=== PATIENT | female | born 1950 | race Caucasian/White ===

== ENCOUNTER → 2016-11-05 | Outpatient (CLI) | payer MEDICARE ==
[2016-11-05 17:13] LABS: ALT 51 U/L (9-52); AST 41 U/L (14-36); Alkaline Phosphatase 86 U/L (38-126); Anion Gap 11 mmol/L; Blood Urea Nitrogen 11 mg/dL (7-17); Calcium 9.8 mg/dL (8.4-10.2); Carbon Dioxide 26 mmol/L (22-30); Chloride 104 mmol/L (98-107); Cholesterol 231 mg/dL (<200); Glucose 80 mg/dL (74-99); HDL Cholesterol 108 mg/dL (40-60); Non-African American GFR(MDRD) >60 (>60 ml/min/1.73 sqM); Potassium 4.7 mmol/L (3.5-5.1); Sodium 141 mmol/L (137-145); Total Bilirubin 0.4 mg/dL (0.2-1.3); Total Protein 7.7 g/dL (6.3-8.2); Triglycerides 207 mg/dL (<150)
== END | disposition home or self-care (01) ==
LOC: LABWHC1 16:27
PROVIDERS: ATTEND Internal Medicine Clinical Cardiac Electrophysiology
DX: E78.5 Hyperlipidemia, unspecified (principal)
CPT/HCPCS: 36415; 80053; 80061

== ENCOUNTER → 2020-08-25 | Outpatient (CLI) | payer MEDICARE ==
[2020-08-25 11:44] LABS: African American GFR (CKD) >90 (>60 ml/min/1.73 sqM); Blood Urea Nitrogen 7 mg/dL (7-17); Non-African American GFR(CKD) >90 (>60 ml/min/1.73 sqM)
--- NOTE | 2020-09-01 16:24 | CT ---
EXAMINATION TYPE: CT chest w con DATE OF EXAM: 08/25/2020 COMPARISON: CT from outside institution 08/16/2019 HISTORY: R 91.1, lung nodule CT DLP: 201.9 mGycm Automated exposure control for dose reduction was used. CONTRAST: CT scan of the chest is performed with IV Contrast, patient injected with 100 mL of Isovue 300. FINDINGS: LUNGS: The lungs are essentially stable, there is groundglass nodule in the left lower lobe measuring approximately 15 mm in greatest AP dimension as on prior exam. Scattered cystic lucencies are presen t within the lungs as on prior exam. Stable subpleural nodular density present posteriorly left lowe r lobe, axial image #30 likely a scar, apical scarring posteriorly on the right, axial image #11. The re is no pleural effusion or pneumothorax seen. The tracheobronchial tree is patent. There are areas of bronchial wall thickening. Some anterior scarring in the right upper lobe or possibly atelectatic change is an interval finding, axial image #36 MEDIASTINUM: There are no greater than 1 cm hilar or mediastinal lymph nodes. Findings similar to neal or. No pericardial effusion is seen. AORTA: No additional significant abnormality is seen. OTHER: There may be right subclavian vein stenosis, collateral vascular enhancement over the upper r ight chest is noted. Low dense liver is again seen consistent with hepatic steatosis, there is a smal l hiatal hernia. IMPRESSION: No suspicious nodule is evident. Additional nonspecific findings above.
== END | disposition home or self-care (01) ==
LOC: RADCTMAIN 11:00
PROVIDERS: ATTEND Internal Medicine Critical Care Medicine
DX: R91.1 Solitary pulmonary nodule (principal); K44.9 Diaphragmatic hernia without obstruction or gangrene; J98.09 Other diseases of bronchus, not elsewhere classified
CPT/HCPCS: 82565; 84520; 71260; 36415; Q9967

== ENCOUNTER 2020-11-11 18:29 | Emergency (ER) | payer MEDICARE ==
[2020-11-11 18:45] VITALS: RESP 18; TEMP 97.8
--- NOTE | 2020-11-11 19:36 | ED ---
General Adult HPI - General Chief complaint: Fall Stated complaint: Fall Time Seen by Provider: 11/11/20 19:10 Source: patient, EMS Mode of arrival: EMS Limitations: altered mental status - History of Present Illness Initial comments: 70-year-old female with a past medical history of hyperlipidemia resents to the emergency department for a chief complaint of possible syncopal episode. Patient is a poor historian and actually does not recall any events from today. Her boyfriend is in the room and states that he stays with her at nights and then leaves during the day to go to his own house. He states that he left her at about 10:30 AM. He had not heard from her and came back to the house to find her on the floor of the garage. States he had to wake her up. Patient does admit to drinking a pint of alcohol. Patient states this [place] She again does not recall any events of the episode except that she was wearing shoes at the time.patient reports she usually drinks about half a pint a day. Patient does admit to hyperlipidemia but does not take her medication simvastatin. She denies any blood thinners including aspirin. Patient also has a 50 year smoking history. She she does have a history of a pericardial effusion but otherwise does not know if she has any other cardiac history. Patient has no other complaints at this time including shortness of breath, chest pain, abdominal pain, nausea or vomiting, headache, or visual changes. - Related Data Allergies Allergy/AdvReac Type Severity Reaction Status Date / Time No Known Allergies Allergy Verified 11/11/20 20:31 Review of Systems ROS Statement: Those systems with pertinent positive or pertinent negative responses have been documented in the HPI. ROS Other: All systems not noted in ROS Statement are negative. Past Medical History Past Medical History: Hyperlipidemia History of Any Multi-Drug Resistant Organisms: None Reported Past Surgical History: No Surgical Hx Reported Past Psychological History: Anxiety, Depression Smoking Status: Current every day smoker Past Alcohol Use History: Abuse, Heavy Past Drug Use History: None Reported General Exam Limitations: altered mental status General appearance: alert, in no apparent distress Head exam: Present: atraumatic, normocephalic, normal inspection Eye exam: Present: PERRL, EOMI, other (Patient has right-sided periorbital ecchymosis. Globe appears normal.). Absent: scleral icterus, conjunctival injection ENT exam: Present: normal exam, mucous membranes moist Neck exam: Present: other (C-collar is in place). Absent: tenderness Respiratory exam: Present: normal lung sounds bilaterally. Absent: respiratory distress, wheezes Cardiovascular Exam: Present: regular rate, normal rhythm, normal heart sounds. Absent: systolic murmur, diastolic murmur, rubs, gallop, clicks GI/Abdominal exam: Present: soft, normal bowel sounds. Absent: distended, tenderness, guarding, rebound, rigid Neurological exam: Present: alert, oriented X3 Course Vital Signs 11/11/20 18:37 Temperature 97.8 F Pulse Rate 86 Respiratory 18 Rate Blood Pressure 119/77 O2 Sat by Pulse 94 L Oximetry - Reevaluation(s) Reevaluation #1: 11/11/20 20:49 I did not receive a call that patient had a brain bleed on CAT scan from radiology. I did review the report at about 8:40 PM however it was signed at 8:23. At that time [facility] was p[facility]. I did speak with [facility] at 8:50 PM but they were unable to touch base with the neurosurgeon and stated they would call back. 11/11/20 21:15 11/11/20 21:16 Reevaluation #2: 11/11/20 21:[address] Dobbins neurosurgery at [facility]. He does want a trauma admission. Therefore I have to talk to trauma as well. Transfer line could not get ahold of them, so again they will need to call me back. EKG Findings - EKG Comments: EKG Findings:: NSR , vent rate 86, MS int 130, QTc 454 Medical Decision Making - Medical Decision Making 70-year-old female presents to the emergency room for possible fall versus syncope. Patient does present in a c-collar. No focal neurologic deficits. CBC CMP unremarkable. However patient alcohol was found to be 275. CT cervical spine showed no fracture. CT brain showed mild cervical atrophy with a small area of subtle linear density at the right parietal convexity suggestive of mild petechial hemorrhage at the surface of the brain. CT face was also obtained. No fracture. There is lateral right-sided periorbital soft tissue swelling. Patient c-collar cannot be cleared given her alcohol level. Patient will require transfer to [facility] for neurosurgery consultation. - Lab Data Result diagrams: 11/11/20 20:08 11/11/20 20:08 Lab Results 11/11/20 11/11/20 11/11/20 Range/Units 20:08 20:08 20:08 WBC 4.8 (3.8-10.6) k/uL RBC 3.50 L (3.80-5.40) m/uL Hgb 12.5 (11.4-16.0) gm/dL Hct 36.4 (34.0-46.0) % MCV 104.1 H (80.0-100.0) fL MCH 35.6 H (25.0-35.0) pg MCHC 34.2 (31.0-37.0) g/dL RDW 13.6 (11.5-15.5) % Plt Count 147 L (150-450) k/uL MPV 8.6 Neutrophils % 56 % Lymphocytes % 25 % Monocytes % 7 % Eosinophils % 6 % Basophils % 1 % Neutrophils # 2.7 (1.3-7.7) k/uL Lymphocytes # 1.2 (1.0-4.8) k/uL Monocytes # 0.3 (0-1.0) k/uL Eosinophils # 0.3 (0-0.7) k/uL Basophils # 0.1 (0-0.2) k/uL Macrocytosis Slight PT 10.2 (9.0-12.0) sec INR 0.9 (<1.2) APTT 22.6 (22.0-30.0) sec Sodium 134 L (137-145) mmol/L Potassium 3.8 (3.5-5.1) mmol/L Chloride 93 L (98-107) mmol/L Carbon Dioxide 25 (22-30) mmol/L Anion Gap 16 mmol/L BUN 7 (7-17) mg/dL Creatinine 0.44 L (0.52-1.04) mg/dL Est GFR (CKD-EPI)AfAm >90 (>60 ml/min/1.73 sqM) Est GFR (CKD-EPI)NonAf >90 (>60 ml/min/1.73 sqM) Glucose 79 (74-99) mg/dL Calcium 8.9 (8.4-10.2) mg/dL Magnesium 1.6 (1.6-2.3) mg/dL Total Bilirubin 0.6 (0.2-1.3) mg/dL AST 468 H (14-36) U/L ALT 167 H (4-34) U/L Alkaline Phosphatase 125 (38-126) U/L Creatine Kinase 109 (30-135) U/L Troponin I (0.000-0.034) ng/mL Total Protein 6.7 (6.3-8.2) g/dL Albumin 4.3 (3.5-5.0) g/dL Serum Alcohol 275 H* mg/dL 11/11/20 Range/Units 20:08 WBC (3.8-10.6) k/uL RBC (3.80-5.40) m/uL Hgb (11.4-16.0) gm/dL Hct (34.0-46.0) % MCV (80.0-100.0) fL MCH (25.0-35.0) pg MCHC (31.0-37.0) g/dL RDW (11.5-15.5) % Plt Count (150-450) k/uL MPV Neutrophils % % Lymphocytes % % Monocytes % % Eosinophils % % Basophils % % Neutrophils # (1.3-7.7) k/uL Lymphocytes # (1.0-4.8) k/uL Monocytes # (0-1.0) k/uL Eosinophils # (0-0.7) k/uL Basophils # (0-0.2) k/uL Macrocytosis PT (9.0-12.0) sec INR (<1.2) APTT (22.0-30.0) sec Sodium (137-145) mmol/L Potassium (3.5-5.1) mmol/L Chloride (98-107) mmol/L Carbon Dioxide (22-30) mmol/L Anion Gap mmol/L BUN (7-17) mg/dL Creatinine (0.52-1.04) mg/dL Est GFR (CKD-EPI)AfAm (>60 ml/min/1.73 sqM) Est GFR (CKD-EPI)NonAf (>60 ml/min/1.73 sqM) Glucose (74-99) mg/dL Calcium (8.4-10.2) mg/dL Magnesium (1.6-2.3) mg/dL Total Bilirubin (0.2-1.3) mg/dL AST (14-36) U/L ALT (4-34) U/L Alkaline Phosphatase (38-126) U/L Creatine Kinase (30-135) U/L Troponin I <0.012 (0.000-0.034) ng/mL Total Protein (6.3-8.2) g/dL Albumin (3.5-5.0) g/dL Serum Alcohol mg/dL Disposition Clinical Impression: Closed petechial hemorrhage of brain, Alcohol intoxication, Fall Disposition: OTHER INSTITUTION NOT DEFINED Referrals: None,Stated [Primary Care Provider] - 1-2 days - Out of Hospital Transfer - Req. Specs Out of Hospital Transfer - Requested Specifics: Other [facility] ([facility])
[2020-11-11 20:17] LABS: Basophils # (A) 0.1 k/uL (0-0.2); Basophils % (A) 1 %; Eosinophils # (A) 0.3 k/uL (0-0.7); Eosinophils % (A) 6 %; HCT 36.4 % (34.0-46.0); HGB 12.5 gm/dL (11.4-16.0); Lymphocytes # (A) 1.2 k/uL (1.0-4.8); Lymphocytes % (A) 25 %; MCH 35.6 pg (25.0-35.0); MCHC 34.2 g/dL (31.0-37.0); MCV 104.1 fL (80.0-100.0); Macrocytosis Slight; Mean Platelet Volume 8.6; Monocytes # (A) 0.3 k/uL (0-1.0); Monocytes % (A) 7 %; Neutrophils # (A) 2.7 k/uL (1.3-7.7); Neutrophils % (A) 56 %; Platelet Count 147 k/uL (150-450); RDW 13.6 % (11.5-15.5); WBC 4.8 k/uL (3.8-10.6)
--- NOTE | 2020-11-11 20:17 | CT ---
EXAMINATION TYPE: CT facial bones wo con DATE OF EXAM: 11/11/2020 COMPARISON: None HISTORY: fall, confusion CT DLP: combined DLP 990.3 mGycm Automated exposure control for dose reduction was used. Images obtained from the bottom of the mandible to the top of the frontal sinuses with no contrast. The mandibular ring is intact. Temporomandibular joints are intact. Zygomatic arches appear normal. M axilla appears intact. Nasal bone appears intact. There is no evidence of orbital blowout fracture. T here is mucosal thickening in the maxillary sinuses. There is no evidence of orbital mass. There is n o retro-orbital mass. There is some soft tissue swelling lateral to the right orbit. There is mucosal thickening in the anterior ethmoid and frontal sinuses. IMPRESSION: No fracture. Lateral right side periorbital soft tissue swelling. Mild sinusitis.
[2020-11-11 20:28] LABS: ALT 167 U/L (4-34); AST 468 U/L (14-36); African American GFR (CKD) >90 (>60 ml/min/1.73 sqM); Albumin 4.3 g/dL (3.5-5.0); Alkaline Phosphatase 125 U/L (38-126); Anion Gap 16 mmol/L; Blood Urea Nitrogen 7 mg/dL (7-17); Calcium 8.9 mg/dL (8.4-10.2); Carbon Dioxide 25 mmol/L (22-30); Chloride 93 mmol/L (98-107); Creatine Kinase 109 U/L (30-135); Glucose 79 mg/dL (74-99); Magnesium 1.6 mg/dL (1.6-2.3); Non-African American GFR(CKD) >90 (>60 ml/min/1.73 sqM); Potassium 3.8 mmol/L (3.5-5.1); Sodium 134 mmol/L (137-145); Total Bilirubin 0.6 mg/dL (0.2-1.3); Total Protein 6.7 g/dL (6.3-8.2)
[2020-11-11 20:29] LABS: INR 0.9 (<1.2); Partial Thromboplastin Time 22.6 sec (22.0-30.0); Prothrombin Time 10.2 sec (9.0-12.0)
--- NOTE | 2020-11-11 20:30 | CT ---
EXAMINATION TYPE: CT brain cspine wo con DATE OF EXAM: 11/11/2020 COMPARISON: None HISTORY: fall, confusion CT DLP: combined DLP 990.3 mGycm Automated exposure control for dose reduction was used. There is mild cerebral atrophy. There is no mass effect nor midline shift. There is some minimal line ar density in the right parietal lobe convexity that could be some petechial hemorrhage. The calvariu m is intact. Skull base is intact. There is normal aeration of the mastoid sinuses. The cervical vertebra have normal alignment. There is degenerative disc space narrowing at C5-6 and C 6-7 with spurring of the endplates. There is multilevel cervical facet arthropathy. Prevertebral soft tissues are intact. IMPRESSION: Spondylotic changes in the lower cervical spine. No fracture. Mild cerebral atrophy. Small area of subtle linear density at the right parietal convexity suggestive of some mild petechial hemorrhage at the surface of the brain.
[2020-11-11] MEDS ORDERED: LORazepam 2 MG/ML INJ IV STA (20:47)
[2020-11-11] MEDS ORDERED: NICOTINE 21MG/24HR PATCH TRANSDERM STA (20:47)
--- NOTE | 2020-11-11 21:13 | XR ---
EXAMINATION TYPE: XR chest 2V DATE OF EXAM: 11/11/2020 COMPARISON: 09/03/2011 HISTORY: Syncope TECHNIQUE: FINDINGS: Heart is normal. Lungs are clear of infiltrate. There is no heart failure. There are no hil ar masses. Bony thorax is intact. There are chest leads. IMPRESSION: No active cardiopulmonary disease. Normal heart. No change.
--- NOTE | 2020-11-11 21:14 | XR ---
EXAMINATION TYPE: XR shoulder complete RT DATE OF EXAM: 11/11/2020 COMPARISON: NONE HISTORY: Fall. Syncope. TECHNIQUE: 3 views FINDINGS: I see no fracture nor dislocation. Joint spaces are normal. There are no pathologic calcifi cations. IMPRESSION: Negative right shoulder exam.
[2020-11-11 21:19] LABS: Appearance,Urine Clear (Clear); Bacteria,Urine Rare /hpf; Bilirubin,Urine Negative (Negative); Blood,Urine Trace (Negative); Color,Urine Yellow; Glucose,Urine (UA) Negative (Negative); Ketones,Urine Trace (Negative); Leukocyte Esterase,Urine Negative (Negative); Nitrite,Urine Negative (Negative); Protein,Urine Negative (Negative); RBC,Urine <1 /hpf (0-5); Specific Gravity,Urine 1.003 (1.001-1.035); Squamous Epithelial Cell,Urine 2 /hpf (0-4); Urobilinogen,Urine <2.0 mg/dL (<2.0); WBC,Urine 1 /hpf (0-5)
[2020-11-11 21:36] VITALS: BP 131/84; PULSE 94
[2020-11-11 22:38] LABS: Alcohol 275 mg/dL
== END 2020-11-11 21:45 | disposition other institution (70) ==
LOC: EC 18:29
DX: S06.2X9A Diffuse traumatic brain injury with loss of consciousness of unspecified duration, initial encounter (principal); F10.129 Alcohol abuse with intoxication, unspecified; E78.5 Hyperlipidemia, unspecified; F17.200 Nicotine dependence, unspecified, uncomplicated; Y90.8 Blood alcohol level of 240 mg/100 ml or more; W18.39XA Other fall on same level, initial encounter; Y92.59 Other trade areas as the place of occurrence of the external cause
CPT/HCPCS: 36415; 93005; 80053; 82550; 83735; 84484; 85025; 85610; 85730; 81001; 73030; 71046; 72125; 70486; 70450; 96374; 99285; G0480; S4990; J2060; 80320

== ENCOUNTER → 2021-03-11 | Outpatient (CLI) | payer MEDICARE ==
--- NOTE | 2021-03-11 11:31 | XR ---
EXAMINATION TYPE: XR chest w obliques DATE OF EXAM: 03/11/2021 COMPARISON: 11/11/2020 HISTORY: 70-year-old female R05 TECHNIQUE: 4 views FINDINGS: The heart is normal size. Mild peribronchial cuffing. Mild hyperinflation and mild interstitial promi nence. There is a possible right basilar pulmonary nodule seen on the AP and right oblique views. No consoli dation or pleural effusion. Moderate degenerative disc disease midthoracic spine. IMPRESSION: COPD with possible right basilar pulmonary nodule. A repeat CT chest can assess for any changes prabha red to the 08/25/2020 CT.
== END | disposition home or self-care (01) ==
LOC: RADXRMAIN 08:43
PROVIDERS: ATTEND Otolaryngology
DX: J44.9 Chronic obstructive pulmonary disease, unspecified (principal)
CPT/HCPCS: 71047

== ENCOUNTER → 2021-04-13 | Outpatient (CLI) | payer MEDICARE ==
[2021-04-13 13:37] LABS: African American GFR (CKD) >90 (>60 ml/min/1.73 sqM); Blood Urea Nitrogen 10 mg/dL (7-17); Non-African American GFR(CKD) >90 (>60 ml/min/1.73 sqM)
--- NOTE | 2021-04-13 15:17 | CT ---
EXAMINATION TYPE: CT chest wo/w con DATE OF EXAM: 04/13/2021 COMPARISON: 08/25/2020 HISTORY: 70 year old R91.1 follow up pulmonary nodule TECHNIQUE: Contiguous axial scanning of the chest before and after the administration of 100 mL of Is ovue 300. Coronal/sagittal reconstructions performed. CT DLP: 339.9mGycm. Automatic exposure control utilized for a dose reduction. FINDINGS: The heart is normal size without pericardial effusion. LAD and circumflex coronary calcifications are present. Aorta normal caliber with conventional arch vessel branching anatomy. Not enlarged lower right paratracheal lymph nodes measuring up to 6 mm. Stable 1.5 cm right hilar lym ph node. A 1.5 x 0.8 cm right bronchial lymph node, axial image 35 previously measured 2.0 x 1.7 cm. No enlarg ing adenopathy is seen. Mild emphysematous change. A 1.1 x 0.5 cm posterior right upper lobe pulmonary nodule is unchanged. 1.5 cm groundglass focus superior segment left lower lobe on axial image 23 is unchanged. No consolidation or pleural effusion. Small hernia. Circumferential wall thickening distal esophagus. Low attenuation of the hepatic parenc hyma suggesting fatty infiltration. 1.6 cm left upper pole renal cortical cyst. The anterior splenule . Some diverticular change along the left side of the colon. Bones: Mild/moderate degenerative disc disease mid thoracic spine and also L2-L3. No osseous destruct franky process. Additional cervical spondylosis noted. IMPRESSION: 1. COPD with mild emphysema. 2. Right bronchial soft tissue measuring 1.5 x 0.8 cm (versus 2.0 x 1.7 cm on 08/25/2020). Findings sug gest a reactive lymph node. 3. Stable 1.1 cm posterior right upper lobe pulmonary nodule and stable 1.5 cm groundglass focus supe rior segment left lower lobe. Recommend either twelve-month follow-up as a precautionary measure vers us continued annual low-dose lung cancer screening CT. 4. Small hiatal hernia. There is circumferential wall thickening of the distal esophagus that could r epresent esophagitis. Correlate with patient's symptoms as to the need for direct visualization. 5. Hepatic steatosis.
== END | disposition home or self-care (01) ==
LOC: RADCTMAIN 12:51
PROVIDERS: ATTEND Otolaryngology
DX: J43.9 Emphysema, unspecified (principal); R91.1 Solitary pulmonary nodule; K44.9 Diaphragmatic hernia without obstruction or gangrene; K76.0 Fatty (change of) liver, not elsewhere classified
CPT/HCPCS: 82565; 84520; 71270; 36415; Q9967

== ENCOUNTER → 2021-10-30 | Outpatient (CLI) | payer MEDICARE | END | disposition home or self-care (01) | LOC: LABWHC1 10:22 | PROVIDERS: ATTEND Internal Medicine Gastroenterology | DX: R13.10 Dysphagia, unspecified (principal) | CPT/HCPCS: 36415; 82105 ==

== ENCOUNTER 2021-11-02 08:21 | Emergency (ER) | payer MEDICARE ==
[2021-11-02 08:28] VITALS: RESP 18
[2021-11-02] MEDS ORDERED: SODIUM CHLORIDE 0.9% 1,000 ML IV ONE (08:49)
[2021-11-02 09:21] LABS: ALT 26 U/L (4-34); AST 34 U/L (14-36); African American GFR (CKD) >90 (>60 ml/min/1.73 sqM); Albumin 3.7 g/dL (3.5-5.0); Alcohol <10 mg/dL; Alkaline Phosphatase 67 U/L (38-126); Anion Gap 6 mmol/L; Blood Urea Nitrogen 7 mg/dL (7-17); Calcium 8.9 mg/dL (8.4-10.2); Carbon Dioxide 29 mmol/L (22-30); Chloride 96 mmol/L (98-107); Glucose 106 mg/dL (74-99); Non-African American GFR(CKD) >90 (>60 ml/min/1.73 sqM); Potassium 4.8 mmol/L (3.5-5.1); Sodium 131 mmol/L (137-145); Total Bilirubin 0.4 mg/dL (0.2-1.3); Total Protein 6.3 g/dL (6.3-8.2)
--- NOTE | 2021-11-02 09:23 | XR ---
EXAMINATION TYPE: XR chest 2V DATE OF EXAM: 11/02/2021 9:15 AM COMPARISON: CT chest 04/13/2021, chest radiograph 03/11/2021. TECHNIQUE: XR chest 2V . CLINICAL INDICATION:Female, 71 years old with history of Weakness; FINDINGS: Lungs/Pleura: There is no evidence of pleural effusion, focal consolidation, or pneumothorax. Hyperi nflation with flattening of the diaphragms. Pulmonary vascularity: Unremarkable. Heart/mediastinum: Cardiomediastinal silhouette is unremarkable. Musculoskeletal: No acute osseous pathology. IMPRESSION: No acute cardiopulmonary disease/process. COPD changes.
--- NOTE | 2021-11-02 09:45 | ED ---
Weakness HPI - General Chief complaint: Weakness Stated complaint: Tremors/not feeling well Time Seen by Provider: 11/02/21 08:32 Source: patient, RN notes reviewed Mode of arrival: ambulatory Limitations: no limitations - History of Present Illness Initial comments: This a 71-year-old female presents emergency Department chief complaint of denies is not feeling well. Patient states her last month or longer she's been losing weight states that she has not felt well. She does not that she is a former alcoholic did have recent relapse. Patient states that she is not currently drinking. Patient is scheduled for an EGD and has been told that she liver cirrhosis by her case supervisor. 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 Patient denies any melanotic stools. She does not that she's had watery diarrhea but has not had any recent antibiotics no dysuria no hematuria denies known fever, chills no chest pain. She has admit that she occasionally has some reflux, coughing episodes. She denies any chest pain no headache no dizziness no focal weakness. - Related Data Allergies Allergy/AdvReac Type Severity Reaction Status Date / Time No Known Allergies Allergy Verified 11/02/21 08:28 Review of Systems ROS Statement: Those systems with pertinent positive or pertinent negative responses have been documented in the HPI. ROS Other: All systems not noted in ROS Statement are negative. Past Medical History Past Medical History: GERD/Reflux, Hyperlipidemia History of Any Multi-Drug Resistant Organisms: None Reported Past Surgical History: No Surgical Hx Reported Past Psychological History: Anxiety, Depression Smoking Status: Current every day smoker Past Alcohol Use History: Abuse, Heavy Past Drug Use History: None Reported General Exam Limitations: no limitations General appearance: alert, in no apparent distress Head exam: Present: atraumatic, normocephalic, normal inspection Eye exam: Present: normal appearance, PERRL, EOMI. Absent: scleral icterus, conjunctival injection, periorbital swelling ENT exam: Present: normal exam, normal oropharynx, mucous membranes moist Neck exam: Present: normal inspection, full ROM. Absent: tenderness, meningismus, lymphadenopathy Respiratory exam: Present: normal lung sounds bilaterally. Absent: respiratory distress, wheezes, rales, rhonchi, stridor Cardiovascular Exam: Present: regular rate, normal rhythm, normal heart sounds. Absent: systolic murmur, diastolic murmur, rubs, gallop, clicks GI/Abdominal exam: Present: soft, normal bowel sounds. Absent: distended, tenderness, guarding, rebound, rigid Back exam: Absent: CVA tenderness (R), CVA tenderness (L) Neurological exam: Present: alert, oriented X3 Skin exam: Present: warm, dry, intact, normal color. 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 Patient is scheduled for follow-up with GI including EGD. Patient has weight loss most likely from chronic disease, liver cirrhosis, alcoholism. Patient did have [address] shows some fluid in the cul-de-sac may be related to occasional ascites and swelling patient has from her liver disease. Patient will be discharged that she has no specific findings vitals are stable. - Lab Data Result diagrams: 11/02/21 08:54 11/02/21 08:54 Lab Results 11/02/21 11/02/21 11/02/21 Range/Units 08:54 08:54 08:54 WBC 7.7 (3.8-10.6) k/uL RBC 3.78 L (3.80-5.40) m/uL Hgb 12.6 (11.4-16.0) gm/dL Hct 36.3 (34.0-46.0) % MCV 96.1 (80.0-100.0) fL MCH 33.3 (25.0-35.0) pg MCHC 34.7 (31.0-37.0) g/dL RDW 14.5 (11.5-15.5) % Plt Count 148 L (150-450) k/uL MPV 10.6 Neutrophils % 72 % Lymphocytes % 17 % Monocytes % 6 % Eosinophils % 2 % Basophils % 1 % Neutrophils # 5.5 (1.3-7.7) k/uL Lymphocytes # 1.3 (1.0-4.8) k/uL Monocytes # 0.5 (0-1.0) k/uL Eosinophils # 0.2 (0-0.7) k/uL Basophils # 0.1 (0-0.2) k/uL PT 10.0 (9.0-12.0) sec INR 0.9 (<1.2) APTT 21.4 L (22.0-30.0) sec Sodium (137-145) mmol/L Potassium (3.5-5.1) mmol/L Chloride (98-107) mmol/L Carbon Dioxide (22-30) mmol/L Anion Gap mmol/L BUN (7-17) mg/dL Creatinine (0.52-1.04) mg/dL Est GFR (CKD-EPI)AfAm (>60 ml/min/1.73 sqM) Est GFR (CKD-EPI)NonAf (>60 ml/min/1.73 sqM) Glucose (74-99) mg/dL Plasma Lactic Acid [place] (0.7-2.0) mmol/L Calcium (8.4-10.2) mg/dL Magnesium (1.6-2.3) mg/dL Total Bilirubin (0.2-1.3) mg/dL AST (14-36) U/L ALT (4-34) U/L Alkaline Phosphatase (38-126) U/L Troponin I (0.000-0.034) ng/mL Total Protein (6.3-8.2) g/dL Albumin (3.5-5.0) g/dL Urine Color Light Yellow Urine Appearance Clear (Clear) Urine pH 7.5 (5.0-8.0) Ur Specific [place] 1.009 (1.001-1.035) Urine Protein Negative (Negative) Urine Glucose (UA) Negative (Negative) Urine Ketones Negative (Negative) Urine Blood Negative (Negative) Urine Nitrite Negative (Negative) Urine Bilirubin Negative (Negative) Urine Urobilinogen <2.0 (<2.0) mg/dL Ur Leukocyte Esterase Negative (Negative) Serum Alcohol mg/dL 11/02/21 11/02/21 11/02/21 Range/Units 08:54 08:54 08:54 WBC (3.8-10.6) k/uL RBC (3.80-5.40) m/uL Hgb (11.4-16.0) gm/dL Hct (34.0-46.0) % MCV (80.0-100.0) fL MCH (25.0-35.0) pg MCHC (31.0-37.0) g/dL RDW (11.5-15.5) % Plt Count (150-450) k/uL MPV Neutrophils % % Lymphocytes % % Monocytes % % Eosinophils % % Basophils % % Neutrophils # (1.3-7.7) k/uL Lymphocytes # (1.0-4.8) k/uL Monocytes # (0-1.0) k/uL Eosinophils # (0-0.7) k/uL Basophils # (0-0.2) k/uL PT (9.0-12.0) sec INR (<1.2) APTT (22.0-30.0) sec Sodium 131 L (137-145) mmol/L Potassium 4.8 (3.5-5.1) mmol/L Chloride 96 L (98-107) mmol/L Carbon Dioxide 29 (22-30) mmol/L Anion Gap 6 mmol/L BUN 7 (7-17) mg/dL Creatinine 0.42 L (0.52-1.04) mg/dL Est GFR (CKD-EPI)AfAm >90 (>60 ml/min/1.73 sqM) Est GFR (CKD-EPI)NonAf >90 (>60 ml/min/1.73 sqM) Glucose 106 H (74-99) mg/dL Plasma Lactic Acid [place] 1.1 (0.7-2.0) mmol/L Calcium 8.9 (8.4-10.2) mg/dL Magnesium 2.0 (1.6-2.3) mg/dL Total Bilirubin 0.4 (0.2-1.3) mg/dL AST 34 (14-36) U/L ALT 26 (4-34) U/L Alkaline Phosphatase 67 (38-126) U/L Troponin I <0.012 (0.000-0.034) ng/mL Total Protein 6.3 (6.3-8.2) g/dL Albumin 3.7 (3.5-5.0) g/dL Urine Color Urine Appearance (Clear) Urine pH (5.0-8.0) Ur Specific [place] (1.001-1.035) Urine Protein (Negative) Urine Glucose (UA) (Negative) Urine Ketones (Negative) Urine Blood (Negative) Urine Nitrite (Negative) Urine Bilirubin (Negative) Urine Urobilinogen (<2.0) mg/dL Ur Leukocyte Esterase (Negative) Serum Alcohol <10 mg/dL Disposition Clinical Impression: Weight loss, Weakness, Liver cirrhosis Disposition: HOME SELF-CARE Condition: Stable Instructions (If sedation given, give patient instructions): Weakness (ED) Additional Instructions: Please follow up with her GI physician as directed.Please return to the Emergency Department if symptoms worsen or any other concerns. Is patient prescribed a controlled substance at d/c from ED?: No Referrals: Gail Davis MD [Primary Care Provider] - 1-2 days Time of Disposition: 11:05
[2021-11-02 09:59] LABS: INR 0.9 (<1.2)
[2021-11-02 10:00] LABS: Appearance,Urine Clear (Clear); Basophils # (A) 0.1 k/uL (0-0.2); Basophils % (A) 1 %; Bilirubin,Urine Negative (Negative); Blood,Urine Negative (Negative); Color,Urine Light Yellow; Eosinophils # (A) 0.2 k/uL (0-0.7); Eosinophils % (A) 2 %; Glucose,Urine (UA) Negative (Negative); HCT 36.3 % (34.0-46.0); HGB 12.6 gm/dL (11.4-16.0); Ketones,Urine Negative (Negative); Leukocyte Esterase,Urine Negative (Negative); Lymphocytes # (A) 1.3 k/uL (1.0-4.8); Lymphocytes % (A) 17 %; MCH 33.3 pg (25.0-35.0); MCHC 34.7 g/dL (31.0-37.0); MCV 96.1 fL (80.0-100.0); Mean Platelet Volume 10.6; Monocytes # (A) 0.5 k/uL (0-1.0); Monocytes % (A) 6 %; Neutrophils # (A) 5.5 k/uL (1.3-7.7); Neutrophils % (A) 72 %; Nitrite,Urine Negative (Negative); PH, Urine 7.5 (5.0-8.0); Platelet Count 148 k/uL (150-450); Protein,Urine Negative (Negative); RBC 3.78 m/uL (3.80-5.40); RDW 14.5 % (11.5-15.5); Specific Gravity,Urine 1.009 (1.001-1.035); Urobilinogen,Urine <2.0 mg/dL (<2.0); WBC 7.7 k/uL (3.8-10.6)
[2021-11-02 10:07] LABS: Partial Thromboplastin Time 21.4 sec (22.0-30.0)
--- NOTE | 2021-11-02 10:59 | CT ---
EXAMINATION TYPE: CT abdomen pelvis w con DATE OF EXAM: 11/02/2021 HISTORY: Pain, Weight loss CT DLP: 586.4mGycm Automated Exposure Control for Dose Reduction was Utilized. CONTRAST: CT scan of the abdomen and pelvis is performed without oral but with IV Contrast, patient injected wi th 100 ml mL of Isovue 300. COMPARISON: Prior CT August 19, 2010 FINDINGS: LUNG BASES: Mild bibasilar linear scarring and/or atelectasis redemonstrated. LIVER/GB: Subcentimeter hypodense lesion right hepatic lobe axial image 12 is too small to further ch aracterize. No abnormal biliary dilatation. PANCREAS: No significant abnormality is seen. SPLEEN: No significant abnormality is seen. ADRENALS: No significant abnormality is seen. KIDNEYS: Symmetric corticomedullary uptake and excretion without hydronephrosis seen bilaterally. A f ew small simple appearing thin-walled cysts are scattered throughout the left kidney. Right kidney gardiner s persistent anterior heterogeneous mass containing fat and soft tissue density consistent with angio myolipoma measuring 3.1 x 2.5 x 2.5 cm axial image 38 and coronal image 38. It is slightly increased in size from prior. Exophytic subcentimeter slightly hyperdense focus anterior lower pole right kidne y axial image 44 is too small to further characterize. BOWEL: Suboptimal evaluation of bowel without enteric contrast. No suspicious small or large bowel di latation is seen. Normal-appearing appendix from cecum right pelvis. UTERUS/ADNEXA: Retroverted uterus with posterior fundal calcifications or calcified fibroid. Small to moderate amount of free fluid in pelvic cul-de-sac noted. No adnexal masses. LYMPH NODES: No greater than 1cm abdominal or pelvic lymph nodes are appreciated. OSSEOUS STRUCTURES: Scoliotic curvature with moderate to severe disc space narrowing and spurring wit h endplate sclerosis level L2-L3 and right L5 or L5 levels. Spine is straightened with multilevel spo ndylolisthesis on sagittal images. OTHER: Mild calcified plaque of the aorta extends into branch vessels. IMPRESSION: No suspicious mass or adenopathy to account for patient's symptoms of pain and weight los s. Small to moderate amount of free fluid in pelvic cul-de-sac is abnormal finding in postmenopausal female, etiology uncertain. 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
[2021-11-02 11:31] VITALS: BP 137/73; PULSE 61; TEMP 98.5
== END 2021-11-02 11:31 | disposition home or self-care (01) ==
LOC: EC 08:21
DX: R53.1 Weakness (principal); K74.60 Unspecified cirrhosis of liver; E78.5 Hyperlipidemia, unspecified; Z79.83 Long term (current) use of bisphosphonates; F17.200 Nicotine dependence, unspecified, uncomplicated
CPT/HCPCS: 36415; 80053; 83605; 83735; 84484; 85025; 85610; 85730; 81003; 71046; 74177; 99285; 96360; 96361; G0480; Q9967; 80320

== ENCOUNTER → 2021-11-16 | Outpatient (CLI) | payer MEDICARE ==
--- NOTE | 2021-11-16 13:06 | US ---
EXAMINATION TYPE: US abdomen complete DATE OF EXAM: 11/16/2021 COMPARISON: NONE CLINICAL HISTORY: R13.10 DYSPHAGIA OR ODYNOPHAGIA. weight loss. bloating. constipation. abdominal vanessa n EXAM MEASUREMENTS: Liver Length: 14.4 cm Gallbladder Wall: 0.2 cm CBD: 0.5 cm Spleen: 10.5 cm Right Kidney: 11.1 x 4.1 x 4.5 cm Left Kidney: 10.8 x 5.1 x 5.0 cm Pancreas: Tail obscured by overlying bowel gas Liver: appears wnl Gallbladder: no evidence of stones Evidence for sonographic Montano's sign: no CBD: wnl Spleen: wnl Right Kidney: hyperechoic heterogenous solid area = 2.3 x 2.3cm. This appears to correspond to the f indings on the CT examination although appear more solid on the current exam. Consider MRI for additi onal characterization. Left Kidney: cystic area upper pole = 1.7 x 1.7cm appears to have a septation. Upper IVC: wnl Abd Aorta: wnl IMPRESSION: 1. Complex septated cyst superior pole left kidney. Follow-up is recommended. 2. Hyperechoic area within the inferior pole right kidney. This appears better visualized than CT exa mination. MRI could be performed for additional characterization.
== END | disposition home or self-care (01) ==
LOC: RADUSWWP 09:28
PROVIDERS: ATTEND Internal Medicine Gastroenterology
DX: N28.1 Cyst of kidney, acquired (principal); N28.89 Other specified disorders of kidney and ureter
CPT/HCPCS: 76700

== ENCOUNTER 2021-11-30 12:05 | Day surgery (SDC) | payer MEDICARE ==
[2021-11-26 12:52] VITALS: BMI 19.8
[~2021-11-30 12:05] MED LIST: SODIUM CHLORIDE 0.9% 1,000 ML IV SCH
[2021-11-30] MEDS ORDERED: SODIUM CHLORIDE 0.9% 500 ML 500 ML IV ONE (13:20)
[2021-11-30 13:48] VITALS: BP 108/69; PULSE 68; RESP 16; TEMP 97.7
--- NOTE | 2021-11-30 15:36 | P.EPPROC ---
- EP Procedure Note Electrophysiology Procedure Note: Tilt table test Indication Recurrent presyncope Twelve-lead EKG shows sinus rhythm normal VT narrow QRS normal ST segments Normal QT interval no delta waves no epsilon waves normal QT interval no ST segment abnormalities no J waves Tilt table test protocol Baseline blood pressure 103/59 mmHg, heart rate 70 beats a minute Patient was tilted upright at an angle of 70 per protocol There was no symptom change in her heart rate and blood pressure No symptoms noted The end of the procedure she was laid supine Impression Normal. EKG Normal heart rate and blood pressure response to upright tilting
== END 2021-11-30 14:44 | disposition home or self-care (01) ==
LOC: CATHEP 12:05
PROVIDERS: ATTEND Internal Medicine Clinical Cardiac Electrophysiology
DX: R55 Syncope and collapse (principal); I65.23 Occlusion and stenosis of bilateral carotid arteries; G90.1 Familial dysautonomia [Riley-Day]; I07.1 Rheumatic tricuspid insufficiency; F41.9 Anxiety disorder, unspecified; F17.210 Nicotine dependence, cigarettes, uncomplicated; Z79.899 Other long term (current) drug therapy; Z80.9 Family history of malignant neoplasm, unspecified
CPT/HCPCS: 87635; 93660

== ENCOUNTER 2023-03-17 13:23 | Inpatient (IN) | payer MEDICARE ==
[2023-03-17] MEDS ORDERED: LORazepam 2 MG/ML INJ IV STA (13:43)
--- NOTE | 2023-03-17 13:46 | ED ---
General Adult HPI - General Chief complaint: Weakness Stated complaint: weakness Time Seen by Provider: 03/17/23 13:28 Source: EMS Mode of arrival: EMS Limitations: physical limitation - History of Present Illness Initial comments: Dictation was produced using [employer] dictation software. please excuse any grammatical, word or spelling errors. Chief Complaint: 72-year-old female presents to the emergency department for altered mental status History of Present Illness: Patient is a 72-year-old female she has unknown comorbidities. EMS was called for altered mental status. Initial report was altered mental status with concern of CVA however EMS reports that they're familiar with patient says she is alcoholic and very tremulous and diaphoretic. She did have a positive breath alcohol test per EMS. The ROS documented in this emergency department record has been reviewed and confirmed by me. Those systems with pertinent positive or negative responses have been documented in the HPI. All other systems are other negative and/or noncontributory. - Related Data Home Medications Medication Instructions Recorded Confirmed Pravastatin Sodium [Pravachol] 20 mg PO DAILY 11/26/21 11/30/21 Docusate [Colace] 100 mg PO BID 03/17/23 03/17/23 Omeprazole [PriLOSEC] 20 mg PO AC-BID 03/17/23 03/17/23 polyethylene glycoL 3350 [Miralax] 17 gm PO DAILY PRN 03/17/23 03/17/23 Allergies Allergy/AdvReac Type Severity Reaction Status Date / Time No Known Allergies Allergy Verified 03/17/23 14:49 Review of Systems ROS Statement: Those systems with pertinent positive or pertinent negative responses have been documented in the HPI. ROS Other: All systems not noted in ROS Statement are negative. Past Medical History Past Medical History: GERD/Reflux, Hyperlipidemia History of Any Multi-Drug Resistant Organisms: None Reported Past Surgical History: No Surgical Hx Reported Past Psychological History: Anxiety, Depression Smoking Status: Current every day smoker Past Alcohol Use History: Abuse, Heavy General Exam - General Exam Comments Initial Comments: PHYSICAL EXAM: General Impression: Alert and oriented x2/4, tremulous, diaphoretic, confused HEENT: Normocephalic atraumatic, extra-ocular movements intact, pupils equal and reactive to light bilaterally, Membranes Cardiovascular: Heart regular rate and rhythm Chest: Able to complete full sentences, no retractions, no tachypnea Abdomen: abdomen soft, non-tender, non-distended, no organomegaly Musculoskeletal: Pulses present and equal in all extremities, no peripheral edema Motor: no focal deficits noted Neurological: CN II-XII grossly intact, no focal motor or sensory deficits noted Skin: Intact with no visualized rashes Psych: Normal affect and mood Limitations: physical limitation Course Vital Signs 03/17/23 03/17/23 03/17/23 13:32 13:56 14:48 Temperature 98.4 F Pulse Rate 102 H Respiratory 18 20 20 Rate Blood Pressure 160/93 O2 Sat by Pulse 95 Oximetry Medical Decision Making - Medical Decision Making Was pt. sent in by a medical professional or institution (, PA, CORE RESCUER, urgent care, hospital, or group home...) When possible be specific @ -No Did you speak to anyone other than the patient for history (EMS, parent, family, police, friend...)? What history was obtained from this source @ -EMS states the patient is a known alcoholic Did you review nursing and triage notes (agree or disagree)? Why? @ -I reviewed and agree with nursing and triage notes Were old charts reviewed (outside hosp., previous admission, EMS record, old EKG, old radiological studies, urgent care reports/EKG's, group home records)? Report findings @ -No old charts were reviewed Differential Diagnosis (chest pain, altered mental status, abdominal pain women, abdominal pain men, vaginal bleeding, musculoskeletal, weakness, fever, dysp alicja, syncope, headache, dizziness, GI bleed, back pain, seizure, CVA, palpatations, mental health)? @ -Differential Altered Mental Status: Hypoglycemia, DKA, hypercapnia, ETOH, overdose, CO poisoning, trauma, myxedema coma, HTN encephalopathy, infection, encephalitis, psychosis, intercranial hemorrhage, hepatic encephalopathy, meningitis, CVA, this is not meant to be an all-inclusive list EKG interpreted by me (3pts min.). @ -My EKG interpretation: Ventricular rate 94, sinus rhythm,. 140, QRS 70, QTC 49. No [place] prolongation, no QTC prolongation, no ST or T-wave changes noted. Overall, this EKG is unremarkable X-rays interpreted by me (1pt min.). @ -None done CT interpreted by me (1pt min.). @ -None done U/S interpreted by me (1pt. min.). @ -None done What testing was considered but not performed or refused? (CT, X-rays, U/S, labs)? Why? @ -None What meds were considered but not given or refused? Why? @ -None Did you discuss the management of the patient with other professionals (professionals i.e. , PA, CORE RESCUER, lab, RT, psych nurse, social work instructor, concrete mixing truck driver, teacher, senior grants officer, family independence case manager)? Give summary @ -Patient case discussed with hospitalist for admission Was smoking cessation discussed for >3mins.? @ -No Was critical care preformed (if so, how long)? @ -No Were there social determinants of health that impacted care today? How? (Homelessness, low income, unemployed, alcoholism, drug addiction, transportation, low edu. Level, literacy, decrease access to med. care, assisted, rehab)? @ -No Was there de-escalation of care discussed even if they declined (Discuss DNR or withdrawal of care, Hospice)? DNR status @ -No What co-morbidities impacted this encounter? (DM, HTN, Smoking, COPD, CAD, Cancer, CVA, ARF, Chemo, Hep., AIDS, mental health diagnosis, sleep apnea, morbid obesity)? @ -History of alcohol use Was patient admitted / discharged? Hospital course, mention meds given and route, prescriptions, significant lab abnormalities, going to OR and other pertinent info. @ -72 y Old female presents emergency Department with altered mental status. According to EMS patient is a known alcoholic. Vital signs upon arrival shows tachycardia 102, rest of vital signs within acceptable limits. Patient is ill- appearing with diaphoresis and tremors. She adamantly denies alcohol use however she has alcohol level 15. It is unclear when 1 patient's last alcohol intake is because she is showing signs of alcoholic encephalopathy. Metabolic panel shows likely acidosis of 3.8, glucose 155, elevated liver enzymes. Patient treated with Ativan. Symptoms are mildly improved. Nonetheless patient showing signs of severe alcohol withdrawal with presumed one to 2 days of last alcohol intake. Patient will be admitted for further care. Admitted to [facility]. Undiagnosed new problem with uncertain prognosis? @ -No Drug Therapy requiring intensive monitoring for toxicity (Heparin, Nitro, Insulin, Cardizem)? @ -No Were any procedures done? @ -No Diagnosis/symptom? Acute, or Chronic, or Acute on Chronic? Uncomplicated (without systemic symptoms) or Complicated (systemic symptoms)? @ -EtOH withdrawal Side effects of treatment? @ -No Exacerbation, Progression, or Severe Exacerbation? @ -No Poses a threat to life or bodily function? How? (Chest pain, USA, IA, pneumonia, PE, COPD, DKA, ARF, appy, cholecystitis, CVA, Diverticulitis, Homicidal, Suicidal, threat to staff... and all critical care pts) @ -yes - Lab Data Result diagrams: 03/17/23 14:00 03/17/23 14:00 Lab Results 03/17/23 03/17/23 03/17/23 Range/Units 14:00 14:00 14:00 WBC 3.7 L (3.8-10.6) k/uL RBC 3.99 (3.80-5.40) m/uL Hgb 11.3 L (11.4-16.0) gm/dL Hct 33.6 L (34.0-46.0) % MCV 84.2 (80.0-100.0) fL MCH 28.3 (25.0-35.0) pg MCHC 33.7 (31.0-37.0) g/dL RDW 17.4 H (11.5-15.5) % MPV 8.3 Anisocytosis Slight Sodium 138 (137-145) mmol/L Potassium 4.2 (3.5-5.1) mmol/L Chloride 99 (98-107) mmol/L Carbon Dioxide 20 L (22-30) mmol/L Anion Gap 19 mmol/L BUN 14 (7-17) mg/dL Creatinine 0.42 L (0.52-1.04) mg/dL Est GFR (CKD-EPI)AfAm >90 (>60 ml/min/1.73 sqM) Est GFR (CKD-EPI)NonAf >90 (>60 ml/min/1.73 sqM) Glucose 155 H (74-99) mg/dL Plasma Lactic Acid Lincoln 3.8 H* (0.7-2.0) mmol/L Calcium 9.4 (8.4-10.2) mg/dL Magnesium 1.0 L (1.6-2.3) mg/dL Total Bilirubin 0.9 (0.2-1.3) mg/dL AST 101 H (14-36) U/L ALT 35 H (4-34) U/L Alkaline Phosphatase 93 (38-126) U/L Ammonia <9 (<30) umol/L Troponin I (0.000-0.034) ng/mL Total Protein 8.4 H (6.3-8.2) g/dL Albumin 4.8 (3.5-5.0) g/dL Lipase 239 (23-300) U/L Serum Alcohol 15 mg/dL 03/17/23 Range/Units 14:00 WBC (3.8-10.6) k/uL RBC (3.80-5.40) m/uL Hgb (11.4-16.0) gm/dL Hct (34.0-46.0) % MCV (80.0-100.0) fL MCH (25.0-35.0) pg MCHC (31.0-37.0) g/dL RDW (11.5-15.5) % MPV Anisocytosis Sodium (137-145) mmol/L Potassium (3.5-5.1) mmol/L Chloride (98-107) mmol/L Carbon Dioxide (22-30) mmol/L Anion Gap mmol/L BUN (7-17) mg/dL Creatinine (0.52-1.04) mg/dL Est GFR (CKD-EPI)AfAm (>60 ml/min/1.73 sqM) Est GFR (CKD-EPI)NonAf (>60 ml/min/1.73 sqM) Glucose (74-99) mg/dL Plasma Lactic Acid Lincoln (0.7-2.0) mmol/L Calcium (8.4-10.2) mg/dL Magnesium (1.6-2.3) mg/dL Total Bilirubin (0.2-1.3) mg/dL AST (14-36) U/L ALT (4-34) U/L Alkaline Phosphatase (38-126) U/L Ammonia (<30) umol/L Troponin I <0.012 (0.000-0.034) ng/mL Total Protein (6.3-8.2) g/dL Albumin (3.5-5.0) g/dL Lipase (23-300) U/L Serum Alcohol mg/dL Disposition Clinical Impression: Alcohol withdrawal Disposition: ADMITTED IP TO THIS HOSP Condition: Serious Referrals: Gail Davis MD [REFERRING] - 1-2 days Decision Time: 14:52
[2023-03-17 14:09] LABS: Anisocytosis Slight; Basophils % (A) 1 %; Eosinophils % (A) 1 %; HCT 33.6 % (34.0-46.0); HGB 11.3 gm/dL (11.4-16.0); Lymphocytes # (A) 0.5 k/uL (1.0-4.8); Lymphocytes % (A) 14 %; MCH 28.3 pg (25.0-35.0); MCHC 33.7 g/dL (31.0-37.0); MCV 84.2 fL (80.0-100.0); Mean Platelet Volume 8.3; Monocytes # (A) 0.2 k/uL (0-1.0); Monocytes % (A) 6 %; Neutrophils # (A) 2.8 k/uL (1.3-7.7); Neutrophils % (A) 76 %; RBC 3.99 m/uL (3.80-5.40); RDW 17.4 % (11.5-15.5); WBC 3.7 k/uL (3.8-10.6)
[2023-03-17 14:17] LABS: ALT 35 U/L (4-34); AST 101 U/L (14-36); African American GFR (CKD) >90 (>60 ml/min/1.73 sqM); Albumin 4.8 g/dL (3.5-5.0); Alcohol 15 mg/dL; Alkaline Phosphatase 93 U/L (38-126); Anion Gap 19 mmol/L; Blood Urea Nitrogen 14 mg/dL (7-17); Calcium 9.4 mg/dL (8.4-10.2); Carbon Dioxide 20 mmol/L (22-30); Chloride 99 mmol/L (98-107); Glucose 155 mg/dL (74-99); Lipase 239 U/L (23-300); Non-African American GFR(CKD) >90 (>60 ml/min/1.73 sqM); Potassium 4.2 mmol/L (3.5-5.1); Sodium 138 mmol/L (137-145); Total Bilirubin 0.9 mg/dL (0.2-1.3); Total Protein 8.4 g/dL (6.3-8.2)
[2023-03-17 14:30] LABS: Lactic Acid, Venous 3.8 mmol/L (0.7-2.0)
[2023-03-17] MEDS ORDERED: THIAMINE 100 MG/ML 2 ML VIAL IM STA (14:36)
[2023-03-17] MEDS ORDERED: LORazepam 1 MG TAB PO PRN (14:36)
[2023-03-17] MEDS ORDERED: LORazepam 0.5 MG TAB PO PRN (14:36)
[2023-03-17] MEDS ORDERED: NALOXONE 0.4 MG/ML 1 ML VIAL IV PRN (14:43)
[2023-03-17 14:54] LABS: Platelet Count 87 k/uL (150-450); Polychromasia Present
[2023-03-17] MEDS: SODIUM CHLORIDE 0.9% 1,000 ML IV SCH ×2 (14:59→23:43)
--- NOTE | 2023-03-17 16:37 | P.HPIM ---
History of Present Illness H&P Date: 03/17/23 History of Presenting Illness: Patient is a very pleasant 72-year-old female with a reported past medical history of alcohol abuse, GERD, neuropathy with restless leg syndrome, tremors, and nicotine dependence. She presented to the emergency department via EMS secondary to reports of altered mental status. Per ED documentation patient was found to be altered however states that EMS reported that they are familiar with this patient and that she is an alcoholic. In the emergency department patient underwent evaluation. Vital signs upon arrival show blood pressure 160/93, heart rate 102, respiratory rate 18, temp 98.4F, and SpO2 of 95% on room air. EKG completed showing normal sinus rhythm at 94 bpm with no significant T-wave or ST abnormalities upon personal review and interpretation. Labs were completed and reviewed. CBC showing pancytopenia with WBC count of 3.7, hemoglobin 11.3, and platelet count of 87. BMP showing metabolic acidosis with chloride of 99, bicarb 20, anion gap elevated at 19 with blood glucose of 155. Lactic acid was elevated at 3.8. Magnesium was significantly low at 1.0. Liver profile showing AST 101 and ALT of 35 with alkaline phosphatase of 93. Ammonia levels were normal findings at less than 9. Lipase 239. Serum alcohol resulting at 15mg/dL. Influenza A, influenza B, RSV, and Covid PCR were negativ e. Patient was admitted under our services for acute metabolic encephalopathy with concerns of alcohol withdrawal. Upon evaluation at bedside. Patient currently alert to person, place, time, and situation. She reports history of GERD and does admit to alcohol abuse. Patient reports drinking approximately 1 pint every 2 days and reports last alcoholic drink being approximately 2 days ago. Patient denies previous hospitalizations for alcohol withdrawal, history of alcohol withdrawal seizures, and denies any other drug use. Patient states she remembers walking out her garage to smoke a cigarette in the next thing she remembers was awakening on the ground and was unable to get up independently. She reports she called out for help and her friend brought a wheelchair to help her get into the house and called EMS for evaluation because she did not remember what happened and was confused. Patient currently reports pain to the back of her neck along with abdominal pain and distention accompanied with mild nausea. Patient denies having any headache, lightheadedness, changes in vision or hearing, chest pain or palpitations, shortness of breath, cough or congestion, vomiting, hematem esis, noted changes in her urinary or bowel function, or experiencing any numbness/tingling/weakness in her extremities. Review of systems: Pertinent positives and negatives as discussed in HPI, a complete review of systems was performed and all other systems are negative. Physical exam: Vital signs reviewed and stable. General: Nontoxic, no distress and appears stated age. Derm: Skin warm and dry, normal coloration for ethnicity. Head: Atraumatic, normocephalic and symmetric. Eyes: EOMs intact, no lid lag, and anicteric sclera Mouth: no lip lesions, mucus membranes moist Cardiovascular: Tachycardic rate with regular rhythm with normal S1S2, systolic murmur, positive posterior tibial pulses bilaterally, and cap refill < 2 seconds. Lungs: Respirations even, regular, and unlabored on room air. Lungs diminished, no rhonchi, no rales, no wheezing, and no accessory muscle usage. Abdominal: Taut and distended, slight tenderness reported to epigastric region upon palpation. Ext: ROM intact. No gross muscle atrophy, no edema, no contractures Neuro: Speech clear, face symmetrical and CN II-XII grossly intact with no noted focal neuro deficits. GCS 15. Tremors noted. Psych: Alert and oriented to person, place, time, and situation. Appropriate and pleasant affect. Assessment and Plan of Care: Acute Metabolic encephalopathy, believed to be secondary to EtOH withdrawal Fall/syncopal episode with reports of cervical neck pain High anion gap metabolic acidosis, believed to be resulting from alcoholic ketoacidosis Long-standing history of daily Alcohol abuse Abdominal pain and distention, suspect underlying cirrhosis Pancytopenia, likely secondary to long standing alcohol abuse Transaminitis, likely secondary to long-standing alcohol abuse Severe hypomagnesemia Sinus tachycardia Hypertension -Order placed for monitoring of CIWA scores and patient to be medicated with Ativan 0.5 mg every 4 hours as needed for CIWA score of 4-5, Ativan 1 mg every 4 hours for CIWA score of 6-7, Ativan 2 mg every 3 hours CIWA score of 8-9, and Ativan 2 mg every 2 hours forr CIWA score of 10 or greater. -Continuous IV hydration with 0.9% normal saline at 100 mL per hour. -Thiamine 100 mg twice a day -Multivitamin daily -Folate 1 mg daily -Seizure, fall, aspiration, and elopement precautions in place. -Order placed for neuro checks every 4 hours -Order placed for CT head and cervical spine secondary to patient's reports of fall/syncopal episode and current reports of neck pain -Order placed for CT abdomen and pelvis secondary to patient's reports of abdominal pain, distention, and nausea -Urine drug screen -Continued close monitoring of electrolytes and replace as needed. -Telemetry monitoring. -Magnesium was 1.0. Patient received 2 g IVPB in the emergency department and an additional 2 g were ordered at this time. We will repeat labs tomorrow morning and monitor for resolution. -Order placed for 1 L bolus secondary to elevated lactic acid of 3.8, will monitor repeat lactate for resolution. The patient is admitted with an anticipated greater than 2 midnight stay for evaluation of acute metabolic encephalopathy, suspect resulting from alcohol withdrawal CODE STATUS: Full code DVT prophylaxis: Lovenox Anticipated discharge date: Clinical course to determine Anticipated discharge place: Clinical course to determine Patient was seen independently by Nurse Practitioner. This document was prepared using [employer] dictation software. Please allow for errors in personal care aide while rare they do occur. Cali Cummings NP rendered care for this patient independently, reviewed the findings and plan as documented in the note above. I did not physically speak with or examine the patient on this date. Past Medical History Past Medical History: GERD/Reflux, Hyperlipidemia History of Any Multi-Drug Resistant Organisms: None Reported Past Surgical History: No Surgical Hx Reported Past Psychological History: Anxiety, Depression Smoking Status: Current every day smoker Past Alcohol Use History: Abuse, Heavy Medications and Allergies Home Medications Medication Instructions Recorded Confirmed Type Pravastatin Sodium [Pravachol] 20 mg PO DAILY 11/26/21 03/17/23 History Docusate [Colace] 100 mg PO BID 03/17/23 03/17/23 History Omeprazole [PriLOSEC] 20 mg PO AC-BID 03/17/23 03/17/23 History polyethylene glycoL 3350 [Miralax] 17 gm PO DAILY PRN 03/17/23 03/17/23 History Allergies Allergy/AdvReac Type Severity Reaction Status Date / Time No Known Allergies Allergy Verified 03/17/23 14:49 Physical Exam Vitals: Vital Signs Temp Pulse Resp BP Pulse Ox 03/17/23 14:48 20 03/17/23 13:56 20 03/17/23 13:32 98.4 F 102 H 18 160/93 95 Intake and Output 03/17/23 03/17/23 03/17/23 06:59 14:59 22:59 Other: Weight 58.06 kg Results CBC & Chem 7: 03/18/23 07:14 03/18/23 07:14 Labs: Abnormal Lab Results - Last 24 Hours (Table) 03/17/23 03/17/23 03/17/23 Range/Units 14:00 14:00 14:00 WBC 3.7 L (3.8-10.6) k/uL Hgb 11.3 L (11.4-16.0) gm/dL Hct 33.6 L (34.0-46.0) % RDW 17.4 H (11.5-15.5) % Plt Count 87 L (150-450) k/uL Lymphocytes # 0.5 L (1.0-4.8) k/uL Carbon Dioxide 20 L (22-30) mmol/L Creatinine 0.42 L (0.52-1.04) mg/dL Glucose 155 H (74-99) mg/dL Plasma Lactic Acid Lincoln 3.8 H* (0.7-2.0) mmol/L Magnesium 1.0 L (1.6-2.3) mg/dL AST 101 H (14-36) U/L ALT 35 H (4-34) U/L Total Protein 8.4 H (6.3-8.2) g/dL
[2023-03-17] MEDS ORDERED: NICOTINE 21MG/24HR PATCH TRANSDERM STA (16:45)
[2023-03-17] MEDS ORDERED: SODIUM CHLORIDE 0.9% 1,000 ML IV ONE (16:48)
[2023-03-17] MEDS: MAGNESIUM SULFATE-D5W PMX 1 GM in DEXTROSE/WATER 1 100ML.BAG IVPB SCH ×4 (17:04→23:38)
[2023-03-17] MEDS ORDERED: polyethylene glycoL 3350 17 GM POWD.PACK PO PRN (17:29)
--- NOTE | 2023-03-17 18:11 | CT ---
EXAMINATION TYPE: CT brain wo con CT DLP: 1212.6 mGycm, Automated exposure control for dose reduction was used. DATE OF EXAM: 03/17/2023 4:56 PM COMPARISON: CT head 11/11/2020. CLINICAL INDICATION:Female, 72 years old with history of fall, confusion, neck pain, Head and neck pa in, confusion, fall. TECHNIQUE: Brain: Axial CT images of the brain were obtained with coronal and sagittal reformats created and rev iewed. Contrast used: None. Oral contrast used: None. FINDINGS: Brain: Extra-axial spaces: No abnormal extra-axial fluid collections. Ventricular system: Within normal limits Cerebral parenchyma: No acute intraparenchymal hemorrhage or mass effect. The maharaj-white matter int erface appears maintained. Mild/moderate generalized brain atrophy. Cerebellum: No acute abnormality. Mass effect: No evidence of midline shift. Intracranial vasculature: Atherosclerotic calcifications of the larger arteries near the skull base. Soft tissues: Normal. Calvarium/osseous structures: No evidence of calvarial fracture. Paranasal sinuses and mastoid air cells: Clear Visualized orbits: Orbital contents appear grossly intact. MRI is more sensitive for detecting acute processes such as infarct, and may be considered if clinica lly warranted. IMPRESSION: No acute intracranial CT abnormality. Mild to moderate generalized brain atrophy and chronic microvascular ischemic changes.
--- NOTE | 2023-03-17 18:24 | CT ---
EXAMINATION TYPE: CT cervical spine wo con CT DLP: 1212.6 mGycm, Automated exposure control for dose reduction was used. DATE OF EXAM: 03/17/2023 4:56 PM COMPARISON: None. CLINICAL INDICATION:Female, 72 years old with history of fall, confusion, neck pain; PHH, Head and ne ck pain, confusion, fall. TECHNIQUE: Axial CT images from the skull base to the inferior aspect of T2 we obtained without intra venous contrast. Coronal and sagittal reformatted images were also reviewed. Contrast used: mL of , (if blank None) Oral contrast used: (if blank None) FINDINGS: Fracture: No evidence of acute fracture. Osseous structures: Moderate multilevel degenerative disc disease changes with endplate spurring and disc osteophyte complexes as well as facet arthropathy. Vertebral alignment: No traumatic malalignment. There is straightening of the normal cervical lordosi s, mild anterolisthesis C4 on C5 and C7 on T1, likely degenerative. Spinal canal/Neural Foramina: In the limits of CT: There appears to be mild canal and foraminal steno ses C2-C3. Mild canal and right neural foraminal stenosis and moderate to severe left neural foramina l stenosis C3-C4. Mild canal and neural foraminal stenoses C4-C5. Moderate canal and bilateral neural foraminal stenoses C5-C6 and C6-C7. Mild to moderate canal and left neural foraminal stenosis C7-T1. Neck soft tissues: Visualized soft tissues show no acute abnormality. Mild calcification of the bilat eral cervical carotid arteries. Other: Images through the upper chest demonstrate no acute infiltrate or pneumothorax. There is an ov oid nodule in the posterior right upper lobe image 79 which measures 12 x 6 mm, does not appear signi ficantly changed versus available prior chest CT 08/25/2020 and given over 2 years stability is conside red benign. IMPRESSION: 1. No evidence of cervical spine fracture. 2. Moderate multilevel cervical spondylosis as above.
[2023-03-17 18:55] LABS: Appearance,Urine Clear (Clear); Bilirubin,Urine Negative (Negative); Blood,Urine Negative (Negative); Color,Urine Colorless; Glucose,Urine (UA) Negative (Negative); Ketones,Urine Trace (Negative); Leukocyte Esterase,Urine Negative (Negative); Nitrite,Urine Negative (Negative); PH, Urine 6.5 (5.0-8.0); Protein,Urine 1+ (Negative); RBC,Urine 1 /hpf (0-5); Specific Gravity,Urine 1.014 (1.001-1.035); Squamous Epithelial Cell,Urine 1 /hpf (0-4); Urobilinogen,Urine <2.0 mg/dL (<2.0); WBC,Urine 1 /hpf (0-5)
[2023-03-17 19:10] LABS: Amphetamine Screen,Urine Not Detected (NotDetected); Barbiturate Screen,Urine Not Detected (NotDetected); Benzodiazepines Screen,Urine Detected (NotDetected); Cocaine Screen,Urine Not Detected (NotDetected); Methadone Screen, Urine Not Detected (NotDetected); Opiate Screen,Urine Not Detected (NotDetected); Oxycodone Screen, Urine Not Detected (NotDetected); Phencyclidine Screen,Urine Not Detected (NotDetected); Tricyclic Antidepressant,Urine Not Detected (NotDetected); Urn Cannabinoid Scrn Not Detected (NotDetected)
[2023-03-17] MEDS: LORazepam 1 MG TAB PO PRN (20:40)
[2023-03-18] MEDS: LORazepam 1 MG TAB PO PRN ×4 (04:46→18:11)
[2023-03-18] MEDS: PANTOPRAZOLE 40 MG TABLET PO SCH (06:54)
--- NOTE | 2023-03-18 07:47 | CT ---
EXAMINATION TYPE: CT abdomen pelvis w con DATE OF EXAM: 03/17/2023 COMPARISON: 11/02/2021 HISTORY: abd pain and distention CT DLP: 676.3 mGycm CONTRAST: CT scan of the abdomen and pelvis is performed without Oral Contrast and with IV Contrast, patient in jected with 80 mL of Isovue 300. FINDINGS: LUNG BASES-: No visible nodule. No infiltrate. Sliding-type hiatal hernia. Linear right basilar atel ectasis or parenchymal scar. LIVER/GB: No calcified gallstones. Borderline gallbladder hydrops and 9.1 cm greatest dimension. He patomegaly with underlying hepatic steatosis noted. No space occupying hepatic lesion. Biliary tree i s of normal caliber. PANCREAS: No inflammation. No distinct mass. SPLEEN: No splenic enlargement. No lesion seen. ADRENALS: No nodule. No thickening. KIDNEYS/BLADDER: No hydronephrosis. No nephrolithiasis. Stable right renal angiomyolipoma. 1.7 cm s imple cyst upper pole left kidney. Distention of the urinary bladder noted. Urinary bladder wall is o f normal caliber. BOWEL: Normal appendix. Normal bowel caliber. No inflammation. Mild fluid distention of the small b owel could reflect underlying enteritis. GENITAL ORGANS: Calcified uterine leiomyoma noted. No evidence for adnexal mass. Atrophic change of the uterus. LYMPH NODES: No greater than 1cm abdominal or pelvic lymph nodes are appreciated. AORTA: No significant abnormality. OSSEOUS STRUCTURES: No significant abnormality is seen. OTHER: No significant additional abnormality is seen. IMPRESSION: 1. Correlate for nonspecific small bowel enteritis. 2. Stable right renal angiomyolipoma. 3. Hepatomegaly with underlying hepatic steatosis.
[2023-03-18 07:51] LABS: Magnesium 2.2 mg/dL (1.6-2.3)
[2023-03-18] MEDS: ENOXAPARIN 40 MG/0.4 ML SYRINGE SQ SCH (10:27)
[2023-03-18] MEDS: SODIUM CHLORIDE 0.9% 1,000 ML IV SCH ×2 (10:28→20:38)
[2023-03-18] MEDS: PRAVASTATIN SODIUM 20 MG TAB PO SCH (10:28)
[2023-03-18] MEDS: THIAMINE 100 MG TAB PO SCH (10:28)
[2023-03-18 10:35] LABS: ALT 34 U/L (4-34); AST 102 U/L (14-36); African American GFR (CKD) >90 (>60 ml/min/1.73 sqM); Albumin 4.3 g/dL (3.5-5.0); Alkaline Phosphatase 98 U/L (38-126); Anion Gap 11 mmol/L; Blood Urea Nitrogen 10 mg/dL (7-17); Calcium 8.8 mg/dL (8.4-10.2); Carbon Dioxide 25 mmol/L (22-30); Chloride 95 mmol/L (98-107); Glucose 106 mg/dL (74-99); Non-African American GFR(CKD) >90 (>60 ml/min/1.73 sqM); Potassium 3.8 mmol/L (3.5-5.1); Sodium 131 mmol/L (137-145); Total Bilirubin 1.4 mg/dL (0.2-1.3); Total Protein 7.8 g/dL (6.3-8.2)
[2023-03-18 11:38] LABS: Anisocytosis Slight; HCT 35.3 % (34.0-46.0); HGB 11.9 gm/dL (11.4-16.0); MCH 28.8 pg (25.0-35.0); MCHC 33.6 g/dL (31.0-37.0); MCV 85.7 fL (80.0-100.0); Mean Platelet Volume 9.9; RBC 4.13 m/uL (3.80-5.40); RDW 17.3 % (11.5-15.5); WBC 5.2 k/uL (3.8-10.6)
[2023-03-18 11:58] LABS: Platelet Count 81 k/uL (150-450)
--- NOTE | 2023-03-18 16:09 | P.PN ---
Subjective Progress Note Date: 03/18/23 Hospital Course: Patient is a very pleasant 72-year-old female with a reported past medical history of alcohol abuse, GERD, neuropathy with restless leg syndrome, tremors, and nicotine dependence. She presented to the emergency department via EMS secondary to reports of altered mental status. Per ED documentation patient was found to be altered however states that EMS reported that they are familiar with this patient and that she is an alcoholic. In the emergency department patient underwent evaluation. Vital signs upon arrival show blood pressure 160/93, heart rate 102, respiratory rate 18, temp 98.4F, and SpO2 of 95% on room air. EKG completed showing normal sinus rhythm at 94 bpm with no significant T-wave or ST abnormalities upon personal review and interpretation. Labs were completed and reviewed. CBC showing pancytopenia with WBC count of 3.7, hemoglobin 11.3, and platelet count of 87. BMP showing metabolic acidosis with chloride of 99, bicarb 20, anion gap elevated at 19 with blood glucose of 155. Lactic acid was elevated at 3.8. Magnesium was significantly low at 1.0. Liver profile showing AST 101 and ALT of 35 with alkaline phosphatase of 93. Ammonia levels were normal findings at less than 9. Lipase 239. Serum alcohol resulting at 15mg/dL. Influenza A, influenza B, RSV, and Covid PCR were negative. Patient was admitted under our services for acute metabolic encephalopathy with concerns of alcohol withdrawal. Upon initial evaluation at bedside. Patient currently alert to person, place, time, and situation. She reports history of GERD and does admit to alcohol abuse. Patient reports drinking approximately 1 pint every 2 days and reports last alcoholic drink being approximately 2 days ago. Patient denies previous hospitalizations for alcohol withdrawal, history of alcohol withdrawal seizures, and denies any other drug use. Patient states she remembers walking out to her garage to smoke a cigarette and the next thing she remembered was awakening on the ground and was unable to get up independently. She reports she called out for help and her friend brought a wheelchair to help her get into the house and called EMS for evaluation because she did not remember what happened and was confused. Patient currently reports pain to the back of her neck along with abdominal pain and distention accompanied with mild nausea. Patient denies having any headache, lightheadedness, changes in vision or hearing, chest pain or palpitations, shortness of breath, cough or congestion, vomiting, hematemesis, noted changes in her urinary or bowel function, or experiencing any numbness/tingling/weakness in her extremities. Physical exam: Vital signs reviewed and stable. General: Nontoxic, no distress and appears stated age. Derm: Skin warm and dry, normal coloration for ethnicity. Head: Atraumatic, normocephalic and symmetric. Eyes: EOMs intact, no lid lag, and anicteric sclera Mouth: no lip lesions, mucus membranes moist Cardiovascular: Tachycardic rate with regular rhythm with normal S1S2, systolic murmur, positive posterior tibial pulses bilaterally, and cap refill < 2 seconds. Lungs: Respirations even, regular, and unlabored on room air. Lungs diminished, no rhonchi, no rales, no wheezing, and no accessory muscle usage. Abdominal: Taut and distended, slight tenderness reported to epigastric region upon palpation. Ext: ROM intact. No gross muscle atrophy, no edema, no contractures Neuro: Speech clear, face symmetrical and CN II-XII grossly intact with no noted focal neuro deficits. GCS 15. Tremors noted. Psych: Alert and oriented to person, place, time, and situation. Appropriate and pleasant affect. Assessment and Plan of Care: Acute Metabolic encephalopathy, believed to be secondary to EtOH withdrawal vs withdrawal seizure Alcoholic gastritis secondary to excessive alcohol consumption Fall/syncopal episode with reports of cervical neck pain, CT negative for acute process Long-standing history of daily Alcohol abuse Abdominal pain and distention, suspect underlying cirrhosis Pancytopenia, likely secondary to long standing alcohol abuse Transaminitis, likely secondary to long-standing alcohol abuse Severe hypomagnesemia Sinus tachycardia Hypertension -Continue monitoring of CIWA scores and patient to be medicated with Ativan 0.5 mg every 4 hours as needed for CIWA score of 4-5, Ativan 1 mg every 4 hours for CIWA score of 6-7, Ativan 2 mg every 3 hours CIWA score of 8-9, and Ativan 2 mg every 2 hours forr CIWA score of 10 or greater. Patient has received 4 mg of Ativan over the past 24 hours. Current CIWA is 11. -Continuous IV hydration with 0.9% normal saline at 100 mL per hour. -Continue GI prophylaxis with Protonix 40 mg daily and Ativan on Carafate 4 times daily with meals and at bedtime. -Continue Thiamine 100 mg twice a day, Multivitamin daily, and Folate 1 mg daily -Maintain Seizure, fall, aspiration, and elopement precautions -Continue neuro checks every 4 hours -Consult placed to neurology for evaluation and likely EEG -CT head and cervical spine were negative for acute process. CT cervical spine did reveal moderate multilevel cervical spondylosis -CT abdomen and pelvis showing nonspecific small bowel enteritis with hepatomegaly and underlying hepatic steatosis, and stable right renal angiomyolipoma with simple cyst of left upper kidney -Continued Telemetry monitoring. -Magnesium was 1.0. Patient received 2 g IVPB in the emergency department and an additional 2 g were ordered at this time. We will repeat labs tomorrow morning and monitor for resolution. -Order placed for 1 L bolus secondary to elevated lactic acid of 3.8, will monitor repeat lactate for resolution. Alcoholic ketoacidosis with High anion gap metabolic acidosis. Resolved with IV fluid hydration. Hypomagnesemia, replaced and resolved. Magnesium initially 1.0 status post 4 g magnesium sulfate IVPB, repeat magnesium 2.2. Incidental finding on CT imaging Ovoid nodule in the posterior right upper lobe measuring 12 x 6 mm, per CT report it does not appear significantly changed when compared to previous CT completed 08/25/20 and given over 2 years stability is considered benign. Data and imaging reviewed: Vital signs reviewed. Blood pressure 150/95, heart rate 84, respiratory rate 18, temperature 97.9F, SpO2 of 94% on room air. Labs completed and reviewed. CBC showing thrombocytopenia with platelet count of 81. BMP revealing hyponatremia with sodium of 131, chloride 95, and glucose 106. Liver profile showing mildly elevated total bili of 1.4 and AST 102. TSH was high at 6.020 however free T4 normal findings at 1.0. -CT head and cervical spine were negative for acute process. CT cervical spine did reveal moderate multilevel cervical spondylosis -CT abdomen and pelvis showing nonspecific small bowel enteritis with hepatomegaly and underlying hepatic steatosis, and stable right renal angiomyolipoma with simple cyst of left upper kidney -Urine drug screen positive for benzodiazepines. CODE STATUS: Full code DVT prophylaxis: Lovenox Anticipated discharge date: Clinical course to determine Anticipated discharge place: Clinical course to determine Patient was seen independently by Nurse Practitioner. This document was prepared using [employer] dictation software. Please allow for errors in labeling strategist while rare they do occur. Cali Cummings NP rendered care for this patient independently, reviewed the findings and plan as documented in the note above. I did not physically speak with or examine the patient on this date. Objective - Vital Signs Vital signs: Vital Signs Temp 97.9 F 03/18/23 07:58 Pulse 84 03/18/23 07:58 Resp 18 03/18/23 07:58 BP 150/95 03/18/23 07:58 Pulse Ox 94 L 03/18/23 07:58 FiO2 Intake & Output 03/17/23 03/18/23 03/18/23 18:59 06:59 18:59 Output Total 1800 Balance -1800 Weight 58.06 kg 58.06 kg Output: Urine 1800 - Labs CBC & Chem 7: 03/18/23 07:14 03/18/23 07:14 Labs: Abnormal Lab Results - Last 24 Hours (Table) 03/17/23 03/17/23 03/17/23 Range/Units 14:00 14:00 14:00 WBC 3.7 L (3.8-10.6) k/uL Hgb 11.3 L (11.4-16.0) gm/dL Hct 33.6 L (34.0-46.0) % RDW 17.4 H (11.5-15.5) % Plt Count 87 L (150-450) k/uL Lymphocytes # 0.5 L (1.0-4.8) k/uL Carbon Dioxide 20 L (22-30) mmol/L Creatinine 0.42 L (0.52-1.04) mg/dL Glucose 155 H (74-99) mg/dL Plasma Lactic Acid Lincoln 3.8 H* (0.7-2.0) mmol/L Magnesium 1.0 L (1.6-2.3) mg/dL AST 101 H (14-36) U/L ALT 35 H (4-34) U/L Total Protein 8.4 H (6.3-8.2) g/dL Urine Protein (Negative) Urine Ketones (Negative) U Benzodiazepines Scrn (NotDetected) 03/17/23 03/17/23 Range/Units 18:36 18:39 WBC (3.8-10.6) k/uL Hgb (11.4-16.0) gm/dL Hct (34.0-46.0) % RDW (11.5-15.5) % Plt Count (150-450) k/uL Lymphocytes # (1.0-4.8) k/uL Carbon Dioxide (22-30) mmol/L Creatinine (0.52-1.04) mg/dL Glucose (74-99) mg/dL Plasma Lactic Acid Lincoln (0.7-2.0) mmol/L Magnesium (1.6-2.3) mg/dL AST (14-36) U/L ALT (4-34) U/L Total Protein (6.3-8.2) g/dL Urine Protein 1+ H (Negative) Urine Ketones Trace H (Negative) U Benzodiazepines Scrn Detected H (NotDetected)
[2023-03-18] MEDS ORDERED: MAG HYDROX/AL HYDROX/SIMETH 30 ML, HYOSCYAMINE ELIXIR 10 ML, LIDOCAINE VISCOUS 10 ML PO ONE ×3 (16:30)
--- NOTE | 2023-03-18 16:33 | P.CNNES ---
History of Present Illness Consult date: 03/18/23 Requesting physician: Cali Cummings Reason for Consult: fall/syncope,possibly ETOH withdrawal seizure however no hx of withdrawal History of Present Illness: Patient is a 72-year-old right-handed female came to the hospital by ambulance yesterday at 1:23 PM for weakness, tremors. Patient has history of alcoholism. Patient states that she went to the garage search marketing specialist to light a cigarette. While she was there, her legs became weak, her body started shaking. She sat down, and called 911. Patient says that she gets these episodes in which her body gets weak, cannot stand up and she starts shaking. The last time it happened was in December 2022. She denies any seizures. No previous history of seizures. She believes that her just legs gave out and she fall. She could be walking through the kitchen and legs give out and she collapsed. She admits to having peripheral neuropathy in the feet. Also has some Raynauds. As a result of fall, her back is very sore. She can't walk for days. As per EMS flow sheet, when they went to patient's residence for possible stroke, however when they arrived, patient was sitting in a chair, alert and oriented 4, diaphoretic with arm tremor. Chief complaint of weakness and tremors. Patient mentioned that this started this morning and has gotten much worse. Patient negative on the stroke scale. Patient had a strong smell of alcohol on her breath. EMS team knows this patient to be alcoholic. EKG shows sinus rhythm. Vital signs at the team was blood pressure 159/96, pulse rate 98, respiration 18, saturation 95% and blood glucose 186. Blood test shows WBC 3.7 hemoglobin 11.3, platelets are 87. MCV 84.2. Basic metabolic panel is normal, lactate was 3.8. AST 101, ALT 35. Ammonia is normal less than 9, thyroid functions are normal, troponin negative, UA negative, urine drug screen positive for benzodiazepine and blood alcohol level is 15. In fluenza screen, RSV and coronavirus PCR negative. Patient has history of admission for alcohol intoxication on 11/11/2020 with blood at level of 275. EKG is normal sinus rhythm. CT head showed no acute intracranial process. [id number] generalized brain atrophy and chronic microvascular ischemic changes. I personally reviewed CT head, agree with the findings. Patient initially was not disclosing about her alcohol habits, saying "I don't drink that much". She said that she has not drank alcohol for a long time. But then it appears because she did not want her boyfriend to know about her alcohol habits as he is already in alcohol anonymous. Patient states that she has bouts of drinking off and on. She would drink about a half a fifth of vodka with water a day. She drinks about 3 times a week although she sometimes try to control it. Patient has these years of sobriety, which could be for years at a time. Then she starts drinking again. She may drink heavily for few weeks to months. Patient states that her mom in August 2022 and since then she has been drinking as mentioned above. Patient states that she does not drive. Patient states that she has history of Rivera's esophagus. No history of seizures. Only her body shakes. Review of Systems Constitutional: Denies chills, Denies fever Eyes: denies blurred vision, denies diplopia, denies pain Ears: deny: decreased hearing, ear discharge Ears, nose, mouth and throat: Reports nasal congestion, Denies headache, Denies sore throat Cardiovascular: Reports shortness of breath, Denies chest pain Respiratory: Reports cough, Reports excessive sputum Gastrointestinal: Reports abdominal pain, Reports bloating, Reports constipation, Reports excessive gas, Denies diarrhea, Denies nausea, Denies vomiting Genitourinary: Reports urgency, Reports urinary frequency, Denies urge incontinence Musculoskeletal: Reports low back pain, Reports neck pain, Denies myalgias Integumentary: Reports brittle nails, Denies pruritus, Denies rash, Denies wounds Neurological: Reports as per HPI Psychiatric: Reports anxiety, Reports depression Endocrine: Denies fatigue, Denies weight change Hematologic/Lymphatic: Denies easy bleeding, Denies easy bruising Past Medical History Past Medical History: GERD/Reflux, Hyperlipidemia Additional Past Medical History / Comment(s): Barretts Esophagus History of Any Multi-Drug Resistant Organisms: None Reported Past Surgical History: No Surgical Hx Reported Past Anesthesia/Blood Transfusion Reactions: No Reported Reaction Past Psychological History: Anxiety, Depression Smoking Status: Current every day smoker Past Alcohol Use History: Abuse, Heavy Past Drug Use History: None Reported Medications and Allergies Home Medications Medication Instructions Recorded Confirmed Type Pravastatin Sodium [Pravachol] 20 mg PO DAILY 11/26/21 03/17/23 History Docusate [Colace] 100 mg PO BID 03/17/23 03/17/23 History Omeprazole [PriLOSEC] 20 mg PO AC-BID 03/17/23 03/17/23 History polyethylene glycoL 3350 [Miralax] 17 gm PO DAILY PRN 03/17/23 03/17/23 History Allergies Allergy/AdvReac Type Severity Reaction Status Date / Time No Known Allergies Allergy Verified 03/17/23 14:49 Physical Examination - Vital Signs Vital Signs: Vital Signs Temp Pulse Pulse Resp BP BP Pulse Ox 03/18/23 10:41 84 18 138/78 96 03/18/23 07:58 97.9 F 84 18 150/95 94 L 03/18/23 04:00 74 18 150/95 94 L 03/18/23 02:00 86 18 03/18/23 00:00 86 18 150/65 99 03/17/23 20:00 81 20 158/90 96 03/17/23 18:50 92 L 03/17/23 18:40 158/86 93 L 03/17/23 18:30 93 L 03/17/23 18:20 94 L 03/17/23 18:10 147/90 92 L 03/17/23 18:00 92 L 03/17/23 17:50 91 L 03/17/23 17:40 155/75 98 03/17/23 17:10 154/92 03/17/23 16:40 163/85 03/17/23 16:10 160/87 03/17/23 15:40 148/94 03/17/23 15:10 142/92 03/17/23 15:00 165/90 03/17/23 14:48 20 03/17/23 14:40 165/90 03/17/23 14:10 157/106 03/17/23 13:56 20 03/17/23 13:40 160/93 95 03/17/23 13:34 94 L 03/17/23 13:32 98.4 F 102 H 18 160/93 95 Intake and Output 03/17/23 03/18/23 03/18/23 22:59 06:59 14:59 Output Total 1800 Balance -1800 Output: Urine 1800 Other: Weight 58.06 kg Patient is an elderly female, in no acute distress. Patient is very tremulous, shaky, almost looks like alcohol withdrawal. Patient is hallucinating, seeing people, said "are you sitting in the back?", Trying to look behind her back as if somebody is there. Per nurse report, patient was hallucinating earlier as well, seeing a man in the fire extinguisher. Patient is alert awake oriented to time place and person. She knows it is February and the year is and that she is in [facility] in [facility]. She states that she does not follow politics, but knows the current president is an old dre, who stutters. When I give her choices, she said it was Hair. Speech and language functions are normal. Patient can name and repeat very well. No aphasia or dysarthria. Attention, concentration and fund of knowledge is adequate. Detailed cognitive testing deferred. On cranial nerve examination, pupils are equal, round and reacting to light, visual morales are full on confrontation, with no neglect on double simultaneous stimulation. Extraocular muscles are intact with no nystagmus. Face is symmetric, tongue protrudes to the midline. Palatal elevation and sensation normal, hearing and shoulder shrug normal, facial sensation normal. On muscle strength testing, there is no pronator drift and the strength is normal in arms and legs distally and proximally, except hip flexion, which is 4+5-bilaterally. Deep tendon reflexes are symmetric 1+ to 2 in the upper limbs the biceps and brachioradialis and 1+ to 2 at the knees, and absent ankles and plantars are flat bilaterally. Sensory to touch is equal with no neglect on double simultaneous stimulation. Cerebellar function showed no ataxia for [id number] testing, although patient is very shaky on both sides. No dysdiadochokinesia. No ataxia for uknz-[id number] testing on either side but patient has shakes on both sides. Patient has some mild to moderate coarse postural tremors also. Tone and bulk of muscles normal. Patient has slight hammertoes on the right. Gait deferred.. On general examination, there is no carotid bruit or murmur, S1-S2 audible. Chest is clear on consultation. Abdomen is soft nontender. No organomegaly, bowel sounds present. Peripheral pulses are present. No peripheral edema. Results - Laboratory Findings CBC and BMP: 03/19/23 05:36 03/19/23 05:36 Abnormal Lab Findings: Abnormal Labs 03/17/23 03/17/23 03/17/23 14:00 14:00 14:00 WBC 3.7 L Hgb 11.3 L Hct 33.6 L RDW 17.4 H Plt Count 87 L Lymphocytes # 0.5 L Sodium Chloride Carbon Dioxide 20 L Creatinine 0.42 L Glucose 155 H Plasma Lactic Acid Lincoln 3.8 H* Magnesium 1.0 L Total Bilirubin AST 101 H ALT 35 H Total Protein 8.4 H TSH Urine Protein Urine Ketones U Benzodiazepines Scrn 03/17/23 03/17/23 03/18/23 18:36 18:39 07:14 WBC Hgb Hct RDW Plt Count Lymphocytes # Sodium 131 L Chloride 95 L Carbon Dioxide Creatinine 0.41 L Glucose 106 H Plasma Lactic Acid Lincoln Magnesium Total Bilirubin 1.4 H AST 102 H ALT Total Protein TSH 6.020 H Urine Protein 1+ H Urine Ketones Trace H U Benzodiazepines Scrn Detected H Assessment and Plan Assessment: * Alcohol withdrawal, with hallucinations, probable mild DTs. * Chronic intermittent alcoholism, has been drinking regularly since August 2022. * Peripheral neuropathy, likely due to alcoholism, rule out nutritional deficiency * Anxiety, depression * Tobacco use Plan: * Watch for delirium tremens. * [facility] protocol * Check B12, folate, MMA, B6. * Thiamine, folate, multivitamins * TSH 6.020, free T4 1.00. Internal medicine to address abnormal thyroid functions. * Patient denies any seizures, and never had any history of seizures. Her tremors are likely from alcohol withdrawal. * Consider EMG and nerve conductions of bilateral lower limbs as outpatient to e valuate for the type and severity of peripheral neuropathy. * Patient recommended to abstain from alcohol, as it can be toxic to the nerves. * Recommend using walker to prevent falls. * May consider orthopedic consult for back pain. * Neurology will follow clinically. Thank you for the consult.
[2023-03-18] MEDS ORDERED: LORazepam 2 MG/ML INJ IV STA ×2 (18:21→22:48)
[2023-03-18] MEDS: SUCRALFATE 1 GM TAB PO SCH ×3 (18:51→20:39)
[2023-03-18] MEDS: LORazepam 2 MG/ML INJ IV PRN ×4 (20:38→23:43)
[2023-03-19] MEDS: LORazepam 2 MG/ML INJ IV PRN ×5 (02:20→10:21)
--- NOTE | 2023-03-19 04:22 | P.PN ---
Progress Note - Text Progress Note Date: 03/19/23 Case discussed with mobility engineer on-call regarding the patient's persistently elevated CIWA despite aggressive management. Patient accepted to MICU. Will transfer and initiate Precedex infusion with Ativan IVP per CIWA.
[2023-03-19 05:22] LABS: Glucose,Whole Blood 69 mg/dL (70-110)
[2023-03-19] MEDS ORDERED: DEXTROSE 50% SYRINGE 50 ML IVP ONE (05:22)
[2023-03-19 05:50] LABS: Glucose,Whole Blood 203 mg/dL (70-110)
[2023-03-19 06:16] LABS: Anisocytosis Slight; HCT 32.6 % (34.0-46.0); HGB 10.5 gm/dL (11.4-16.0); Hypochromasia Slight; MCH 28.1 pg (25.0-35.0); MCHC 32.2 g/dL (31.0-37.0); MCV 87.2 fL (80.0-100.0); Mean Platelet Volume 10.7; RBC 3.74 m/uL (3.80-5.40); RDW 16.6 % (11.5-15.5); WBC 4.2 k/uL (3.8-10.6)
[2023-03-19 06:17] LABS: Platelet Count 71 k/uL (150-450)
[2023-03-19] MEDS: SODIUM CHLORIDE 0.9% 1,000 ML IV SCH ×2 (06:25→14:53)
[2023-03-19 06:32] LABS: ALT 31 U/L (4-34); AST 113 U/L (14-36); African American GFR (CKD) >90 (>60 ml/min/1.73 sqM); Albumin 3.8 g/dL (3.5-5.0); Alkaline Phosphatase 76 U/L (38-126); Anion Gap 16 mmol/L; Blood Urea Nitrogen 9 mg/dL (7-17); Calcium 8.5 mg/dL (8.4-10.2); Carbon Dioxide 18 mmol/L (22-30); Chloride 100 mmol/L (98-107); Glucose 210 mg/dL (74-99); Magnesium 1.6 mg/dL (1.6-2.3); Non-African American GFR(CKD) >90 (>60 ml/min/1.73 sqM); Potassium 3.4 mmol/L (3.5-5.1); Sodium 134 mmol/L (137-145); Total Bilirubin 1.1 mg/dL (0.2-1.3); Total Protein 6.8 g/dL (6.3-8.2)
[2023-03-19] MEDS: POTASSIUM CHLORIDE 10 MEQ in WATER FOR INJECTION 1 100ML.BAG IVPB SCH ×6 (06:58→17:02)
[2023-03-19] MEDS: PANTOPRAZOLE 40 MG TABLET PO SCH (07:01)
[2023-03-19] MEDS: SUCRALFATE 1 GM TAB PO SCH ×3 (07:01→17:04)
[2023-03-19] MEDS ORDERED: Magnesium Replacement Protocol 1 EACH MISC MISCELLANE PRN (07:50)
[2023-03-19] MEDS ORDERED: Potassium Replacement Protocol 1 EACH MISC MISCELLANE PRN (07:50)
[2023-03-19] MEDS: THIAMINE 100 MG TAB PO SCH (08:24)
[2023-03-19] MEDS: MAGNESIUM SULFATE-D5W PMX 1 GM in DEXTROSE/WATER 1 100ML.BAG IVPB SCH ×2 (08:47→09:54)
[2023-03-19] MEDS: ENOXAPARIN 40 MG/0.4 ML SYRINGE SQ SCH (09:27)
[2023-03-19] MEDS: PRAVASTATIN SODIUM 20 MG TAB PO SCH (09:30)
[2023-03-19] MEDS: NICOTINE 21MG/24HR PATCH TRANSDERM SCH (09:30)
--- NOTE | 2023-03-19 09:44 | XR ---
EXAMINATION TYPE: XR chest 1V portable DATE OF EXAM: 03/19/2023 HISTORY: Shortness of breath. COMPARISON: 11/02/2021 TECHNIQUE: Single view of the chest is submitted. FINDINGS: Demonstrated are scattered senescent parenchymal change. There is no evidence for focal infiltrate. The heart is stable. Hilar and mediastinal structures are within normal limits. Degenerative changes are seen of the dorsal spine. IMPRESSION: 1. Chronic changes without evidence for acute pulmonary disease.
[2023-03-19] MEDS: DEXMEDETOMIDINE/0.9% NACL(PMX) 400 MCG in EMPTY BAG 1 BAG IV SCH (10:28)
--- NOTE | 2023-03-19 12:42 | P.CNPUL ---
History of Present Illness Consult date: 03/19/23 Requesting physician: Carmen Castelan Reason for consult: other (Alcohol withdrawal, ICU management) Chief complaint: Altered mental status History of present illness: This is a 72-year-old female with known history of multiple medical problems including alcohol abuse, GERD, neuropathy and restless leg syndrome, nicotine dependence, patient was brought into the ER on 03/17 with altered status, patient was quite tremulous and diaphoretic. Drug screen on admission was positive for benzodiazepine and for alcohol. Patient tells me today that her last drink was 2 days ago. She was initially admitted to the regular medical floor, however I was notified by the admitting physician that the patient is difficult to handle with Ativan/CIWA protocol, and recommended transferring the patient to the ICU mostly for potentially using Precedex. Patient has been in the ICU since last night, and she did not require Precedex, and withdrawal is being handled mostly with Ativan and she is not requiring significant amount of Ativan so far. Patient is intermittently confused, but she is not in any form of respiratory distress. WBC count is 4.2 hemoglobin 10.5 basic metabolic profile is normal renal profile is normal, chest x-ray is relatively normal, CT brain showed no evidence of acute intracranial abnormality. CT cervical spine showed no evidence of spine fracture , however she had moderate multilevel cervical spondylosis. CT of abdomen and pelvis showed hepatomegaly with underlying hepatic steatosis and stable right renal angiomyolipoma. Review of Systems Patient is not a great historian, seems to be a bit confused, but during my evaluation she had no specific complaints whatsoever. Past Medical History Past Medical History: GERD/Reflux, Hyperlipidemia Additional Past Medical History / Comment(s): Barretts Esophagus History of Any Multi-Drug Resistant Organisms: None Reported Past Surgical History: No Surgical Hx Reported Past Anesthesia/Blood Transfusion Reactions: No Reported Reaction Past Psychological History: Anxiety, Depression Smoking Status: Current every day smoker Past Alcohol Use History: Abuse, Heavy Past Drug Use History: None Reported Medications and Allergies Home Medications Medication Instructions Recorded Confirmed Type Pravastatin Sodium [Pravachol] 20 mg PO DAILY 11/26/21 03/17/23 History Docusate [Colace] 100 mg PO BID 03/17/23 03/17/23 History Omeprazole [PriLOSEC] 20 mg PO AC-BID 03/17/23 03/17/23 History polyethylene glycoL 3350 [Miralax] 17 gm PO DAILY PRN 03/17/23 03/17/23 History Allergies Allergy/AdvReac Type Severity Reaction Status Date / Time No Known Allergies Allergy Verified 03/17/23 14:49 Physical Exam Vitals: Vital Signs Temp Pulse Pulse Resp BP BP Pulse Ox 03/19/23 12:00 97.8 F 76 16 134/91 93 L 03/19/23 11:00 90 9 L 154/105 92 L 03/19/23 10:00 98 25 H 142/94 94 L 03/19/23 09:00 102 H 11 L 136/97 92 L 03/19/23 08:00 96.8 F L 96 12 136/96 98 03/19/23 07:00 85 15 146/94 92 L 03/19/23 06:00 85 17 143/93 92 L 03/19/23 05:21 80 L 03/19/23 04:00 98.1 F 92 18 154/82 96 03/19/23 02:00 88 18 03/19/23 00:00 98.3 F 88 18 151/83 97 03/18/23 20:00 98.9 F 114 H 20 149/88 96 03/18/23 18:07 100.8 F H 135 H 26 H 187/131 99 03/18/23 16:15 98 18 145/110 96 03/18/23 13:04 78 18 152/92 98 Intake and Output 03/18/23 03/19/23 03/19/23 22:59 06:59 14:59 Intake Total 100 1455.322 Output Total 300 450 Balance -200 1005.322 Intake: IV 500 Sodium Chloride 0.9% 1, 500 000 ml @ 100 mls/hr IV . Q10H [facility] Rx#:[id number] Intake, IV Titration 100 705.322 Amount Dexmedetomidine/0.9% NaCl 5.322 (Pmx) 400 mcg In Empty Bag 1 bag @ 0.2 MCG/KG/HR 2.903 mls/hr IV .Q24H [facility] Rx#:[id number] Magnesium Sulfate-D5w Pmx 300 1 gm In Dextrose/Water 1 100ml.bag @ 100 mls/hr IVPB Q1H [facility] Rx#: [id number] Potassium Chloride 10 meq 300 In Water For Injection 1 100ml.bag @ 100 mls/hr IVPB Q1HR [facility] Rx#: [id number] Sodium Chloride 0.9% 1, 100 100 000 ml @ 100 mls/hr IV . Q10H [facility] Rx#:[id number] Oral 250 Output: Urine 300 450 Other: Voiding Method External Catheter External Catheter External Catheter # Voids 2 0 0 Physical Exam: Revealed 72-year-old female in no distress slightly anxious, agitated easily, and a tremulous. Head: Atraumatic normocephalic. HEENT:[Neck is supple.] [No neck masses.] [No thyromegaly.] [No JVD.] Chest: [Clear throughout, no crackles, no rhonchi, no wheezes.] Cardiac Exam: [Normal S1 and S2, no S3 gallop, no murmur.] Abdomen: [Soft, nontender, no megaly, no rebound, no guarding, normal bowel sounds.] Extremities: [No clubbing, no edema, no cyanosis.] Good distal pulses bilaterally Neurological Exam: Patient is awake, follows simple instructions but a bit confused. She knew that she was in the hospital, and she knew the year. But did not know the month. Skin: No rashes. Psychiatric: Anxious mood, flat affect, confused mental status. Results - Laboratory Findings CBC and BMP: 03/19/23 05:36 03/19/23 05:36 Abnormal lab findings: Abnormal Labs 03/17/23 03/17/23 03/17/23 14:00 14:00 14:00 WBC 3.7 L RBC Hgb 11.3 L Hct 33.6 L RDW 17.4 H Plt Count 87 L Lymphocytes # 0.5 L Sodium Potassium Chloride Carbon Dioxide 20 L Creatinine 0.42 L Glucose 155 H POC Glucose (mg/dL) Plasma Lactic Acid [place] 3.8 H* Magnesium 1.0 L Total Bilirubin AST 101 H ALT 35 H Total Protein 8.4 H TSH Urine Protein Urine Ketones U Benzodiazepines Scrn 03/17/23 03/17/23 03/18/23 18:36 18:39 07:14 WBC RBC Hgb Hct RDW 17.3 H Plt Count 81 L Lymphocytes # Sodium Potassium Chloride Carbon Dioxide Creatinine Glucose POC Glucose (mg/dL) Plasma Lactic Acid [place] Magnesium Total Bilirubin AST ALT Total Protein TSH Urine Protein 1+ H Urine Ketones Trace H U Benzodiazepines Scrn Detected H 03/18/23 03/19/23 03/19/23 07:14 05:20 05:36 WBC RBC Hgb Hct RDW Plt Count Lymphocytes # Sodium 131 L 134 L Potassium 3.4 L Chloride 95 L Carbon Dioxide 18 L Creatinine 0.41 L 0.38 L Glucose 106 H 210 H POC Glucose (mg/dL) 69 L Plasma Lactic Acid [place] Magnesium Total Bilirubin 1.4 H AST 102 H 113 H ALT Total Protein TSH 6.020 H Urine Protein Urine Ketones U Benzodiazepines Scrn 03/19/23 03/19/23 05:36 05:49 WBC RBC 3.74 L Hgb 10.5 L Hct 32.6 L RDW 16.6 H Plt Count 71 L Lymphocytes # Sodium Potassium Chloride Carbon Dioxide Creatinine Glucose POC Glucose (mg/dL) 203 H Plasma Lactic Acid [place] Magnesium Total Bilirubin AST ALT Total Protein TSH Urine Protein Urine Ketones U Benzodiazepines Scrn - Diagnostic Findings Chest x-ray: image reviewed (Chest x-ray is basically unremarkable, looking at her previous CT of the chest, patient had a previous lung nodule being monitored by Dr. Esparza on outpatient [place] last CT of the chest was in June of 2022) Assessment and Plan Assessment: Impression: Acute alcohol withdrawal Acute metabolic encephalopathy secondary to alcohol withdrawal Acute anion gap metabolic acidosis most likely related to her alcohol k etoacidosis Hypomagnesemia Pancytopenia secondary to her long-standing history of alcoholism Benign essential hypertension History of solitary lung nodule Recommendation: Continue to monitor the patient in the ICU Continue CIWA protocol, apparently the patient continued to have relatively high score in spite of multiple doses of Ativan given prior to transfer the patient to the ICU hence most likely will require Precedex if she continues to get extremely agitated. Continue multivitamins Continue thiamine Seizure precautions CT of the brain, CT of cervical spine, chest x-ray were all reviewed Close monitoring of her labs and electrolytes GI and DVT prophylaxis We will continue to follow Time with Patient: Greater than 30
--- NOTE | 2023-03-19 13:12 | P.PN ---
Subjective Progress Note Date: 03/19/23 Hospital Course: Patient is a very pleasant 72-year-old female with a reported past medical history of alcohol abuse, GERD, neuropathy with restless leg syndrome, tremors, and nicotine dependence. She presented to the emergency department via EMS secondary to reports of altered mental status. Per ED documentation patient was found to be altered however states that EMS reported that they are familiar with this patient and that she is an alcoholic. Vital signs upon arrival show blood pressure 160/93, heart rate 102, respiratory rate 18, temp 98.4F, and SpO2 of 95% on room air. EKG completed showing normal sinus rhythm at 94 bpm with no significant T-wave or ST abnormalities. CBC showing pancytopenia with WBC count of 3.7, hemoglobin 11.3, and platelet count of 87. BMP showing metabolic acidosis with chloride of 99, bicarb 20, anion gap elevated at 19 with blood glucose of 155. Lactic acid was elevated at 3.8. Magnesium was significantly low at 1.0. Liver profile showing AST 101 and ALT of 35 with alkaline phosphatase of 93. Ammonia levels were normal findings at less than 9. Lipase 239. Serum alcohol resulting at 15mg/dL. Influenza A, influenza B, RSV, and Covid PCR were negative. CT head and cervical spine were negative for acute process. CT cervical spine did reveal moderate multilevel cervical spondylosis. CT abdomen and pelvis showing nonspecific small bowel enteritis with hepatomegaly and underlying hepatic steatosis, and stable right renal ang iomyolipoma with simple cyst of left upper kidney. Patient was admitted under our services for acute metabolic encephalopathy with concerns of alcohol withdrawal. Patient reports drinking approximately 1 pint every 2 days and reports last alcoholic drink being approximately 2 days ago. Overnight on 03/19/23 patient continued to require more IV Ativan, which transferred to medical ICU for close monitoring. Subjective: Seen and examined at bedside. Currently denies any chest pain, shortness of breath, abdominal pain, nausea, vomiting, urinary or bowel complaints. Patient claims that she wants to go home today. Pertinent positives and negatives as discussed above, a complete review of systems was performed and all other systems are negative. Vitals Signs Reviewed. General: nontoxic, no distress, appears at stated age Derm: warm, dry Head: atraumatic, normocephalic, symmetric Eyes: EOMI, no lid lag, anicteric sclera Mouth: no lip lesion, mucus membranes moist Cardiovascular: S1S2 reg, no murmur Lungs: CTA bilateral, no rhonchi, no rales , no accessory muscle use Abdominal: soft, nontender to palpation, no guarding, no appreciable organomegaly Ext: no gross muscle atrophy, no edema, no contractures Neuro: CN II-XI grossly intact, no focal neuro deficits, extension, Psych: Alert, oriented 1, appropriate affect Data Reviewed Today: Pertinent Labs: Hemoglobin 10.5, platelets 71, potassium 3.4, creatinine 0.38, AST 113, ALT 31, B12 598, folic acid 14 Imaging: Chest x-ray and apparently interpreted from this morning, shows no acute process Assessment and Plan: Acute Metabolic encephalopathy Severe alcohol withdrawals Alcohol dependence Alcoholic gastritis Hypertension, related to alcohol withdrawal -On Precedex drip at 0.6 mcg per kilogram per hour -As needed IV Ativan per CIWA score -Oral thiamine 100 mg daily -ICU note reviewed, continue current therapy -Oral Protonix 40 mg daily, Carafate 1 g 3 times a day -Continue normal saline at 100 mL an hour -Seizure precautions Transaminitis, improving Thrombocytopenia Mild normocytic anemia -In the setting of long-standing alcohol use -CT abdomen and pelvis to show hepatomegaly with underlying hepatic steatosis -Repeat CBC tomorrow, no active bleeding Hypomagnesemia Hypokalemia -2 g IV magnesium sulfate given today, 40 mEq IV potassium given today -Repeat BMP and magnesium level tomorrow Alcoholic ketoacidosis with High anion gap metabolic acidosis, resolved Incidental finding on CT imaging, Ovoid nodule in the posterior right upper lobe measuring 12 x 6 mm, per CT report it does not appear significantly changed when compared to previous CT completed 08/25/20 and given over 2 years stability is considered benign. DVT ppx: Lovenox Code status: Full code Anticipated discharge place: Pending clinical course Anticipated discharge time: Pending clinical course Objective - Vital Signs Vital signs: Vital Signs Temp 97.8 F 03/19/23 12:00 Pulse 76 03/19/23 12:00 Resp 16 03/19/23 12:00 BP 134/91 03/19/23 12:00 Pulse Ox 93 L 03/19/23 12:00 FiO2 Intake & Output 03/18/23 03/19/23 03/19/23 18:59 06:59 18:59 Intake Total 100 1455.322 Output Total 300 450 Balance -200 1005.322 Intake: IV 500 Sodium Chloride 0.9% 1, 500 000 ml @ 100 mls/hr IV . Q10H [facility] Rx#:[id number] Intake, IV Titration 100 705.322 Amount Dexmedetomidine/0.9% NaCl 5.322 (Pmx) 400 mcg In Empty Bag 1 bag @ 0.2 MCG/KG/HR 2.903 mls/hr IV .Q24H [facility] Rx#:[id number] Magnesium Sulfate-D5w Pmx 300 1 gm In Dextrose/Water 1 100ml.bag @ 100 mls/hr IVPB Q1H [facility] Rx#: [id number] Potassium Chloride 10 meq 300 In Water For Injection 1 100ml.bag @ 100 mls/hr IVPB Q1HR [facility] Rx#: [id number] Sodium Chloride 0.9% 1, 100 100 000 ml @ 100 mls/hr IV . Q10H [facility] Rx#:[id number] Oral 250 Output: Urine 300 450 Other: Voiding Method External Catheter External Catheter # Voids 0 0 - Labs CBC & Chem 7: 03/19/23 05:36 03/19/23 05:36 Labs: Abnormal Lab Results - Last 24 Hours (Table) 03/19/23 03/19/23 03/19/23 Range/Units 05:20 05:36 05:36 RBC 3.74 L (3.80-5.40) m/uL Hgb 10.5 L (11.4-16.0) gm/dL Hct 32.6 L (34.0-46.0) % RDW 16.6 H (11.5-15.5) % Plt Count 71 L (150-450) k/uL Sodium 134 L (137-145) mmol/L Potassium 3.4 L (3.5-5.1) mmol/L Carbon Dioxide 18 L (22-30) mmol/L Creatinine 0.38 L (0.52-1.04) mg/dL Glucose 210 H (74-99) mg/dL POC Glucose (mg/dL) 69 L (70-110) mg/dL AST 113 H (14-36) U/L 03/19/23 Range/Units 05:49 RBC (3.80-5.40) m/uL Hgb (11.4-16.0) gm/dL Hct (34.0-46.0) % RDW (11.5-15.5) % Plt Count (150-450) k/uL Sodium (137-145) mmol/L Potassium (3.5-5.1) mmol/L Carbon Dioxide (22-30) mmol/L Creatinine (0.52-1.04) mg/dL Glucose (74-99) mg/dL POC Glucose (mg/dL) 203 H (70-110) mg/dL AST (14-36) U/L
[2023-03-20] MEDS: SODIUM CHLORIDE 0.9% 1,000 ML IV SCH ×2 (00:06→09:00)
[2023-03-20] MEDS: DEXMEDETOMIDINE/0.9% NACL(PMX) 400 MCG in EMPTY BAG 1 BAG IV SCH (00:06)
[2023-03-20 06:22] LABS: Anisocytosis Slight; HCT 34.1 % (34.0-46.0); HGB 10.8 gm/dL (11.4-16.0); Hypochromasia Slight; MCHC 31.8 g/dL (31.0-37.0); MCV 87.8 fL (80.0-100.0); RBC 3.88 m/uL (3.80-5.40); RDW 16.7 % (11.5-15.5)
[2023-03-20 06:31] LABS: ALT 39 U/L (4-34); AST 125 U/L (14-36); African American GFR (CKD) >90 (>60 ml/min/1.73 sqM); Albumin 3.4 g/dL (3.5-5.0); Alkaline Phosphatase 74 U/L (38-126); Anion Gap 11 mmol/L; Blood Urea Nitrogen 8 mg/dL (7-17); Calcium 8.5 mg/dL (8.4-10.2); Carbon Dioxide 18 mmol/L (22-30); Chloride 104 mmol/L (98-107); Glucose 91 mg/dL (74-99); Magnesium 1.6 mg/dL (1.6-2.3); Non-African American GFR(CKD) >90 (>60 ml/min/1.73 sqM); Potassium 3.8 mmol/L (3.5-5.1); Sodium 133 mmol/L (137-145); Total Bilirubin 0.7 mg/dL (0.2-1.3); Total Protein 6.3 g/dL (6.3-8.2)
[2023-03-20] MEDS: SUCRALFATE 1 GM TAB PO SCH ×3 (06:44→16:36)
[2023-03-20] MEDS: PANTOPRAZOLE 40 MG TABLET PO SCH (06:44)
[2023-03-20] MEDS: LORazepam 2 MG/ML INJ IV PRN ×2 (06:50→13:10)
[2023-03-20] MEDS ORDERED: POTASSIUM BICARBONATE/CIT AC 20 MEQ TABLET.EFF NG-TUBE SCH (07:00)
[2023-03-20 07:01] LABS: Platelet Count 93 k/uL (150-450)
--- NOTE | 2023-03-20 07:10 | XR ---
EXAM: XR Chest, 1 View CLINICAL HISTORY: ITS.REASON XR Reason: COPD TECHNIQUE: Frontal view of the chest. COMPARISON: 03/19/23 FINDINGS: Lungs: Scattered senescent parenchymal changes redemonstrated. No consolidation. Pleural space: Unremarkable. No pneumothorax. Heart: Unremarkable. No cardiomegaly. Mediastinum: Normal mediastinal contour. Bones/joints: Stable IMPRESSION: Stable exam as compared to 03/19/23
[2023-03-20] MEDS: PRAVASTATIN SODIUM 20 MG TAB PO SCH (08:42)
[2023-03-20] MEDS: NICOTINE 21MG/24HR PATCH TRANSDERM SCH (08:42)
[2023-03-20] MEDS: ENOXAPARIN 40 MG/0.4 ML SYRINGE SQ SCH (08:42)
[2023-03-20] MEDS: THIAMINE 100 MG TAB PO SCH (08:42)
[2023-03-20 08:47] LABS: Basophils # (M) 0.04 k/uL (0-0.2); Eosinophils # (M) 0.24 k/uL (0-0.7); Lymphocytes # (M) 0.88 k/uL (1.0-4.8); Monocytes # (M) 0.36 k/uL (0-1.0); Neutrophils # (M) 2.48 k/uL (1.3-7.7); Neutrophils % (M) 62 %; Nucleated Red Blood Cells 0 /100 WBC (0-0); Total Cells Counted 100
--- NOTE | 2023-03-20 10:59 | P.PN ---
Subjective Progress Note Date: 03/20/23 Hospital Course: Patient is a very pleasant 72-year-old female with a reported past medical his tory of alcohol abuse, GERD, neuropathy with restless leg syndrome, tremors, and nicotine dependence. She presented to the emergency department via EMS secondary to reports of altered mental status. Per ED documentation patient was found to be altered however states that EMS reported that they are familiar with this patient and that she is an alcoholic. Vital signs upon arrival show blood pressure 160/93, heart rate 102, respiratory rate 18, temp 98.4F, and SpO2 of 95% on room air. EKG completed showing normal sinus rhythm at 94 bpm with no significant T-wave or ST abnormalities. CBC showing pancytopenia with WBC count of 3.7, hemoglobin 11.3, and platelet count of 87. BMP showing metabolic acidosis with chloride of 99, bicarb 20, anion gap elevated at 19 with blood glucose of 155. Lactic acid was elevated at 3.8. Magnesium was significantly low at 1.0. Liver profile showing AST 101 and ALT of 35 with alkaline phosphatase of 93. Ammonia levels were normal findings at less than 9. Lipase 239. Serum alcohol resulting at 15mg/dL. Influenza A, influenza B, RSV, and Covid PCR were negative. CT head and cervical spine were negative for acute process. CT cervical spine did reveal moderate multilevel cervical spondylosis. CT abdomen and pelvis showing nonspecific small bowel enteritis with hepatomegaly and underlying hepatic steatosis, and stable right renal angiomyolipoma with simple cyst of left upper kidney. Patient was admitted under our services for acute metabolic encephalopathy with concerns of alcohol withdrawal. Patient reports drinking approximately 1 pint every 2 days and reports last alcoholic drink being approximately 2 days ago. Overnight on 03/19/23 patient continued to require more IV Ativan, was transferred to medical ICU for close monitoring. She was briefly on Precedex drip, now doing better. Subjective: Seen and examined at bedside. Overnight no acute events. Off of Precedex. Still requiring IV Ativan. Pertinent positives and negatives as discussed above, a complete review of systems was performed and all other systems are negative. Vitals Signs Reviewed. General: nontoxic, no distress, appears at stated age Derm: warm, dry Head: atraumatic, normocephalic, symmetric Eyes: EOMI, no lid lag, anicteric sclera Mouth: no lip lesion, mucus membranes moist Cardiovascular: S1S2 reg, no murmur Lungs: CTA bilateral, no rhonchi, no rales , no accessory muscle use Abdominal: soft, nontender to palpation, no guarding, no appreciable organomegaly Ext: no gross muscle atrophy, no edema, no contractures Neuro: CN II-XI grossly intact, no focal neuro deficits, extension, Psych: Alert, oriented 2, appropriate affect Data Reviewed Today: Pertinent Labs: Hemoglobin 10.8, platelet 93, sodium 133, potassium 2.8, bicarb 18, creatinine 0.33, magnesium 1.6 Imaging: Chest x-ray and apparently interpreted from this morning, shows no acute process, similar to yesterday Assessment and Plan: Acute Metabolic encephalopathy, improving Severe alcohol withdrawals Alcohol dependence Alcoholic gastritis Hypertension, related to alcohol withdrawal -Off Precedex -As needed IV Ativan per CIWA score, monitor for respiratory depression -Oral thiamine 100 mg daily -ICU following, likely patient out of the ICU. -Oral Protonix 40 mg daily, Carafate 1 g 3 times a day -Continue normal saline at 100 mL an hour, discontinue once oral intake improves -Seizure precautions Transaminitis, stable Thrombocytopenia, improving Mild normocytic anemia, improving -In the setting of long-standing alcohol use -CT abdomen and pelvis to show hepatomegaly with underlying hepatic steatosis -Repeat CBC tomorrow, no active bleeding Hypomagnesemia, resolved Hypokalemia - 20 mEq of oral potassium given -Repeat BMP and magnesium level tomorrow Non-anion gap metabolic acidosis -Likely in the setting of normal saline -Repeat BMP tomorrow -Discontinue fluids when oral intake improves Incidental finding on CT imaging, Ovoid nodule in the posterior right upper lobe measuring 12 x 6 mm, per CT report it does not appear significantly changed when compared to previous CT completed 08/25/20 and given over 2 years stability is considered benign. DVT ppx: Lovenox Code status: Full code Anticipated discharge place: Pending clinical course Anticipated discharge time: Pending clinical course Objective - Vital Signs Vital signs: Vital Signs Temp 96.9 F L 03/20/23 08:00 Pulse 82 03/20/23 10:00 Resp 12 03/20/23 10:00 BP 131/82 03/20/23 10:00 Pulse Ox 98 03/20/23 10:00 FiO2 Intake & Output 03/19/23 03/20/23 03/20/23 18:59 06:59 18:59 Intake Total 2304.722 1221.898 650 Output Total 650 900 550 Balance 1654.722 321.898 100 Weight 63 kg Intake: IV 1100 1200 400 Sodium Chloride 0.9% 1, 1100 1200 400 000 ml @ 100 mls/hr IV . Q10H [facility] Rx#:[id number] Intake, IV Titration 954.722 21.898 Amount Dexmedetomidine/0.9% NaCl 54.722 21.898 (Pmx) 400 mcg In Empty Bag 1 bag @ 0.2 MCG/KG/HR 2.903 mls/hr IV .Q24H [facility] Rx#:[id number] Magnesium Sulfate-D5w Pmx 300 1 gm In Dextrose/Water 1 100ml.bag @ 100 mls/hr IVPB Q1H [facility] Rx#: [id number] Potassium Chloride 10 meq 200 In Water For Injection 1 100ml.bag @ 100 mls/hr IVPB Q1H [facility] Rx#: [id number] Potassium Chloride 10 meq 300 In Water For Injection 1 100ml.bag @ 100 mls/hr IVPB Q1HR [facility] Rx#: [id number] Sodium Chloride 0.9% 1, 100 000 ml @ 100 mls/hr IV . Q10H [facility] Rx#:[id number] Oral 250 250 Output: Urine 650 900 550 Other: Voiding Method External Catheter External Catheter External Catheter # Voids 1 - Labs CBC & Chem 7: 03/20/23 05:46 03/20/23 05:46 Labs: Abnormal Lab Results - Last 24 Hours (Table) 03/20/23 03/20/23 Range/Units 05:46 05:46 Hgb 10.8 L (11.4-16.0) gm/dL RDW 16.7 H (11.5-15.5) % Plt Count 93 L (150-450) k/uL Lymphocytes # (Manual) 0.88 L (1.0-4.8) k/uL Sodium 133 L (137-145) mmol/L Carbon Dioxide 18 L (22-30) mmol/L Creatinine 0.33 L (0.52-1.04) mg/dL AST 125 H (14-36) U/L ALT 39 H (4-34) U/L Albumin 3.4 L (3.5-5.0) g/dL Microbiology - Last 24 Hours (Table) 03/18/23 07:14 Blood Culture - Preliminary Blood
--- NOTE | 2023-03-20 13:33 | P.PN ---
Subjective Progress Note Date: 03/20/23 Principal diagnosis: Acute alcohol withdrawal This is a 72-year-old female with known history of multiple medical problems including alcohol abuse, GERD, neuropathy and restless leg syndrome, nicotine dependence, patient was brought into the ER on 03/17 with altered status, pat ient was quite tremulous and diaphoretic. Drug screen on admission was positive for benzodiazepine and for alcohol. Patient tells me today that her last drink was 2 days ago. She was initially admitted to the regular medical floor, however I was notified by the admitting physician that the patient is difficult to handle with Ativan/CIWA protocol, and recommended transferring the patient to the ICU mostly for potentially using Precedex. Patient has been in the ICU since last night, and she did not require Precedex, and withdrawal is being handled mostly with Ativan and she is not requiring significant amount of Ativan so far. Patient is intermittently confused, but she is not in any form of respiratory distress. WBC count is 4.2 hemoglobin 10.5 basic metabolic profile is normal renal profile is normal, chest x-ray is relatively normal, CT brain showed no evidence of acute intracranial abnormality. CT cervical spine showed no evidence of spine fracture , however she had moderate multilevel cervical spondylosis. CT of abdomen and pelvis showed hepatomegaly with underlying hepatic steatosis and stable right renal angiomyolipoma. Today on 02/2602 3, patient is doing well, she went off Precedex last night around 2 AM, patient is not in distress, does not show any significant signs of withdrawal at this point, Ativan seems to be controlling his symptoms. Hence I will transfer the patient out of the ICU to a regular medical floor today. WBC count is 4 hemoglobin 10.8 basic metabolic profile is normal and renal profile is normal. Chest x-ray this morning is basically normal. Mentation has significantly improved over the last 24 hours. And again I believe the patient should be transferred to a regular medical floor, and will follow as needed. Objective - Vital Signs Vital signs: Vital Signs Temp 96.9 F L 03/20/23 08:00 Pulse 82 03/20/23 10:00 Resp 12 03/20/23 10:00 BP 131/82 03/20/23 10:00 Pulse Ox 98 03/20/23 10:00 FiO2 Intake & Output 03/19/23 03/20/23 03/20/23 18:59 06:59 18:59 Intake Total 2304.722 1221.898 650 Output Total 650 900 550 Balance 1654.722 321.898 100 Weight 63 kg Intake: IV 1100 1200 400 Sodium Chloride 0.9% 1, 1100 1200 400 000 ml @ 100 mls/hr IV . Q10H [facility] Rx#:[id number] Intake, IV Titration 954.722 21.898 Amount Dexmedetomidine/0.9% NaCl 54.722 21.898 (Pmx) 400 mcg In Empty Bag 1 bag @ 0.2 MCG/KG/HR 2.903 mls/hr IV .Q24H [facility] Rx#:[id number] Magnesium Sulfate-D5w Pmx 300 1 gm In Dextrose/Water 1 100ml.bag @ 100 mls/hr IVPB Q1H [facility] Rx#: [id number] Potassium Chloride 10 meq 200 In Water For Injection 1 100ml.bag @ 100 mls/hr IVPB Q1H [facility] Rx#: [id number] Potassium Chloride 10 meq 300 In Water For Injection 1 100ml.bag @ 100 mls/hr IVPB Q1HR [facility] Rx#: [id number] Sodium Chloride 0.9% 1, 100 000 ml @ 100 mls/hr IV . Q10H [facility] Rx#:[id number] Oral 250 250 Output: Urine 650 900 550 Other: Voiding Method External Catheter External Catheter External Catheter # Voids 1 - Exam Physical Exam: Revealed 72-year-old female in no distress, on room air Head: Atraumatic, normocephalic. HEENT:[Neck is supple.] [No neck masses.] [No thyromegaly.] [No JVD.] Chest: [Clear throughout, no crackles, no rhonchi, no wheezes.] Cardiac Exam: [Normal S1 and S2, no S3 gallop, no murmur.] Abdomen: [Soft, nontender, no megaly, no rebound, no guarding, normal bowel sounds.] Extremities: [No clubbing, no edema, no cyanosis.] Neurological Exam: [No focal neurologic deficit.] Alert and oriented 3 Psychiatric: Normal mood affect and normal mental status examination Skin: No rashes - Labs CBC & Chem 7: 03/20/23 05:46 03/20/23 05:46 Labs: Abnormal Lab Results - Last 24 Hours (Table) 03/20/23 03/20/23 Range/Units 05:46 05:46 Hgb 10.8 L (11.4-16.0) gm/dL RDW 16.7 H (11.5-15.5) % Plt Count 93 L (150-450) k/uL Lymphocytes # (Manual) 0.88 L (1.0-4.8) k/uL Sodium 133 L (137-145) mmol/L Carbon Dioxide 18 L (22-30) mmol/L Creatinine 0.33 L (0.52-1.04) mg/dL AST 125 H (14-36) U/L ALT 39 H (4-34) U/L Albumin 3.4 L (3.5-5.0) g/dL Microbiology - Last 24 Hours (Table) 03/18/23 07:14 Blood Culture - Preliminary Blood Assessment and Plan Assessment: Impression: Acute alcohol withdrawal, patient is now off Precedex and mostly on Ativan as needed Acute metabolic encephalopathy secondary to alcohol withdrawal, significantly improved in the last 24 hours. Acute anion gap metabolic acidosis most likely related to her alcohol ketoacidosis improving. Hypomagnesemia Pancytopenia secondary to her long-standing history of alcoholism Benign essential hypertension History of solitary lung nodule Recommendation: Transfer patient to medical surgical floor Continue CIWA protocol, Continue multivitamins Continue thiamine Seizure precautions GI and DVT prophylaxis Will follow as needed Time with Patient: Less than 30
[2023-03-21 04:11] LABS: Anisocytosis Slight; Basophils % (A) 0 %; Eosinophils # (A) 0.2 k/uL (0-0.7); Eosinophils % (A) 4 %; HCT 34.2 % (34.0-46.0); Lymphocytes # (A) 1.2 k/uL (1.0-4.8); Lymphocytes % (A) 27 %; MCH 27.8 pg (25.0-35.0); MCHC 32.2 g/dL (31.0-37.0); MCV 86.4 fL (80.0-100.0); Mean Platelet Volume 8.9; Monocytes # (A) 0.7 k/uL (0-1.0); Monocytes % (A) 15 %; Neutrophils # (A) 2.3 k/uL (1.3-7.7); Neutrophils % (A) 50 %; Platelet Count 114 k/uL (150-450); RBC 3.96 m/uL (3.80-5.40); RDW 16.9 % (11.5-15.5); WBC 4.6 k/uL (3.8-10.6)
[2023-03-21 04:25] LABS: ALT 29 U/L (4-34); AST 58 U/L (14-36); African American GFR (CKD) >90 (>60 ml/min/1.73 sqM); Albumin 3.1 g/dL (3.5-5.0); Alkaline Phosphatase 87 U/L (38-126); Anion Gap 7 mmol/L; Blood Urea Nitrogen 9 mg/dL (7-17); Calcium 8.8 mg/dL (8.4-10.2); Carbon Dioxide 23 mmol/L (22-30); Chloride 104 mmol/L (98-107); Glucose 117 mg/dL (74-99); Magnesium 1.5 mg/dL (1.6-2.3); Non-African American GFR(CKD) >90 (>60 ml/min/1.73 sqM); Sodium 134 mmol/L (137-145); Total Bilirubin 0.5 mg/dL (0.2-1.3); Total Protein 6.1 g/dL (6.3-8.2)
[2023-03-21] MEDS: MAGNESIUM SULFATE-D5W PMX 1 GM in DEXTROSE/WATER 1 100ML.BAG IVPB SCH ×2 (05:08→06:32)
[2023-03-21] MEDS: SUCRALFATE 1 GM TAB PO SCH ×3 (06:32→17:36)
[2023-03-21] MEDS: PANTOPRAZOLE 40 MG TABLET PO SCH (06:32)
[2023-03-21] MEDS: SODIUM CHLORIDE 0.9% 1,000 ML IV SCH ×2 (07:19)
[2023-03-21] MEDS ORDERED: MAGNESIUM SULFATE-D5W PMX 1 GM in DEXTROSE/WATER 1 100ML.BAG IVPB SCH (08:00)
[2023-03-21] MEDS: ENOXAPARIN 40 MG/0.4 ML SYRINGE SQ SCH (09:20)
[2023-03-21] MEDS: NICOTINE 21MG/24HR PATCH TRANSDERM SCH (09:20)
[2023-03-21] MEDS: THIAMINE 100 MG TAB PO SCH (09:20)
[2023-03-21] MEDS: PRAVASTATIN SODIUM 20 MG TAB PO SCH (09:20)
[2023-03-21] MEDS: LORazepam 2 MG/ML INJ IV PRN ×2 (09:36→20:40)
--- NOTE | 2023-03-21 11:49 | P.PN ---
Subjective Progress Note Date: 03/19/23 Patient was seen for follow-up. Patient has developed full delirium tremens. Patient is currently on Precedex 0.4 mcg/kg per hour. Patient is asleep at this time. Objective - Vital Signs Vital signs: Vital Signs Temp 96.2 F L 03/19/23 16:00 Pulse 61 03/19/23 16:00 Resp 15 03/19/23 16:00 BP 100/61 03/19/23 16:00 Pulse Ox 96 03/19/23 16:00 FiO2 Intake & Output 03/18/23 03/19/23 03/19/23 18:59 06:59 18:59 Intake Total 100 1984.304 Output Total 300 650 Balance -200 1334.304 Intake: IV 900 Sodium Chloride 0.9% 1, 900 000 ml @ 100 mls/hr IV . Q10H [facility] Rx#:[id number] Intake, IV Titration 100 834.304 Amount Dexmedetomidine/0.9% NaCl 34.304 (Pmx) 400 mcg In Empty Bag 1 bag @ 0.2 MCG/KG/HR 2.903 mls/hr IV .Q24H [facility] Rx#:[id number] Magnesium Sulfate-D5w Pmx 300 1 gm In Dextrose/Water 1 100ml.bag @ 100 mls/hr IVPB Q1H [facility] Rx#: [id number] Potassium Chloride 10 meq 100 In Water For Injection 1 100ml.bag @ 100 mls/hr IVPB Q1H [facility] Rx#: [id number] Potassium Chloride 10 meq 300 In Water For Injection 1 100ml.bag @ 100 mls/hr IVPB Q1HR [facility] Rx#: [id number] Sodium Chloride 0.9% 1, 100 100 000 ml @ 100 mls/hr IV . Q10H [facility] Rx#:[id number] Oral 250 Output: Urine 300 650 Other: Voiding Method External Catheter External Catheter # Voids 0 1 - Exam Patient is asleep. She gets very shaky otherwise. Detail examination deferred. - Labs CBC & Chem 7: 03/21/23 03:00 03/21/23 03:00 Labs: Abnormal Lab Results - Last 24 Hours (Table) 03/19/23 03/19/23 03/19/23 Range/Units 05:20 05:36 05:36 RBC 3.74 L (3.80-5.40) m/uL Hgb 10.5 L (11.4-16.0) gm/dL Hct 32.6 L (34.0-46.0) % RDW 16.6 H (11.5-15.5) % Plt Count 71 L (150-450) k/uL Sodium 134 L (137-145) mmol/L Potassium 3.4 L (3.5-5.1) mmol/L Carbon Dioxide 18 L (22-30) mmol/L Creatinine 0.38 L (0.52-1.04) mg/dL Glucose 210 H (74-99) mg/dL POC Glucose (mg/dL) 69 L (70-110) mg/dL AST 113 H (14-36) U/L 03/19/23 Range/Units 05:49 RBC (3.80-5.40) m/uL Hgb (11.4-16.0) gm/dL Hct (34.0-46.0) % RDW (11.5-15.5) % Plt Count (150-450) k/uL Sodium (137-145) mmol/L Potassium (3.5-5.1) mmol/L Carbon Dioxide (22-30) mmol/L Creatinine (0.52-1.04) mg/dL Glucose (74-99) mg/dL POC Glucose (mg/dL) 203 H (70-110) mg/dL AST (14-36) U/L Microbiology - Last 24 Hours (Table) 03/18/23 07:14 Blood Culture - Preliminary Blood Assessment and Plan Assessment: * Alcohol withdrawal, with hallucinations, probable mild DTs. * Chronic intermittent alcoholism, has been drinking regularly since August 2022. * Peripheral neuropathy, likely due to alcoholism, rule out nutritional deficiency * Anxiety, depression * Tobacco use Plan: * [facility] protocol * B12 598, folate 14.60, MMA, B6. * Thiamine, folate, multivitamins * TSH 6.020, free T4 1.00. Internal medicine to address abnormal thyroid functions. * Patient denies any seizures, and never had any history of seizures. Her tremors are likely from alcohol withdrawal. * Consider EMG and nerve conductions of bilateral lower limbs as outpatient to evaluate for the type and severity of peripheral neuropathy. * Patient recommended to abstain from alcohol, as it can be toxic to the nerves. * Recommend using walker to prevent falls. * May consider orthopedic consult for back pain.
--- NOTE | 2023-03-21 11:52 | P.PN ---
Subjective Progress Note Date: 03/20/23 Patient was seen for follow-up. Patient is much more alert and awake. Patient is having her dinner. Offers no new complaints. Objective - Vital Signs Vital signs: Vital Signs Temp 98.3 F 03/20/23 14:00 Pulse 101 H 03/20/23 14:00 Resp 20 03/20/23 14:00 BP 133/84 03/20/23 14:00 Pulse Ox 96 03/20/23 14:00 FiO2 Intake & Output 03/19/23 03/20/23 03/20/23 18:59 06:59 18:59 Intake Total 2304.722 1221.898 650 Output Total 650 900 550 Balance 1654.722 321.898 100 Weight 63 kg Intake: IV 1100 1200 400 Sodium Chloride 0.9% 1, 1100 1200 400 000 ml @ 100 mls/hr IV . Q10H [facility] Rx#:[id number] Intake, IV Titration 954.722 21.898 Amount Dexmedetomidine/0.9% NaCl 54.722 21.898 (Pmx) 400 mcg In Empty Bag 1 bag @ 0.2 MCG/KG/HR 2.903 mls/hr IV .Q24H [facility] Rx#:[id number] Magnesium Sulfate-D5w Pmx 300 1 gm In Dextrose/Water 1 100ml.bag @ 100 mls/hr IVPB Q1H [facility] Rx#: [id number] Potassium Chloride 10 meq 200 In Water For Injection 1 100ml.bag @ 100 mls/hr IVPB Q1H [facility] Rx#: [id number] Potassium Chloride 10 meq 300 In Water For Injection 1 100ml.bag @ 100 mls/hr IVPB Q1HR [facility] Rx#: [id number] Sodium Chloride 0.9% 1, 100 000 ml @ 100 mls/hr IV . Q10H [facility] Rx#:[id number] Oral 250 250 Output: Urine 650 900 550 Other: Voiding Method External Catheter External Catheter External Catheter # Voids 1 - Exam Patient is alert and awake, in no distress. Speech and language functions are normal. She still has mild to moderate tremors of outstretched hands. - Labs CBC & Chem 7: 03/21/23 03:00 03/21/23 03:00 Labs: Abnormal Lab Results - Last 24 Hours (Table) 03/20/23 03/20/23 Range/Units 05:46 05:46 Hgb 10.8 L (11.4-16.0) gm/dL RDW 16.7 H (11.5-15.5) % Plt Count 93 L (150-450) k/uL Lymphocytes # (Manual) 0.88 L (1.0-4.8) k/uL Sodium 133 L (137-145) mmol/L Carbon Dioxide 18 L (22-30) mmol/L Creatinine 0.33 L (0.52-1.04) mg/dL AST 125 H (14-36) U/L ALT 39 H (4-34) U/L Albumin 3.4 L (3.5-5.0) g/dL Microbiology - Last 24 Hours (Table) 03/18/23 07:14 Blood Culture - Preliminary Blood Assessment and Plan Assessment: * Alcohol withdrawal, with hallucinations, probable mild DTs. * Chronic intermittent alcoholism, has been drinking regularly since August 2022. * Peripheral neuropathy, likely due to alcoholism, rule out nutritional deficiency * Anxiety, depression * Tobacco use Plan: * [facility] protocol * B12 598, folate 14.60, await MMA, B6. * Thiamine, folate, multivitamins * TSH 6.020, free T4 1.00. Internal medicine to address abnormal thyroid functions. * Patient denies any seizures, and never had any history of seizures. Her tremors are likely from alcohol withdrawal. * Consider EMG and nerve conductions of bilateral lower limbs as outpatient to e valuate for the type and severity of peripheral neuropathy. * Patient recommended to abstain from alcohol, as it can be toxic to the nerves. * Recommend using walker to prevent falls. * May consider orthopedic consult for back pain.
--- NOTE | 2023-03-21 12:48 | P.PN ---
Subjective Progress Note Date: 03/21/23 Hospital Course: Patient is a very pleasant 72-year-old female with a reported past medical history of alcohol abuse, GERD, neuropathy with restless leg syndrome, tremors, and nicotine dependence. She presented to the emergency department via EMS secondary to reports of altered mental status. Per ED documentation patient was found to be altered however states that EMS reported that they are familiar with this patient and that she is an alcoholic. Vital signs upon arrival show blood pressure 160/93, heart rate 102, respiratory rate 18, temp 98.4F, and SpO2 of 95% on room air. EKG completed showing normal sinus rhythm at 94 bpm with no significant T-wave or ST abnormalities. CBC showing pancytopenia with WBC count of 3.7, hemoglobin 11.3, and platelet count of 87. BMP showing metabolic acidosis with chloride of 99, bicarb 20, anion gap elevated at 19 with blood glucose of 155. Lactic acid was elevated at 3.8. Magnesium was significantly low at 1.0. Liver profile showing AST 101 and ALT of 35 with alkaline phosphatase of 93. Ammonia levels were normal findings at less than 9. Lipase 239. Serum alcohol resulting at 15mg/dL. Influenza A, influenza B, RSV, and Covid PCR were negative. CT head and cervical spine were negative for acute process. CT cervical spine did reveal moderate multilevel cervical spondylosis. CT abdomen and pelvis showing nonspecific small bowel enteritis with hepatomegaly and underlying hepatic steatosis, and stable right renal ang iomyolipoma with simple cyst of left upper kidney. Patient was admitted under our services for acute metabolic encephalopathy with concerns of alcohol withdrawal. Patient reports drinking approximately 1 pint every 2 days and reports last alcoholic drink being approximately 2 days ago. Overnight on 03/19/23 patient continued to require more IV Ativan, was transferred to medical ICU for close monitoring. She was briefly on Precedex drip, now doing better. Not requiring any more IV Ativan. Subjective: Seen and examined at bedside. Overnight no acute events. Pertinent positives and negatives as discussed above, a complete review of systems was performed and all other systems are negative. Vitals Signs Reviewed. General: nontoxic, no distress, appears at stated age Derm: warm, dry Head: atraumatic, normocephalic, symmetric Eyes: EOMI, no lid lag, anicteric sclera Mouth: no lip lesion, mucus membranes moist Cardiovascular: S1S2 reg, no murmur Lungs: CTA bilateral, no rhonchi, no rales , no accessory muscle use Abdominal: soft, nontender to palpation, no guarding, no appreciable organomegaly Ext: no gross muscle atrophy, no edema, no contractures Neuro: CN II-XI grossly intact, no focal neuro deficits, extension, Psych: Alert, oriented 3, appropriate affect Data Reviewed Today: Pertinent Labs: Hemoglobin 11, platelet 114, sodium 134, creatinine 0.39, magnesium 1.5 Imaging: No new imaging Assessment and Plan: Patient remains in medical ICU Acute Metabolic encephalopathy, resolved Severe alcohol withdrawals, resolved Alcohol dependence Alcoholic gastritis Hypertension, likely related to alcohol withdrawal peripheral neuropathy, likely alcohol related -As needed IV Ativan per CIWA score, monitor for respiratory depression -Oral thiamine 100 mg daily -ICU following, patient to be transferred out of the ICU -Oral Protonix 40 mg daily, Carafate 1 g 3 times a day -Seizure precautions -Neurology also following, and B6 levels pending, MMA pending Transaminitis, improving Thrombocytopenia, improving Mild normocytic anemia, improving -In the setting of long-standing alcohol use -CT abdomen and pelvis to show hepatomegaly with underlying hepatic steatosis Hypomagnesemia Hypokalemia, resolved -2 g IV magnesium sulfate given today -Repeat BMP and magnesium level tomorrow Non-anion gap metabolic acidosis, resolved Incidental finding on CT imaging, Ovoid nodule in the posterior right upper lobe measuring 12 x 6 mm, per CT report it does not appear significantly changed when compared to previous CT completed 08/25/20 and given over 2 years stability is considered benign. DVT ppx: Lovenox Code status: Full code Anticipated discharge place: Pending clinical course Anticipated discharge time: Pending clinical course Objective - Vital Signs Vital signs: Vital Signs Temp 97.8 F 03/21/23 08:00 Pulse 88 03/21/23 08:00 Resp 18 03/21/23 08:00 BP 135/81 03/21/23 08:00 Pulse Ox 97 03/21/23 08:00 FiO2 Intake & Output 03/20/23 03/21/23 03/21/23 18:59 06:59 18:59 Intake Total 2050 1700 240 Output Total 800 1000 450 Balance 1250 700 -210 Intake: IV 1200 1200 Sodium Chloride 0.9% 1, 1200 1200 000 ml @ 100 mls/hr IV . Q10H [facility] Rx#:[id number] Oral 850 500 240 Output: Urine 800 1000 450 Other: Voiding Method External Catheter External Catheter External Catheter # Voids 10 - Labs CBC & Chem 7: 03/21/23 03:00 03/21/23 03:00 Labs: Abnormal Lab Results - Last 24 Hours (Table) 03/21/23 03/21/23 Range/Units 03:00 03:00 Hgb 11.0 L (11.4-16.0) gm/dL RDW 16.9 H (11.5-15.5) % Plt Count 114 L (150-450) k/uL Sodium 134 L (137-145) mmol/L Creatinine 0.39 L (0.52-1.04) mg/dL Glucose 117 H (74-99) mg/dL Magnesium 1.5 L (1.6-2.3) mg/dL AST 58 H (14-36) U/L Total Protein 6.1 L (6.3-8.2) g/dL Albumin 3.1 L (3.5-5.0) g/dL Microbiology - Last 24 Hours (Table) 03/18/23 07:14 Blood Culture - Preliminary Blood
--- NOTE | 2023-03-21 14:25 | P.PN ---
Subjective Progress Note Date: 03/21/23 Patient was seen for follow-up. Patient is much more alert and awake. Patient is sitting comfortably in the recliner. Patient says she was able to walk a little with the therapist. She has neuropathy in the feet from toes up to ankles bilaterally. Patient denies any back pain at this time. Objective - Vital Signs Vital signs: Vital Signs Temp 98.2 F 03/21/23 14:00 Pulse 89 03/21/23 14:00 Resp 18 03/21/23 14:00 BP 137/90 03/21/23 14:00 Pulse Ox 94 L 03/21/23 14:00 FiO2 Intake & Output 03/20/23 03/21/23 03/21/23 18:59 06:59 18:59 Intake Total 2050 1700 240 Output Total 800 1000 450 Balance 1250 700 -210 Intake: IV 1200 1200 Sodium Chloride 0.9% 1, 1200 1200 000 ml @ 100 mls/hr IV . Q10H [facility] Rx#:[id number] Oral 850 500 240 Output: Urine 800 1000 450 Other: Voiding Method External Catheter External Catheter External Catheter # Voids 10 - Exam Patient is alert and awake, in no distress. Patient states it is February and the year is 1922 and that she is in [facility]. Speech and language functions are normal. She still has mild to moderate tremors of outstretched hands. Muscle strength is normal in the arms and legs distally and proximally. Detailed testing of the lower limbs was normal. No ataxia or tremors. - Labs CBC & Chem 7: 03/22/23 03:14 03/22/23 03:14 Labs: Abnormal Lab Results - Last 24 Hours (Table) 03/21/23 03/21/23 Range/Units 03:00 03:00 Hgb 11.0 L (11.4-16.0) gm/dL RDW 16.9 H (11.5-15.5) % Plt Count 114 L (150-450) k/uL Sodium 134 L (137-145) mmol/L Creatinine 0.39 L (0.52-1.04) mg/dL Glucose 117 H (74-99) mg/dL Magnesium 1.5 L (1.6-2.3) mg/dL AST 58 H (14-36) U/L Total Protein 6.1 L (6.3-8.2) g/dL Albumin 3.1 L (3.5-5.0) g/dL Microbiology - Last 24 Hours (Table) 03/18/23 07:14 Blood Culture - Preliminary Blood Assessment and Plan Assessment: * Alcohol withdrawal, with hallucinations, probable mild DTs. * Chronic intermittent alcoholism, has been drinking regularly since August 2022. * Peripheral neuropathy, likely due to alcoholism, rule out nutritional deficiency * Anxiety, depression * Tobacco use Plan: * Patient is doing much better, she is out of alcohol withdrawal. * [facility] protocol * B12 598, folate 14.60, await MMA, B6. * Thiamine, folate, multivitamins * TSH 6.020, free T4 1.00. Internal medicine to address abnormal thyroid functions. * Patient denies any seizures, and never had any history of seizures. Her tremors are likely from alcohol withdrawal. * Consider EMG and nerve conductions of bilateral lower limbs as outpatient to evaluate for the type and severity of peripheral neuropathy. * Patient recommended to abstain from alcohol, as it can be toxic to the nerves. * Neurologically clear, if cleared by PT and OT. Addendum 03/28/2023: Methylmalonic acid < 0.10 Vitamin B6 3 (5-50) Called patient's home, inform the results of low B6, to start taking vitamin B6 25 mg tablets, 2 tablets daily. She does have neuropathy. Recommended to follow up with neurologist outpatient.
[2023-03-22 02:27] VITALS: TEMP 97.9
[2023-03-22 04:48] LABS: Anisocytosis Slight; HCT 32.6 % (34.0-46.0); HGB 10.5 gm/dL (11.4-16.0); Hypochromasia Slight; MCH 28.3 pg (25.0-35.0); MCHC 32.2 g/dL (31.0-37.0); MCV 87.9 fL (80.0-100.0); Mean Platelet Volume 9.9; Platelet Count 138 k/uL (150-450); RBC 3.71 m/uL (3.80-5.40); RDW 17.1 % (11.5-15.5); WBC 5.1 k/uL (3.8-10.6)
[2023-03-22 04:50] LABS: ALT 25 U/L (4-34); AST 41 U/L (14-36); African American GFR (CKD) >90 (>60 ml/min/1.73 sqM); Albumin 3.4 g/dL (3.5-5.0); Alkaline Phosphatase 79 U/L (38-126); Anion Gap 8 mmol/L; Blood Urea Nitrogen 10 mg/dL (7-17); Calcium 9.2 mg/dL (8.4-10.2); Carbon Dioxide 25 mmol/L (22-30); Chloride 102 mmol/L (98-107); Glucose 103 mg/dL (74-99); Magnesium 1.6 mg/dL (1.6-2.3); Non-African American GFR(CKD) >90 (>60 ml/min/1.73 sqM); Potassium 4.2 mmol/L (3.5-5.1); Sodium 135 mmol/L (137-145); Total Bilirubin 0.5 mg/dL (0.2-1.3); Total Protein 6.4 g/dL (6.3-8.2)
[2023-03-22 05:41] LABS: Lymphocytes # (M) 2.19 k/uL (1.0-4.8); Monocytes # (M) 0.61 k/uL (0-1.0); Neutrophils # (M) 2.09 k/uL (1.3-7.7); Neutrophils % (M) 41 %; Nucleated Red Blood Cells 0 /100 WBC (0-0); RBC Morphology Normal; Total Cells Counted 100
[2023-03-22 05:45] LABS: Poikilocytosis (M) Present
[2023-03-22 08:00] VITALS: BP 138/81; PULSE 64; RESP 16
[2023-03-22] MEDS: NICOTINE 21MG/24HR PATCH TRANSDERM SCH (08:03)
[2023-03-22] MEDS: ENOXAPARIN 40 MG/0.4 ML SYRINGE SQ SCH (08:03)
[2023-03-22] MEDS: PRAVASTATIN SODIUM 20 MG TAB PO SCH (08:04)
[2023-03-22] MEDS: THIAMINE 100 MG TAB PO SCH (08:04)
[2023-03-22] MEDS: PANTOPRAZOLE 40 MG TABLET PO SCH (08:04)
[2023-03-22] MEDS: SUCRALFATE 1 GM TAB PO SCH ×2 (08:04→11:40)
[2023-03-22] MEDS ORDERED: ALPRAZolam 1 MG TAB PO STA (11:15)
--- NOTE | 2023-03-22 12:14 | P.DS ---
Providers Date of admission: 03/17/23 14:43 Expected date of discharge: 03/22/23 Attending physician: Carmen Castelan DO Consults: 03/18/23 09:02 Consult Physician Routine Consulting Provider: Fidelina Paz Consult Reason/Comments: fall/syncope,possibly ETOH withdrawal seizure however no hx of withdrawal Do you want consulting provider notified?: Yes 03/19/23 09:09 Consult Physician Stat Consulting Provider: Zully Graves Consult Reason/Comments: respiratory depression Do you want consulting provider notified?: Already Contacted Primary care physician: Stated None Hospital Course: Discharge Diagnosis: Acute Metabolic encephalopathy, resolved Severe alcohol withdrawals, resolved Alcohol dependence Alcoholic gastritis Hypertension, likely related to alcohol withdrawal peripheral neuropathy, likely alcohol related Transaminitis Thrombocytopenia Hypomagnesemia Hypokalemia Non-anion gap metabolic acidosis Hospital Course: Patient is a very pleasant 72-year-old female with a reported past medical history of alcohol abuse, GERD, neuropathy with restless leg syndrome, tremors, and nicotine dependence. She presented to the emergency department via EMS secondary to reports of altered mental status. Per ED documentation patient was found to be altered however states that EMS reported that they are familiar with this patient and that she is an alcoholic. Vital signs upon arrival show blood pressure 160/93, heart rate 102, respiratory rate 18, temp 98.4F, and SpO2 of 95% on room air. EKG completed showing normal sinus rhythm at 94 bpm with no significant T-wave or ST abnormalities. CBC showing pancytopenia with WBC count of 3.7, hemoglobin 11.3, and platelet count of 87. BMP showing metabolic a cidosis with chloride of 99, bicarb 20, anion gap elevated at 19 with blood glucose of 155. Lactic acid was elevated at 3.8. Magnesium was significantly low at 1.0. Liver profile showing AST 101 and ALT of 35 with alkaline phosphatase of 93. Ammonia levels were normal findings at less than 9. Lipase 239. Serum alcohol resulting at 15mg/dL. Influenza A, influenza B, RSV, and Covid PCR were negative. CT head and cervical spine were negative for acute process. CT cervical spine did reveal moderate multilevel cervical spondylosis. CT abdomen and pelvis showing nonspecific small bowel enteritis with hepatomegaly and underlying hepatic steatosis, and stable right renal angiomyolipoma with simple cyst of left upper kidney. Patient was admitted under our services for acute metabolic encephalopathy with concerns of alcohol withdrawal. Patient reports drinking approximately 1 pint every 2 days and reports last alcoholic drink being approximately 2 days ago. Overnight on 03/19/23 patient continued to require more IV Ativan, was transferred to medical ICU for close monitoring. She was briefly on Precedex drip, now doing better. Not requiring any more IV Ativan. Patient being discharged home with resources. Patient seen and examined at bedside. Vital signs reviewed and stable. General: nontoxic, no distress, appears at stated age Derm: warm, dry Head: atraumatic, normocephalic, symmetric Eyes: EOMI, no lid lag, anicteric sclera Mouth: no lip lesion, mucus membranes moist Cardiovascular: S1S2 reg, no murmur Lungs: CTA bilateral, no rhonchi, no rales , no accessory muscle use Abdominal: soft, nontender to palpation, no guarding, no appreciable organomegaly Ext: no gross muscle atrophy, no edema, no contractures Neuro: CN II-XI grossly intact, no focal neuro deficits Psych: Alert, oriented, appropriate affect A total of 33 minutes of time were spent preparing this complex discharge summary. Patient was discharged on 03/22/23 11:58. Patient Condition at Discharge: Stable Plan - Discharge Summary Discharge Rx Participant: No New Discharge Prescriptions: New Sucralfate [Carafate] 1 gm PO AC-TID #60 tab Thiamine [Vitamin B-1] 100 mg PO DAILY #60 tab Continue Docusate [Colace] 100 mg PO BID Pravastatin Sodium [Pravachol] 20 mg PO DAILY Omeprazole [PriLOSEC] 20 mg PO AC-BID polyethylene glycoL 3350 [Miralax] 17 gm PO DAILY PRN PRN Reason: Constipation Discharge Medication List Pravastatin Sodium [Pravachol] 20 mg PO DAILY 11/26/21 [History] Docusate [Colace] 100 mg PO BID 03/17/23 [History] Omeprazole [PriLOSEC] 20 mg PO AC-BID 03/17/23 [History] polyethylene glycoL 3350 [Miralax] 17 gm PO DAILY PRN 03/17/23 [History] Sucralfate [Carafate] 1 gm PO AC-TID #60 tab 03/22/23 [Rx] Thiamine [Vitamin B-1] 100 mg PO DAILY #60 tab 11/28/23 [Rx] Follow up Appointment(s)/Referral(s): Gail Davis MD [REFERRING] - 1-2 days Patient Instructions/Handouts: Gastritis (DC), Abuse of Alcohol (DC), Alcohol Withdrawal (DC) Activity/Diet/Wound Care/Special Instructions: Please see your PCP. Discharge/Stand Alone Forms: AA Meetings [facility], Community Resources, Outpatient Counseling, In Substance Abuse Facilities
== END 2023-03-22 14:13 | disposition home health service (06) | DRG 896 ==
LOC: EC 13:23 → SUPCPDRO 13:23 → 3SCARD 14:43 → 2SICU 03-19 05:16 → 5NMEDONC 03-22 03:55
PROVIDERS: ADMIT Internal Medicine; ATTEND Internal Medicine
PROC: HZ2ZZZZ Detoxification Services for Substance Abuse Treatment (ICD-10-PCS; principal; 2023-03-17)
DX: F10.231 Alcohol dependence with withdrawal delirium (principal); G93.41 Metabolic encephalopathy; E87.20 Acidosis, unspecified; D61.818 Other pancytopenia; R53.1 Weakness; F10.239 Alcohol dependence with withdrawal, unspecified; K29.20 Alcoholic gastritis without bleeding; K76.0 Fatty (change of) liver, not elsewhere classified; I10 Essential (primary) hypertension; F32.A Depression, unspecified; G25.81 Restless legs syndrome; G31.9 Degenerative disease of nervous system, unspecified; E83.42 Hypomagnesemia; D17.71 Benign lipomatous neoplasm of kidney; E78.5 Hyperlipidemia, unspecified; M47.892 Other spondylosis, cervical region; N28.1 Cyst of kidney, acquired; D69.6 Thrombocytopenia, unspecified; R74.01 Elevation of levels of liver transaminase levels; E63.9 Nutritional deficiency, unspecified; R00.0 Tachycardia, unspecified; E87.6 Hypokalemia; F17.210 Nicotine dependence, cigarettes, uncomplicated; F41.9 Anxiety disorder, unspecified; G62.9 Polyneuropathy, unspecified; I73.00 Raynaud's syndrome without gangrene; K22.70 Barrett's esophagus without dysplasia; K52.9 Noninfective gastroenteritis and colitis, unspecified; Y90.0 Blood alcohol level of less than 20 mg/100 ml; K76.82 Hepatic encephalopathy; Z79.899 Other long term (current) drug therapy; Z20.822 Contact with and (suspected) exposure to COVID-19
CPT/HCPCS: 36415; 70450; 71045; 72125; 74177; 80053; 80306; 80320; 81001; 82140; 82607; 82746; 83605; 83690; 83735; 83880; 83921; 84132; 84207; 84439; 84443; 84484; 85025; 85027; 87040; 87636; 93005; 96361; 96365; 96366; 96372; 96375; 96376; 99285

== ENCOUNTER 2023-04-16 18:48 | Inpatient (IN) | payer MEDICARE ==
[2023-04-16] MEDS ORDERED: SODIUM CHLORIDE 0.9% 1,000 ML IV STA (19:23)
[2023-04-16 19:58] LABS: Anisocytosis Slight; Basophils % (A) 1 %; Eosinophils # (A) 0.1 k/uL (0-0.7); Eosinophils % (A) 1 %; HCT 34.3 % (34.0-46.0); HGB 11.3 gm/dL (11.4-16.0); Lymphocytes # (A) 1.2 k/uL (1.0-4.8); Lymphocytes % (A) 30 %; MCH 28.1 pg (25.0-35.0); MCV 85.3 fL (80.0-100.0); Mean Platelet Volume 11.8; Monocytes # (A) 0.2 k/uL (0-1.0); Monocytes % (A) 4 %; Neutrophils # (A) 2.4 k/uL (1.3-7.7); Neutrophils % (A) 61 %; RBC 4.02 m/uL (3.80-5.40); RDW 17.7 % (11.5-15.5); WBC 3.9 k/uL (3.8-10.6)
[2023-04-16 20:07] LABS: ALT 55 U/L (4-34); AST 138 U/L (14-36); African American GFR (CKD) >90 (>60 ml/min/1.73 sqM); Alkaline Phosphatase 95 U/L (38-126); Anion Gap 27 mmol/L; Blood Urea Nitrogen 16 mg/dL (7-17); Calcium 9.2 mg/dL (8.4-10.2); Carbon Dioxide 17 mmol/L (22-30); Chloride 97 mmol/L (98-107); Creatine Kinase 315 U/L (30-135); Glucose 81 mg/dL (74-99); Magnesium 1.4 mg/dL (1.6-2.3); Non-African American GFR(CKD) >90 (>60 ml/min/1.73 sqM); Potassium 4.7 mmol/L (3.5-5.1); Sodium 141 mmol/L (137-145); Total Bilirubin 0.6 mg/dL (0.2-1.3); Total Protein 8.3 g/dL (6.3-8.2)
[2023-04-16 20:17] LABS: Alcohol 349 mg/dL
--- NOTE | 2023-04-16 20:33 | CT ---
EXAMINATION TYPE: CT brain cspine wo con DATE OF EXAM: 04/16/2023 COMPARISON: Cervical spine 03/17/2023 HISTORY: 72-year-old female with pain after fall CT DLP: 1312.5 mGycm Automated exposure control for dose reduction was used. Technique: Examination of the head was done in axial plane without intravenous contrast. Coronal and sagittal reconstructions performed. CT of the cervical spine was obtained in axial plane without intravenous injection of contrast mater ial. Coronal and sagittal reformatted images were obtained from the axial views for evaluation of f ractures, spinal alignment and canal. FINDINGS: Head: There is no evidence of acute intracranial hemorrhage, acute ischemic changes, mass, mass-effect, or extra-axial fluid collection. There is no effacement of cerebral sulci or basal subarachnoid cister ns. There is no hydrocephalus. There is no midline shift. Mtz-white matter distinction is preserv ed. Trace mucosal thickening anterior ethmoid air cells. Slight rightward nasal septal deviation. Mastoid air cells are well pneumatized. Orbits and globes are intact. Cervical spine: A 1 cm subpleural nodule posterior right upper lobe remains unchanged back to 04/13/2021 compatible w ith a benign etiology. No craniocervical junction abnormality, predental space widening, or prevertebral soft tissue swellin g. Degenerative change of the C1 dens articulation. Moderate to advanced disc/endplate degenerative change mid to lower cervical spine and multilevel adv anced hypertrophic facet and uncovertebral joint arthropathy is present. Nearly grade 2 anterolisthesis C4-C5 is unchanged. Trace grade 1 retrolisthesis C5-C6 and C6/C7. Grad e 1 anterolisthesis C7-T1. All of these are unchanged. Disc osteophyte complex may contribute to a moderate focal spinal canal stenosis and C5-C6 and mild a t C6-C7. No acute fracture seen of the cervical spine. Variable moderate neural foraminal stenosis throughout. Severe on the left at C5-C6. Sagittal and coronal reformatted images confirm above findings. COMBINED IMPRESSION: 1. No acute intracranial abnormality seen. 2. No acute fracture of the cervical spine. 3. Moderate to advanced multilevel spondylotic change redemonstrated cervical spine with nearly grade 2 anterolisthesis C4-C5 and grade 1 spondylolisthesis C5-C6, C6/C7, and C7-T1. Similar severe left n euroforaminal stenosis C5-C6 and moderate focal spinal canal stenosis C5-C6.
[2023-04-16] MEDS ORDERED: NALOXONE 0.4 MG/ML 1 ML VIAL IV PRN (21:25)
--- NOTE | 2023-04-16 21:25 | ED ---
Alcohol HPI - General Chief Complaint: Alcohol Stated Complaint: weakness Time Seen by Provider: 04/16/23 19:10 Source: patient, EMS Mode of arrival: EMS Limitations: altered mental status - History of Present Illness Initial Comments: 72-year-old female with past history of alcohol abuse who presents to the emergency department after she sustained a fall. She was found in her garage by a neighbor. She states she went out there to smoke, sustained a mechanical fall and couldn't get back up. She was there for approximately 2 hours before neighbor found her. She does think she may have hit her head. Denies losing consciousness. Denies any chest pain, back pain, neck pain or shortness of breath. No pain in her extremities. She was able to get up and a plate with the assistance of EMS. She does not take any blood thinners. No other allev iating, precipitating modifying factors - Related Data Home Medications Medication Instructions Recorded Confirmed Pravastatin Sodium [Pravachol] 20 mg PO DAILY 11/26/21 04/16/23 Docusate [Colace] 100 mg PO BID 03/17/23 04/16/23 Omeprazole [PriLOSEC] 20 mg PO AC-BID 03/17/23 04/16/23 polyethylene glycoL 3350 [Miralax] 17 gm PO DAILY PRN 03/17/23 04/16/23 Previous Rx's Medication Instructions Recorded Sucralfate [Carafate] 1 gm PO AC-TID #60 tab 03/22/23 Thiamine [Vitamin B-1] 100 mg PO DAILY #60 tab 03/22/23 Allergies Allergy/AdvReac Type Severity Reaction Status Date / Time No Known Allergies Allergy Verified 03/17/23 14:49 Review of Systems ROS Statement: Those systems with pertinent positive or pertinent negative responses have been documented in the HPI. ROS Other: All systems not noted in ROS Statement are negative. Past Medical History Past Medical History: GERD/Reflux, Hyperlipidemia Additional Past Medical History / Comment(s): Barretts Esophagus History of Any Multi-Drug Resistant Organisms: None Reported Past Surgical History: No Surgical Hx Reported Past Anesthesia/Blood Transfusion Reactions: No Reported Reaction Past Psychological History: Anxiety, Depression Smoking Status: Current every day smoker Past Alcohol Use History: Abuse, Daily, Heavy Past Drug Use History: None Reported General Exam Limitations: altered mental status General appearance: alert, in no apparent distress, appears intoxicated Head exam: Present: atraumatic, normocephalic, normal inspection Eye exam: Present: normal appearance, PERRL, EOMI. Absent: scleral icterus, conjunctival injection, periorbital swelling ENT exam: Present: normal exam, mucous membranes moist Neck exam: Present: normal inspection. Absent: tenderness, meningismus, lymphadenopathy Respiratory exam: Present: normal lung sounds bilaterally. Absent: respiratory distress, wheezes, rales, rhonchi, stridor Cardiovascular Exam: Present: regular rate, normal rhythm, normal heart sounds. Absent: systolic murmur, diastolic murmur, rubs, gallop, clicks GI/Abdominal exam: Present: soft, normal bowel sounds. Absent: distended, tenderness, guarding, rebound, rigid Extremities exam: Present: normal inspection, full ROM, normal capillary refill. Absent: tenderness, pedal edema, joint swelling, calf tenderness Back exam: Present: normal inspection Neurological exam: Present: alert, oriented X3, CN II-XII intact Psychiatric exam: Present: normal affect, normal mood Skin exam: Present: warm, dry, intact, normal color. Absent: rash Course Vital Signs 04/16/23 19:05 Temperature 98.5 F Pulse Rate 74 Respiratory 18 Rate Blood Pressure 112/80 O2 Sat by Pulse 93 L Oximetry Medical Decision Making - Medical Decision Making Was pt. sent in by a medical professional or institution ([facility], [employer]LECT[employer]UMENT TRADES WORKER, urgent care, hospital, or intermediate...) When possible be specific @ -No Did you speak to anyone other than the patient for history (EMS, parent, family, police, friend...)? What history was obtained from this source @ -EMS Did you review nursing and triage notes (agree or disagree)? Why? @ -I reviewed and agree with nursing and triage notes Were old charts reviewed (outside hosp., previous admission, EMS record, old EKG, old radiological studies, urgent care reports/EKG's, intermediate records)? Report findings @ -No old charts were reviewed Differential Diagnosis (chest pain, altered mental status, abdominal pain women, abdominal pain men, vaginal bleeding, weakness, fever, dyspnea, syncope, headache, dizziness, GI bleed, back pain, seizure, CVA, palpatations, mental health, musculoskeletal)? @ -Differential: Hypoglycemia, DKA, hypercapnia, ETOH, overdose, CO poisoning, trauma, myxedema coma, HTN encephalopathy, infection, encephalitis, psychosis, intercranial hemorrhage, hepatic encephalopathy, meningitis, CVA, this is not meant to be an all-inclusive list EKG interpreted by me (3pts min.). @ -Not done X-rays interpreted by me (1pt min.). @ -yes and demonstrates no acute process CT interpreted by me (1pt min.). @ -Yes and demonstrates no acute intracranial injury U/S interpreted by me (1pt. min.). @ -None done What testing was considered but not performed or refused? (CT, X-rays, U/S, labs)? Why? @ -None What meds were considered but not given or refused? Why? @ -None Did you discuss the management of the patient with other professionals (professionals i.e. , PA, ELECTRONIC INSTRUMENT TRADES WORKER, lab, RT, psych nurse, social service assistant, shipping and receiving, teacher, safety instruction police officer, case advocate)? Give summary @ -Spoke with Dr. atkinson who will admit patient Was smoking cessation discussed for >3mins.? @ -No Was critical care preformed (if so, how long)? @ -No Were there social determinants of health that impacted care today? How? (Homelessness, low income, unemployed, alcoholism, drug addiction, transportation, low edu. Level, literacy, decrease access to med. care, fpc, rehab)? @ -No Was there de-escalation of care discussed even if they declined (Discuss DNR or withdrawal of care, Hospice)? DNR status @ -No What co-morbidities impacted this encounter? (DM, HTN, Smoking, COPD, CAD, Cancer, CVA, ARF, Chemo, Hep., AIDS, mental health diagnosis, sleep apnea, morbid obesity)? @ -Alcohol abuse Was patient admitted / discharged? Hospital course, mention meds given and route, prescriptions, significant lab abnormalities, going to OR and other pertinent info. @ -admitted Upon arrival patient was placed into room 8. Thorough history and physical exam was performed. IV is established. Laboratory studies are conducted. Patient went for CT of her head, cervical spine as well as a chest and pelvic x-ray. Patient significantly intoxicated. Imaging negative. Boyfriend at bedside feels uncomfortable taking the patient home. Patient will be admitted for sobriety. Spoke with Dr. atkinson for admission Undiagnosed new problem with uncertain prognosis? @ -No Drug Therapy requiring intensive monitoring for toxicity (Heparin, Nitro, Insulin, Cardizem)? @ -No Were any procedures done? @ -No Diagnosis/symptom? @ -Acute fall, acute alcohol intoxication Acute, or Chronic, or Acute on Chronic? @ -Acute Uncomplicated (without systemic symptoms) or Complicated (systemic symptoms)? @ -Complicated Side effects of treatment? @ -No Exacerbation, Progression, or Severe Exacerbation? @ -No Poses a threat to life or bodily function? How? (Chest pain, USA, OR, pneumonia, PE, COPD, DKA, ARF, appy, cholecystitis, CVA, Diverticulitis, Homicidal, Suicidal, threat to staff... and all critical care pts) @ -No - Lab Data Result diagrams: 04/16/23 19:23 04/16/23 19:23 Lab Results 04/16/23 04/16/23 Range/Units 19:23 19:23 WBC 3.9 (3.8-10.6) k/uL RBC 4.02 (3.80-5.40) m/uL Hgb 11.3 L (11.4-16.0) gm/dL Hct 34.3 (34.0-46.0) % MCV 85.3 (80.0-100.0) fL MCH 28.1 (25.0-35.0) pg MCHC 33.0 (31.0-37.0) g/dL RDW 17.7 H (11.5-15.5) % MPV 11.8 Anisocytosis Slight Sodium 141 (137-145) mmol/L Potassium 4.7 (3.5-5.1) mmol/L Chloride 97 L (98-107) mmol/L Carbon Dioxide 17 L (22-30) mmol/L Anion Gap 27 mmol/L BUN 16 (7-17) mg/dL Creatinine 0.43 L (0.52-1.04) mg/dL Est GFR (CKD-EPI)AfAm >90 (>60 ml/min/1.73 sqM) Est GFR (CKD-EPI)NonAf >90 (>60 ml/min/1.73 sqM) Glucose 81 (74-99) mg/dL Calcium 9.2 (8.4-10.2) mg/dL Magnesium 1.4 L (1.6-2.3) mg/dL Total Bilirubin 0.6 (0.2-1.3) mg/dL AST 138 H (14-36) U/L ALT 55 H (4-34) U/L Alkaline Phosphatase 95 (38-126) U/L Creatine Kinase 315 H (30-135) U/L Total Protein 8.3 H (6.3-8.2) g/dL Albumin 5.0 (3.5-5.0) g/dL Serum Alcohol 349 H* mg/dL Disposition Clinical Impression: Alcoholic intoxication, Fall Disposition: ADMITTED IP TO [facility] Condition: Stable Is patient prescribed a controlled substance at d/c from ED?: No Time of Disposition: 21:25 Decision to Admit Reason: Admit from EC Decision Date: 04/16/23 Decision Time: 21:25
[2023-04-16] MEDS ORDERED: THIAMINE 100 MG/ML 2 ML VIAL IM STA (21:26)
[2023-04-16] MEDS ORDERED: LORazepam 1 MG TAB PO PRN ×2 (21:26)
--- NOTE | 2023-04-16 21:42 | XR ---
EXAMINATION TYPE: XR chest 2V DATE OF EXAM: 04/16/2023 COMPARISON: 03/20/2023 HISTORY: 72-year-old female with cough and pain TECHNIQUE: AP and lateral views FINDINGS: Mild interstitial prominence. Hyperinflation. Heart upper limits of normal in size. No consolidation or pleural effusion. IMPRESSION: COPD. No acute process seen.
[2023-04-16] MEDS: MAGNESIUM SULFATE-D5W PMX 1 GM in DEXTROSE/WATER 1 100ML.BAG IVPB SCH ×2 (21:43→23:12)
--- NOTE | 2023-04-16 21:44 | XR ---
EXAMINATION TYPE: XR pelvis AP view DATE OF EXAM: 04/16/2023 Comparison: None Clinical History: 72-year-old female with pain after fall Findings: Osteopenia limiting the examination. The left femoral neck is suboptimally assessed given external ro tation of the hip. Moderate degenerative change right hip. No displaced fracture is seen. Sacrum limi kenya due to overlying bowel content. Impression: 1. Osteopenia limiting the exam. The left femoral neck in particular is markedly suboptimal due to ex ternal rotation of the hip. No obvious displaced fracture. MRI if nonweightbearing or suspicion for o ccult osseous injury. 2. Moderate right hip OA.
[2023-04-16] MEDS: SODIUM CHLORIDE 0.9% 1,000 ML IV SCH (21:49)
[2023-04-16 22:40] LABS: Platelet Count 54 k/uL (150-450)
[2023-04-17] MEDS: LORazepam 1 MG TAB PO PRN (00:11)
[2023-04-17] MEDS ORDERED: guaiFENesin 600 MG TABLET.ER PO PRN (03:19)
[2023-04-17] MEDS ORDERED: IPRATROPIUM-ALBUTEROL 3 ML NEB INHALATION PRN (03:39)
--- NOTE | 2023-04-17 04:29 | P.HPIM ---
History of Present Illness H&P Date: 04/16/23 Chief Complaint: ETOH intoxication 72 year old female with alcohol dependance and abuse. she was found by her neighbour after she fell in her garage, she was there for a smoke and admits had too much of alcohol , when she tripped walking backward on a ladder, and could not get up on her own, she admits to hitting her head, but denies any LOC , she is not on blood thinners. EMS was notified and helped her get up and was brought in for evaluation , denies any headache, or focal neuro deficits, denies any chest pain , SOB, fever, chills, nausea , vomiting, GI bleeding or abd pain. she does reports congestion and increase phlegm production, she is trying to cut back on smoking, denies using any COPD treatments or home oxygen patient was intoxicated in the ED and was admitted for further monitoring patient reported depressed mood, denies suicidal or homicidal ideation. admits to smoking and heavy drinking review of systems Pertinent positives as noted in HPI. All other systems were reviewed and are negative on exam Constitutional: No acute distress, conversant, pleasant Eyes: Anicteric sclerae, moist conjunctiva, Pupils equal round reactive to light ENMT: NC/AT Oropharynx clear, no erythema, or exudates Neck: Supple, no masses, or JVD No carotid bruits No thyromegaly Lungs: Clear to auscultation Clear to percussion Normal respiratory effort, no accessory muscle use Cardiovascular: Heart regular in rate and rhythm, No murmurs, gallops, or rubs No peripheral edema Abdominal: Soft Nontender, no guarding, rebound or rigidity Abdomen moving with respiration Normoactive bowel sounds No hepatomegaly, No splenomegaly No palpable mass No abdominal wall hernia noted Extremities: No digital cyanosis No clubbing Pedal pulses intact and symmetrical Radial pulses intact and symmetrical No calf tenderness Psychiatric: Alert and oriented to person, place and time Appropriate affect fair judgement Neuro Muscles Strength 5/5 in all 4 extremities Sensation to light touch grossly present throughout Cranial nerves II-XII grossly intact Lymphatics: no palpable cervical or supraclavicular lymph nodes Past Medical History Past Medical History: GERD/Reflux, Hyperlipidemia Additional Past Medical History / Comment(s): Barretts Esophagus History of Any Multi-Drug Resistant Organisms: None Reported Past Surgical History: No Surgical Hx Reported Past Anesthesia/Blood Transfusion Reactions: No Reported Reaction Past Psychological History: Anxiety, Depression Smoking Status: Current every day smoker Past Alcohol Use History: Abuse, Daily, Heavy Past Drug Use History: None Reported Medications and Allergies Home Medications Medication Instructions Recorded Confirmed Type Pravastatin Sodium [Pravachol] 20 mg PO DAILY 11/26/21 04/16/23 History Docusate [Colace] 100 mg PO BID 03/17/23 04/16/23 History Omeprazole [PriLOSEC] 20 mg PO AC-BID 03/17/23 04/16/23 History polyethylene glycoL 3350 [Miralax] 17 gm PO DAILY PRN 03/17/23 04/16/23 History Sucralfate [Carafate] 1 gm PO AC-TID #60 tab 03/22/23 04/16/23 Rx Thiamine [Vitamin B-1] 100 mg PO DAILY #60 tab 03/22/23 04/16/23 Rx Allergies Allergy/AdvReac Type Severity Reaction Status Date / Time No Known Allergies Allergy Verified 03/17/23 14:49 Physical Exam Vitals: Vital Signs Temp Pulse Pulse Resp BP BP Pulse Ox 04/16/23 22:54 98.2 F 72 16 146/73 94 L 04/16/23 19:05 98.5 F 74 18 112/80 93 L Intake and Output 04/16/23 04/16/23 04/17/23 14:59 22:59 06:59 Other: Weight 54.431 kg 54.431 kg Results CBC & Chem 7: 04/16/23 19:23 04/16/23 19:23 Labs: Abnormal Lab Results - Last 24 Hours (Table) 04/16/23 04/16/23 Range/Units 19:23 19:23 Hgb 11.3 L (11.4-16.0) gm/dL RDW 17.7 H (11.5-15.5) % Plt Count 54 L D (150-450) k/uL Chloride 97 L (98-107) mmol/L Carbon Dioxide 17 L (22-30) mmol/L Creatinine 0.43 L (0.52-1.04) mg/dL Magnesium 1.4 L (1.6-2.3) mg/dL AST 138 H (14-36) U/L ALT 55 H (4-34) U/L Creatine Kinase 315 H (30-135) U/L Total Protein 8.3 H (6.3-8.2) g/dL Serum Alcohol 349 H* mg/dL Thrombosis Risk Factor Assmnt - Choose All That Apply Any of the Below Risk Factors Present?: No Other Risk Factors: Yes Each Risk Factor Represents 2 Points: Age 61-74 years Other congenital or acquired thrombophilia - If yes, enter type in comment: No Thrombosis Risk Factor Assessment Total Risk Factor Score: 2 Thrombosis Risk Factor Assessment Level: Low Risk Assessment and Plan Assessment: 72 year old female with alcohol dependance and abuse , coming in after falling in her garage and hit her head, denies LOC. I discussed the case with ED doc and I accepted the admission for alcohol intoxication with anticipated length f stay < 2 midnights alcohol abuse , dependance monitor for alcohol withdrawal benzo per CIWA thiamin daily fall precautions PT evaluation CT head and neck , no acute pathology , chronic multilevel spondylotic changes cervical spine counseled to quit drinking, she would not like to utilize rehab, but would think about it ETOH level 349 hypomagnesemia replace IV follow up Mg transaminitis most likely 2/2 etoh abuse AST 138 ALT 55 COPD compensated duonebs PRN PRN mucinex 600 mg bid blood work showed WBC 3.9 Hgn 11.3 unremarkable GI PPX protonix 40 mg po daily DVT PPX heparin sc tid full code
[2023-04-17 04:57] LABS: African American GFR (CKD) >90 (>60 ml/min/1.73 sqM); Anion Gap 22 mmol/L; Blood Urea Nitrogen 12 mg/dL (7-17); Calcium 8.4 mg/dL (8.4-10.2); Carbon Dioxide 18 mmol/L (22-30); Chloride 99 mmol/L (98-107); Glucose 70 mg/dL (74-99); Non-African American GFR(CKD) >90 (>60 ml/min/1.73 sqM); Potassium 5.1 mmol/L (3.5-5.1); Sodium 139 mmol/L (137-145)
[2023-04-17 05:10] LABS: Anisocytosis Slight; Basophils % (A) 1 %; Eosinophils # (A) 0.1 k/uL (0-0.7); Eosinophils % (A) 2 %; HCT 28.8 % (34.0-46.0); Lymphocytes # (A) 1.6 k/uL (1.0-4.8); Lymphocytes % (A) 26 %; MCH 28.5 pg (25.0-35.0); MCV 86.1 fL (80.0-100.0); Monocytes # (A) 0.3 k/uL (0-1.0); Monocytes % (A) 5 %; Neutrophils # (A) 3.9 k/uL (1.3-7.7); Neutrophils % (A) 63 %; RBC 3.34 m/uL (3.80-5.40); RDW 17.6 % (11.5-15.5); WBC 6.1 k/uL (3.8-10.6)
[2023-04-17 05:20] LABS: HGB 9.5 gm/dL (11.4-16.0); Platelet Count 61 k/uL (150-450)
[2023-04-17 05:47] LABS: Magnesium 1.8 mg/dL (1.6-2.3)
[2023-04-17] MEDS: SODIUM CHLORIDE 0.9% 1,000 ML IV SCH ×3 (06:36→23:22)
[2023-04-17] MEDS ORDERED: PANTOPRAZOLE 40 MG TABLET PO SCH (07:30)
[2023-04-17] MEDS: HEPARIN SODIUM,PORCINE 5,000 UNIT/ML 1 ML VIAL SQ SCH ×3 (08:52→23:22)
[2023-04-17] MEDS ORDERED: THIAMINE 100 MG TAB PO SCH (09:00)
[2023-04-17] MEDS ORDERED: chlordiazePOXIDE 25 MG CAP PO STA (09:26)
[2023-04-17] MEDS ORDERED: methylPREDNISolone SOD SUCCI 125 MG/2 ML VIAL IV STA (09:38)
[2023-04-17] MEDS: PANTOPRAZOLE 40 MG/10 ML VIAL IVP SCH (09:47)
[2023-04-17] MEDS ORDERED: ACETAMINOPHEN TAB 325 MG TAB PO PRN (10:49)
[2023-04-17] MEDS ORDERED: MELATONIN 5 MG TABLET PO PRN (10:50)
[2023-04-17] MEDS ORDERED: HYDROcodone/APAP 5-325MG 1 EACH TAB PO PRN (10:50)
[2023-04-17] MEDS ORDERED: ONDANSETRON 4 MG/2 ML VIAL IVP PRN (10:50)
[2023-04-17] MEDS ORDERED: bisacodyL 5 MG TABLET.DR PO PRN (10:50)
[2023-04-17 11:16] LABS: Anisocytosis Slight; HCT 28.9 % (34.0-46.0); HGB 9.2 gm/dL (11.4-16.0); Hypochromasia Slight; MCH 28.1 pg (25.0-35.0); MCHC 31.9 g/dL (31.0-37.0); MCV 87.8 fL (80.0-100.0); Mean Platelet Volume 9.8; RDW 17.4 % (11.5-15.5); WBC 6.7 k/uL (3.8-10.6)
[2023-04-17 11:18] LABS: Platelet Count 70 k/uL (150-450)
--- NOTE | 2023-04-17 11:18 | P.PN ---
Subjective Progress Note Date: 04/17/23 Patient is a 72-year-old female with known severe alcoholism with most recent hospital stay 03/17 through 03/22/23 for alcohol withdrawal, GERD, dyslipidemia, and Rivera's esophagus who presented to the ER after a fall at home with inability to stand. In the ER her blood alcohol level was 349, magnesium 1.4, carbon dioxide 17, hemoglobin 11.3, and platelets of 54. He underwent a chest x-ray which showed no acute process, she underwent pelvic x-ray which was limited in evaluation due to osteopenia. She underwent a CT head and cervical spine which showed significant cervical disc disease with neural foraminal narrowing which is unchanged. Arranges are made for admission secondary to her intoxication. By the morning of 04/17 her CIWA score was up to 15 and the patient was changed from observation to inpatient status. She was started on Librium. Patient seen and examined at bedside. She complains of low back pain that is worse when lifting her left leg. She complains of nausea with vomiting this morning, she is feeling tremulous and has having increasing anxiety. She reports that she has been drinking a pint a day at home. Vital signs reviewed General: nontoxic, no distress, appears at stated age Cardiovascular: S1S2 reg, no murmur, positive posterior tibial pulse bilateral, Lungs: CTA bilateral, no rhonchi, no rales , no accessory muscle use Abdominal: soft, nontender to palpation, no guarding, no appreciable organomegaly Ext: no gross muscle atrophy, no edema b/l lower extremities, no contractures Neuro: CN II-XI grossly intact, no focal neuro deficits, intention tremor bilaterally Psych: Alert, oriented, appears anxious Assessment/Plan: Acute alcohol intoxication in a known alcoholic Alcohol withdrawal, history of severe alcohol withdrawal requiring ICU stay February 2023 Mechanical fall from standing Low back pain -Continue using Ativan 0.5-2 mg oral as indicated by CIWA score -Add Librium 25 mg by mouth 3 times daily, first dose now -Check CT lumbar spine doing -with patient's left leg shortening weakness and back pain give Solu-Medrol 60 mg IV push [address] results Rivera's esophagus -With active nausea and vomiting will start Protonix 40 mg IV push daily first dose now HLD - pravachol 20 mg daily Thrombocytopenia Anemia Imaging: None new Data Review: Labs reviewed from this morning including CBC and basic profile which are remarkable for hemoglobin 9.5, platelets 61, carbon dioxide 18, and glucose of 70. DVT prophylaxis: Heparin Anticipated discharge date: pending clinical course Anticipated discharge place: pending clinical course This dictation was prepared using [employer] voice recognition software. Though every attempt is made to correct errors during dictation some may still exist. Objective - Vital Signs Vital signs: Vital Signs Temp 98.3 F 04/17/23 07:00 Pulse 81 04/17/23 07:00 Resp 13 04/17/23 07:00 BP 127/51 04/17/23 07:00 Pulse Ox 95 04/17/23 07:00 FiO2 Intake & Output 04/16/23 04/17/23 04/17/23 18:59 06:59 18:59 Weight 54.431 kg Other: Voiding Method External Catheter # Voids 2 - Labs CBC & Chem 7: 04/17/23 04:22 04/17/23 04:22 Labs: Abnormal Lab Results - Last 24 Hours (Table) 04/16/23 04/16/23 04/17/23 Range/Units 19:23 19:23 04:22 RBC 3.34 L (3.80-5.40) m/uL Hgb 11.3 L 9.5 L D (11.4-16.0) gm/dL Hct 28.8 L (34.0-46.0) % RDW 17.7 H 17.6 H (11.5-15.5) % Plt Count 54 L D 61 L (150-450) k/uL Chloride 97 L (98-107) mmol/L Carbon Dioxide 17 L (22-30) mmol/L Creatinine 0.43 L (0.52-1.04) mg/dL Glucose (74-99) mg/dL Magnesium 1.4 L (1.6-2.3) mg/dL AST 138 H (14-36) U/L ALT 55 H (4-34) U/L Creatine Kinase 315 H (30-135) U/L Total Protein 8.3 H (6.3-8.2) g/dL Serum Alcohol 349 H* mg/dL 04/17/23 Range/Units 04:22 RBC (3.80-5.40) m/uL Hgb (11.4-16.0) gm/dL Hct (34.0-46.0) % RDW (11.5-15.5) % Plt Count (150-450) k/uL Chloride (98-107) mmol/L Carbon Dioxide 18 L (22-30) mmol/L Creatinine 0.51 L (0.52-1.04) mg/dL Glucose 70 L (74-99) mg/dL Magnesium (1.6-2.3) mg/dL AST (14-36) U/L ALT (4-34) U/L Creatine Kinase (30-135) U/L Total Protein (6.3-8.2) g/dL Serum Alcohol mg/dL
[2023-04-17 11:39] LABS: Total Bilirubin 1.3 mg/dL (0.2-1.3)
--- NOTE | 2023-04-17 12:22 | CT ---
EXAMINATION TYPE: CT lumbar spine wo con CT DLP: 532.80 mGycm, Automated exposure control for dose reduction was used. DATE OF EXAM: 04/17/2023 11:27 AM COMPARISON: 11/02/2021.. CLINICAL INDICATION:Female, 72 years old with history of pain, fall; PHH, Pain, Fall TECHNIQUE: Multiple axial images were obtained from the midportion of T11 through the sacroiliac madhavi nts. Soft tissue and bone windows in coronal and sagittal planes were obtained and reviewed. Contrast used: none. Oral contrast used: none. FINDINGS: Multilevel degeneration changes throughout the spine scoliosis apex right L2-L3. There is no evidence of fracture. There are severe facet joint arthropathy throughout the spine with varying degrees of n eural foraminal stenosis. Findings worse at L4-L5 on the right with at least severe and moderate to s evere at L5-S1 bilaterally. Scattered disc bulging and osteophytes with at least [id number]-ib-[id number] spi nal canal stenosis. There is diffuse low-attenuation to the liver parenchyma. IMPRESSION: 1. No evidence for spinal fracture. 2. Scoliosis changes with moderate to severe stool disc degeneration. No foraminal stenosis worse at L4-L5 on the right and bilateral L5-S1.
[2023-04-17] MEDS: SUCRALFATE 1 GM TAB PO SCH ×2 (12:37→17:23)
[2023-04-17] MEDS: PRAVASTATIN SODIUM 20 MG TAB PO SCH (12:37)
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
[2023-04-17] MEDS: chlordiazePOXIDE 25 MG CAP PO SCH ×2 (15:52→20:49)
[2023-04-17] MEDS: GABAPENTIN 100 MG CAP PO SCH ×2 (17:23→20:49)
[2023-04-17] MEDS ORDERED: MIRTAZAPINE 15 MG TAB PO ONE (21:00)
[2023-04-18] MEDS: SODIUM CHLORIDE 0.9% 1,000 ML IV SCH ×3 (06:16→21:36)
[2023-04-18] MEDS: SUCRALFATE 1 GM TAB PO SCH ×3 (06:16→17:24)
[2023-04-18] MEDS: GABAPENTIN 100 MG CAP PO SCH ×4 (08:53→20:11)
[2023-04-18] MEDS: PRAVASTATIN SODIUM 20 MG TAB PO SCH (08:53)
[2023-04-18] MEDS: PANTOPRAZOLE 40 MG/10 ML VIAL IVP SCH (08:53)
[2023-04-18] MEDS: HEPARIN SODIUM,PORCINE 5,000 UNIT/ML 1 ML VIAL SQ SCH ×2 (08:53→16:53)
[2023-04-18] MEDS: THIAMINE 100 MG TAB PO SCH (08:54)
[2023-04-18 09:11] LABS: ALT 34 U/L (8-44); AST 60 U/L (13-35); Albumin 3.8 g/dL (3.8-4.9); Albumin/Globulin Ratio 1.65 Ratio (1.60-3.17); Alkaline Phosphatase 67 U/L (41-126); Blood Urea Nitrogen 8.1 mg/dL (9.0-27.0); Calcium 8.2 mg/dL (8.7-10.3); Carbon Dioxide 23.7 mmol/L (21.6-31.8); Chloride 103 mmol/L (96-109); Globulin 2.3 g/dL (1.6-3.3); Glucose 141 mg/dL (70-110); Potassium 4.1 mmol/L (3.5-5.5); Sodium 137 mmol/L (135-145); Total Bilirubin 0.8 mg/dL (0.3-1.2); Total Protein 6.1 g/dL (6.2-8.2)
[2023-04-18] MEDS: chlordiazePOXIDE 25 MG CAP PO SCH ×3 (09:32→20:12)
[2023-04-18 10:55] LABS: HCT 24.5 % (37.2-46.3); HGB 7.6 g/dL (12.0-15.0); Immature Platelet Fraction 8.9 % (1.1-6.1); MCH 26.6 pg (27.0-32.0); MCV 85.7 FL (80.0-97.0); Mean Platelet Volume 11.1 FL (9.5-12.2); NRBC Per 100 WBC 0 X 10*3/uL (0.00-0.01); Platelet Count 55 X 10*3/uL (140-440); RBC 2.86 X 10*6/uL (4.10-5.20); RDW 18.3 % (11.5-14.5); WBC 5.15 X 10*3/uL (4.50-10.00)
--- NOTE | 2023-04-18 12:32 | P.PN ---
Subjective Progress Note Date: 04/18/23 Patient is a 72-year-old female with known severe alcoholism with most recent hospital stay 03/17 through 03/22/23 for alcohol withdrawal, GERD, dyslipidemia, and Rivera's esophagus who presented to the ER after a fall at home with inability to stand. In the ER her blood alcohol level was 349, magnesium 1.4, carbon dioxide 17, hemoglobin 11.3, and platelets of 54. He underwent a chest x-ray which showed no acute process, she underwent pelvic x-ray which was limited in evaluation due to osteopenia. She underwent a CT head and cervical spine which showed significant cervical disc disease with neural foraminal narrowing which is unchanged. Arranges are made for admission secondary to her intoxication. By the morning of 04/17 her CIWA score was up to 15 and the patient was changed from observation to inpatient status. She was started on Librium. 04/18 Patient seen and examined at bedside. She complains of continued lower back pain and weakness. Most recent CIWA 3. CBC Hg 7.6 Plt 55. BMP BUN 8.1, Cr 0.5, glu 141, Ca 8.2, AST 60. Lumbar spine CT shows scoliosis, foraminal stenosis L4L5 L5S1. Vital signs reviewed General: no distress, appears at stated age Derm: warm, dry Eyes: EOMI, no lid lag, anicteric sclera ENT: Nose and ears atraumatic Cardiovascular: Normal S1 S2. Good distal perfusion in all 4 extremities Lungs: CTA BL, Breathing comfortably, no accessory muscle use Ext: no gross muscle atrophy, no contractures Neuro: no focal neuro deficits Psych: Alert, oriented, appropriate affect Based on my assessment of this patient, this patient meets a moderate complexity level of care. Patient has an acute complaint of EtOH withdrawal which poses a threat to life or bodily function. Anemia with Thrombocytopenia: Hg downtrending. No signs of active bleeding. Transfuse if Hg < 7. Repeat CBC at 6PM. Acute alcohol intoxication in a known alcoholic: CIWA protocol with Ativan PRN. Librium 25 mg PO TID. Telemetry monitoring. Alcohol withdrawal, history of severe alcohol withdrawal requiring ICU stay February 2023 Mechanical fall from standing Low back pain: CT L spine as above. PT and OT consulted. Rivera's esophagus HLDA CODE STATUS: FULL CODE DVT Prophylaxis: Heparin SQ GI Prophylaxis: Protonix IV Designated medical POA if patient is not able to make medical decisions for themselves: I have reviewed the following c consultant notes: I have reviewed the results of the following tests: CBC, BMP, L spine CT I have ordered the following tests: CBC, BMP. I have discussed the care of this patient with the following independent historian: I have independently interpreted the following test below: I have discussed the management of this patient with the following physician: Objective - Vital Signs Vital signs: Vital Signs Temp 97.6 F 04/18/23 06:45 Pulse 83 04/18/23 06:45 Resp 16 04/18/23 06:45 BP 122/73 04/18/23 06:45 Pulse Ox 97 04/18/23 06:45 FiO2 Intake & Output 04/17/23 04/18/23 04/18/23 18:59 06:59 18:59 Intake Total 118 Output Total 400 1700 Balance -400 -1700 118 Intake: Oral 118 Output: Urine 400 1700 Other: Voiding Method External Catheter # Voids 1 - Labs CBC & Chem 7: 04/18/23 05:40 04/18/23 05:40 Labs: Abnormal Lab Results - Last 24 Hours (Table) 04/18/23 04/18/23 Range/Units 05:40 05:40 RBC 2.86 L (4.10-5.20) X 10*6/uL Hgb 7.6 L (12.0-15.0) g/dL Hct 24.5 L (37.2-46.3) % MCH 26.6 L (27.0-32.0) pg MCHC 31.0 L (32.0-37.0) g/dL RDW 18.3 H (11.5-14.5) % Plt Count 55 L (140-440) X 10*3/uL Immature Plt Fraction 8.9 H (1.1-6.1) % BUN 8.1 L (9.0-27.0) mg/dL Creatinine 0.5 L (0.6-1.5) mg/dL Glucose 141 H (70-110) mg/dL Calcium 8.2 L (8.7-10.3) mg/dL AST 60 H (13-35) U/L Total Protein 6.1 L (6.2-8.2) g/dL
[2023-04-18] MEDS: LORazepam 1 MG TAB PO PRN (17:25)
--- NOTE | 2023-04-18 19:50 | CT ---
EXAMINATION TYPE: CT pelvis wo con DATE OF EXAM: 04/18/2023 COMPARISON: 03/17/2023 HISTORY: 72-year-old female RT side hip pain. Trauma, Frequent falls. TECHNIQUE: Contiguous axial scanning of the pelvis without IV contrast. Coronal and sagittal reconstr uctions performed. CT DLP: 384.6 mGycm Automated exposure control for dose reduction was used. FINDINGS: Redemonstrated 1.8 cm mixed density lesion anterior cortex right kidney. Given stability back to 08/19, and AML suggested. Mild generalized anasarca changes. Prominent distention of the urinary bladder. Fibroid uterus. Ovari es are visualized. Generalized colonic diverticulosis. Presacral edema noted. There is focal rounded density measuring 6 cm posterolateral right gluteus maximum musculature. Fracisco tional soft tissue edema and bruising along the lateral aspect of the right hip and thigh. Moderate degenerative change right hip and mild of the left hip. No acute fracture is identified. Advanced underlying change within the visualized lower lumbar spine with degenerative grade 1 retroli sthesis L4-L5. There is a mild right-sided joint effusion noted. IMPRESSION: 1. FOCAL 6 CM ROUNDED DENSITY WITHIN THE POSTEROLATERAL RIGHT GLUTEUS GEOVANNY MUSCULATURE. FINDINGS S USPECTED TO REPRESENT INTRAMUSCULAR HEMATOMA. OVERLYING SUBCUTANEOUS BRUISING. RECOMMEND CLINICAL FOL LOW-UP AND CONSIDERATION TO ULTRASOUND FOLLOW-UP TO ENSURE GRADUAL INVOLUTION. 2. MODERATE RIGHT HIP AND MILD LEFT HIP OA. NO DISPLACED FRACTURE SEEN. 3. CORRELATE FOR THIRD SPACING GIVEN GENERALIZED ANASARCA AND PRESACRAL EDEMA. 4. PROMINENT DISTENTION OF THE URINARY BLADDER. CORRELATE TO EXCLUDE URINARY RETENTION.
[2023-04-18 19:56] LABS: Anisocytosis Slight; HCT 26.6 % (34.0-46.0); HGB 8.6 gm/dL (11.4-16.0); Hypochromasia Slight; MCH 27.9 pg (25.0-35.0); MCHC 32.1 g/dL (31.0-37.0); MCV 86.9 fL (80.0-100.0); Mean Platelet Volume 11.8; Platelet Count 49 k/uL (150-450); RBC 3.06 m/uL (3.80-5.40); RDW 17.6 % (11.5-15.5)
[2023-04-18] MEDS: MIRTAZAPINE 15 MG TAB PO SCH (21:08)
[2023-04-18] MEDS: LORazepam 0.5 MG TAB PO PRN (21:09)
[2023-04-19] MEDS: SODIUM CHLORIDE 0.9% 1,000 ML IV SCH (04:22)
[2023-04-19] MEDS: LORazepam 0.5 MG TAB PO PRN ×2 (05:27→13:04)
[2023-04-19] MEDS: SUCRALFATE 1 GM TAB PO SCH ×3 (05:27→17:17)
[2023-04-19 06:38] LABS: Anisocytosis Slight; HCT 26.8 % (34.0-46.0); HGB 8.3 gm/dL (11.4-16.0); Hypochromasia Marked; MCH 28.8 pg (25.0-35.0); MCHC 30.8 g/dL (31.0-37.0); Mean Platelet Volume 10.5; RBC 2.87 m/uL (3.80-5.40); RDW 17.3 % (11.5-15.5); WBC 3.5 k/uL (3.8-10.6)
[2023-04-19 06:45] LABS: MCV 93.5 fL (80.0-100.0); Platelet Count 58 k/uL (150-450)
[2023-04-19] MEDS: THIAMINE 100 MG TAB PO SCH (08:43)
[2023-04-19] MEDS: PRAVASTATIN SODIUM 20 MG TAB PO SCH (08:43)
[2023-04-19] MEDS: PANTOPRAZOLE 40 MG/10 ML VIAL IVP SCH (08:43)
[2023-04-19] MEDS: GABAPENTIN 100 MG CAP PO SCH ×4 (08:51→20:58)
[2023-04-19] MEDS: chlordiazePOXIDE 25 MG CAP PO SCH ×3 (08:51→20:58)
--- NOTE | 2023-04-19 13:34 | P.PN ---
Subjective Progress Note Date: 04/19/23 Patient is a 72-year-old female with known severe alcoholism with most recent hospital stay 03/17 through 03/22/23 for alcohol withdrawal, GERD, dyslipidemia, and Rivera's esophagus who presented to the ER after a fall at home with inability to stand. In the ER her blood alcohol level was 349, magnesium 1.4, carbon dioxide 17, hemoglobin 11.3, and platelets of 54. He underwent a chest x-ray which showed no acute process, she underwent pelvic x-ray which was limited in evaluation due to osteopenia. She underwent a CT head and cervical spine which showed significant cervical disc disease with neural foraminal narrowing which is unchanged. Arranges are made for admission secondary to her intoxication. By the morning of 04/17 her CIWA score was up to 15 and the patient was changed from observation to inpatient status. She was started on Librium. 04/18 Patient seen and examined at bedside. She complains of continued lower back pain and weakness. Most recent CIWA 3. CBC Hg 7.6 Plt 55. BMP BUN 8.1, Cr 0.5, glu 141, Ca 8.2, AST 60. Lumbar spine CT shows scoliosis, foraminal stenosis L4L5 L5S1. 04/19 Patient was seen and examined. Large bruise noted on the right hip last night by nursing. Due to her downtrending Hg, concerns for bleeding, CT pelvis ordered which showed 6 cm hematoma within the right gluteus princess. PT evaluated the patient, plans for SNF on discharge. CBC WBC 3.5 Hg 8.3 Hct 26.8 Plt 58. Vital signs reviewed General: no distress, appears at stated age Derm: warm, dry Eyes: EOMI, no lid lag, anicteric sclera ENT: Nose and ears atraumatic Cardiovascular: Normal S1 S2. Good distal perfusion in all 4 extremities Lungs: CTA BL, Breathing comfortably, no accessory muscle use Ext: no gross muscle atrophy, no contractures Neuro: no focal neuro deficits Psych: Alert, oriented, appropriate affect Based on my assessment of this patient, this patient meets a moderate complexity level of care. Patient has an acute complaint of EtOH withdrawal which poses a threat to life or bodily function. Acute blood loss anemia: Right gluteal hematoma. DC Heparin SQ. Monitor Hg. Transfuse if Hg < 7. Thrombocytopenia: Likely due to chronic EtOH abuse. Monitor. Acute alcohol intoxication in a known alcoholic: CIWA protocol with Ativan PRN. Librium 25 mg PO TID. Telemetry monitoring. Alcohol withdrawal, history of severe alcohol withdrawal requiring ICU stay February 2023 Mechanical fall from standing Low back pain: CT L spine as above. PT and OT consulted. Rivera's esophagus HLDA CODE STATUS: FULL CODE DVT Prophylaxis: SCDs GI Prophylaxis: Protonix IV Designated medical POA if patient is not able to make medical decisions for themselves: I have reviewed the following health analytics consultant notes: I have reviewed the results of the following tests: CBC, Pelvic CT I have ordered the following tests: CBC I have discussed the care of this patient with the following independent historian: I have independently interpreted the following test below: I have discussed the management of this patient with the following physician: Objective - Vital Signs Vital signs: Vital Signs Temp 97.9 F 04/19/23 07:00 Pulse 87 04/19/23 08:00 Resp 18 04/19/23 08:00 BP 122/77 04/19/23 07:00 Pulse Ox 96 04/19/23 07:00 FiO2 Intake & Output 04/18/23 04/19/23 04/19/23 18:59 06:59 18:59 Intake Total 958 Output Total 1100 2825 Balance -142 -2825 Intake: Oral 958 Output: Urine 1100 2825 Other: Voiding Method External Catheter External Catheter - Labs CBC & Chem 7: 04/19/23 05:48 04/18/23 05:40 Labs: Abnormal Lab Results - Last 24 Hours (Table) 04/18/23 04/19/23 Range/Units 18:28 05:48 WBC 3.5 L (3.8-10.6) k/uL RBC 3.06 L 2.87 L (3.80-5.40) m/uL Hgb 8.6 L 8.3 L (11.4-16.0) gm/dL Hct 26.6 L 26.8 L (34.0-46.0) % MCHC 30.8 L (31.0-37.0) g/dL RDW 17.6 H 17.3 H (11.5-15.5) % Plt Count 49 L 58 L (150-450) k/uL
[2023-04-19] MEDS: MIRTAZAPINE 15 MG TAB PO SCH (20:58)
[2023-04-20] MEDS: SUCRALFATE 1 GM TAB PO SCH ×2 (06:06→12:42)
[2023-04-20 07:23] LABS: Anisocytosis Slight; HCT 25.2 % (34.0-46.0); HGB 8.2 gm/dL (11.4-16.0); Hypochromasia Slight; MCH 28.7 pg (25.0-35.0); MCHC 32.5 g/dL (31.0-37.0); RBC 2.86 m/uL (3.80-5.40); RDW 18.1 % (11.5-15.5); WBC 4.3 k/uL (3.8-10.6)
[2023-04-20 07:24] LABS: African American GFR (CKD) >90 (>60 ml/min/1.73 sqM); Anion Gap 6 mmol/L; Blood Urea Nitrogen 8 mg/dL (7-17); Calcium 8.5 mg/dL (8.4-10.2); Carbon Dioxide 26 mmol/L (22-30); Chloride 106 mmol/L (98-107); Glucose 124 mg/dL (74-99); Non-African American GFR(CKD) >90 (>60 ml/min/1.73 sqM); Potassium 3.3 mmol/L (3.5-5.1); Sodium 138 mmol/L (137-145)
[2023-04-20 07:26] LABS: MCV 88.2 fL (80.0-100.0); Platelet Count 80 k/uL (150-450)
[2023-04-20] MEDS ORDERED: POTASSIUM CHLORIDE ER 20 MEQ TAB.ER PO STA (08:06)
[2023-04-20 08:50] VITALS: BP 121/81; PULSE 92; RESP 14; TEMP 97.6
--- NOTE | 2023-04-20 09:25 | P.DS ---
Providers Date of admission: 04/17/23 11:57 Expected date of discharge: 04/20/23 Attending physician: Rome Velazquez MD Consults: 04/17/23 03:19 Consult Physician Routine Consulting Provider: Javon Munroe Consult Reason/Comments: depression Do you want consulting provider notified?: Yes, Notify in am Primary care physician: Gail Davis MD Hospital Course: Patient is a 72-year-old female with known severe alcoholism with most recent hospital stay 03/17 through 03/22/23 for alcohol withdrawal, GERD, dyslipidemia, and Rivera's esophagus who presented to the ER after a fall at home with inability to stand. In the ER her blood alcohol level was 349, magnesium 1.4, carbon dioxide 17, hemoglobin 11.3, and platelets of 54. He underwent a chest x-ray which showed no acute process, she underwent pelvic x-ray which was limited in evaluation due to osteopenia. She underwent a CT head and cervical spine which showed significant cervical disc disease with neural foraminal narrowing which is unchanged. Arranges are made for admission secondary to her intoxication. By the morning of 04/17 her CIWA score was up to 15 and the patient was changed from observation to inpatient status. She was started on Librium. 04/18 Patient seen and examined at bedside. She complains of continued lower back pain and weakness. Most recent CIWA 3. CBC Hg 7.6 Plt 55. BMP BUN 8.1, Cr 0.5, glu 141, Ca 8.2, AST 60. Lumbar spine CT shows scoliosis, foraminal stenosis L4L5 L5S1. 04/19 Patient was seen and examined. Large bruise noted on the right hip last night by nursing. Due to her downtrending Hg, concerns for bleeding, CT pelvis ordered which showed 6 cm hematoma within the right gluteus princess. PT evaluated the patient, plans for SNF on discharge. CBC WBC 3.5 Hg 8.3 Hct 26.8 Plt 58. 04/20 Patient was seen and examined. Plans for discharge to SNF today. CBC Hg 8.2 Hct 25.2 Plt 80. BMP K 3.3, Cr 0.48, glu 124. She should repeat a CBC within 3 days of discharge to monitor her hemoglobin. Advised cessation of EtOH. Outpatient Orthopedic evaluation for CT L spine findings. Pertinent studies as above. Vital signs reviewed General: no distress, appears at stated age Derm: warm, dry Eyes: EOMI, no lid lag, anicteric sclera ENT: Nose and ears atraumatic Cardiovascular: Normal S1 S2. Good distal perfusion in all 4 extremities Lungs: CTA BL, Breathing comfortably, no accessory muscle use Ext: no gross muscle atrophy, no contractures Neuro: no focal neuro deficits Psych: Alert, oriented, appropriate affect Discharge Diagnosis: Acute blood loss anemia: Right gluteal hematoma. DC Heparin SQ. Monitor Hg. Transfuse if Hg < 7. Thrombocytopenia: Likely due to chronic EtOH abuse. Monitor. Acute alcohol intoxication in a known alcoholic: CIWA protocol with Ativan PRN. Librium 25 mg PO TID. Telemetry monitoring. Alcohol withdrawal, history of severe alcohol withdrawal requiring ICU stay February 2023 Mechanical fall from standing Low back pain: CT L spine as above. PT and OT consulted. Rivera's esophagus HLDA This complex discharge took 35 minutes to complete. Patient Condition at Discharge: Stable Plan - Discharge Summary Discharge Rx Participant: No New Discharge Prescriptions: No Action Docusate [Colace] 100 mg PO BID Sucralfate [Carafate] 1 gm PO AC-TID #60 tab Pravastatin Sodium [Pravachol] 20 mg PO DAILY Omeprazole [PriLOSEC] 20 mg PO AC-BID polyethylene glycoL 3350 [Miralax] 17 gm PO DAILY PRN PRN Reason: Constipation Thiamine [Vitamin B-1] 100 mg PO DAILY #60 tab Discharge Medication List Pravastatin Sodium [Pravachol] 20 mg PO DAILY 11/26/21 [History] Docusate [Colace] 100 mg PO BID 03/17/23 [History] Omeprazole [PriLOSEC] 20 mg PO AC-BID 03/17/23 [History] polyethylene glycoL 3350 [Miralax] 17 gm PO DAILY PRN 03/17/23 [History] Sucralfate [Carafate] 1 gm PO AC-TID #60 tab 03/22/23 [Rx] Thiamine [Vitamin B-1] 100 mg PO DAILY #60 tab 03/22/23 [Rx] Follow up Appointment(s)/Referral(s): Gail Davis MD [Primary Care Provider] - 1-2 days
[2023-04-20] MEDS: chlordiazePOXIDE 25 MG CAP PO SCH (09:28)
[2023-04-20] MEDS: PRAVASTATIN SODIUM 20 MG TAB PO SCH (09:28)
[2023-04-20] MEDS: PANTOPRAZOLE 40 MG/10 ML VIAL IVP SCH (09:29)
[2023-04-20] MEDS: THIAMINE 100 MG TAB PO SCH (09:29)
[2023-04-20] MEDS: GABAPENTIN 100 MG CAP PO SCH ×2 (09:29→12:42)
== END 2023-04-20 13:53 | DRG 605 ==
LOC: SUPCPDRO 18:48 → EC 18:48 → 6NMEDSUR 21:26 → OBSVTOIN 04-17 11:57
PROVIDERS: ADMIT Internal Medicine; ATTEND Internal Medicine
DX: S30.0XXA Contusion of lower back and pelvis, initial encounter (principal); D62 Acute posthemorrhagic anemia; F10.239 Alcohol dependence with withdrawal, unspecified; W01.0XXA Fall on same level from slipping, tripping and stumbling without subsequent striking against object, initial encounter; D69.59 Other secondary thrombocytopenia; M85.80 Other specified disorders of bone density and structure, unspecified site; M50.30 Other cervical disc degeneration, unspecified cervical region; F32.A Depression, unspecified; M54.50 Low back pain, unspecified; G62.9 Polyneuropathy, unspecified; K22.70 Barrett's esophagus without dysplasia; M41.9 Scoliosis, unspecified; M48.061 Spinal stenosis, lumbar region without neurogenic claudication; K21.9 Gastro-esophageal reflux disease without esophagitis; Y92.015 Private garage of single-family (private) house as the place of occurrence of the external cause; M21.70 Unequal limb length (acquired), unspecified site; E78.5 Hyperlipidemia, unspecified; M21.379 Foot drop, unspecified foot; J44.9 Chronic obstructive pulmonary disease, unspecified; E83.42 Hypomagnesemia; F10.229 Alcohol dependence with intoxication, unspecified; Y90.8 Blood alcohol level of 240 mg/100 ml or more; F17.210 Nicotine dependence, cigarettes, uncomplicated; F41.9 Anxiety disorder, unspecified; R74.01 Elevation of levels of liver transaminase levels; Z28.311 Partially vaccinated for COVID-19; Z28.21 Immunization not carried out because of patient refusal; Z81.1 Family history of alcohol abuse and dependence; Z81.8 Family history of other mental and behavioral disorders; Z79.899 Other long term (current) drug therapy
CPT/HCPCS: 36415; 70450; 71046; 72125; 72131; 72170; 72192; 80048; 80053; 80320; 82247; 82550; 83735; 84450; 84460; 85025; 85027; 96361; 96365; 96372; 99285

== ENCOUNTER → 2023-05-13 | Outpatient (CLI) | payer MEDICARE ==
--- NOTE | 2023-05-13 16:22 | MR ---
EXAMINATION TYPE: MR lumbar spine wo con DATE OF EXAM: 05/13/2023 COMPARISON: CT 04/17/2023 HISTORY: 72-year-old female M54.50 Lower back pain, RLE radiculopathy, difficulty walking. TECHNIQUE: Multiplanar, multisequence images of the lumbar spine were acquired without IV contrast. FINDINGS: Degenerated S-shaped scoliotic curvature of the lumbar spine. There is moderate to advanced degenerative disc disease especially mid to lower lumbar spine with adv anced hypertrophic facet arthropathy. Additional levels of ligamentum flavum thickening. This results in mild narrowing of the spinal canal at multiple levels. No high-grade canal compromise is seen. Conus medullaris is at L2-L3, lower limits of normal. Degenerative grade 1 retrolisthesis L4-L5. Remaining alignment is maintained. Vertebral body heights are preserved. Heterogeneous marrow signal without any suspicious bone marrow placement. There is some edematous Modic type I endplate change towards the right at L4-L5. On the left, changes result in moderate neural foraminal stenosis at L2-L3 and L3-L4. Mild that L4-L5 and L5-S1. On the right, changes result in severe neuroforaminal stenosis at L5-S1. Lesser degree of severe neur oforaminal stenosis at L4-L5. There is a 2.0 cm mass along the anterior aspect of the right kidney. Given the internal fat density, and AML is favored. IMPRESSION: 1. Degenerated S-shaped scoliosis of the lumbar spine. Degenerative grade 1 retrolisthesis L4-L5. No vertebral compression collapse. 2. The conus medullaris is at the lower limits of normal at L2-L3, likely due to the spinal curvature . 3. Multilevel mild spinal canal stenoses. No high-grade canal compromise. 4. Variable neuroforaminal stenoses as outlined above. Severe on the right at L5-S1. Lesser degree of severe neuroforaminal stenosis on the right at L4-L5. 5. 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
== END | disposition home or self-care (01) ==
LOC: RADMRIMAIN 13:06
PROVIDERS: ATTEND Orthopaedic Surgery
DX: M43.16 Spondylolisthesis, lumbar region (principal); M48.061 Spinal stenosis, lumbar region without neurogenic claudication; M99.73 Connective tissue and disc stenosis of intervertebral foramina of lumbar region; M41.86 Other forms of scoliosis, lumbar region
CPT/HCPCS: 72148

== ENCOUNTER 2023-05-21 18:53 | Emergency (ER) | payer MEDICARE ==
--- NOTE | 2023-05-21 19:04 | ED ---
General Adult HPI - General Chief complaint: Alcohol Stated complaint: Etoh Time Seen by Provider: 05/21/23 18:56 Source: patient, EMS Mode of arrival: EMS Limitations: no limitations - History of Present Illness Initial comments: Patient presents to the ED by ambulance for evaluation. Patient states that she has had about a point of vodka to drink today. Patient states that she feels generally weak, and she states that she has been unable to take care of herself at home. Patient states that she has a boyfriend who checks in on her every now and then, but she is otherwise alone at home. Patient denies any recent fall, trauma or injury. Patient denies illicit drug use or medication abuse/overdose. Patient denies fever or chills, headache, focal neuro deficit, chest pain or pressure, dyspnea, palpitations, dizziness, abdominal pain, nausea/ vomiting/diarrhea, bloody or melanotic stool, dysuria or urinary symptoms, or any other symptoms or complaints. - Related Data Home Medications Medication Instructions Recorded Confirmed Pravastatin Sodium [Pravachol] 20 mg PO DAILY 11/26/21 04/16/23 Docusate [Colace] 100 mg PO BID 03/17/23 04/16/23 Omeprazole [PriLOSEC] 20 mg PO AC-BID 03/17/23 04/16/23 polyethylene glycoL 3350 [Miralax] 17 gm PO DAILY PRN 03/17/23 04/16/23 Previous Rx's Medication Instructions Recorded Sucralfate [Carafate] 1 gm PO AC-TID #60 tab 03/22/23 Thiamine [Vitamin B-1] 100 mg PO DAILY #60 tab 03/22/23 Gabapentin [Neurontin] 100 mg PO QID #12 cap 04/20/23 HYDROcodone/APAP 5-325MG [[place] 1 each PO Q6HR PRN #12 tab 04/20/23 5-325] Mirtazapine [Remeron] 30 mg PO HS #0 tab 04/20/23 Allergies Allergy/AdvReac Type Severity Reaction Status Date / Time No Known Allergies Allergy Verified 03/17/23 14:49 Review of Systems ROS Statement: Those systems with pertinent positive or pertinent negative responses have been documented in the HPI. ROS Other: All systems not noted in ROS Statement are negative. Past Medical History Past Medical History: GERD/Reflux, Hyperlipidemia Additional Past Medical History / Comment(s): Barretts Esophagus History of Any Multi-Drug Resistant Organisms: None Reported Past Surgical History: No Surgical Hx Reported Past Anesthesia/Blood Transfusion Reactions: No Reported Reaction Past Psychological History: Anxiety, Depression Smoking Status: Current every day smoker Past Alcohol Use History: Abuse, Daily, Heavy Past Drug Use History: None Reported General Exam Limitations: no limitations General appearance: alert, appears intoxicated, other (patient smells of alcohol) Head exam: Present: atraumatic, normocephalic Eye exam: Present: PERRL, EOMI ENT exam: Present: mucous membranes moist Neck exam: Present: other (trachea is in midline). Absent: tenderness Respiratory exam: Present: normal lung sounds bilaterally. Absent: respiratory distress, wheezes, rales, rhonchi, stridor Cardiovascular Exam: Present: regular rate, normal rhythm, normal heart sounds, other (normal radial pulses bilaterally) GI/Abdominal exam: Present: soft. Absent: distended, tenderness, guarding Extremities exam: Absent: tenderness, pedal edema, calf tenderness Back exam: Absent: tenderness Neurological exam: Present: alert, oriented X3. Absent: motor sensory deficit Skin exam: Present: warm, dry, intact, normal color Course Vital Signs 05/21/23 18:54 Temperature 98.5 F Pulse Rate 84 Respiratory 18 Rate Blood Pressure 113/80 O2 Sat by Pulse 96 Oximetry - Reevaluation(s) Reevaluation #1: 05/21/23 21:20 Patient's boyfriend is now at bedside with the patient. Patient remains alert and answering questions appropriately. Patient and boyfriend are aware the patient's test results. Patient and boyfriend both feel comfortable with the patient being discharged home at this time. Boyfriend agrees to stay with the patient tonight. Patient was advised to avoid drinking any more alcohol tonight. Patient and boyfriend were counseled about alcohol intoxication/abuse, and they were clearly explained return and follow-up instructions. Strict return instructions were provided. Patient was instructed to, and agrees to, follow-up closely with her primary care provider, stating that she has appointment to see her PCP next week. EKG Findings - EKG Comments: EKG Findings:: ED physician interpretation (interpreted by me): Normal sinus rhythm, no ectopy, ventricular rate of 75 bpm, normal VT and QRS intervals, normal QT interval, normal axis, no ST or T wave abnormality Medical Decision Making - Medical Decision Making Was pt. sent in by a medical professional or institution ([facility], [employer], urgent care, hospital, or correction...) When possible be specific @ -No Did you speak to anyone other than the patient for history (EMS, parent, family, police, friend...)? What history was obtained from this source @ -No Did you review nursing and triage notes (agree or disagree)? Why? @ -I reviewed and agree with nursing and triage notes Were old charts reviewed (outside hosp., previous admission, EMS record, old EKG, old radiological studies, urgent care reports/EKG's, correction records)? Report findings @ -No old charts were reviewed Differential Diagnosis (chest pain, altered mental status, abdominal pain women, abdominal pain men, vaginal bleeding, weakness, fever, dyspnea, syncope, headache, dizziness, GI bleed, back pain, seizure, CVA, palpatations, mental health, musculoskeletal)? @ -Differential Weakness: Hypoglycemia, electrolyte abnormality, hyperglycemia, hyponatremia, ETOH, adverse medicine reaction, liver disease, renal disease, dehydration, this is not meant to be an all-inclusive list. EKG interpreted by me (3pts min.). @ -As above X-rays interpreted by me (1pt min.). @ -None done CT interpreted by me (1pt min.). @ -None done U/S interpreted by me (1pt. min.). @ -None done What testing was considered but not performed or refused? (CT, X-rays, U/S, labs)? Why? @ -None What meds were considered but not given or refused? Why? @ -None Did you discuss the management of the patient with other professionals (professionals i.e. [facility], [employer] POLICE [employer]GEANT, lab, RT, psych nurse, social worker health services, dinkey engine operator, teacher, event security officer, casework manager)? Give summary @ -No Was smoking cessation discussed for >3mins.? @ -No Was critical care preformed (if so, how long)? @ -No Were there social determinants of health that impacted care today? How? (Homelessness, low income, unemployed, alcoholism, drug addiction, transportation, low edu. Level, literacy, decrease access to med. care, retirement, rehab)? @ -No Was there de-escalation of care discussed even if they declined (Discuss DNR or withdrawal of care, Hospice)? DNR status @ -No What co-morbidities impacted this encounter? (DM, HTN, Smoking, COPD, CAD, Cancer, CVA, ARF, Chemo, Hep., AIDS, mental health diagnosis, sleep apnea, morbid obesity)? @ -None Was patient admitted / discharged? Hospital course, mention meds given and route, prescriptions, significant lab abnormalities, going to OR and other pertinent info. @ -Patient presented to the ED by ambulance intoxicated. Patient's alcohol level is 293, but the rest of her labs are fairly unremarkable, as is her EKG. Patient has been alert and answering questions appropriately while in the ED. Patient and boyfriend both feel comfortable with the patient being discharged home at this time. Boyfriend states that he will stay with the patient tonight. Strict return and follow-up instructions were provided. Undiagnosed new problem with uncertain prognosis? @ -No Drug Therapy requiring intensive monitoring for toxicity (Heparin, Nitro, I nsulin, Cardizem)? @ -No Were any procedures done? @ -No Diagnosis/symptom? @ -Alcohol intoxication Acute, or Chronic, or Acute on Chronic? @ -Acute] Uncomplicated (without systemic symptoms) or Complicated (systemic symptoms)? @ -Default Side effects of treatment? @ -No Exacerbation, Progression, or Severe Exacerbation? @ -No Poses a threat to life or bodily function? How? (Chest pain, [place], NH, pneumonia, PE, COPD, DKA, ARF, appy, cholecystitis, CVA, Diverticulitis, Homicidal, Suicidal, threat to staff... and all critical care pts) @ -No - Lab Data Result diagrams: 05/21/23 19:13 05/21/23 19:13 Lab Results 05/21/23 05/21/23 05/21/23 Range/Units 19:13 19:13 19:13 WBC 4.9 (3.8-10.6) k/uL RBC 5.03 (3.80-5.40) m/uL Hgb 14.1 D (11.4-16.0) gm/dL Hct 42.0 (34.0-46.0) % MCV 83.5 (80.0-100.0) fL MCH 27.9 (25.0-35.0) pg MCHC 33.4 (31.0-37.0) g/dL RDW 17.7 H (11.5-15.5) % Plt Count 182 D (150-450) k/uL MPV 6.7 Neutrophils % 41 % Lymphocytes % 47 % Monocytes % 5 % Eosinophils % 4 % Basophils % 1 % Neutrophils # 2.0 (1.3-7.7) k/uL Lymphocytes # 2.3 (1.0-4.8) k/uL Monocytes # 0.2 (0-1.0) k/uL Eosinophils # 0.2 (0-0.7) k/uL Basophils # 0.0 (0-0.2) k/uL Anisocytosis Slight PT 9.8 L (10.0-12.5) sec INR 0.9 (<1.2) APTT 23.9 (22.0-30.0) sec Sodium 136 L (137-145) mmol/L Potassium 4.5 (3.5-5.1) mmol/L Chloride 97 L (98-107) mmol/L Carbon Dioxide 24 (22-30) mmol/L Anion Gap 15 mmol/L BUN 19 H (7-17) mg/dL Creatinine 0.55 (0.52-1.04) mg/dL Est GFR (CKD-EPI)AfAm >90 (>60 ml/min/1.73 sqM) Est GFR (CKD-EPI)NonAf >90 (>60 ml/min/1.73 sqM) Glucose 101 H (74-99) mg/dL Calcium 9.4 (8.4-10.2) mg/dL Magnesium 1.4 L (1.6-2.3) mg/dL Total Bilirubin 0.4 (0.2-1.3) mg/dL AST 45 H (14-36) U/L ALT 26 (4-34) U/L Alkaline Phosphatase 83 (38-126) U/L Total Protein 8.2 (6.3-8.2) g/dL Albumin 4.7 (3.5-5.0) g/dL Lipase 284 (23-300) U/L Serum Alcohol 293 H* mg/dL Disposition Clinical Impression: Alcoholic intoxication Disposition: HOME SELF-CARE Condition: Stable Instructions (If sedation given, give patient instructions): Alcohol Intoxication (ED) Additional Instructions: Return to the ER immediately should you develop any significant pain, a fever, persistent vomiting, shortness of breath, feeling dizzy or faint, or new or worsening symptoms. Follow-up closely with your primary care provider. Is patient prescribed a controlled substance at d/c from ED?: No Referrals: Gail Davis MD [Primary Care Provider] - 1-2 days Time of Disposition: 21:22
[2023-05-21 19:07] VITALS: RESP 18
[2023-05-21] MEDS ORDERED: SODIUM CHLORIDE 0.9% 1,000 ML IV STA (19:07)
[2023-05-21 19:23] LABS: Anisocytosis Slight; Basophils % (A) 1 %; Eosinophils # (A) 0.2 k/uL (0-0.7); Eosinophils % (A) 4 %; Lymphocytes # (A) 2.3 k/uL (1.0-4.8); Lymphocytes % (A) 47 %; MCH 27.9 pg (25.0-35.0); MCHC 33.4 g/dL (31.0-37.0); MCV 83.5 fL (80.0-100.0); Mean Platelet Volume 6.7; Monocytes # (A) 0.2 k/uL (0-1.0); Monocytes % (A) 5 %; Neutrophils % (A) 41 %; RBC 5.03 m/uL (3.80-5.40); RDW 17.7 % (11.5-15.5); WBC 4.9 k/uL (3.8-10.6)
[2023-05-21 19:35] LABS: ALT 26 U/L (4-34); AST 45 U/L (14-36); African American GFR (CKD) >90 (>60 ml/min/1.73 sqM); Albumin 4.7 g/dL (3.5-5.0); Alkaline Phosphatase 83 U/L (38-126); Anion Gap 15 mmol/L; Blood Urea Nitrogen 19 mg/dL (7-17); Calcium 9.4 mg/dL (8.4-10.2); Carbon Dioxide 24 mmol/L (22-30); Chloride 97 mmol/L (98-107); Glucose 101 mg/dL (74-99); Lipase 284 U/L (23-300); Magnesium 1.4 mg/dL (1.6-2.3); Non-African American GFR(CKD) >90 (>60 ml/min/1.73 sqM); Potassium 4.5 mmol/L (3.5-5.1); Sodium 136 mmol/L (137-145); Total Bilirubin 0.4 mg/dL (0.2-1.3); Total Protein 8.2 g/dL (6.3-8.2)
[2023-05-21 19:39] LABS: HGB 14.1 gm/dL (11.4-16.0); Platelet Count 182 k/uL (150-450)
[2023-05-21 19:42] LABS: INR 0.9 (<1.2); Partial Thromboplastin Time 23.9 sec (22.0-30.0); Prothrombin Time 9.8 sec (10.0-12.5)
[2023-05-21 19:43] LABS: Alcohol 293 mg/dL
[2023-05-21 21:57] VITALS: BP 109/67; PULSE 81; TEMP 98.4
== END 2023-05-21 21:45 | disposition home or self-care (01) ==
LOC: EC 18:53
DX: F10.129 Alcohol abuse with intoxication, unspecified (principal); K21.9 Gastro-esophageal reflux disease without esophagitis; F17.200 Nicotine dependence, unspecified, uncomplicated; E78.5 Hyperlipidemia, unspecified; Z86.59 Personal history of other mental and behavioral disorders; Y90.8 Blood alcohol level of 240 mg/100 ml or more; Z79.899 Other long term (current) drug therapy
CPT/HCPCS: 36415; 93005; 80053; 83690; 83735; 85025; 85610; 85730; 99284; 96360; 96361; G0480; 80320

== ENCOUNTER 2023-06-02 16:38 | Inpatient (IN) | payer MEDICARE ==
--- NOTE | 2023-06-02 17:33 | ED ---
Nausea/Vomiting/Diarrhea HPI - General Chief complaint: Nausea/Vomiting/Diarrhea Stated complaint: ETOH, Nausea, Vomitting Time Seen by Provider: 06/02/23 16:54 Source: patient, RN notes reviewed, old records reviewed Mode of arrival: EMS Limitations: no limitations - History of Present Illness Initial comments: This is a 73-year-old female to the ER today. The patient is a for evaluation regards to altered mental status, persistent nausea vomiting since last night patient still has active nausea vomiting here in the ER. Weakness with nausea no vomiting. No trouble history no sick contacts. Patient does admit to severe history of alcoholism. Patient states she believes she may be going through alcohol withdrawal, significant altered and difficult to answer questions, somnolent but arousable MD complaint: nausea, vomiting, diarrhea, abdominal pain -: days(s) Description of Vomiting: watery Description of Diarrhea: water Associated Abdominal Pain: Yes Location: diffuse Radiation: none Severity: moderate Severity scale (1-10): 4 Quality: aching Consistency: intermittent Improves with: none Worsens with: none Context: alcohol abuse Associated Symptoms: nausea/vomiting, weakness - Related Data Previous Rx's Medication Instructions Recorded Folic Acid 1 mg PO DAILY tab 06/07/23 Multivitamins, Thera [Multivitamin 1 each PO DAILY tab 06/07/23 (formulary)] Pantoprazole [Protonix] 40 mg PO AC-BID #60 tab 06/07/23 Sucralfate [Carafate] 1 gm PO AC-TID 90 Days #90 tab 06/07/23 Thiamine [Vitamin B-1] 100 mg PO DAILY tab 06/07/23 Allergies Allergy/AdvReac Type Severity Reaction Status Date / Time No Known Allergies Allergy Verified 06/13/23 12:52 Review of Systems ROS Statement: Those systems with pertinent positive or pertinent negative responses have been documented in the HPI. ROS Other: All systems not noted in ROS Statement are negative. Past Medical History Past Medical History: GERD/Reflux, Hyperlipidemia, Hypertension Additional Past Medical History / Comment(s): Barretts Esophagus History of Any Multi-Drug Resistant Organisms: None Reported Past Surgical History: No Surgical Hx Reported Past Anesthesia/Blood Transfusion Reactions: No Reported Reaction Past Psychological History: Anxiety, Depression Smoking Status: Current every day smoker Past Alcohol Use History: Abuse, Daily, Heavy Past Drug Use History: None Reported General Exam Limitations: no limitations General appearance: alert, in no apparent distress, anxious Head exam: Present: atraumatic, normocephalic, normal inspection Eye exam: Present: normal appearance, PERRL, EOMI. Absent: scleral icterus, conjunctival injection, periorbital swelling ENT exam: Present: normal exam, mucous membranes moist Neck exam: Present: normal inspection. Absent: tenderness, meningismus, lymphadenopathy Respiratory exam: Present: normal lung sounds bilaterally. Absent: respiratory distress, wheezes, rales, rhonchi, stridor Cardiovascular Exam: Present: normal rhythm, tachycardia, normal heart sounds. Absent: systolic murmur, diastolic murmur, rubs, gallop, clicks GI/Abdominal exam: Present: soft, normal bowel sounds. Absent: distended, tenderness, guarding, rebound, rigid Extremities exam: Present: normal inspection, full ROM, normal capillary refill. Absent: tenderness, pedal edema, joint swelling, calf tenderness Back exam: Present: normal inspection Neurological exam: Present: alert, oriented X3, CN II-XII intact Psychiatric exam: Present: normal affect, normal mood Skin exam: Present: warm, dry, intact, normal color. Absent: rash Course Vital Signs 06/02/23 06/02/23 06/02/23 16:46 18:08 20:00 Temperature 98.5 F Pulse Rate 117 H 114 H 118 H Pulse Rate [ Pulse Oximetery ] Respiratory 20 20 18 Rate Blood Pressure 152/73 142/74 138/81 Blood Pressure [Left Arm] O2 Sat by Pulse 96 96 95 Oximetry 06/02/23 06/02/23 06/03/23 21:00 23:00 01:00 Temperature Pulse Rate 120 H 93 116 H Pulse Rate [ Pulse Oximetery ] Respiratory 22 17 20 Rate Blood Pressure 144/74 114/79 133/71 Blood Pressure [Left Arm] O2 Sat by Pulse 94 L 96 95 Oximetry 06/03/23 01:33 Temperature 98.2 F Pulse Rate Pulse Rate [ 120 H Pulse Oximetery ] Respiratory 18 Rate Blood Pressure Blood Pressure 117/69 [Left Arm] O2 Sat by Pulse 90 L Oximetry - Reevaluation(s) Reevaluation #1: 06/02/23 19:54 Medical records reviewed Reevaluation #2: 06/02/23 19:54 Patient symptoms improved Reevaluation #3: 06/02/23 19:54 Patient informed of results and questions answered Reevaluation #4: 06/02/23 19:54 Was pt. sent in by a medical professional or institution ([facility], SENIOR SQL DAT[employer]ASE DEVELOPER, urgent care, hospital, or penitentiary...) When possible be specific @ -no Did you speak to anyone other than the patient for history (EMS, parent, family, police, friend...)? What history was obtained from this source @ -no Did you review nursing and triage notes (agree or disagree)? Why? @ -agree Are old charts reviewed (outside hosp., previous admission, EMS record, old EKG, old radiological studies, urgent care reports/EKG's, penitentiary records)? Report findings @ -yes Differential Diagnosis (chest pain, altered mental status, abdominal pain women, abdominal pain men, vaginal bleeding, weakness, fever, dyspnea, syncope, headache, dizziness, GI bleed, back pain, seizure, CVA, palpatations, mental health, musculoskeletal)? @ -prior EKG interpreted by me (3pts min.). @ -yes X-rays interpreted by me (1pt min.). @ -no CT interpreted by me (1pt min.). @ -no U/S interpreted by me (1pt. min.). @ -no What testing was considered but not performed or refused? (CT, X-rays, U/S, labs)? Why? @ -none What meds were considered but not given or refused? Why? @ -none Did you discuss the management of the patient with other professionals (professionals i.e. [facility], SENIOR SQL DATABASE DEVELOPER, lab, RT, psych nurse, clinical social worker, furnace combustion tester, teacher, parking officer, family service caseworker)? Give summary @ -no Was smoking cessation discussed for >3mins.? @ -no Was critical care preformed (if so, how long)? @ -no Were there social determinants of health that impacted care today? How? (Homelessness, low income, unemployed, alcoholism, drug addiction, transportation, low edu. Level, literacy, decrease access to med. care, care home, rehab)? @ -none Was there de-escalation of care discussed even if they declined (Discuss DNR or withdrawal of care, Hospice)? DNR status @ -no What co-morbidities impacted this encounter? (DM, HTN, Smoking, COPD, CAD, Cancer, CVA, ARF, Chemo, Hep., AIDS, mental health diagnosis, sleep apnea, morbid obesity)? @ -none Was patient admitted / discharged? Hospital course, mention meds given and route, prescriptions, significant lab abnormalities, going to OR and other pertinent info. @ - 73 female with nausea vomiting diarrhea severe alcohol intoxication here in the emergency department the patient does complain that she is going through alcohol withdrawal. Patient is tachycardic, will admit for resuscitation and monitoring Admitted Undiagnosed new problem with uncertain prognosis? @ -no Drug Therapy requiring intensive monitoring for toxicity (Heparin, Nitro, Insulin, Cardizem)? @ -no Were any procedures done? @ -no Diagnosis/symptom? @ -Severe withdrawal Acute, or Chronic, or Acute on Chronic? @ -Acute Uncomplicated (without systemic symptoms) or Complicated (systemic symptoms)? @ -Complicated Side effects of treatment? @ -no Exacerbation, Progression, or Severe Exacerbation? @ -exacerbation Poses a threat to life or bodily function? How? (Chest pain, USA, MD, pneumonia, PE, COPD, DKA, ARF, appy, cholecystitis, CVA, Diverticulitis, Homicidal, Suicidal, threat to staff... and all critical care pts) @ -yes significant symptoms of withdrawal Reevaluation #5: 06/02/23 19:54 Differential Altered Mental Status: Hypoglycemia, DKA, hypercapnia, ETOH, overdose, CO poisoning, trauma, myxedema coma, HTN encephalopathy, infection, encephalitis, psychosis, intercranial hemorrhage, hepatic encephalopathy, meningitis, CVA, this is not meant to be an all-inclusive list - Consultations Consultation #1: Spoke with sound who agrees to admit this patient Medical Decision Making - Medical Decision Making 73 female with nausea vomiting diarrhea severe alcohol intoxication here in the emergency department the patient does complain that she is going through alcohol withdrawal. Patient is tachycardic, will admit for resuscitation and monitoring - Lab Data Result diagrams: 06/07/23 05:22 06/06/23 05:27 Lab Results 06/02/23 06/02/23 06/02/23 Range/Units 17:25 17:25 17:25 WBC 9.1 (3.8-10.6) k/uL RBC 3.69 L (3.80-5.40) m/uL Hgb 10.5 L D (11.4-16.0) gm/dL Hct 33.0 L (34.0-46.0) % MCV 89.4 D (80.0-100.0) fL MCH 28.4 (25.0-35.0) pg MCHC 31.8 (31.0-37.0) g/dL RDW 18.6 H (11.5-15.5) % Plt Count 203 (150-450) k/uL Estimated Plt Count (Adequate) MPV 7.8 Immature Gran % (Auto) % Absolute Nucleated RBC % Neutrophils % 85 % Lymphocytes % 8 % Monocytes % 6 % Eosinophils % 0 % Basophils % 0 % Immature Gran # (0.00-0.04) X 10*3/uL Neutrophils # 7.8 H (1.3-7.7) k/uL Lymphocytes # 0.7 L (1.0-4.8) k/uL Monocytes # 0.5 (0-1.0) k/uL Eosinophils # 0.0 (0-0.7) k/uL Basophils # 0.0 (0-0.2) k/uL NRBC/100 WBC Diff (0.00-0.01) X 10*3/uL Manual Slide Review Hypochromasia Slight Hypochromasia (manual) Anisocytosis Slight PT 10.0 (10.0-12.5) sec INR 0.9 (<1.2) APTT 22.2 (22.0-30.0) sec Sodium 137 (137-145) mmol/L Potassium 4.5 (3.5-5.1) mmol/L Chloride 97 L (98-107) mmol/L Carbon Dioxide 12 L (22-30) mmol/L Anion Gap 28 mmol/L BUN 31 H (7-17) mg/dL Creatinine 0.71 (0.52-1.04) mg/dL Est GFR (CKD-EPI) (>=60) Est GFR (CKD-EPI)AfAm >90 (>60 ml/min/1.73 sqM) Est GFR (CKD-EPI)NonAf 86 (>60 ml/min/1.73 sqM) BUN/Creatinine Ratio (12.00-20.00) Ratio Glucose 157 H (74-99) mg/dL Lactic Ac Sepsis Rflx Plasma Lactic Acid Lincoln (0.7-2.0) mmol/L Calcium 8.4 (8.4-10.2) mg/dL Phosphorus 2.7 (2.5-4.5) mg/dL Magnesium 1.7 (1.6-2.3) mg/dL Total Bilirubin 0.6 (0.2-1.3) mg/dL AST 43 H (14-36) U/L ALT 20 (4-34) U/L Alkaline Phosphatase 83 (38-126) U/L Ammonia (<30) umol/L Troponin I (0.000-0.034) ng/mL Total Protein 7.9 (6.3-8.2) g/dL Albumin 4.9 (3.5-5.0) g/dL Serum Alcohol 246 H* mg/dL 06/02/23 06/02/23 06/02/23 Range/Units 17:25 17:25 18:30 WBC (3.8-10.6) k/uL RBC (3.80-5.40) m/uL Hgb (11.4-16.0) gm/dL Hct (34.0-46.0) % MCV (80.0-100.0) fL MCH (25.0-35.0) pg MCHC (31.0-37.0) g/dL RDW (11.5-15.5) % Plt Count (150-450) k/uL Estimated Plt Count (Adequate) MPV Immature Gran % (Auto) % Absolute Nucleated RBC % Neutrophils % % Lymphocytes % % Monocytes % % Eosinophils % % Basophils % % Immature Gran # (0.00-0.04) X 10*3/uL Neutrophils # (1.3-7.7) k/uL Lymphocytes # (1.0-4.8) k/uL Monocytes # (0-1.0) k/uL Eosinophils # (0-0.7) k/uL Basophils # (0-0.2) k/uL NRBC/100 WBC Diff (0.00-0.01) X 10*3/uL Manual Slide Review Hypochromasia Hypochromasia (manual) Anisocytosis PT (10.0-12.5) sec INR (<1.2) APTT (22.0-30.0) sec Sodium (137-145) mmol/L Potassium (3.5-5.1) mmol/L Chloride (98-107) mmol/L Carbon Dioxide (22-30) mmol/L Anion Gap mmol/L BUN (7-17) mg/dL Creatinine (0.52-1.04) mg/dL Est GFR (CKD-EPI) (>=60) Est GFR (CKD-EPI)AfAm (>60 ml/min/1.73 sqM) Est GFR (CKD-EPI)NonAf (>60 ml/min/1.73 sqM) BUN/Creatinine Ratio (12.00-20.00) Ratio Glucose (74-99) mg/dL Lactic Ac Sepsis Rflx Y Plasma Lactic Acid Lincoln 2.4 H* (0.7-2.0) mmol/L Calcium (8.4-10.2) mg/dL Phosphorus (2.5-4.5) mg/dL Magnesium (1.6-2.3) mg/dL Total Bilirubin (0.2-1.3) mg/dL AST (14-36) U/L ALT (4-34) U/L Alkaline Phosphatase (38-126) U/L Ammonia 13 (<30) umol/L Troponin I <0.012 (0.000-0.034) ng/mL Total Protein (6.3-8.2) g/dL Albumin (3.5-5.0) g/dL Serum Alcohol mg/dL 06/02/23 06/02/23 06/02/23 Range/Units 20:46 21:24 23:33 WBC (3.8-10.6) k/uL RBC (3.80-5.40) m/uL Hgb (11.4-16.0) gm/dL Hct (34.0-46.0) % MCV (80.0-100.0) fL MCH (25.0-35.0) pg MCHC (31.0-37.0) g/dL RDW (11.5-15.5) % Plt Count (150-450) k/uL Estimated Plt Count (Adequate) MPV Immature Gran % (Auto) % Absolute Nucleated RBC % Neutrophils % % Lymphocytes % % Monocytes % % Eosinophils % % Basophils % % Immature Gran # (0.00-0.04) X 10*3/uL Neutrophils # (1.3-7.7) k/uL Lymphocytes # (1.0-4.8) k/uL Monocytes # (0-1.0) k/uL Eosinophils # (0-0.7) k/uL Basophils # (0-0.2) k/uL NRBC/100 WBC Diff (0.00-0.01) X 10*3/uL Manual Slide Review Hypochromasia Hypochromasia (manual) Anisocytosis PT (10.0-12.5) sec INR (<1.2) APTT (22.0-30.0) sec Sodium (137-145) mmol/L Potassium (3.5-5.1) mmol/L Chloride (98-107) mmol/L Carbon Dioxide (22-30) mmol/L Anion Gap mmol/L BUN (7-17) mg/dL Creatinine (0.52-1.04) mg/dL Est GFR (CKD-EPI) (>=60) Est GFR (CKD-EPI)AfAm (>60 ml/min/1.73 sqM) Est GFR (CKD-EPI)NonAf (>60 ml/min/1.73 sqM) BUN/Creatinine Ratio (12.00-20.00) Ratio Glucose (74-99) mg/dL Lactic Ac Sepsis Rflx Y Plasma Lactic Acid Lincoln 2.4 H* 1.7 (0.7-2.0) mmol/L Calcium (8.4-10.2) mg/dL Phosphorus (2.5-4.5) mg/dL Magnesium (1.6-2.3) mg/dL Total Bilirubin (0.2-1.3) mg/dL AST (14-36) U/L ALT (4-34) U/L Alkaline Phosphatase (38-126) U/L Ammonia (<30) umol/L Troponin I (0.000-0.034) ng/mL Total Protein (6.3-8.2) g/dL Albumin (3.5-5.0) g/dL Serum Alcohol mg/dL 06/03/23 06/03/23 Range/Units 06:28 06:28 WBC 9.97 (3.8-10.6) k/uL RBC 2.54 L (3.80-5.40) m/uL Hgb 7.1 L (11.4-16.0) gm/dL Hct 22.7 L (34.0-46.0) % MCV 89.4 (80.0-100.0) fL MCH 28.0 (25.0-35.0) pg MCHC 31.3 L (31.0-37.0) g/dL RDW 19.0 H (11.5-15.5) % Plt Count 130 L (150-450) k/uL Estimated Plt Count Decreased (Adequate) MPV 10.2 Immature Gran % (Auto) 0.40 % Absolute Nucleated RBC 0 % Neutrophils % 70.9 % Lymphocytes % 5.8 % Monocytes % 22.8 % Eosinophils % 0 % Basophils % 0.1 % Immature Gran # 0.04 (0.00-0.04) X 10*3/uL Neutrophils # 7.07 (1.3-7.7) k/uL Lymphocytes # 0.58 L (1.0-4.8) k/uL Monocytes # 2.27 H (0-1.0) k/uL Eosinophils # 0 L (0-0.7) k/uL Basophils # 0.01 (0-0.2) k/uL NRBC/100 WBC Diff 0 (0.00-0.01) X 10*3/uL Manual Slide Review Morph Only Hypochromasia Hypochromasia (manual) 2+ A Anisocytosis PT (10.0-12.5) sec INR (<1.2) APTT (22.0-30.0) sec Sodium 135 (137-145) mmol/L Potassium 4.8 (3.5-5.1) mmol/L Chloride 100 (98-107) mmol/L Carbon Dioxide 21.5 L (22-30) mmol/L Anion Gap 13.50 H mmol/L BUN 51.6 H (7-17) mg/dL Creatinine 0.8 (0.52-1.04) mg/dL Est GFR (CKD-EPI) 79 (>=60) Est GFR (CKD-EPI)AfAm (>60 ml/min/1.73 sqM) Est GFR (CKD-EPI)NonAf (>60 ml/min/1.73 sqM) BUN/Creatinine Ratio 64.50 H (12.00-20.00) Ratio Glucose 255 H (74-99) mg/dL Lactic Ac Sepsis Rflx Plasma Lactic Acid Lincoln (0.7-2.0) mmol/L Calcium 8.0 L (8.4-10.2) mg/dL Phosphorus (2.5-4.5) mg/dL Magnesium (1.6-2.3) mg/dL Total Bilirubin (0.2-1.3) mg/dL AST (14-36) U/L ALT (4-34) U/L Alkaline Phosphatase (38-126) U/L Ammonia (<30) umol/L Troponin I (0.000-0.034) ng/mL Total Protein (6.3-8.2) g/dL Albumin (3.5-5.0) g/dL Serum Alcohol mg/dL - EKG Data -: EKG Interpreted by Me (EKG is sinus 114 [place] 143 QRS 97 QTc 396) Disposition Clinical Impression: Alcohol withdrawal, Alcoholic intoxication, Dehydration, Gastroenteritis, Nausea & vomiting, Tachycardia Disposition: ADMITTED IP TO THIS HOSP Condition: Fair Is patient prescribed a controlled substance at d/c from ED?: No Time of Disposition: 17:40
[2023-06-02] MEDS ORDERED: LORazepam 2 MG/ML INJ IV PRN (17:45)
[2023-06-02] MEDS ORDERED: NALOXONE 0.4 MG/ML 1 ML VIAL IV PRN (17:45)
[2023-06-02 17:52] LABS: Anisocytosis Slight; Basophils % (A) 0 %; Eosinophils % (A) 0 %; Hypochromasia Slight; Lymphocytes # (A) 0.7 k/uL (1.0-4.8); Lymphocytes % (A) 8 %; MCH 28.4 pg (25.0-35.0); MCHC 31.8 g/dL (31.0-37.0); Mean Platelet Volume 7.8; Monocytes # (A) 0.5 k/uL (0-1.0); Monocytes % (A) 6 %; Neutrophils # (A) 7.8 k/uL (1.3-7.7); Neutrophils % (A) 85 %; Platelet Count 203 k/uL (150-450); RBC 3.69 m/uL (3.80-5.40); RDW 18.6 % (11.5-15.5); WBC 9.1 k/uL (3.8-10.6)
[2023-06-02 17:57] LABS: INR 0.9 (<1.2); Partial Thromboplastin Time 22.2 sec (22.0-30.0)
[2023-06-02 17:58] LABS: ALT 20 U/L (4-34); AST 43 U/L (14-36); African American GFR (CKD) >90 (>60 ml/min/1.73 sqM); Albumin 4.9 g/dL (3.5-5.0); Alkaline Phosphatase 83 U/L (38-126); Anion Gap 28 mmol/L; Blood Urea Nitrogen 31 mg/dL (7-17); Calcium 8.4 mg/dL (8.4-10.2); Carbon Dioxide 12 mmol/L (22-30); Chloride 97 mmol/L (98-107); Glucose 157 mg/dL (74-99); Magnesium 1.7 mg/dL (1.6-2.3); Non-African American GFR(CKD) 86 (>60 ml/min/1.73 sqM); Phosphorus 2.7 mg/dL (2.5-4.5); Potassium 4.5 mmol/L (3.5-5.1); Sodium 137 mmol/L (137-145); Total Bilirubin 0.6 mg/dL (0.2-1.3); Total Protein 7.9 g/dL (6.3-8.2)
[2023-06-02] MEDS: DEXTROSE 5%-0.45% NACL 1,000 ML IV SCH (18:03)
[2023-06-02] MEDS: SODIUM CHLORIDE 0.9% 1,000 ML IV STA (18:04)
[2023-06-02] MEDS: ONDANSETRON 4 MG/2 ML VIAL IVP STA (18:06)
[2023-06-02] MEDS: LORazepam 2 MG/ML INJ IV STA (18:06)
[2023-06-02 18:25] LABS: HGB 10.5 gm/dL (11.4-16.0); MCV 89.4 fL (80.0-100.0)
[2023-06-02 18:30] LABS: Alcohol 246 mg/dL; Lactic Acid, Venous 2.4 mmol/L (0.7-2.0)
[2023-06-03] MEDS: LORazepam 2 MG/ML INJ IV PRN (01:13)
[2023-06-03] MEDS: PANTOPRAZOLE 40 MG/10 ML VIAL IVP ONE (03:21)
[2023-06-03] MEDS: SODIUM CHLORIDE 0.9% 1,000 ML IV SCH (03:22)
--- NOTE | 2023-06-03 03:22 | P.HPIM ---
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 She r eports associated episodes of coffee-ground vomiting denies any melena or yuniel bleeding. Denies any chest pain or trouble breathing denies any fevers or chills denies any upper respiratory infection symptoms She is very concerned regarding her Rivera's esophagus and worsening burning sensation she does admit to heavy alcohol consumption last drink was yesterday since last night she has been having severe pain for which she came in for evaluation today Patient does admit to heavy alcohol consumption her alcohol level in the ED was 246 She denies any history of bowel perforation denies any history of cancer. She denies any falling dizziness lightheadedness. She denies being on any blood thinners denies taking any NSAIDs Patient denies tobacco smoking or illicit drugs she does admit to heavy alcohol consumption Today she was feeling increasingly weak in her legs she uses a walker to ambulate otherwise denies any falls or head injury review of systems Pertinent positives as noted in HPI. All other systems were reviewed and are negative on exam Constitutional: No acute distress, Eyes: Anicteric sclerae, moist conjunctiva, Pupils equal round reactive to light ENMT: NC/AT Oropharynx clear, no erythema, or exudates Neck: Supple, no masses, or JVD No carotid bruits No thyromegaly Lungs: Clear to auscultation Clear to percussion Normal respiratory effort, no accessory muscle use Cardiovascular: Heart regular in rate and rhythm, No murmurs, gallops, or rubs No peripheral edema Abdominal: Soft Slight discomfort to deep palpation of the epigastric region, no guarding, rebound or rigidity Abdomen moving with respiration Normoactive bowel sounds No hepatomegaly, No splenomegaly No palpable mass No abdominal wall hernia noted Extremities: No digital cyanosis No clubbing Pedal pulses intact and symmetrical Radial pulses intact and symmetrical No calf tenderness Psychiatric: Alert and oriented to person, place and time Neuro Muscles Strength 3/5 bilateral lower extremities 4 out of 5 bilateral upper extremities Sensation to light touch grossly present throughout Cranial nerves II-XII grossly intact Past Medical History Past Medical History: GERD/Reflux, Hyperlipidemia, Hypertension Additional Past Medical History / Comment(s): Barretts Esophagus History of Any Multi-Drug Resistant Organisms: None Reported Past Surgical History: No Surgical Hx Reported Past Anesthesia/Blood Transfusion Reactions: No Reported Reaction Past Psychological History: Anxiety, Depression Smoking Status: Current every day smoker Past Alcohol Use History: Abuse, Daily, Heavy Past Drug Use History: None Reported Medications and Allergies Home Medications Medication Instructions Recorded Confirmed Type Sucralfate [Carafate] 1 gm PO AC-TID PRN 06/02/23 06/02/23 History Allergies Allergy/AdvReac Type Severity Reaction Status Date / Time No Known Allergies Allergy Verified 06/02/23 19:28 Physical Exam Vitals: Vital Signs Temp Pulse Resp BP Pulse Ox 06/02/23 18:08 114 H 20 142/74 96 06/02/23 16:46 98.5 F 117 H 20 152/73 96 Intake and Output 06/02/23 06/02/23 06/02/23 06:59 14:59 22:59 Other: Weight 61.235 kg Results CBC & Chem 7: 06/02/23 17:25 06/02/23 17:25 Labs: Abnormal Lab Results - Last 24 Hours (Table) 06/02/23 06/02/23 06/02/23 Range/Units 17:25 17:25 17:25 RBC 3.69 L (3.80-5.40) m/uL Hgb 10.5 L D (11.4-16.0) gm/dL Hct 33.0 L (34.0-46.0) % RDW 18.6 H (11.5-15.5) % Neutrophils # 7.8 H (1.3-7.7) k/uL Lymphocytes # 0.7 L (1.0-4.8) k/uL Chloride 97 L (98-107) mmol/L Carbon Dioxide 12 L (22-30) mmol/L BUN 31 H (7-17) mg/dL Glucose 157 H (74-99) mg/dL Plasma Lactic Acid Lincoln 2.4 H* (0.7-2.0) mmol/L AST 43 H (14-36) U/L Serum Alcohol 246 H* mg/dL Assessment and Plan Assessment: 73-year-old female with alcohol dependence and history of Rivera's esophagitis coming in for worsening epigastric abdominal pain and burning sensation she admits to heavy alcohol consumption last drink was last night pain has been pe rsistent since last night associated with episodes of coffee-ground vomiting I discussed case with ED doctor accepted the admission for alcohol intoxication pending withdrawal with possible gastritis rule out GI bleed with anticipated length of stay more than 2 midnights Severe alcohol intoxication due to alcohol dependence Monitor for alcohol withdrawal syndrome Benzos per CIWA Thiamine p.o. daily Status post 1 L normal saline continue with normal saline 100 cc/h Lactic acidosis 2.4, resolved Acute gastritis Rivera's esophagitis Rule out GI bleeding Monitor hemoglobin chronic anemia hemoglobin 10.5 around baseline Loaded with Protonix IV push 80 mg continue with Protonix p.o. 40 mg twice daily Monitor hemoglobin level Renal functions showing elevated urea with BUN 31 Creatinine 0.71 unremarkable sodium 137 potassium 4.5 unremarkable General surgery consult Blood work showed hemoglobin 10.5 White count 9.1 Liver enzymes unremarkable slightly elevated AST 43 Full code DVT prophylaxis mechanical secondary to possible GI bleeding
[2023-06-03] MEDS: MULTIVITAMINS, THERA 1 EACH TAB PO SCH (09:02)
[2023-06-03] MEDS: THIAMINE 100 MG TAB PO SCH (09:02)
[2023-06-03] MEDS: FOLIC ACID 1 MG TAB PO SCH (09:03)
[2023-06-03] MEDS: PANTOPRAZOLE 40 MG TABLET PO SCH (09:03)
[2023-06-03 11:03] LABS: HCT 22.7 % (37.2-46.3); HGB 7.1 g/dL (12.0-15.0); MCHC 31.3 g/dL (32.0-37.0); MCV 89.4 FL (80.0-97.0); Mean Platelet Volume 10.2 FL (9.5-12.2); NRBC Per 100 WBC 0 X 10*3/uL (0.00-0.01); Platelet Count 130 X 10*3/uL (140-440); RBC 2.54 X 10*6/uL (4.10-5.20); WBC 9.97 X 10*3/uL (4.50-10.00)
[2023-06-03 11:41] LABS: Blood Urea Nitrogen 51.6 mg/dL (9.0-27.0); Carbon Dioxide 21.5 mmol/L (21.6-31.8); Chloride 100 mmol/L (96-109); Glucose 255 mg/dL (70-110); Potassium 4.8 mmol/L (3.5-5.5); Sodium 135 mmol/L (135-145)
[2023-06-03 11:42] LABS: Basophils # (A) 0.01 X 10*3/uL (0.00-0.10); Basophils % (A) 0.1 %; Eosinophils # (A) 0 X 10*3/uL (0.04-0.35); Eosinophils % (A) 0 %; Hypochromasia (M) 2+; Lymphocytes # (A) 0.58 X 10*3/uL (0.90-5.00); Lymphocytes % (A) 5.8 %; Monocytes # (A) 2.27 X 10*3/uL (0.20-1.00); Monocytes % (A) 22.8 %; Neutrophils # (A) 7.07 X 10*3/uL (1.80-7.70); Neutrophils % (A) 70.9 %
--- NOTE | 2023-06-03 14:30 | P.PN ---
Subjective Progress Note Date: 06/03/23 Hospital Course: 73-year-old female with history of Rivera's esophagus, alcohol dependence presenting with epigastric pain, alcohol intoxication,. Patient has been tachycardic, blood pressure within normal limits. On initial presentation, hemoglobin 10.5, platelet 203, bicarb 12, creatinine 0.71, lactate 2.4, troponin negative, serum alcohol 246. EKG shows sinus tachycardia. Patient started on IV fluids. Also on IV Protonix. General surgery consulted. Subjective: Patient seen and examined at bedside. No acute events overnight. Pertinent positives and negatives as discussed above, a complete review of systems was performed and all other systems are negative. Vitals Signs Reviewed. General: Nontoxic, no distress, appears at stated age Derm: Warm, dry Head: Atraumatic, normocephalic, symmetric Eyes: EOMI, no lid lag, anicteric sclera Mouth: No lip lesion, mucus membranes moist Cardiovascular: S1S2 reg, no murmur Lungs: CTA bilateral, no rhonchi, no rales, no accessory muscle use Abdominal: Soft, tender to palpation in epigastric region, no guarding, no appreciable organomegaly Ext: No gross muscle atrophy, no edema, no contractures, 4/5 strength in bilateral lower extremities Neuro: CN II-XI grossly intact, no focal neuro deficits, extension tremor Psych: Alert, oriented, appropriate affect Data Reviewed Today: Pertinent Labs: Hemoglobin 7.1, platelet 130, bicarb 21.5, creatinine 0.8, lactate 1.7 Imaging: No new imaging Assessment and Plan: Active: Acute alcohol intoxication Alcohol dependence Impending alcohol withdrawal Metabolic acidosis -IV Ativan as needed per CIWA score -Thiamine 100 mg daily, folic acid 1 mg daily -Acidosis improved with IV fluids Acute gastritis History of Rivera's esophagus Possible acute upper GI bleed Chronic normocytic anemia Mild thrombocytopenia -General surgery consulted -IV pantoprazole 40 twice daily -Follow CBC Resolved: Lactic acidosis DVT ppx: SCDs Code status: Full code Anticipated discharge place: Pending clinical course Anticipated discharge time: Pending clinical course Objective - Vital Signs Vital signs: Vital Signs Temp 98.9 F 06/03/23 07:11 Pulse 118 H 06/03/23 09:14 Resp 18 06/03/23 07:11 BP 110/67 06/03/23 07:11 Pulse Ox 97 06/03/23 09:20 FiO2 Intake & Output 06/02/23 06/03/23 06/03/23 18:59 06:59 18:59 Weight 61.235 kg 61.235 kg Other: Voiding Method Bedside Commode # Voids 1 1 # Bowel Movements 1 - Labs CBC & Chem 7: 06/03/23 06:28 06/03/23 06:28 Labs: Abnormal Lab Results - Last 24 Hours (Table) 06/02/23 06/02/23 06/02/23 Range/Units 17:25 17:25 17:25 RBC 3.69 L (3.80-5.40) m/uL Hgb 10.5 L D (11.4-16.0) gm/dL Hct 33.0 L (34.0-46.0) % MCHC (32.0-37.0) g/dL RDW 18.6 H (11.5-15.5) % Plt Count (140-440) X 10*3/uL Neutrophils # 7.8 H (1.3-7.7) k/uL Lymphocytes # 0.7 L (1.0-4.8) k/uL Monocytes # (0.20-1.00) X 10*3/uL Eosinophils # (0.04-0.35) X 10*3/uL Hypochromasia (manual) Chloride 97 L (98-107) mmol/L Carbon Dioxide 12 L (22-30) mmol/L Anion Gap (4.00-12.00) mmol/L BUN 31 H (7-17) mg/dL BUN/Creatinine Ratio (12.00-20.00) Ratio Glucose 157 H (74-99) mg/dL Plasma Lactic Acid Lincoln 2.4 H* (0.7-2.0) mmol/L Calcium (8.7-10.3) mg/dL AST 43 H (14-36) U/L Serum Alcohol 246 H* mg/dL 06/02/23 06/03/23 06/03/23 Range/Units 20:46 06:28 06:28 RBC 2.54 L (3.80-5.40) m/uL Hgb 7.1 L (11.4-16.0) gm/dL Hct 22.7 L (34.0-46.0) % MCHC 31.3 L (32.0-37.0) g/dL RDW 19.0 H (11.5-15.5) % Plt Count 130 L (140-440) X 10*3/uL Neutrophils # (1.3-7.7) k/uL Lymphocytes # 0.58 L (1.0-4.8) k/uL Monocytes # 2.27 H (0.20-1.00) X 10*3/uL Eosinophils # 0 L (0.04-0.35) X 10*3/uL Hypochromasia (manual) 2+ A Chloride (98-107) mmol/L Carbon Dioxide 21.5 L (22-30) mmol/L Anion Gap 13.50 H (4.00-12.00) mmol/L BUN 51.6 H (7-17) mg/dL BUN/Creatinine Ratio 64.50 H (12.00-20.00) Ratio Glucose 255 H (74-99) mg/dL Plasma Lactic Acid Lincoln 2.4 H* (0.7-2.0) mmol/L Calcium 8.0 L (8.7-10.3) mg/dL AST (14-36) U/L Serum Alcohol mg/dL
--- NOTE | 2023-06-03 15:38 | P.GSCN ---
History of Present Illness Consult date: 06/03/23 History of present illness: CHIEF COMPLAINT: Vomiting HISTORY OF PRESENT ILLNESS: This is a 73-year-old female who presented to hospital with nausea and vomiting. Patient does have a history of heavy daily alcohol use. Per patient she had 15 episodes of vomiting coffee-ground emesis. These episodes were not witnessed. She has had no vomiting today. She does report epigastric abdominal pain and a history of Rivera's esophagus. Last EGD was 2 years ago. Patient denies any blood in her stools or black stools. Hemoglobin did drop from 10.5-7.1. Alcohol level on admission was elevated. Patient admitted with alcohol intoxication. She has been mildly tachycardic. Patient does report a decreased appetite. PAST MEDICAL HISTORY: Rivera's, GERD, hyperlipidemia, hypertension, COPD PAST SURGICAL HISTORY: See below MEDICATIONS: See below ALLERGIES: See below SOCIAL HISTORY: Alcohol use possibly 2 pints daily. Nicotine dependence REVIEW OF SYSTEMS: CONSTITUTIONAL: Denies fever or chills. HEENT: Denies blurred vision, vision changes, or eye pain. Denies hemoptysis CARDIOVASCULAR: Denies chest pain or pressure. RESPIRATORY: No shortness of breath. GASTROINTESTINAL: See HPI for pertinent findings HEMATOLOGIC: Denies bleeding disorders. GENITOURINARY: Denies any blood in urine or increased urinary frequency. SKIN: Denies pruitis. Denies rash. PHYSICAL EXAM: VITAL SIGNS: Reviewed GENERAL: Well-developed in no acute distress. HEENT: No sclera icterus. Extraocular movements grossly intact. Moist buccal mucosa. Head is atraumatic, normocephalic. No nasal drainage. ABDOMEN: Soft. Mildly distended. Epigastric tenderness. NEUROLOGIC: Alert and oriented. Cranial nerves II through XII grossly intact. LABORATORY DATA: WBC 9.97 hemoglobin 10.5 down to 7.1 platelets 130 Sodium 135 potassium is 4.8 creatinine 0.8 Lactic acid 2.4 down to 1.7 Magnesium 1.7 total bili 0.6 AST 43 ALT 20 ammonia 13 Alcohol level 246 IMAGING: ASSESSMENT: 1. Acute GI bleed with coffee-ground emesis 2. Acute blood loss anemia 3. History of heavy daily alcohol use 4. History of Rivera's esophagus PLAN: -Discussed case with Dr. Guzman. Dr. Guzman recommends that patient is transferred to tertiary care center where GI services are available. GI service is currently not available at this institution. -Downgrade diet to full liquids -Continue IV Protonix twice daily -Continue IV fluids -Continue to monitor for any signs or symptoms of bleeding -Continue to monitor hemoglobin Physician Truck Hop note has been reviewed by physician. Signing provider agrees with the documented findings, assessment, and plan of care. Past Medical History Past Medical History: GERD/Reflux, Hyperlipidemia, Hypertension Additional Past Medical History / Comment(s): Barretts Esophagus History of Any Multi-Drug Resistant Organisms: None Reported Past Surgical History: No Surgical Hx Reported Past Anesthesia/Blood Transfusion Reactions: No Reported Reaction Past Psychological History: Anxiety, Depression Smoking Status: Current every day smoker Past Alcohol Use History: Abuse, Daily, Heavy Past Drug Use History: None Reported Medications and Allergies Home Medications Medication Instructions Recorded Confirmed Type Sucralfate [Carafate] 1 gm PO AC-TID PRN 06/02/23 06/02/23 History Allergies Allergy/AdvReac Type Severity Reaction Status Date / Time No Known Allergies Allergy Verified 06/02/23 19:28 Surgical - Exam Vital Signs Temp Pulse Resp BP Pulse Ox 98.5 F 117 H 20 152/73 96 06/02/23 16:46 06/02/23 16:46 06/02/23 16:46 06/02/23 16:46 06/02/23 16:46 Results - Labs 06/03/23 06:28 06/03/23 06:28 Abnormal Lab Results - Last 24 Hours (Table) 06/02/23 06/02/23 06/02/23 Range/Units 17:25 17:25 17:25 RBC 3.69 L (3.80-5.40) m/uL Hgb 10.5 L D (11.4-16.0) gm/dL Hct 33.0 L (34.0-46.0) % MCHC (32.0-37.0) g/dL RDW 18.6 H (11.5-15.5) % Plt Count (140-440) X 10*3/uL Neutrophils # 7.8 H (1.3-7.7) k/uL Lymphocytes # 0.7 L (1.0-4.8) k/uL Monocytes # (0.20-1.00) X 10*3/uL Eosinophils # (0.04-0.35) X 10*3/uL Hypochromasia (manual) Chloride 97 L (98-107) mmol/L Carbon Dioxide 12 L (22-30) mmol/L Anion Gap (4.00-12.00) mmol/L BUN 31 H (7-17) mg/dL BUN/Creatinine Ratio (12.00-20.00) Ratio Glucose 157 H (74-99) mg/dL Plasma Lactic Acid Lincoln 2.4 H* (0.7-2.0) mmol/L Calcium (8.7-10.3) mg/dL AST 43 H (14-36) U/L Serum Alcohol 246 H* mg/dL 06/02/23 06/03/23 06/03/23 Range/Units 20:46 06:28 06:28 RBC 2.54 L (3.80-5.40) m/uL Hgb 7.1 L (11.4-16.0) gm/dL Hct 22.7 L (34.0-46.0) % MCHC 31.3 L (32.0-37.0) g/dL RDW 19.0 H (11.5-15.5) % Plt Count 130 L (140-440) X 10*3/uL Neutrophils # (1.3-7.7) k/uL Lymphocytes # 0.58 L (1.0-4.8) k/uL Monocytes # 2.27 H (0.20-1.00) X 10*3/uL Eosinophils # 0 L (0.04-0.35) X 10*3/uL Hypochromasia (manual) 2+ A Chloride (98-107) mmol/L Carbon Dioxide 21.5 L (22-30) mmol/L Anion Gap 13.50 H (4.00-12.00) mmol/L BUN 51.6 H (7-17) mg/dL BUN/Creatinine Ratio 64.50 H (12.00-20.00) Ratio Glucose 255 H (74-99) mg/dL Plasma Lactic Acid Lincoln 2.4 H* (0.7-2.0) mmol/L Calcium 8.0 L (8.7-10.3) mg/dL AST (14-36) U/L Serum Alcohol mg/dL Diabetes panel 06/02/23 06/03/23 Range/Units 17:25 06:28 Sodium 137 135 (137-145) mmol/L Potassium 4.5 4.8 (3.5-5.1) mmol/L Chloride 97 L 100 (98-107) mmol/L Carbon Dioxide 12 L 21.5 L (22-30) mmol/L BUN 31 H 51.6 H (7-17) mg/dL Creatinine 0.71 0.8 (0.52-1.04) mg/dL Glucose 157 H 255 H (74-99) mg/dL Calcium 8.4 8.0 L (8.4-10.2) mg/dL AST 43 H (14-36) U/L ALT 20 (4-34) U/L Alkaline Phosphatase 83 (38-126) U/L Total Protein 7.9 (6.3-8.2) g/dL Albumin 4.9 (3.5-5.0) g/dL Calcium panel 06/02/23 06/03/23 Range/Units 17:25 06:28 Calcium 8.4 8.0 L (8.4-10.2) mg/dL Phosphorus 2.7 (2.5-4.5) mg/dL Albumin 4.9 (3.5-5.0) g/dL Pituitary panel 06/02/23 06/03/23 Range/Units 17:25 06:28 Sodium 137 135 (137-145) mmol/L Potassium 4.5 4.8 (3.5-5.1) mmol/L Chloride 97 L 100 (98-107) mmol/L Carbon Dioxide 12 L 21.5 L (22-30) mmol/L BUN 31 H 51.6 H (7-17) mg/dL Creatinine 0.71 0.8 (0.52-1.04) mg/dL Glucose 157 H 255 H (74-99) mg/dL Calcium 8.4 8.0 L (8.4-10.2) mg/dL Adrenal panel 06/02/23 06/03/23 Range/Units 17:25 06:28 Sodium 137 135 (137-145) mmol/L Potassium 4.5 4.8 (3.5-5.1) mmol/L Chloride 97 L 100 (98-107) mmol/L Carbon Dioxide 12 L 21.5 L (22-30) mmol/L BUN 31 H 51.6 H (7-17) mg/dL Creatinine 0.71 0.8 (0.52-1.04) mg/dL Glucose 157 H 255 H (74-99) mg/dL Calcium 8.4 8.0 L (8.4-10.2) mg/dL Total Bilirubin 0.6 (0.2-1.3) mg/dL AST 43 H (14-36) U/L ALT 20 (4-34) U/L Alkaline Phosphatase 83 (38-126) U/L Total Protein 7.9 (6.3-8.2) g/dL Albumin 4.9 (3.5-5.0) g/dL
[2023-06-03] MEDS: PANTOPRAZOLE 40 MG/10 ML VIAL IVP SCH (20:42)
[2023-06-04 07:32] LABS: Glucose,Whole Blood 145 mg/dL (70-110)
[2023-06-04] MEDS: LORazepam 2 MG/ML INJ IV PRN (07:43)
[2023-06-04 08:59] LABS: Anisocytosis Slight; HCT 20.3 % (34.0-46.0); Hypochromasia Slight; MCHC 31.8 g/dL (31.0-37.0); MCV 91.2 fL (80.0-100.0); Mean Platelet Volume 10.1; Platelet Count 114 k/uL (150-450); RBC 2.23 m/uL (3.80-5.40); RDW 18.5 % (11.5-15.5)
[2023-06-04] MEDS: SODIUM CHLORIDE 0.9% 1,000 ML IV ONE (08:59)
[2023-06-04 09:09] LABS: HGB 6.5 gm/dL (11.4-16.0)
[2023-06-04 09:13] LABS: ALT 15 U/L (4-34); AST 29 U/L (14-36); African American GFR (CKD) >90 (>60 ml/min/1.73 sqM); Albumin 2.9 g/dL (3.5-5.0); Albumin/Globulin Ratio 1.2; Alkaline Phosphatase 56 U/L (38-126); Anion Gap 3 mmol/L; Blood Urea Nitrogen 21 mg/dL (7-17); Calcium 8.1 mg/dL (8.4-10.2); Carbon Dioxide 26 mmol/L (22-30); Chloride 107 mmol/L (98-107); Globulin 2.4 g/dL; Glucose 220 mg/dL (74-99); Non-African American GFR(CKD) 90 (>60 ml/min/1.73 sqM); Potassium 3.5 mmol/L (3.5-5.1); Sodium 136 mmol/L (137-145); Total Bilirubin 0.4 mg/dL (0.2-1.3); Total Protein 5.3 g/dL (6.3-8.2)
[2023-06-04] MEDS: guaiFENesin 600 MG TABLET.ER PO SCH (10:27)
[2023-06-04] MEDS: ONDANSETRON 4 MG/2 ML VIAL IVP PRN (11:22)
--- NOTE | 2023-06-04 17:10 | P.PN ---
Subjective Progress Note Date: 06/04/23 (delayed charting seen at 0915) Patient is a 73-year-old female with alcoholic dependency, Rivera's esophagus, GERD, hypertension, and dyslipidemia who presented to the emergency department with complaints of nausea, vomiting, and abdominal pain. In the ER her laboratory analysis was remarkable for hemoglobin of 10.5, carbon dioxide 12 with an anion gap of 28, and lactic acid of 2.4. Her serum alcohol is elevated at 246. She was admitted for alcohol intoxication with abdominal pain and baca spicion of gastritis. She was started on IV Protonix and CIWA protocol. The morning after admission her hemoglobin decreased to 7.1 and her platelets decreased to 130. General surgery was consulted. They recommended transfer to tertiary care facility where GI would be available, as no GI is available here and they were worried about possible esophageal varices. Patient has been accepted to [facility] and is currently awaiting a bed. Patient seen and examined at bedside. She is complaining of increased sputum production and fullness in her chest. She denies any lightheadedness, dizzines s, chest pain, or shortness of breath. Vital signs reviewed General: Nontoxic, no distress, appears at stated age Cardiovascular: S1S2 reg, no murmur Lungs: CTA bilateral, no rhonchi, no rales, no accessory muscle use Abdominal: Soft, tender to palpation epigastric, no guarding Ext: No gross muscle atrophy, no edema b/l lower extremities, no contractures Neuro: CN II-XI grossly intact, no focal neuro deficits Psych: Alert, oriented, appropriate affect Assessment/Plan: Acute alcohol intoxication in an active alcoholic with impending withdrawal Probable upper GI bleed with concern for varices, history of Rivera's esophagus Symptomatic acute blood loss anemia, thrombocytopenia -1 unit packed red blood cells, recheck CBC at 1600 -Continue with Protonix next 40 mg IV twice daily, normal saline at 100 cc/h -CIWA: Ativan dosing based on CIWA score, folic acid 1 mg daily, thiamine 100 mg twice daily -Patient had episode of hypotension this morning and was given 1 L normal saline bolus with appropriate response Hypertension Dyslipidemia -Patient is not chronically on medications for this. Blood pressure was low today and received 1L bolus with BP back to 105. Metabolic acidosis, resolved Lactic acidosis, resolved Imaging: None new Data Review: Labs reviewed from today include CBC and CMP which are remarkable for hemoglobin 6.5, platelets 114 DVT prophylaxis: SCDs Anticipated discharge date/place: Transfer to [facility] when bed available This dictation was prepared using [employer] voice recognition software. Though every attempt is made to correct errors during dictation some may still exist. Objective - Vital Signs Vital signs: Vital Signs Temp 99.4 F 06/04/23 15:24 Pulse 99 06/04/23 15:24 Resp 18 06/04/23 15:24 BP 109/69 06/04/23 15:24 Pulse Ox 99 06/04/23 15:24 FiO2 Intake & Output 06/03/23 06/04/23 06/04/23 18:59 06:59 18:59 Intake Total 1279 Balance 1279 Intake: Intake, IV Titration 1000 Amount Sodium Chloride 0.9% 1, 1000 000 ml @ 999 mls/hr IV . Q1H1M ONE Rx#:[id number] Blood Product 279 Rc Pheresis 2 As3 Unit 279 [id number] Other: Voiding Method Bedside Commode # Voids 1 - Labs CBC & Chem 7: 06/04/23 08:47 06/04/23 08:47 Labs: Abnormal Lab Results - Last 24 Hours (Table) 06/04/23 06/04/23 06/04/23 Range/Units 07:31 08:47 08:47 RBC 2.23 L (3.80-5.40) m/uL Hgb 6.5 L* D (11.4-16.0) gm/dL Hct 20.3 L (34.0-46.0) % RDW 18.5 H (11.5-15.5) % Plt Count 114 L (150-450) k/uL Sodium 136 L (137-145) mmol/L BUN 21 H (7-17) mg/dL Glucose 220 H (74-99) mg/dL POC Glucose (mg/dL) 145 H (70-110) mg/dL Calcium 8.1 L (8.4-10.2) mg/dL Total Protein 5.3 L (6.3-8.2) g/dL Albumin 2.9 L (3.5-5.0) g/dL Crossmatch 06/04/23 Range/Units 10:58 RBC (3.80-5.40) m/uL Hgb (11.4-16.0) gm/dL Hct (34.0-46.0) % RDW (11.5-15.5) % Plt Count (150-450) k/uL Sodium (137-145) mmol/L BUN (7-17) mg/dL Glucose (74-99) mg/dL POC Glucose (mg/dL) (70-110) mg/dL Calcium (8.4-10.2) mg/dL Total Protein (6.3-8.2) g/dL Albumin (3.5-5.0) g/dL Crossmatch See Detail
[2023-06-04 18:38] LABS: Anisocytosis Slight; Basophils % (A) 0 %; Eosinophils % (A) 0 %; HCT 20.5 % (34.0-46.0); Hypochromasia Slight; Lymphocytes % (A) 29 %; MCH 29.2 pg (25.0-35.0); MCV 91.3 fL (80.0-100.0); Mean Platelet Volume 8.6; Monocytes # (A) 0.6 k/uL (0-1.0); Monocytes % (A) 8 %; Neutrophils # (A) 4.2 k/uL (1.3-7.7); Neutrophils % (A) 60 %; Platelet Count 100 k/uL (150-450); RBC 2.25 m/uL (3.80-5.40); WBC 6.9 k/uL (3.8-10.6)
[2023-06-04 18:48] LABS: HGB 6.6 gm/dL (11.4-16.0)
[2023-06-05 06:38] LABS: Anisocytosis Slight; HCT 27.9 % (34.0-46.0); MCH 29.6 pg (25.0-35.0); MCHC 33.5 g/dL (31.0-37.0); MCV 88.3 fL (80.0-100.0); Mean Platelet Volume 8.3; Platelet Count 102 k/uL (150-450); Poikilocytosis Slight; RBC 3.16 m/uL (3.80-5.40); RDW 17.4 % (11.5-15.5); WBC 5.9 k/uL (3.8-10.6)
[2023-06-05] MEDS: FUROSEMIDE 10 MG/ML 4 ML VIAL IV PRN (06:40)
[2023-06-05 06:44] LABS: HGB 9.4 gm/dL (11.4-16.0)
[2023-06-05 06:52] LABS: ALT 17 U/L (4-34); AST 51 U/L (14-36); African American GFR (CKD) >90 (>60 ml/min/1.73 sqM); Albumin 2.8 g/dL (3.5-5.0); Albumin/Globulin Ratio 1.1; Alkaline Phosphatase 60 U/L (38-126); Anion Gap 3 mmol/L; Blood Urea Nitrogen 9 mg/dL (7-17); Carbon Dioxide 28 mmol/L (22-30); Chloride 107 mmol/L (98-107); Globulin 2.5 g/dL; Glucose 118 mg/dL (74-99); Non-African American GFR(CKD) >90 (>60 ml/min/1.73 sqM); Potassium 3.4 mmol/L (3.5-5.1); Sodium 138 mmol/L (137-145); Total Bilirubin 0.9 mg/dL (0.2-1.3); Total Protein 5.3 g/dL (6.3-8.2)
--- NOTE | 2023-06-05 11:36 | P.PN ---
Subjective Progress Note Date: 06/05/23 Patient florecita stable. Hemoglobin is in the 9 range. On exam vital signs appear stable. Abdomen soft. History of upper GI bleed. Patient will need GI intervention for possible esophageal varices. Patient apparently has been transferred to tertiary care center. Objective - Vital Signs Vital signs: Vital Signs Temp 98.3 F 06/05/23 07:45 Pulse 82 06/05/23 07:45 Resp 17 06/05/23 07:45 BP 112/63 06/05/23 07:45 Pulse Ox 100 06/05/23 07:45 FiO2 Intake & Output 06/04/23 06/05/23 06/05/23 18:59 06:59 18:59 Intake Total 1279 590 Balance 1279 590 Intake: Intake, IV Titration 1000 Amount Sodium Chloride 0.9% 1, 1000 000 ml @ 999 mls/hr IV . Q1H1M ONE Rx#:[id number] Blood Product 279 590 Rc As-1 Unit 310 [id number] Rc Pheresis 2 As3 Unit 279 [id number] Rc Pheresis 2 As3 Unit 280 [id number] Other: # Voids 2 4 # Bowel Movements 0 - Labs CBC & Chem 7: 06/05/23 05:58 06/05/23 05:58 Labs: Abnormal Lab Results - Last 24 Hours (Table) 06/04/23 06/04/23 06/05/23 Range/Units 10:58 18:10 05:58 RBC 2.25 L 3.16 L (3.80-5.40) m/uL Hgb 6.6 L* 9.4 L D (11.4-16.0) gm/dL Hct 20.5 L 27.9 L (34.0-46.0) % RDW 18.0 H 17.4 H (11.5-15.5) % Plt Count 100 L 102 L (150-450) k/uL Potassium (3.5-5.1) mmol/L Creatinine (0.52-1.04) mg/dL Glucose (74-99) mg/dL Calcium (8.4-10.2) mg/dL AST (14-36) U/L Total Protein (6.3-8.2) g/dL Albumin (3.5-5.0) g/dL Crossmatch See Detail 06/05/23 Range/Units 05:58 RBC (3.80-5.40) m/uL Hgb (11.4-16.0) gm/dL Hct (34.0-46.0) % RDW (11.5-15.5) % Plt Count (150-450) k/uL Potassium 3.4 L (3.5-5.1) mmol/L Creatinine 0.46 L (0.52-1.04) mg/dL Glucose 118 H (74-99) mg/dL Calcium 8.0 L (8.4-10.2) mg/dL AST 51 H (14-36) U/L Total Protein 5.3 L (6.3-8.2) g/dL Albumin 2.8 L (3.5-5.0) g/dL Crossmatch
[2023-06-05] MEDS: POTASSIUM CHLORIDE ER 20 MEQ TAB.ER PO STA (12:21)
[2023-06-05] MEDS: LORazepam 0.5 MG TAB PO STA (12:22)
--- NOTE | 2023-06-05 14:54 | P.PN ---
Subjective Progress Note Date: 06/05/23 (delayed charting seen at 1030) Patient is a 73-year-old female with alcoholic dependency, Rivera's esophagus, GERD, hypertension, and dyslipidemia who presented to the emergency department with complaints of nausea, vomiting, and abdominal pain. In the ER her laboratory analysis was remarkable for hemoglobin of 10.5, carbon dioxide 12 with an anion gap of 28, and lactic acid of 2.4. Her serum alcohol is elevated at 246. She was admitted for alcohol intoxication with abdominal pain and baca spicion of gastritis. She was started on IV Protonix and CIWA protocol. The morning after admission her hemoglobin decreased to 7.1 and her platelets decreased to 130. General surgery was consulted. They recommended transfer to tertiary care facility where GI would be available, as no GI is available here and they were worried about possible esophageal varices. Patient has been accepted to [facility] and is currently awaiting a bed. On 06/04 she was noted to have worsening anemia. She received 1 unit of packed red blood cells with only a point for increase in hemoglobin. She received an additional 2 units of packed red blood cells and her hemoglobin increased to 9. Patient seen and examined at bedside. She denies any abdominal discomfort today. She states the feeling in the back of her throat and esophagus is somewhat better. She now complains of pain higher up. She denies any lightheaded or dizziness. She does not want to be transferred to a different facility. Vital signs reviewed General: Nontoxic, no distress, appears at stated age Cardiovascular: S1S2 reg, no murmur Lungs: CTA bilateral, no rhonchi, no rales, no accessory muscle use Abdominal: Soft, tender to palpation epigastric, no guarding Ext: No gross muscle atrophy, no edema b/l lower extremities, no contractures Neuro: CN II-XI grossly intact, no focal neuro deficits Psych: Alert, oriented, appropriate affect Assessment/Plan: Acute alcohol intoxication in an active alcoholic with impending withdrawal Probable upper GI bleed with concern for varices, history of Rivera's esophagus Symptomatic acute blood loss anemia, thrombocytopenia -Status post 3 units of packed red blood cells. Hemoglobin stable -Continue with Protonix 40 mg IV twice daily, normal saline at 100 cc/h -CIWA: Ativan dosing based on CIWA score, folic acid 1 mg daily, thiamine 100 mg twice daily -N.p.o. after midnight -Consult GI tomorrow if available in house. Continue to await bed at [facility] if becomes available. -Case discussed with Dr. Guzman. He feels patient would be best served with a pediatric nephrologist who could provide intervention if needed for esophageal varices with scope. Hypertension Dyslipidemia -Patient is not chronically on medications for this. Blood pressure was low 2/10 and received 1L bolus with appropratie BP response . Metabolic acidosis, resolved Lactic acidosis, resolved Imaging: None new Data Review: Labs reviewed from today include CBC and CMP which are remarkable for hemoglobin 9.4, hematocrit 27.9, platelets 102, potassium 3.4. DVT prophylaxis: SCDs Anticipated discharge date/place: Transfer to [facility] when bed available This dictation was prepared using [employer] voice recognition software. Though every attempt is made to correct errors during dictation some may still exist. Objective - Vital Signs Vital signs: Vital Signs Temp 97.5 F L 06/05/23 12:38 Pulse 89 06/05/23 12:38 Resp 18 06/05/23 12:38 BP 120/71 06/05/23 12:38 Pulse Ox 100 06/05/23 12:38 FiO2 Intake & Output 06/04/23 06/05/23 06/05/23 18:59 06:59 18:59 Intake Total 1279 590 Balance 1279 590 Intake: Intake, IV Titration 1000 Amount Sodium Chloride 0.9% 1, 1000 000 ml @ 999 mls/hr IV . Q1H1M ONE Rx#:[id number] Blood Product 279 590 Rc As-1 Unit 310 [id number] Rc Pheresis 2 As3 Unit 279 [id number] Rc Pheresis 2 As3 Unit 280 [id number] Other: # Voids 2 4 # Bowel Movements 0 - Labs CBC & Chem 7: 06/05/23 05:58 06/05/23 05:58 Labs: Abnormal Lab Results - Last 24 Hours (Table) 06/04/23 06/04/23 06/05/23 Range/Units 10:58 18:10 05:58 RBC 2.25 L 3.16 L (3.80-5.40) m/uL Hgb 6.6 L* 9.4 L D (11.4-16.0) gm/dL Hct 20.5 L 27.9 L (34.0-46.0) % RDW 18.0 H 17.4 H (11.5-15.5) % Plt Count 100 L 102 L (150-450) k/uL Potassium (3.5-5.1) mmol/L Creatinine (0.52-1.04) mg/dL Glucose (74-99) mg/dL Calcium (8.4-10.2) mg/dL AST (14-36) U/L Total Protein (6.3-8.2) g/dL Albumin (3.5-5.0) g/dL Crossmatch See Detail 06/05/23 Range/Units 05:58 RBC (3.80-5.40) m/uL Hgb (11.4-16.0) gm/dL Hct (34.0-46.0) % RDW (11.5-15.5) % Plt Count (150-450) k/uL Potassium 3.4 L (3.5-5.1) mmol/L Creatinine 0.46 L (0.52-1.04) mg/dL Glucose 118 H (74-99) mg/dL Calcium 8.0 L (8.4-10.2) mg/dL AST 51 H (14-36) U/L Total Protein 5.3 L (6.3-8.2) g/dL Albumin 2.8 L (3.5-5.0) g/dL Crossmatch
[2023-06-06 06:11] LABS: Anisocytosis Slight; HCT 29.7 % (34.0-46.0); HGB 9.9 gm/dL (11.4-16.0); MCH 29.5 pg (25.0-35.0); MCHC 33.2 g/dL (31.0-37.0); MCV 88.9 fL (80.0-100.0); Mean Platelet Volume 8.1; Platelet Count 142 k/uL (150-450); Poikilocytosis Slight; RBC 3.35 m/uL (3.80-5.40); RDW 17.4 % (11.5-15.5); WBC 5.8 k/uL (3.8-10.6)
[2023-06-06 06:48] LABS: ALT 34 U/L (4-34); AST 87 U/L (14-36); African American GFR (CKD) >90 (>60 ml/min/1.73 sqM); Albumin 2.7 g/dL (3.5-5.0); Albumin/Globulin Ratio 1.1; Alkaline Phosphatase 60 U/L (38-126); Anion Gap 1 mmol/L; Blood Urea Nitrogen 5 mg/dL (7-17); Calcium 7.7 mg/dL (8.4-10.2); Carbon Dioxide 29 mmol/L (22-30); Chloride 105 mmol/L (98-107); Globulin 2.5 g/dL; Glucose 108 mg/dL (74-99); Non-African American GFR(CKD) >90 (>60 ml/min/1.73 sqM); Potassium 3.4 mmol/L (3.5-5.1); Sodium 135 mmol/L (137-145); Total Bilirubin 0.5 mg/dL (0.2-1.3); Total Protein 5.2 g/dL (6.3-8.2)
[2023-06-06] MEDS: LORazepam 0.5 MG TAB PO PRN (13:14)
--- NOTE | 2023-06-06 13:53 | P.PN ---
Subjective Progress Note Date: 06/06/23 CHIEF COMPLAINT: GI bleed HISTORY OF PRESENT ILLNESS: Patient currently denies abdominal pain. She has h ad no further nausea or vomiting. No further coffee-ground emesis. Hemoglobin stable at 9.9. Patient did require a total of 3 units of blood during this admission. PHYSICAL EXAM: VITAL SIGNS: Reviewed. GENERAL: Well-developed in no acute distress. ABDOMEN: Soft. Nondistended. Nontender. NEUROLOGIC: Alert and oriented. Cranial nerves II through XII grossly intact. ASSESSMENT: 1. Acute upper GI bleed. Concern for possible esophageal varices 2. Acute blood loss anemia 3. History of Rivera's esophagus 4. History of daily alcohol use PLAN: -Patient is still awaiting a bed at [facility] -Patient was able to be seen by GI service and planning for EGD tomorrow -Continue to monitor hemoglobin -Continue PPI Physician Training Development Manager note has been reviewed by physician. Signing provider agrees with the documented findings, assessment, and plan of care. Objective - Vital Signs Vital signs: Vital Signs Temp 98.8 F 06/06/23 07:29 Pulse 66 06/06/23 07:29 Resp 16 06/06/23 11:04 BP 120/72 06/06/23 07:29 Pulse Ox 95 06/06/23 08:54 FiO2 Intake & Output 06/05/23 06/06/23 06/06/23 18:59 06:59 18:59 Intake Total 300 Balance 300 Intake: Oral 300 Other: Voiding Method Bedside Commode # Voids 6 4 - Labs CBC & Chem 7: 06/06/23 05:27 06/06/23 05:27 Labs: Abnormal Lab Results - Last 24 Hours (Table) 06/06/23 06/06/23 Range/Units 05:27 05:27 RBC 3.35 L (3.80-5.40) m/uL Hgb 9.9 L (11.4-16.0) gm/dL Hct 29.7 L (34.0-46.0) % RDW 17.4 H (11.5-15.5) % Plt Count 142 L (150-450) k/uL Sodium 135 L (137-145) mmol/L Potassium 3.4 L (3.5-5.1) mmol/L BUN 5 L (7-17) mg/dL Creatinine 0.38 L (0.52-1.04) mg/dL Glucose 108 H (74-99) mg/dL Calcium 7.7 L (8.4-10.2) mg/dL AST 87 H (14-36) U/L Total Protein 5.2 L (6.3-8.2) g/dL Albumin 2.7 L (3.5-5.0) g/dL
--- NOTE | 2023-06-06 15:27 | P.CONS ---
History of Present Illness - Reason for Consult Consult date: 06/06/23 GI bleed Requesting physician: Carmen Castelan - Chief Complaint Altered mental status changes, coffee-ground emesis - History of Present Illness This is a pleasant 73-year-old female who came in with complaints of weakness, nausea and vomiting. She has a past medical history including alcohol abuse for greater than 20 years. She reports drinking half a pint to a pint a day. She states she had some nausea and vomiting and coffee-ground emesis prior to coming into the hospital. No further coffee-ground emesis once she was admitted. She was admitted with a hemoglobin of 10.5 with a drop to 6.5 during this admission. She is s/p 3 units of blood. She denies any previous history of GI bleed however states she did have EGD at [facility] 1 to 2 years ago and was diagnosed with Rivera's esophagus and ulcer. Denies any history of known esophageal varices. She currently denies any abdominal pain, nausea or vomiting. She is tolerating her diet. Hemoglobin now stable at 9.9. General surgery was consulted for GI bleed however deferred endoscopic evaluation and recommended transfer to tertiary center due to possible esophageal varices due to patient's underlying history of alcohol disease and likely underlying liver disease. Gastroenterology consulted for GI bleed. Today's labs WBC 5.8 hemoglobin 9.9 hematocrit 29 platelet count 142,000 sodium 135 potassium 3.4 BUN 5 creatinine 0.38 glucose 108 total bilirubin 0.5 AST 87 ALT 34 alkaline phosphatase 60 Review of Systems REVIEW OF SYSTEMS: CARDIOPULMONARY: No chest pain or shortness of breath. Gastrointestinal: Epigastric fullness. Nausea vomiting with coffee-ground emesis 4 days ago. No further nausea or vomiting. No rectal bleeding, or melena. GENITOURINARY: No dysuria or hematuria. MUSCULOSKELETAL: Reports normal range of motion. SKIN: No rashes. No jaundice. ENDOCRINE: No chills, fevers. No excessive weight gain or loss. No polydipsia or polyuria. PSYCHIATRIC: Unremarkable. NEUROLOGY: No change in mental status. Denies dizziness, headache. ENT: Vision unremarkable. CONSTITUTIONAL: No recent weight loss. No fever, chills, night sweats. Past Medical History Past Medical History: GERD/Reflux, Hyperlipidemia, Hypertension Additional Past Medical History / Comment(s): Barretts Esophagus History of Any Multi-Drug Resistant Organisms: None Reported Past Surgical History: No Surgical Hx Reported Past Anesthesia/Blood Transfusion Reactions: No Reported Reaction Past Psychological History: Anxiety, Depression Smoking Status: Current every day smoker Past Alcohol Use History: Abuse, Daily, Heavy Past Drug Use History: None Reported Medications and Allergies Home Medications Medication Instructions Recorded Confirmed Type Sucralfate [Carafate] 1 gm PO AC-TID PRN 06/02/23 06/02/23 History Allergies Allergy/AdvReac Type Severity Reaction Status Date / Time No Known Allergies Allergy Verified 06/02/23 19:28 Physical Exam Vitals: Vital Signs Temp Pulse Resp BP Pulse Ox 06/06/23 08:23 98 06/06/23 01:25 98.6 F 80 18 115/72 98 06/05/23 19:45 98.3 F 90 18 108/65 98 06/05/23 15:42 97 06/05/23 12:38 97.5 F L 89 18 120/71 100 Intake and Output 06/05/23 06/06/23 06/06/23 22:59 06:59 14:59 Other: # Voids 6 4 General appearance: The patient is alert, oriented, appears in no acute distress. HET: Head is normocephalic and atraumatic. Conjunctiva pink. Sclera anicteric. Neck: Supple without lymphadenopathy. Trachea midline. Heart: Regular. Lungs: Equal expansion, normal respiratory effort. Abdomen: Soft, nontender, nondistended with bowel sounds. No guarding or rigid ity. Skin: No rashes. No jaundice. Extremities: Normal skin color and turgor. No pedal edema. Neurological: No focal deficits. Alert and oriented x3. Results CBC & Chem 7: 06/06/23 05:27 06/06/23 05:27 Labs: Abnormal Lab Results - Last 24 Hours (Table) 06/06/23 06/06/23 Range/Units 05:27 05:27 RBC 3.35 L (3.80-5.40) m/uL Hgb 9.9 L (11.4-16.0) gm/dL Hct 29.7 L (34.0-46.0) % RDW 17.4 H (11.5-15.5) % Plt Count 142 L (150-450) k/uL Sodium 135 L (137-145) mmol/L Potassium 3.4 L (3.5-5.1) mmol/L BUN 5 L (7-17) mg/dL Creatinine 0.38 L (0.52-1.04) mg/dL Glucose 108 H (74-99) mg/dL Calcium 7.7 L (8.4-10.2) mg/dL AST 87 H (14-36) U/L Total Protein 5.2 L (6.3-8.2) g/dL Albumin 2.7 L (3.5-5.0) g/dL Assessment and Plan (1) Coffee ground emesis Narrative/Plan: 73-year-old female presented to the emergency department altered mental status changes, weakness with nausea and vomiting and reported coffee-ground emesis. Patient states she has a history of Rivera's esophagus and small ulcer diagnosed 1 to 2 years ago when she underwent an EGD at [facility]. She has a long history of over 20 years of alcohol dependence and still drinks a half a pint to a pint daily. She came in alcohol intoxication, withdrawal and subsequently had a drop in her hemoglobin to 6.9 requiring 3 units of blood. Also noted at the time of admission she did have an elevated BUN which of course can be seen with upper GI bleed. General surgery was consulted and monitoring patient however they deferred endoscopic evaluation due to possibility of esophageal varices with no GI present in the hospital and recommended transfer to a tertiary center. Possible etiologies for upper GI bleed to include gastritis, esophagitis, AVM, esophageal varices, or other possible etiologies. Will plan for upper endoscopy tomorrow. Current Visit: Yes Status: Acute Code(s): K92.0 - HEMATEMESIS SNOMED Code(s): 44597667 (2) Alcohol withdrawal Current Visit: Yes Status: Acute Code(s): F10.939 - ALCOHOL USE, UNSPECIFIED WITH WITHDRAWAL, UNSPECIFIED SNOMED Code(s): 732887023 (3) Alcoholic intoxication Current Visit: Yes Status: Acute Code(s): F10.929 - ALCOHOL USE, UNSPECIFIED WITH INTOXICATION, UNSPECIFIED SNOMED Code(s): 50458328 (4) Nausea & vomiting Current Visit: Yes Status: Acute Code(s): R11.2 - NAUSEA WITH VOMITING, UNSPECIFIED SNOMED Code(s): 34279467 Plan: 1. Continue symptomatic and supportive care 2. Continue Protonix 40 mg twice daily 3. Avoid NSAIDs 4. Daily CBC, transfuse for hemoglobin less than 7 5. Recommend alcohol abstinence 6. Will plan for EGD tomorrow morning. Further recommendations to follow. Thank you for this consultation, we will continue to follow. Dr. Humera Gutiérrez I agree with the dictator's note, documented as a scribe by Dyan Mckinney.
--- NOTE | 2023-06-06 17:02 | P.PN ---
Subjective Progress Note Date: 06/06/23 (delayed charting seen at 1045) Patient is a 73-year-old female with alcoholic dependency, Rivera's esophagus, GERD, hypertension, and dyslipidemia who presented to the emergency department with complaints of nausea, vomiting, and abdominal pain. In the ER her laboratory analysis was remarkable for hemoglobin of 10.5, carbon dioxide 12 with an anion gap of 28, and lactic acid of 2.4. Her serum alcohol is elevated at 246. She was admitted for alcohol intoxication with abdominal pain and baca spicion of gastritis. She was started on IV Protonix and CIWA protocol. The morning after admission her hemoglobin decreased to 7.1 and her platelets decreased to 130. General surgery was consulted. They recommended transfer to tertiary care facility where GI would be available, as no GI is available here and they were worried about possible esophageal varices. Patient has been accepted to [facility] and is currently awaiting a bed. On 06/04 she was noted to have worsening anemia. She received 1 unit of packed red blood cells with only a point for increase in hemoglobin. She received an additional 2 units of packed red blood cells and her hemoglobin increased to 9. Patient seen and examined at bedside. She is frustrated she is not having her scope today. She denies any more esophageal fullness or pain. No diarrhea. Vital signs reviewed General: Nontoxic, no distress, appears at stated age Cardiovascular: S1S2 reg, no murmur Lungs: CTA bilateral, no rhonchi, no rales, no accessory muscle use Abdominal: Soft, tender to palpation epigastric, no guarding Ext: No gross muscle atrophy, no edema b/l lower extremities, no contractures Neuro: CN II-XI grossly intact, no focal neuro deficits Psych: Alert, oriented, appropriate affect Assessment/Plan: Acute alcohol intoxication in an active alcoholic with impending withdrawal Probable upper GI bleed with concern for varices, history of Rivera's esophagus Symptomatic acute blood loss anemia, thrombocytopenia -Status post 3 units of packed red blood cells. Hemoglobin stable -Continue with Protonix 40 mg IV twice daily, normal saline at 100 cc/h -Ativan dosing based on CIWA score, folic acid 1 mg daily, thiamine 100 mg twice daily -N.p.o. after midnight - cancel transfer to [facility] as GI now available here -Case discussed with GI plan is for EGD in AM. Patient is aware that likely will discharge home tomorrow if no overt signs of bleeding. -Surgery note reviewed: No further recommendations. Hypertension Dyslipidemia -Patient is not chronically on medications for this. Blood pressure was low 2/10 and received 1L bolus with appropriate BP response . Metabolic acidosis, resolved Lactic acidosis, resolved Imaging: None new Data Review: Labs reviewed from today include CBC and basic metabolic profile which are remarkable for hemoglobin 9.9, platelets 142 DVT prophylaxis: SCDs Anticipated discharge date/place: home in AM This dictation was prepared using [employer] voice recognition software. Though every attempt is made to correct errors during dictation some may still exist. Objective - Vital Signs Vital signs: Vital Signs Temp 90.0 F L 06/06/23 13:07 Pulse 86 06/06/23 13:07 Resp 19 06/06/23 13:07 BP 127/79 06/06/23 13:07 Pulse Ox 98 06/06/23 13:07 FiO2 Intake & Output 06/05/23 06/06/23 06/06/23 18:59 06:59 18:59 Intake Total 500 Balance 500 Intake: Oral 500 Other: Voiding Method Bedside Commode # Voids 6 4 2 - Labs CBC & Chem 7: 06/06/23 05:27 06/06/23 05:27 Labs: Abnormal Lab Results - Last 24 Hours (Table) 06/06/23 06/06/23 Range/Units 05:27 05:27 RBC 3.35 L (3.80-5.40) m/uL Hgb 9.9 L (11.4-16.0) gm/dL Hct 29.7 L (34.0-46.0) % RDW 17.4 H (11.5-15.5) % Plt Count 142 L (150-450) k/uL Sodium 135 L (137-145) mmol/L Potassium 3.4 L (3.5-5.1) mmol/L BUN 5 L (7-17) mg/dL Creatinine 0.38 L (0.52-1.04) mg/dL Glucose 108 H (74-99) mg/dL Calcium 7.7 L (8.4-10.2) mg/dL AST 87 H (14-36) U/L Total Protein 5.2 L (6.3-8.2) g/dL Albumin 2.7 L (3.5-5.0) g/dL
[2023-06-06] MEDS: POTASSIUM CHLORIDE ER 20 MEQ TAB.ER PO STA (17:44)
[2023-06-07 06:23] LABS: Anisocytosis Slight; HCT 30.6 % (34.0-46.0); HGB 10.4 gm/dL (11.4-16.0); MCH 30.1 pg (25.0-35.0); MCHC 33.9 g/dL (31.0-37.0); Mean Platelet Volume 8.4; Platelet Count 174 k/uL (150-450); RBC 3.44 m/uL (3.80-5.40); WBC 5.7 k/uL (3.8-10.6)
[2023-06-07] MEDS ORDERED: LIDOCAINE 1% INJ 10MG/ML (20 ML MDV) ONE (06:54)
[2023-06-07] MEDS ORDERED: PROPOFOL 10 MG/ML 20 ML VIAL IV ONE (06:54)
[2023-06-07] MEDS: IV FLUID CONTINUATION 1,000 ML IV ONE (06:56)
--- NOTE | 2023-06-07 07:14 | P.PCN ---
Date of Procedure: 06/07/23 Procedure(s) Performed: BRIEF HISTORY: Patient is a 73-year-old, pleasant, white female admitted hospital with multiple episodes of coffee-ground emesis. She has long-standing history of GERD. PROCEDURE PERFORMED: Esophagogastroduodenoscopy with biopsy. PREOPERATIVE DIAGNOSIS: Coffee-ground emesis. IV sedation per anesthesia. PROCEDURE: After informed consent was obtained, the patient was brought into the endoscopy unit. IV sedation was administered by Anesthesia under continuous monitoring. Initially the Olympus GIF-140 video endoscope was inserted into the mouth. Esophagus intubated without any difficulty. It was gradually advanced into the stomach and duodenum and carefully examined. The bulb and the second part of the duodenum appeared normal. The scope at this time was withdrawn to the stomach, adequately insufflated with air, and upon careful examination, mucosa of the antrum, body, cardia and the fundus appeared normal. The scope was then withdrawn into the esophagus. Small hiatal hernia noted. The GE junction was located at 39 cm from the incisors. There was long segment of Rivera's esophagus and from 35-39 cm from the incisors and a 3 ulcerations in the segment of Rivera's esophagus measuring between 1-1.5 cm in size all of which were biopsied. Proximal to the segment of Rivera's esophagus there were erosions and ulcerations consistent with LA grade B reflux esophagitis. The rest of the esophagus appeared normal. There were no erosions or ulcerations seen and the patient tolerated the procedure well. IMPRESSION: 1. Long segment Rivera's esophagus and from 35-39 cm from the incisors status post multiple biopsies. 2. Multiple ulcerations in the segment of Rivera's esophagus with no active bleeding 3. Erosions or ulcerations proximal to the esophagus consistent with LA grade a reflux esophagitis 4. Small hiatal hernia. RECOMMENDATIONS: The findings of this examination were discussed with the patient as well as a family. She was advised to follow with the biopsy results. Continue with Protonix 40 mg twice daily and follow antireflux measures. Follow up in office in 3-4 weeks..
[2023-06-07 08:17] VITALS: BP 123/80; PULSE 78; RESP 17; TEMP 97.9
[2023-06-07] MEDS: CALCIUM CARBONATE 500 MG CHEWABLE PO PRN (09:32)
[2023-06-07] MEDS: PANTOPRAZOLE 40 MG/10 ML VIAL IVP SCH (09:32)
--- NOTE | 2023-06-07 12:57 | P.PN ---
Subjective Progress Note Date: 06/07/23 CHIEF COMPLAINT: GI bleed HISTORY OF PRESENT ILLNESS: Patient currently denies abdominal pain. She has h ad no further nausea or vomiting. No further coffee-ground emesis. Hemoglobin is up from 9.9-10.4. He is status post EGD with GI service with results showing long segment of Rivera's esophagus. Multiple ulcerations in the segment of Rivera's esophagitis with no active bleeding. Erosions or ulcerations in the esophagus. Small hiatal hernia. PHYSICAL EXAM: VITAL SIGNS: Reviewed. GENERAL: Well-developed in no acute distress. ABDOMEN: Soft. Nondistended. Nontender. NEUROLOGIC: Alert and oriented. Cranial nerves II through XII grossly intact. ASSESSMENT: 1. Acute upper GI bleed 2. Acute blood loss anemia 3. History of Rivera's esophagus 4. History of daily alcohol use PLAN: -Patient can be discharged from surgical standpoint -Continue PPI -Continue to follow-up with GI service Physician Defence Intelligence Analyst note has been reviewed by physician. Signing provider agrees with the documented findings, assessment, and plan of care. Objective - Vital Signs Vital signs: Vital Signs Temp 97.9 F 06/07/23 07:29 Pulse 78 06/07/23 07:29 Resp 17 06/07/23 07:29 BP 123/80 06/07/23 07:29 Pulse Ox 95 06/07/23 09:17 FiO2 Intake & Output 06/06/23 06/07/23 06/07/23 18:59 06:59 18:59 Intake Total 500 100 Balance 500 100 Intake: IV 100 Oral 500 Other: Voiding Method Bedside Commode Bedside Commode Toilet # Voids 2 2 - Labs CBC & Chem 7: 06/07/23 05:22 06/06/23 05:27 Labs: Abnormal Lab Results - Last 24 Hours (Table) 06/07/23 Range/Units 05:22 RBC 3.44 L (3.80-5.40) m/uL Hgb 10.4 L (11.4-16.0) gm/dL Hct 30.6 L (34.0-46.0) % RDW 18.0 H (11.5-15.5) %
--- NOTE | 2023-06-07 16:27 | P.DS ---
Providers Date of admission: 06/03/23 12:04 Expected date of discharge: 06/07/23 Attending physician: Qian Hickman MD Consults: 06/03/23 14:58 Consult Physician Routine Consulting Provider: Forrest Guzman Consult Reason/Comments: possible GI bleed , coffee ground vomitin claim Do you want consulting provider notified?: Yes 06/05/23 10:30 Consult Physician Routine Consulting Provider: Annabel Gutiérrez Consult Reason/Comments: GI bleed Do you want consulting provider notified?: Yes, Notify in am Primary care physician: Gail Davis MD Hospital Course: Discharge Diagnosis: Upper GI bleed related to Rivera's esophagus with ulcerations and esophagitis Acute alcohol intoxication in an active alcoholic with impending withdrawal Symptomatic acute blood loss anemia, thrombocytopenia Hypertension Dyslipidemia Metabolic acidosis, resolved Lactic acidosis, resolved Hospital Course: Patient is a 73-year-old female with alcoholic dependency, Rivera's esophagus, GERD, hypertension, and dyslipidemia who presented to the emergency department with complaints of nausea, vomiting, and abdominal pain. In the ER her laboratory analysis was remarkable for hemoglobin of 10.5, carbon dioxide 12 with an anion gap of 28, and lactic acid of 2.4. Her serum alcohol is elevated at 246. She was admitted for alcohol intoxication with abdominal pain and suspicion of gastritis. She was started on IV Protonix and CIWA protocol. The morning after admission her hemoglobin decreased to 7.1 and her platelets decreased to 130. General surgery was consulted. They recommended transfer to tertiary care facility where GI would be available. However before [facility] had a bed GI became available at our facility. On 06/04 she was noted to have worsening anemia. She received 1 unit of packed red blood cells with only a point for increase in hemoglobin. She received an additional 2 units of packed red blood cells and her hemoglobin increased to 9. Her hemoglobin remained stable. She underwent EGD on 06/07/2023 which demonstrated Rivera's esophagus with multiple ulcerations and erosions consistent with grade a reflux esophagitis and a small hiatal hernia. Recommendations from GI were Protonix and Carafate with follow- up in office in 3 to 4 weeks. She was tolerating a diet and was determined stable for discharge home. Follow-up: Protonix 40 mg twice daily, Carafate 4 times daily, follow-up with Dr. Gutiérrez in 4 to 6 weeks for biopsy results. Follow-up with Dr. Davis to determine appropriate medications for long-term use. Patient seen and examined at bedside. She continues to have some belching today. Denies any nausea or vomiting. We again discussed that she will need to follow-up with her primary care physician for refills of her chronic medications as she has recently started and stopped multiple medications throughout her healthcare journey. I spent time reinforcing the importance of a good relationship with a primary care provider. Vital signs reviewed and stable. General: Nontoxic, no distress, appears at stated age Cardiovascular: S1S2 reg, no murmur, positive posterior tibial pulse bilateral, Lungs: CTA bilateral, no rhonchi, no rales, no accessory muscle use Abdominal: Soft, nontender to palpation, no guarding, no appreciable organomegaly Ext: No gross muscle atrophy, no edema b/l lower extremities, no contractures Neuro: CN II-XI grossly intact, no focal neuro deficits Psych: Alert, oriented, appropriate affect A total of 45 minutes of time were spent preparing this complex discharge s [place]. Patient was discharged on 06/07/2023. This dictation was prepared using [employer] voice recognition software. Though every attempt is made to correct errors during dictation some may still exist. Patient Condition at Discharge: Fair Plan - Discharge Summary Discharge Rx Participant: Yes New Discharge Prescriptions: New Pantoprazole [Protonix] 40 mg PO AC-BID #60 tab Folic Acid 1 mg PO DAILY tab Multivitamins, Thera [Multivitamin (formulary)] 1 each PO DAILY tab Thiamine [Vitamin B-1] 100 mg PO DAILY tab Continue Sucralfate [Carafate] 1 gm PO AC-TID 90 Days #90 tab Discharge Medication List Folic Acid 1 mg PO DAILY tab 06/07/23 [Rx] Multivitamins, Thera [Multivitamin (formulary)] 1 each PO DAILY tab 06/07/23 [Rx] Pantoprazole [Protonix] 40 mg PO AC-BID #60 tab 06/07/23 [Rx] Sucralfate [Carafate] 1 gm PO AC-TID 90 Days #90 tab 06/07/23 [Rx] Thiamine [Vitamin B-1] 100 mg PO DAILY tab 06/07/23 [Rx] Follow up Appointment(s)/Referral(s): Gail Davis MD [Primary Care Provider] - 1-2 days Nursing,[facility] [NON-STAFF] - As Needed Annabel Gutiérrez MD [STAFF PHYSICIAN] - 2 Weeks Patient Instructions/Handouts: GERD (Gastroesophageal Reflux Disease) (DC) Activity/Diet/Wound Care/Special Instructions: Activity: As tolerated Diet: Low acid Special Instructions: Abstain from alcohol Follow with Dr. Davis to get established with a permanent medication regiment, starting and stopping multiple medications in rapid cessation can cause you to feel poorly. Discharge/Stand Alone Forms: AA Meetings [place], Outpatient Counseling, In Substance Abuse Facilities Discharge Disposition: HOME WITH HOME HEALTH SERVICES
[2023-06-07] MEDS ORDERED: PANTOPRAZOLE 40 MG TABLET PO SCH (17:30)
== END 2023-06-07 11:47 | disposition home health service (06) | DRG 381 ==
LOC: EC 16:38 → 4SSUR 17:47 → OBSVTOIN 06-03 12:04
PROVIDERS: ADMIT Internal Medicine; ATTEND Internal Medicine
PROC: 30233N1 Transfusion of Nonautologous Red Blood Cells into Peripheral Vein, Percutaneous Approach (ICD-10-PCS; 2023-06-04)
PROC: 0DB58ZX Excision of Esophagus, Via Natural or Artificial Opening Endoscopic, Diagnostic (ICD-10-PCS; principal; 2023-06-07 07:00)
DX: K22.11 Ulcer of esophagus with bleeding (principal); D62 Acute posthemorrhagic anemia; E87.20 Acidosis, unspecified; F10.229 Alcohol dependence with intoxication, unspecified; K21.01 Gastro-esophageal reflux disease with esophagitis, with bleeding; K29.01 Acute gastritis with bleeding; Y90.8 Blood alcohol level of 240 mg/100 ml or more; I95.9 Hypotension, unspecified; E86.0 Dehydration; K44.9 Diaphragmatic hernia without obstruction or gangrene; D69.6 Thrombocytopenia, unspecified; E78.5 Hyperlipidemia, unspecified; F17.200 Nicotine dependence, unspecified, uncomplicated; F32.A Depression, unspecified; F41.9 Anxiety disorder, unspecified; I10 Essential (primary) hypertension; J44.9 Chronic obstructive pulmonary disease, unspecified
CPT/HCPCS: 36415; 43239; 80048; 80053; 80320; 82140; 83605; 83735; 84100; 84484; 85025; 85027; 85610; 85730; 86850; 86900; 86901; 86920; 88305; 93005; 94760; 96361; 96374; 96375; 96376; 99285

== ENCOUNTER 2023-06-13 12:43 | Emergency (ER) | payer MEDICARE ==
--- NOTE | 2023-06-13 13:01 | ED ---
General Adult HPI - General Stated complaint: Fall Time Seen by Provider: 06/13/23 12:43 Source: patient, RN notes reviewed, old records reviewed - History of Present Illness Initial comments: This is a 73-year-old female who presents to the emergency department after having been found down. Patient is an alcoholic. Patient states she drank about a pint today. Patient states she did fall and hit her head she thinks she was only down for an hour but because of her intoxication she is not a reliable historian. Patient denies any headache patient denies neck pain patient has numbness weakness. Patient has any chest pain or back pain. Patient has any extremity pain. Patient denies any recent fever chills or cough or patient has any vomiting or diarrhea. Patient states she does have a history of gastric reflux. - Related Data Previous Rx's Medication Instructions Recorded Folic Acid 1 mg PO DAILY tab 06/07/23 Multivitamins, Thera [Multivitamin 1 each PO DAILY tab 06/07/23 (formulary)] Pantoprazole [Protonix] 40 mg PO AC-BID #60 tab 06/07/23 Sucralfate [Carafate] 1 gm PO AC-TID 90 Days #90 tab 06/07/23 Thiamine [Vitamin B-1] 100 mg PO DAILY tab 06/07/23 Allergies Allergy/AdvReac Type Severity Reaction Status Date / Time No Known Allergies Allergy Verified 06/13/23 12:52 Review of Systems ROS Statement: Those systems with pertinent positive or pertinent negative responses have been documented in the HPI. ROS Other: All systems not noted in ROS Statement are negative. Past Medical History Past Medical History: GERD/Reflux, Hyperlipidemia, Hypertension Additional Past Medical History / Comment(s): Barretts Esophagus History of Any Multi-Drug Resistant Organisms: None Reported Past Surgical History: No Surgical Hx Reported Past Anesthesia/Blood Transfusion Reactions: No Reported Reaction Past Psychological History: Anxiety, Depression Smoking Status: Current every day smoker Past Alcohol Use History: Abuse, Daily, Heavy Past Drug Use History: None Reported General Exam - General Exam Comments Initial Comments: GENERAL: Patient is well-developed and well-nourished. Patient is nontoxic and well- hydrated and is in mild distress. ENT: Neck is soft and supple. No significant lymphadenopathy is noted. Oropharynx is clear. Moist mucous membranes. Neck has full range of motion without eliciting any pain. EYES: The sclera were anicteric and conjunctiva were pink and moist. Extraocular movements were intact and pupils were equal round and reactive to light. Eyelids were unremarkable. PULMONARY: Unlabored respirations. Good breath sounds bilaterally. No audible rales rhonchi or wheezing was noted. CARDIOVASCULAR: There is a regular rate and rhythm without any murmurs gallops or rubs. ABDOMEN: Soft and nontender with normal bowel sounds. SKIN: Slight abrasion over the lateral left eyebrow NEUROLOGIC: Patient is alert and oriented x3. Cranial nerves II through XII are grossly intact. Motor and sensory are also intact. Normal speech, volume and content. Symmetrical smile. MUSCULOSKELETAL: Normal extremities with adequate strength and full range of motion. No lower extremity swelling or edema. No calf tenderness. LYMPHATICS: No significant lymphadenopathy is noted PSYCHIATRIC: Normal psychiatric evaluation. Course Vital Signs 06/13/23 06/13/23 12:45 13:38 Temperature 98.2 F Pulse Rate 67 58 L Respiratory 18 18 Rate Blood Pressure 119/64 111/57 O2 Sat by Pulse 98 95 Oximetry Medical Decision Making - Medical Decision Making EKG is interpreted by myself. EKG shows a sinus bradycardia 57 bpm NC was 142 QRS is 81 QT interval is 432 QTc is 427. Patient's EKG shows no ST segment elevation or depression Was pt. sent in by a medical professional or institution ([facility], [facility], urgent care, hospital, or care home...) When possible be specific @ -No Did you speak to anyone other than the patient for history (EMS, parent, family, police, friend...)? What history was obtained from this source @ -No Did you review nursing and triage notes (agree or disagree)? Why? @ -I reviewed and agree with nursing and triage notes Were old charts reviewed (outside hosp., previous admission, EMS record, old EKG, old radiological studies, urgent care reports/EKG's, care home records)? Report findings @ -I reviewed prior charts and prior lab work Differential Diagnosis (chest pain, altered mental status, abdominal pain women, abdominal pain men, vaginal bleeding, weakness, fever, dyspnea, syncope, headache, dizziness, GI bleed, back pain, seizure, CVA, palpatations, mental health, musculoskeletal)? @ -Differential Musculoskeletal Muscular strain, contusion, ligament sprain, fracture, arthritis, septic arthritis, bursitis, cellulitis, muscle spasm, nerve compression, DVT, arterial occlusion, herpes zoster, electrolyte abnormality, tumor.... This is not meant to be in all inclusive list EKG interpreted by me (3pts min.). @ -As above X-rays interpreted by me (1pt min.). @ -Chest x-ray shows no acute abnormality CT interpreted by me (1pt min.). @ -CT of the brain and C-spine showed no acute abnormality U/S interpreted by me (1pt. min.). @ -None done What testing was considered but not performed or refused? (CT, X-rays, U/S, labs)? Why? @ -None What meds were considered but not given or refused? Why? @ -None Did you discuss the management of the patient with other professionals (professionals i.e. , PA, [employer], lab, RT, psych nurse, social media marketer, seismograph observer, teacher, dental officer, immigration case worker)? Give summary @ -No Was smoking cessation discussed for >3mins.? @ -No Was critical care preformed (if so, how long)? @ -No Were there social determinants of health that impacted care today? How? (Homelessness, low income, unemployed, alcoholism, drug addiction, transportation, low edu. Level, literacy, decrease access to med. care, assisted, re hab)? @ -No Was there de-escalation of care discussed even if they declined (Discuss DNR or withdrawal of care, Hospice)? DNR status @ -No What co-morbidities impacted this encounter? (DM, HTN, Smoking, COPD, CAD, Cancer, CVA, ARF, Chemo, Hep., AIDS, mental health diagnosis, sleep apnea, morbid obesity)? @ -None Was patient admitted / discharged? Hospital course, mention meds given and route, prescriptions, significant lab abnormalities, going to OR and other pertinent info. @ -CT of the brain was done as well as C-spine because the patient's history is unreliable secondary to intoxication. Patient is intoxicated however the boyfriend came and said he will be responsible for the patient patient agrees that he can take her home boyfriend does not appear intoxicated patient will be discharged home. Undiagnosed new problem with uncertain prognosis? @ -No Drug Therapy requiring intensive monitoring for toxicity (Heparin, Nitro, Insulin, Cardizem)? @ -No Were any procedures done? @ -No Diagnosis/symptom? @ -Alcohol intoxication Acute, or Chronic, or Acute on Chronic? @ -Acute on chronic Uncomplicated (without systemic symptoms) or Complicated (systemic symptoms)? @ -Complicated Side effects of treatment? @ -No Exacerbation, Progression, or Severe Exacerbation? @ -No Poses a threat to life or bodily function? How? (Chest pain, [place], [place], pneumonia, PE, COPD, DKA, ARF, appy, cholecystitis, CVA, Diverticulitis, Homicidal, Suicidal, threat to staff... and all critical care pts) @ -No Diagnosis/symptom? @ -Head injury Acute, or Chronic, or Acute on Chronic? @ -Acute Uncomplicated (without systemic symptoms) or Complicated (systemic symptoms)? @ -Complicated Side effects of treatment? @ -None Exacerbation, Progression, or Severe Exacerbation] @ -No Poses a threat to life or bodily function? @ -No - Lab Data Result diagrams: 06/13/23 12:58 06/13/23 12:58 Lab Results 06/13/23 06/13/23 06/13/23 Range/Units 12:58 12:58 12:58 WBC 7.7 (3.8-10.6) k/uL RBC 3.93 (3.80-5.40) m/uL Hgb 11.5 (11.4-16.0) gm/dL Hct 35.2 (34.0-46.0) % MCV 89.7 (80.0-100.0) fL MCH 29.3 (25.0-35.0) pg MCHC 32.7 (31.0-37.0) g/dL RDW 17.2 H (11.5-15.5) % Plt Count 635 H D (150-450) k/uL MPV 7.0 Neutrophils % 66 % Lymphocytes % 24 % Monocytes % 6 % Eosinophils % 1 % Basophils % 1 % Neutrophils # 5.1 (1.3-7.7) k/uL Lymphocytes # 1.8 (1.0-4.8) k/uL Monocytes # 0.5 (0-1.0) k/uL Eosinophils # 0.1 (0-0.7) k/uL Basophils # 0.1 (0-0.2) k/uL Hypochromasia Slight Anisocytosis Slight PT 10.3 (10.0-12.5) sec INR 0.9 (<1.2) APTT 23.5 (22.0-30.0) sec Sodium 140 (137-145) mmol/L Potassium 4.1 (3.5-5.1) mmol/L Chloride 102 (98-107) mmol/L Carbon Dioxide 24 (22-30) mmol/L Anion Gap 14 mmol/L BUN 4 L (7-17) mg/dL Creatinine 0.44 L (0.52-1.04) mg/dL Est GFR (CKD-EPI)AfAm >90 (>60 ml/min/1.73 sqM) Est GFR (CKD-EPI)NonAf >90 (>60 ml/min/1.73 sqM) Glucose 110 H (74-99) mg/dL Calcium 9.2 (8.4-10.2) mg/dL Magnesium 1.6 (1.6-2.3) mg/dL Total Bilirubin 0.4 (0.2-1.3) mg/dL AST 43 H (14-36) U/L ALT 37 H (4-34) U/L Alkaline Phosphatase 82 (38-126) U/L Total Protein 6.9 (6.3-8.2) g/dL Albumin 4.0 (3.5-5.0) g/dL Urine Color Urine Appearance (Clear) Urine pH (5.0-8.0) Ur Specific [place] (1.001-1.035) Urine Protein (Negative) Urine Glucose (UA) (Negative) Urine Ketones (Negative) Urine Blood (Negative) Urine Nitrite (Negative) Urine Bilirubin (Negative) Urine Urobilinogen (<2.0) mg/dL Ur Leukocyte Esterase (Negative) Serum Alcohol mg/dL 06/13/23 06/13/23 Range/Units 13:47 14:36 WBC (3.8-10.6) k/uL RBC (3.80-5.40) m/uL Hgb (11.4-16.0) gm/dL Hct (34.0-46.0) % MCV (80.0-100.0) fL MCH (25.0-35.0) pg MCHC (31.0-37.0) g/dL RDW (11.5-15.5) % Plt Count (150-450) k/uL MPV Neutrophils % % Lymphocytes % % Monocytes % % Eosinophils % % Basophils % % Neutrophils # (1.3-7.7) k/uL Lymphocytes # (1.0-4.8) k/uL Monocytes # (0-1.0) k/uL Eosinophils # (0-0.7) k/uL Basophils # (0-0.2) k/uL Hypochromasia Anisocytosis PT (10.0-12.5) sec INR (<1.2) APTT (22.0-30.0) sec Sodium (137-145) mmol/L Potassium (3.5-5.1) mmol/L Chloride (98-107) mmol/L Carbon Dioxide (22-30) mmol/L Anion Gap mmol/L BUN (7-17) mg/dL Creatinine (0.52-1.04) mg/dL Est GFR (CKD-EPI)AfAm (>60 ml/min/1.73 sqM) Est GFR (CKD-EPI)NonAf (>60 ml/min/1.73 sqM) Glucose (74-99) mg/dL Calcium (8.4-10.2) mg/dL Magnesium (1.6-2.3) mg/dL Total Bilirubin (0.2-1.3) mg/dL AST (14-36) U/L ALT (4-34) U/L Alkaline Phosphatase (38-126) U/L Total Protein (6.3-8.2) g/dL Albumin (3.5-5.0) g/dL Urine Color Colorless Urine Appearance Clear (Clear) Urine pH 6.0 (5.0-8.0) Ur Specific [place] 1.002 (1.001-1.035) Urine Protein Negative (Negative) Urine Glucose (UA) Negative (Negative) Urine Ketones Negative (Negative) Urine Blood Negative (Negative) Urine Nitrite Negative (Negative) Urine Bilirubin Negative (Negative) Urine Urobilinogen <2.0 (<2.0) mg/dL Ur Leukocyte Esterase Negative (Negative) Serum Alcohol 318 H* mg/dL Disposition Clinical Impression: Alcohol intoxication, Head injury Disposition: HOME SELF-CARE Condition: Good Instructions (If sedation given, give patient instructions): Fall Prevention for Older Adults (ED), Fall Prevention (ED), Abuse of Alcohol (ED) Is patient prescribed a controlled substance at d/c from ED?: No Referrals: Gail Davis MD [Primary Care Provider] - 1-2 days Time of Disposition: 15:05
[2023-06-13] MEDS: PANTOPRAZOLE 40 MG/10 ML VIAL IVP STA (13:03)
[2023-06-13] MEDS: MAG HYDROX/AL HYDROX/SIMETH 30 ML, HYOSCYAMINE ELIXIR 10 ML, LIDOCAINE VISCOUS 2% 10 ML PO STA (13:05)
[2023-06-13 13:16] LABS: Anisocytosis Slight; Basophils # (A) 0.1 k/uL (0-0.2); Basophils % (A) 1 %; Eosinophils # (A) 0.1 k/uL (0-0.7); Eosinophils % (A) 1 %; HCT 35.2 % (34.0-46.0); HGB 11.5 gm/dL (11.4-16.0); Hypochromasia Slight; Lymphocytes # (A) 1.8 k/uL (1.0-4.8); Lymphocytes % (A) 24 %; MCH 29.3 pg (25.0-35.0); MCHC 32.7 g/dL (31.0-37.0); MCV 89.7 fL (80.0-100.0); Monocytes # (A) 0.5 k/uL (0-1.0); Monocytes % (A) 6 %; Neutrophils # (A) 5.1 k/uL (1.3-7.7); Neutrophils % (A) 66 %; RBC 3.93 m/uL (3.80-5.40); RDW 17.2 % (11.5-15.5); WBC 7.7 k/uL (3.8-10.6)
[2023-06-13 13:20] LABS: Platelet Count 635 k/uL (150-450)
[2023-06-13 13:22] LABS: INR 0.9 (<1.2); Partial Thromboplastin Time 23.5 sec (22.0-30.0); Prothrombin Time 10.3 sec (10.0-12.5)
[2023-06-13 13:23] LABS: ALT 37 U/L (4-34); AST 43 U/L (14-36); African American GFR (CKD) >90 (>60 ml/min/1.73 sqM); Alkaline Phosphatase 82 U/L (38-126); Anion Gap 14 mmol/L; Blood Urea Nitrogen 4 mg/dL (7-17); Calcium 9.2 mg/dL (8.4-10.2); Carbon Dioxide 24 mmol/L (22-30); Chloride 102 mmol/L (98-107); Glucose 110 mg/dL (74-99); Magnesium 1.6 mg/dL (1.6-2.3); Non-African American GFR(CKD) >90 (>60 ml/min/1.73 sqM); Potassium 4.1 mmol/L (3.5-5.1); Sodium 140 mmol/L (137-145); Total Bilirubin 0.4 mg/dL (0.2-1.3); Total Protein 6.9 g/dL (6.3-8.2)
[2023-06-13] MEDS: SODIUM CHLORIDE 0.9% 1,000 ML IV ONE (13:38)
--- NOTE | 2023-06-13 13:48 | CT ---
EXAMINATION TYPE: CT brain jorge a wo con DATE OF EXAM: 06/13/2023 COMPARISON: 04/16/2023 HISTORY: PAIN AFTER FALL CT DLP: 1267.8 mGycm Automated exposure control for dose reduction was used. TECHNIQUE: CT scan of the head and cervical spine are performed without contrast. Findings: Head CT: Ventricles, basal cisterns and sulci over convexities within normal limits and there is no mass, mass effect or shift of midline structures. No abnormal density is seen throughout the brain parenchyma and there is no acute intra or extra-axia l hemorrhage. Posterior fossa including the brainstem, fourth ventricle and cerebellar pontine angles are grossly n ormal. The intraorbital contents appear normal and symmetric. Visualized paranasal sinuses are well aerated. The calvarium is intact. CT cervical spine: Craniovertebral junction relationships and prevertebral soft tissues are normal. The cervical vertebral segments are normal in height and there is no evidence of fracture. There is a slight anterolisthesis of C3 on C4 and of C4 on C5. C2-3, C3-4, C4-5 disc spaces are well-maintained in height. There is moderate degenerative disease at the C5-6 and C6-7 levels where there is moderate disc space narrowing and spondylosis. There is moderate facet arthropathy at the C3-4 C4-5 levels on the right and C3-4, C4-5, C5-6 and C6- 7 levels on the left. There is multilevel bony neural foraminal encroachment as follows; moderate at C3-C4 on the left and severe at C5-6 on the left. IMPRESSION: 1. Head CT: No acute bleed or mass effect. 2. CT cervical spine: No acute trauma. 3. Anterolisthesis of C3 on C4 and of C4 and C5 which is chronic. 4. Osteoarthritic changes of the facets and uncovertebral joints with bony neural foraminal encroachm ent as described above. 5. No significant change compared to previous.
[2023-06-13 14:48] LABS: Appearance,Urine Clear (Clear); Bilirubin,Urine Negative (Negative); Blood,Urine Negative (Negative); Color,Urine Colorless; Glucose,Urine (UA) Negative (Negative); Ketones,Urine Negative (Negative); Leukocyte Esterase,Urine Negative (Negative); Nitrite,Urine Negative (Negative); Protein,Urine Negative (Negative); Specific Gravity,Urine 1.002 (1.001-1.035); Urobilinogen,Urine <2.0 mg/dL (<2.0)
[2023-06-13 15:46] VITALS: BP 119/69; PULSE 71; RESP 20; TEMP 98
== END 2023-06-13 15:13 | disposition home or self-care (01) ==
LOC: EC 12:43 → SUPCPDRO 12:43 → EC 15:13
DX: S09.90XA Unspecified injury of head, initial encounter (principal); F10.129 Alcohol abuse with intoxication, unspecified; I10 Essential (primary) hypertension; F17.200 Nicotine dependence, unspecified, uncomplicated; Z86.59 Personal history of other mental and behavioral disorders; W01.10XA Fall on same level from slipping, tripping and stumbling with subsequent striking against unspecified object, initial encounter; Y90.8 Blood alcohol level of 240 mg/100 ml or more
CPT/HCPCS: 36415; 93005; 80053; 83735; 85025; 85610; 85730; 81003; 72125; 70450; 99285; 96374; 96361; G0480; C9113; 80320

== ENCOUNTER 2023-07-09 16:59 | Inpatient (IN) | payer MEDICARE ==
--- NOTE | 2023-07-09 17:15 | ED ---
General Adult HPI - General Chief complaint: Fall Stated complaint: Fall Time Seen by Provider: 07/09/23 17:04 Source: patient, EMS, RN notes reviewed Mode of arrival: EMS Limitations: no limitations - History of Present Illness Initial comments: Patient is a pleasant 73-year-old female present to the emergency department with general weakness. Patient states sometimes she gets this way. Patient admits to drinking alcohol sometimes. Patient states she has had a headache recently. No isolated area of weakness. Patient denies confusion. Patient slid out of her bed today and had difficulty getting up. Patient denies any injury today. Patient did strike her face a couple of weeks ago and states her eye redness is from that. Patient has had a little bit of cough and congestion recently. Patient has some mild lower back discomfort however denies that is an injury from sliding out of bed - Related Data Previous Rx's Medication Instructions Recorded Pantoprazole [Protonix] 40 mg PO AC-BID #60 tab 06/07/23 Sucralfate [Carafate] 1 gm PO AC-TID 90 Days #90 tab 06/07/23 Thiamine [Vitamin B-1] 100 mg PO DAILY tab 06/07/23 Allergies Allergy/AdvReac Type Severity Reaction Status Date / Time No Known Allergies Allergy Verified 07/09/23 19:07 Review of Systems ROS Statement: Those systems with pertinent positive or pertinent negative responses have been documented in the HPI. ROS Other: All systems not noted in ROS Statement are negative. Constitutional: Denies: fever Eyes: Denies: eye pain ENT: Denies: ear pain Respiratory: Reports: cough. Denies: dyspnea Cardiovascular: Denies: chest pain Endocrine: Reports: fatigue Gastrointestinal: Denies: abdominal pain Genitourinary: Denies: dysuria Musculoskeletal: Reports: as per HPI Skin: Denies: rash Neurological: Reports: as per HPI. Denies: confusion Past Medical History Past Medical History: GERD/Reflux, Hyperlipidemia, Hypertension Additional Past Medical History / Comment(s): Barretts Esophagus History of Any Multi-Drug Resistant Organisms: None Reported Past Surgical History: No Surgical Hx Reported Additional Past Surgical History / Comment(s): draining of pericarditis fluid Past Anesthesia/Blood Transfusion Reactions: No Reported Reaction Past Psychological History: Anxiety, Depression Smoking Status: Current every day smoker Past Alcohol Use History: Abuse, Daily, Heavy Past Drug Use History: None Reported General Exam Limitations: no limitations General appearance: alert, in no apparent distress Head exam: Present: normocephalic Eye exam: Present: other (Subconjunctival hemorrhage medial left) ENT exam: Present: normal oropharynx Neck exam: Present: normal inspection. Absent: tenderness Respiratory exam: Present: normal lung sounds bilaterally Cardiovascular Exam: Present: regular rate, normal rhythm GI/Abdominal exam: Present: soft. Absent: distended, tenderness Extremities exam: Present: normal inspection Neurological exam: Present: alert, CN II-XII intact. Absent: motor sensory deficit Expanded Neurological exam: Present: protecting the airway Speech: Present: fluid speech Cranial nerves: EOM's Intact: Normal Sensory exam: Upper Extremity Light Touch: Normal, Lower Extremity Light Touch: Normal Motor strength exam: RUE: 5, LUE: 5, RLE: 5, LLE: 5 Eye Response: (4) open spontaneously Motor Response: (6) obeys commands Verbal Response: (5) oriented Psychiatric exam: Present: normal affect, normal mood Skin exam: Present: normal color Course Vital Signs 07/09/23 17:01 Temperature 98.2 F Pulse Rate 84 Respiratory 18 Rate Blood Pressure 120/71 O2 Sat by Pulse 96 Oximetry EKG Findings - EKG Results: EKG: interpreted by ERMD, sinus rhythm, normal axis, normal QRS, normal ST/T Medical Decision Making - Medical Decision Making Was pt. sent in by a medical professional or institution ([facility], [facility], urgent care, hospital, or fci...) When possible be specific @ -No Did you speak to anyone other than the patient for history (EMS, parent, family, police, friend...)? What history was obtained from this source @ -EMS helps provide history including weakness Did you review nursing and triage notes (agree or disagree)? Why? @ -I reviewed and agree with nursing and triage notes Were old charts reviewed (outside hosp., previous admission, EMS record, old EKG, old radiological studies, urgent care reports/EKG's, fci records)? Report findings @ -Previous chest x-ray reviewed Differential Diagnosis (chest pain, altered mental status, abdominal pain women, abdominal pain men, vaginal bleeding, weakness, fever, dyspnea, syncope, headache, dizziness, GI bleed, back pain, seizure, CVA, palpatations, mental health, musculoskeletal)? @ -Differential Weakness: Hypoglycemia, shock, sepsis, hyponatremia, anemia, infection, VT, ETOH, adverse medicine reaction, overdose, stroke, this is not meant to be an all-inclusive list. EKG interpreted by me (3pts min.). @ -As above X-rays interpreted by me (1pt min.). @ -Chest x-ray shows no acute process. Lumbar x-ray shows degenerative changes CT interpreted by me (1pt min.). @ -CT brain does not reveal acute abnormality U/S interpreted by me (1pt. min.). @ -None done What testing was considered but not performed or refused? (CT, X-rays, U/S, labs)? Why? @ -None What meds were considered but not given or refused? Why? @ -None Did you discuss the management of the patient with other professionals (professionals i.e. , PA, [facility] [employer], lab, RT, psych nurse, social service coordinator, java systems analyst, teacher, minesweeping officer, case worker)? Give summary @ -[facility] who will admit covering hospital call Was smoking cessation discussed for >3mins.? @ -No Was critical care preformed (if so, how long)? @ -No Were there social determinants of health that impacted care today? How? (Homelessness, low income, unemployed, alcoholism, drug addiction, transportat ion, low edu. Level, literacy, decrease access to med. care, fci, rehab)? @ -No Was there de-escalation of care discussed even if they declined (Discuss DNR or withdrawal of care, Hospice)? DNR status @ -No What co-morbidities impacted this encounter? (DM, HTN, Smoking, COPD, CAD, Cancer, CVA, ARF, Chemo, Hep., AIDS, mental health diagnosis, sleep apnea, morbid obesity)? @ -None Was patient admitted / discharged? Hospital course, mention meds given and route, prescriptions, significant lab abnormalities, going to OR and other pertinent info. @ -Patient reevaluated and updated. Patient has general weakness and significant alcohol intoxication. Patient will be admitted. Admission orders written. Undiagnosed new problem with uncertain prognosis? @ -No Drug Therapy requiring intensive monitoring for toxicity (Heparin, Nitro, Insulin, Cardizem)? @ -No Were any procedures done? @ -No Diagnosis/symptom? @ -Weakness, alcohol intoxication Acute, or Chronic, or Acute on Chronic? @ -Acute, acute Uncomplicated (without systemic symptoms) or Complicated (systemic symptoms)? @ -Default Side effects of treatment? @ -No Exacerbation, Progression, or Severe Exacerbation? @ -No Poses a threat to life or bodily function? How? (Chest pain, [place], [place], pneumonia, PE, COPD, DKA, ARF, appy, cholecystitis, CVA, Diverticulitis, Homicidal, Suicidal, threat to staff... and all critical care pts) @ -No - Lab Data Result diagrams: 07/09/23 17:17 07/09/23 17:17 Lab Results 07/09/23 07/09/23 07/09/23 Range/Units 17:17 17:17 17:17 WBC 3.6 L (3.8-10.6) k/uL RBC 3.86 (3.80-5.40) m/uL Hgb 11.4 (11.4-16.0) gm/dL Hct 34.2 (34.0-46.0) % MCV 88.7 (80.0-100.0) fL MCH 29.4 (25.0-35.0) pg MCHC 33.2 (31.0-37.0) g/dL RDW 17.6 H (11.5-15.5) % MPV 9.8 Anisocytosis Slight PT 10.7 (10.0-12.5) sec INR 1.0 (<1.2) APTT 24.4 (22.0-30.0) sec Sodium 139 (137-145) mmol/L Potassium 3.3 L (3.5-5.1) mmol/L Chloride 97 L (98-107) mmol/L Carbon Dioxide 29 (22-30) mmol/L Anion Gap 13 mmol/L BUN 9 (7-17) mg/dL Creatinine 0.43 L (0.52-1.04) mg/dL Est GFR (CKD-EPI)AfAm >90 (>60 ml/min/1.73 sqM) Est GFR (CKD-EPI)NonAf >90 (>60 ml/min/1.73 sqM) Glucose 111 H (74-99) mg/dL Plasma Lactic Acid [place] (0.7-2.0) mmol/L Calcium 9.1 (8.4-10.2) mg/dL Phosphorus 2.4 L (2.5-4.5) mg/dL Magnesium 1.3 L (1.6-2.3) mg/dL Total Bilirubin 0.7 (0.2-1.3) mg/dL AST 389 H (14-36) U/L ALT 127 H (4-34) U/L Alkaline Phosphatase 147 H (38-126) U/L Troponin I (0.000-0.034) ng/mL Total Protein 7.6 (6.3-8.2) g/dL Albumin 4.5 (3.5-5.0) g/dL TSH 2.930 (0.465-4.680) mIU/L Serum Alcohol 343 H* mg/dL Influenza Type A (PCR) (Not Detectd) Influenza Type B (PCR) (Not Detectd) RSV (PCR) (Not Detectd) SARS-CoV-2 (PCR) (Not Detectd) 07/09/23 07/09/23 07/09/23 Range/Units 17:17 17:17 17:17 WBC (3.8-10.6) k/uL RBC (3.80-5.40) m/uL Hgb (11.4-16.0) gm/dL Hct (34.0-46.0) % MCV (80.0-100.0) fL MCH (25.0-35.0) pg MCHC (31.0-37.0) g/dL RDW (11.5-15.5) % MPV Anisocytosis PT (10.0-12.5) sec INR (<1.2) APTT (22.0-30.0) sec Sodium (137-145) mmol/L Potassium (3.5-5.1) mmol/L Chloride (98-107) mmol/L Carbon Dioxide (22-30) mmol/L Anion Gap mmol/L BUN (7-17) mg/dL Creatinine (0.52-1.04) mg/dL Est GFR (CKD-EPI)AfAm (>60 ml/min/1.73 sqM) Est GFR (CKD-EPI)NonAf (>60 ml/min/1.73 sqM) Glucose (74-99) mg/dL Plasma Lactic Acid [place] 1.8 (0.7-2.0) mmol/L Calcium (8.4-10.2) mg/dL Phosphorus (2.5-4.5) mg/dL Magnesium (1.6-2.3) mg/dL Total Bilirubin (0.2-1.3) mg/dL AST (14-36) U/L ALT (4-34) U/L Alkaline Phosphatase (38-126) U/L Troponin I <0.012 (0.000-0.034) ng/mL Total Protein (6.3-8.2) g/dL Albumin (3.5-5.0) g/dL TSH (0.465-4.680) mIU/L Serum Alcohol mg/dL Influenza Type A (PCR) Not Detected (Not Detectd) Influenza Type B (PCR) Not Detected (Not Detectd) RSV (PCR) Not Detected (Not Detectd) SARS-CoV-2 (PCR) Not Detected (Not Detectd) Disposition Clinical Impression: Weakness, Alcohol intoxication Disposition: ADMITTED IP TO THIS HOSP Is patient prescribed a controlled substance at d/c from ED?: No Referrals: Gail Davis MD [Primary Care Provider] - 1-2 days Time of Disposition: 19:19
--- NOTE | 2023-07-09 17:55 | XR ---
EXAMINATION TYPE: XR chest 2V DATE OF EXAM: 07/09/2023 5:49 PM CLINICAL INDICATION:Female, 73 years old with history of Weakness; [facility] COMPARISON: Chest radiographs from TECHNIQUE: XR chest 2V Frontal and lateral views of the chest. FINDINGS: Lungs/Pleura: There is flattening of the diaphragm with increased lucency of the lungs. No evidence o f pneumothorax, pleural effusion or focal consolidation. Pulmonary vascularity: Unremarkable. Heart/mediastinum: Cardiomediastinal silhouette is unremarkable. Musculoskeletal: No acute osseous pathology. IMPRESSION: 1. No acute cardiopulmonary disease process. 2. COPD changes.
--- NOTE | 2023-07-09 18:03 | XR ---
EXAMINATION TYPE: XR lumbar spine 2 or 3V DATE OF EXAM: 07/09/2023 5:49 PM CLINICAL INDICATION:Female, 73 years old with history of pain; [facility] COMPARISON: 05/13/2023. TECHNIQUE: XR lumbar spine 2 or 3V - Frontal, lateral and coned in L5-S1 lateral views of the spine. FINDINGS: No evidence of any acute osseous pathology. No evidence of loss of vertebral body height i s seen. There is straightening of the alignment of the lumbar vertebral bodies with scoliosis changes . Areas of complete disc space loss throughout the lumbar spine. Multilevel marginal osteophyte forma tion throughout the visualized spine. There is facet joint arthropathy throughout the spine. Scattere d at least moderate neural foraminal stenosis. IMPRESSION: 1. No acute fracture. 2. Severe multilevel disc degeneration.
--- NOTE | 2023-07-09 18:09 | CT ---
EXAMINATION TYPE: CT brain wo con CT DLP: 1156.4 mGycm, Automated exposure control for dose reduction was used. DATE OF EXAM: 07/09/2023 5:56 PM COMPARISON: 06/13/2023. CLINICAL INDICATION:Female, 73 years old with history of weakness, AMS TECHNIQUE: Brain: Axial CT images of the brain were obtained with coronal and sagittal reformats created and rev iewed. Contrast used: None. Oral contrast used: None. FINDINGS: Brain: Extra-axial spaces: No abnormal extra-axial fluid collections. Ventricular system: Dilatation in proportion to cerebral atrophy. Cerebral parenchyma: Cerebral atrophy. No acute intraparenchymal hemorrhage or mass effect. The maharaj -white junction is well differentiated. Scattered hypoattenuating areas are seen within the white mat ter. Cerebellum: Unremarkable. Mass effect: No evidence of midline shift. Intracranial vasculature: Atherosclerotic calcifications of the intracranial vessels. Soft tissues: Normal. Calvarium/osseous structures: No depressed skull fracture. Paranasal sinuses and mastoid air cells: Mild scattered paranasal sinus disease. Visualized orbits: Orbital contents are intact. IMPRESSION: 1. No acute intracranial process. 2. Nonspecific white matter changes, likely secondary to chronic small vessel ischemic disease.
[2023-07-09 18:13] LABS: ALT 127 U/L (4-34); AST 389 U/L (14-36); African American GFR (CKD) >90 (>60 ml/min/1.73 sqM); Albumin 4.5 g/dL (3.5-5.0); Alkaline Phosphatase 147 U/L (38-126); Anion Gap 13 mmol/L; Blood Urea Nitrogen 9 mg/dL (7-17); Calcium 9.1 mg/dL (8.4-10.2); Carbon Dioxide 29 mmol/L (22-30); Chloride 97 mmol/L (98-107); Glucose 111 mg/dL (74-99); Magnesium 1.3 mg/dL (1.6-2.3); Non-African American GFR(CKD) >90 (>60 ml/min/1.73 sqM); Phosphorus 2.4 mg/dL (2.5-4.5); Potassium 3.3 mmol/L (3.5-5.1); Sodium 139 mmol/L (137-145); Total Bilirubin 0.7 mg/dL (0.2-1.3); Total Protein 7.6 g/dL (6.3-8.2)
[2023-07-09 18:27] LABS: Alcohol 343 mg/dL
[2023-07-09 18:32] LABS: Partial Thromboplastin Time 24.4 sec (22.0-30.0); Prothrombin Time 10.7 sec (10.0-12.5)
[2023-07-09 18:37] LABS: Anisocytosis Slight; HCT 34.2 % (34.0-46.0); HGB 11.4 gm/dL (11.4-16.0); MCH 29.4 pg (25.0-35.0); MCHC 33.2 g/dL (31.0-37.0); MCV 88.7 fL (80.0-100.0); Mean Platelet Volume 9.8; RBC 3.86 m/uL (3.80-5.40); RDW 17.6 % (11.5-15.5); WBC 3.6 k/uL (3.8-10.6)
[2023-07-09 19:18] LABS: Platelet Count 79 k/uL (150-450)
[2023-07-09] MEDS ORDERED: NALOXONE 0.4 MG/ML 1 ML VIAL IV PRN (19:19)
[2023-07-09 19:21] LABS: Eosinophils # (M) 0.11 k/uL (0-0.7); Lymphocytes # (M) 1.12 k/uL (1.0-4.8); Monocytes # (M) 0.36 k/uL (0-1.0); Neutrophils # (M) 2.02 k/uL (1.3-7.7); Neutrophils % (M) 56 %; Nucleated Red Blood Cells 0 /100 WBC (0-0); Total Cells Counted 100
[2023-07-09] MEDS ORDERED: LORazepam 2 MG/ML INJ IV PRN (19:21)
[2023-07-09] MEDS: THIAMINE 100 MG/ML 2 ML VIAL IM STA (19:32)
[2023-07-09] MEDS: POTASSIUM CHLORIDE ER 20 MEQ TAB.ER PO STA (19:33)
[2023-07-09] MEDS: MAGNESIUM OXIDE 400 MG TAB PO STA (19:33)
[2023-07-09] MEDS: SODIUM CHLORIDE 0.9% 1,000 ML IV SCH (19:33)
[2023-07-10] MEDS: LORazepam 1 MG TAB PO PRN ×2 (02:39→09:52)
[2023-07-10 04:29] LABS: Appearance,Urine Clear (Clear); Bilirubin,Urine Negative (Negative); Blood,Urine Negative (Negative); Color,Urine Light Yellow; Glucose,Urine (UA) Negative (Negative); Ketones,Urine 1+ (Negative); Leukocyte Esterase,Urine Negative (Negative); Nitrite,Urine Negative (Negative); Protein,Urine Trace (Negative); Specific Gravity,Urine 1.012 (1.001-1.035); Urobilinogen,Urine <2.0 mg/dL (<2.0)
[2023-07-10 04:39] LABS: Amphetamine Screen,Urine Not Detected (NotDetected); Barbiturate Screen,Urine Not Detected (NotDetected); Benzodiazepines Screen,Urine Not Detected (NotDetected); Cocaine Screen,Urine Not Detected (NotDetected); Methadone Screen, Urine Not Detected (NotDetected); Opiate Screen,Urine Not Detected (NotDetected); Oxycodone Screen, Urine Not Detected (NotDetected); Phencyclidine Screen,Urine Not Detected (NotDetected); Tricyclic Antidepressant,Urine Not Detected (NotDetected); Urn Cannabinoid Scrn Not Detected (NotDetected)
[2023-07-10] MEDS ORDERED: ACETAMINOPHEN TAB 325 MG TAB PO PRN (09:34)
[2023-07-10] MEDS ORDERED: traMADol 50 MG TAB PO PRN (09:34)
[2023-07-10] MEDS: THIAMINE 100 MG TAB PO SCH (09:52)
[2023-07-10] MEDS: MAGNESIUM SULFATE-D5W PMX 1 GM in DEXTROSE/WATER 1 100ML.BAG IVPB SCH (09:52)
[2023-07-10] MEDS: PANTOPRAZOLE 40 MG TABLET PO SCH (09:52)
[2023-07-10 10:55] LABS: ALT 113 U/L (8-44); AST 400 U/L (13-35); Albumin/Globulin Ratio 1.82 Ratio (1.60-3.17); Alkaline Phosphatase 120 U/L (41-126); BUN/Creat Ratio 13.25 Ratio (12.00-20.00); Blood Urea Nitrogen 5.3 mg/dL (9.0-27.0); Calcium 8.2 mg/dL (8.7-10.3); Carbon Dioxide 26.1 mmol/L (21.6-31.8); Chloride 95 mmol/L (96-109); Globulin 2.2 g/dL (1.6-3.3); Glucose 92 mg/dL (70-110); Potassium 3.6 mmol/L (3.5-5.5); Sodium 137 mmol/L (135-145); Total Bilirubin 0.9 mg/dL (0.3-1.2); Total Protein 6.2 g/dL (6.2-8.2)
[2023-07-10] MEDS: POTASSIUM CHLORIDE 10 MEQ in WATER FOR INJECTION 1 100ML.BAG IVPB SCH (11:24)
[2023-07-10 11:39] LABS: Basophils # (A) 0.05 X 10*3/uL (0.00-0.10); Basophils % (A) 1.1 %; Eosinophils # (A) 0.14 X 10*3/uL (0.04-0.35); Eosinophils % (A) 3.1 %; HCT 30.2 % (37.2-46.3); HGB 10.2 g/dL (12.0-15.0); Immature Platelet Fraction 8.1 % (1.1-6.1); Lymphocytes # (A) 1.29 X 10*3/uL (0.90-5.00); Lymphocytes % (A) 28.8 %; MCH 29.5 pg (27.0-32.0); MCHC 33.8 g/dL (32.0-37.0); MCV 87.3 FL (80.0-97.0); Mean Platelet Volume 11.5 FL (9.5-12.2); Monocytes # (A) 0.51 X 10*3/uL (0.20-1.00); Monocytes % (A) 11.4 %; NRBC Per 100 WBC 0 X 10*3/uL (0.00-0.01); Neutrophils # (A) 2.45 X 10*3/uL (1.80-7.70); Neutrophils % (A) 54.7 %; Platelet Count 59 X 10*3/uL (140-440); RBC 3.46 X 10*6/uL (4.10-5.20); RDW 17.9 % (11.5-14.5); WBC 4.48 X 10*3/uL (4.50-10.00)
--- NOTE | 2023-07-10 12:56 | P.HPIM ---
History of Present Illness H&P Date: 07/10/23 Chief Complaint: Fall * 73-year-old patient with past medical history significant for hypertension, hyperlipidemia gastroesophageal reflux disease, Rivera's esophagus history of pericarditis presents to the emergency department with complaints of generalized weakness. Patient admits upon admission that he has been drinking excessively. Patient also complained of headache and generalized weakness. Patient states she slid out of her bed and had difficulty getting up. Patient states she had a fall about 2 weeks prior to admission as well. * Workup in ER included CT head which was negative for acute intracranial process nonspecific white matter changes were noted * X-ray of the lumbar spine was done which was negative for fracture severe multilevel degeneration noted * Chest x-ray was done which was negative for acute cardiopulmonary process changes consistent with COPD noted * EKG obtained on admission shows sinus rhythm no significant ST segment change * Blood work obtained in ER include WBC of 3.6 hemoglobin 11.4 platelet count of 79 * Was admitted to medical floor and being treated for alcohol withdrawal protocol REVIEW OF SYSTEMS: Generalized weakness, fall CONSTITUTIONAL: No fever, no malaise, no fatigue. HEENT: No recent visual problems or hearing problems. Denied any sore throat. CARDIOVASCULAR: No chest pain, orthopnea, PND, no palpitations, no syncope. PULMONARY: No shortness of breath, no cough, no hemoptysis. GASTROINTESTINAL: No diarrhea, no nausea, no vomiting, no abdominal pain. NEUROLOGICAL: No headaches, no weakness, no numbness. HEMATOLOGICAL: Denies any bleeding or petechiae. GENITOURINARY: Denies any burning micturition, frequency, or urgency. MUSCULOSKELETAL/RHEUMATOLOGICAL: Denies any joint pain, swelling, or any muscle pain. ENDOCRINE: Denies any polyuria or polydipsia. PHYSICAL EXAMINATION: GENERAL: The patient is alert and oriented x3, not in any acute distress. Well developed, well nourished. HEENT: Pupils are round and equally reacting to light. EOMI. CARDIOVASCULAR: S1 and S2 present. No murmurs, rubs, or gallops. PULMONARY: Chest is clear to auscultation, no wheezing or crackles. ABDOMEN: Soft, nontender, nondistended, normoactive bowel sounds. No palpable organomegaly. MUSCULOSKELETAL: No joint swelling or deformity. EXTREMITIES: No cyanosis, clubbing, or pedal edema. NEUROLOGICAL: Gross neurological examination did not reveal any focal deficits. SKIN: No rashes. Assessment and plan Alcohol use disorder with impending withdrawal S/p fall Chronic thrombocytopenia History of upper GI bleed with esophagitis Hypertension History of Rivera's esophagus Transaminitis secondary to alcohol induced toxicity Electrolyte abnormality hypokalemia hypomagnesemia * In regards to alcohol use disorder continue patient on CIWA protocol, continue patient on thiamine, monitor for withdrawal * Regards to history of gastrointestinal bleed and esophagitis continue Protonix, continue Carafate * In regards to transaminitis follow-up on comprehensive metabolic panel likely secondary to underlying alcohol use * In regards to electrolyte abnormality potassium and magnesium replaced, will need physical therapy Occupational Therapy evaluation * CODE STATUS is full code Past Medical History Past Medical History: GERD/Reflux, Hyperlipidemia, Hypertension Additional Past Medical History / Comment(s): Barretts Esophagus. neuropathy in feet History of Any Multi-Drug Resistant Organisms: None Reported Past Surgical History: No Surgical Hx Reported Additional Past Surgical History / Comment(s): draining of pericarditis fluid Past Anesthesia/Blood Transfusion Reactions: No Reported Reaction Past Psychological History: Anxiety, Depression Smoking Status: Current every day smoker Past Alcohol Use History: Abuse, Daily, Heavy Past Drug Use History: None Reported Medications and Allergies Home Medications Medication Instructions Recorded Confirmed Type Pantoprazole [Protonix] 40 mg PO AC-BID #60 tab 06/07/23 07/09/23 Rx Sucralfate [Carafate] 1 gm PO AC-TID 90 Days #90 tab 06/07/23 07/09/23 Rx Thiamine [Vitamin B-1] 100 mg PO DAILY tab 06/07/23 07/09/23 Rx Allergies Allergy/AdvReac Type Severity Reaction Status Date / Time No Known Allergies Allergy Verified 07/09/23 19:07 Physical Exam Vitals: Vital Signs Temp Pulse Pulse Resp BP BP Pulse Ox 07/10/23 07:20 98.9 F 100 17 144/92 93 L 07/10/23 00:53 98.7 F 81 18 113/68 96 07/09/23 21:30 98.5 F 88 20 118/72 95 07/09/23 21:07 91 16 151/81 94 L 07/09/23 21:04 86 18 131/78 97 07/09/23 17:01 98.2 F 84 18 120/71 96 Intake and Output 07/09/23 07/10/2307/09/24 22:59 06:59 14:59 Output Total 400 Balance -400 Output: Urine 400 Other: Voiding Method External Catheter Weight 61.235 kg 61.235 kg Results CBC & Chem 7: 07/10/23 05:52 07/10/23 05:52 Labs: Abnormal Lab Results - Last 24 Hours (Table) 07/09/23 07/09/23 07/10/23 Range/Units 17:17 17: 04:00 WBC 3.6 L (3.8-10.6) k/uL RDW 17.6 H (11.5-15.5) % Plt Count 79 L D (150-450) k/uL Potassium 3.3 L (3.5-5.1) mmol/L Chloride 97 L (98-107) mmol/L Creatinine 0.43 L (0.52-1.04) mg/dL Glucose 111 H (74-99) mg/dL Phosphorus 2.4 L (2.5-4.5) mg/dL Magnesium 1.3 L (1.6-2.3) mg/dL AST 389 H (14-36) U/L ALT 127 H (4-34) U/L Alkaline Phosphatase 147 H (38-126) U/L Urine Protein Trace H (Negative) Urine Ketones 1+ H (Negative) Serum Alcohol 343 H* mg/dL Thrombosis Risk Factor Assmnt - Choose All That Apply Any of the Below Risk Factors Present?: No Other Risk Factors: Yes Each Risk Factor Represents 2 Points: Age 61-74 years Thrombosis Risk Factor Assessment Total Risk Factor Score: 2 Thrombosis Risk Factor Assessment Level: Low Risk
[2023-07-10] MEDS: SUCRALFATE 1 GM TAB PO SCH (14:03)
[2023-07-11] MEDS ORDERED: ENOXAPARIN 40 MG/0.4 ML SYRINGE SQ SCH (09:00)
[2023-07-11 11:31] LABS: HCT 33.1 % (37.2-46.3); HGB 10.9 g/dL (12.0-15.0); Immature Platelet Fraction 11.1 % (1.1-6.1); MCH 29.4 pg (27.0-32.0); MCHC 32.9 g/dL (32.0-37.0); MCV 89.2 FL (80.0-97.0); NRBC Per 100 WBC 0 X 10*3/uL (0.00-0.01); Platelet Count 55 X 10*3/uL (140-440); RBC 3.71 X 10*6/uL (4.10-5.20); RDW 18.4 % (11.5-14.5); WBC 3.22 X 10*3/uL (4.50-10.00)
[2023-07-11 11:47] LABS: BUN/Creat Ratio <8.75 Ratio (12.00-20.00); Blood Urea Nitrogen <3.5 mg/dL (9.0-27.0); Calcium 8.8 mg/dL (8.7-10.3); Carbon Dioxide 28.5 mmol/L (21.6-31.8); Chloride 98 mmol/L (96-109); Glucose 140 mg/dL (70-110); Potassium 3.3 mmol/L (3.5-5.5); Sodium 138 mmol/L (135-145)
[2023-07-11] MEDS: LORazepam 1 MG TAB PO PRN (12:49)
[2023-07-11] MEDS ORDERED: Potassium Replacement Protocol 1 EACH MISC MISCELLANE PRN (19:05)
[2023-07-11] MEDS: MAGNESIUM SULFATE-D5W PMX 1 GM in DEXTROSE/WATER 1 100ML.BAG IVPB SCH (20:40)
[2023-07-11] MEDS: POTASSIUM CHLORIDE ER 20 MEQ TAB.ER PO SCH (20:40)
--- NOTE | 2023-07-12 07:44 | P.PN ---
Subjective Progress Note Date: 07/11/23 * 73-year-old patient with past medical history significant for hypertension, hyperlipidemia gastroesophageal reflux disease, Rivera's esophagus history of pericarditis presents to the emergency department with complaints of generalized weakness. Patient admits upon admission that he has been drinking excessively. Patient also complained of headache and generalized weakness. Patient states she slid out of her bed and had difficulty getting up. Patient states she had a fall about 2 weeks prior to admission as well. * Workup in ER included CT head which was negative for acute intracranial proces s nonspecific white matter changes were noted * X-ray of the lumbar spine was done which was negative for fracture severe multilevel degeneration noted * Chest x-ray was done which was negative for acute cardiopulmonary process changes consistent with COPD noted * EKG obtained on admission shows sinus rhythm no significant ST segment change * Blood work obtained in ER include WBC of 3.6 hemoglobin 11.4 platelet count of 79 * Was admitted to medical floor and being treated for alcohol withdrawal lev col 07/11/2023 Patient is seen in follow-up today currently sitting up in the chair and working with physical therapy who recommends ECF for continued strength and mobility. Patient is agreeable and reports she has been progressively becoming more weak and falling. Patient does admit to drinking daily and will continue with CIWA protocol. Will add Librium and work on taper. A.m. labs pending and recommend replace electrolytes per protocol. Patient is afebrile with no reports of chest pain or shortness of breath. Patient is tolerating diet and needs encouragement with meals as patient has decreased appetite. Review of systems: Constitutional: No reports of fatigue, fever, or chills Cardiovascular: No reports of chest pain or palpitations Respiratory: No reports of shortness of breath or cough GI: No reports of nausea, vomiting, or diarrhea, reports not much of an appetite : No reports of dysuria or retention Neurovascular: reports of generalized weakness All medications have been reviewed Left eye PHYSICAL EXAMINATION: GENERAL: The patient is alert and oriented x3, not in any acute distress. Well developed, well nourished. Thin built, elderly appearing HEENT: Pupils are round and equally reacting to light. EOMI. with broken blood vessel noted within the sclera, no changes in vision or visual disturbances per patient CARDIOVASCULAR: S1 and S2 present. No murmurs, rubs, or gallops. PULMONARY: Chest is clear to auscultation, no wheezing or crackles. ABDOMEN: Soft, nontender, nondistended, normoactive bowel sounds. No palpable organomegaly. MUSCULOSKELETAL: No joint swelling or deformity. EXTREMITIES: No cyanosis, clubbing, or pedal edema. NEUROLOGICAL: Gross neurological examination did not reveal any focal deficits. Diffusely weak with some tremors noted SKIN: No rashes. Assessment: Alcohol use disorder with impending withdrawal, continued on CIWA protocol S/p fall Chronic thrombocytopenia likely secondary to continued alcohol use. Patient rep orts to drinking daily History of upper GI bleed with esophagitis Hypertension history History of Rivera's esophagus Transaminitis secondary to alcohol induced toxicity Electrolyte abnormality hypokalemia hypomagnesemia being replaced per protocol GI prophylaxis DVT prophylaxis Full code Plan: * In regards to alcohol use disorder continue patient on CIWA protocol, continue patient on thiamine, monitor for withdrawal. Continue oral Ativan and discussed with nursing staff. Will start Librium taper * Regards to history of gastrointestinal bleed and esophagitis continue Protonix, continue Carafate * In regards to transaminitis, trending down, likely secondary to continued alcohol use * In regards to electrolyte abnormality potassium and magnesium continuing to be replaced * physical therapy Occupational Therapy evaluated the patient recommending rehab and patient is agreeable. * Case management following working on discharge planning including insurance authorization. * Due to multiple complex medical issues, prognosis is guarded * Will follow-up on repeat labs status post replacement of magnesium and potassium * Encouraged oral intake * Possible discharge planning in the next 24 to 48 hours The impression and plan of care has been dictated by Ny Torres Nurse Skylert kishan as directed. Dr. Osmin MD I have performed a history and examination and MDM of this patient, discussed the same with the dictator, and agree with the dictator's assessment and plan as written ,documented as a scribe. Based on total visit time, I have performed more than 50% of the visit. Objective - Vital Signs Vital signs: Vital Signs Temp 98.0 F 07/11/23 13:19 Pulse 104 H 07/11/23 13:19 Resp 19 07/11/23 13:19 BP 111/76 07/11/23 13:19 Pulse Ox 98 07/11/23 13:19 FiO2 Intake & Output 07/10/23 07/11/23 07/11/23 18:59 06:59 18:59 Output Total 300 900 Balance -300 -900 Output: Urine 300 900 Other: Voiding Method External Catheter External Catheter Bedside Commode External Catheter # Voids 2 # Bowel Movements 2 - Labs CBC & Chem 7: 07/11/23 06:05 07/11/23 06:05 Labs: Abnormal Lab Results - Last 24 Hours (Table) 07/11/23 07/11/23 Range/Units 06:05 06:05 WBC 3.22 L (4.50-10.00) X 10*3/uL RBC 3.71 L (4.10-5.20) X 10*6/uL Hgb 10.9 L (12.0-15.0) g/dL Hct 33.1 L (37.2-46.3) % RDW 18.4 H (11.5-14.5) % Plt Count 55 L (140-440) X 10*3/uL Immature Plt Fraction 11.1 H (1.1-6.1) % Potassium 3.3 L (3.5-5.5) mmol/L BUN <3.5 L (9.0-27.0) mg/dL Creatinine 0.4 L (0.6-1.5) mg/dL BUN/Creatinine Ratio <8.75 L (12.00-20.00) Ratio Glucose 140 H (70-110) mg/dL
[2023-07-12 11:55] LABS: BUN/Creat Ratio <8.75 Ratio (12.00-20.00); Blood Urea Nitrogen <3.5 mg/dL (9.0-27.0); Calcium 8.9 mg/dL (8.7-10.3); Carbon Dioxide 26.5 mmol/L (21.6-31.8); Chloride 101 mmol/L (96-109); Glucose 127 mg/dL (70-110); Magnesium 1.7 mg/dL (1.5-2.4); Potassium 3.7 mmol/L (3.5-5.5); Sodium 138 mmol/L (135-145)
[2023-07-12] MEDS: LORazepam 0.5 MG TAB PO PRN (13:41)
[2023-07-13] MEDS ORDERED: Potassium Replacement Protocol 1 EACH MISC MISCELLANE PRN (05:53)
[2023-07-13] MEDS: POTASSIUM CHLORIDE ER 20 MEQ TAB.ER PO SCH (06:30)
[2023-07-13] MEDS: MAGNESIUM SULFATE-D5W PMX 1 GM in DEXTROSE/WATER 1 100ML.BAG IVPB SCH (06:30)
--- NOTE | 2023-07-13 06:33 | P.PN ---
Subjective Progress Note Date: 07/12/23 * 73-year-old patient with past medical history significant for hypertension, hyperlipidemia gastroesophageal reflux disease, Rivera's esophagus history of pericarditis presents to the emergency department with complaints of generalized weakness. Patient admits upon admission that he has been drinking excessively. Patient also complained of headache and generalized weakness. Patient states she slid out of her bed and had difficulty getting up. Patient states she had a fall about 2 weeks prior to admission as well. * Workup in ER included CT head which was negative for acute intracranial proces s nonspecific white matter changes were noted * X-ray of the lumbar spine was done which was negative for fracture severe multilevel degeneration noted * Chest x-ray was done which was negative for acute cardiopulmonary process changes consistent with COPD noted * EKG obtained on admission shows sinus rhythm no significant ST segment change * Blood work obtained in ER include WBC of 3.6 hemoglobin 11.4 platelet count of 79 * Was admitted to medical floor and being treated for alcohol withdrawal lev col 07/11/2023 Patient is seen in follow-up today currently sitting up in the chair and working with physical therapy who recommends ECF for continued strength and mobility. Patient is agreeable and reports she has been progressively becoming more weak and falling. Patient does admit to drinking daily and will continue with CIWA protocol. Will add Librium and work on taper. A.m. labs pending and recommend replace electrolytes per protocol. Patient is afebrile with no reports of chest pain or shortness of breath. Patient is tolerating diet and needs encouragement with meals as patient has decreased appetite. 07/12/2023 Patient is seen this morning and being continued on CIWA protocol. Patient also on librium taper and will start to adjust dosing. Patient is not requiring IV ativan. Patient continues with weakness and being evaluated for ECF for continued strength and mobility. Case management following and will submit for insurance authorization. Patient is afebrile with no reports of chest pain or shortness of breath. Patient is tolerating diet. Encourage oral intake and may need supplements. Replace electrolytes per protocol. Review of systems: Constitutional: No reports of fatigue, fever, or chills Cardiovascular: No reports of chest pain or palpitations Respiratory: No reports of shortness of breath or cough GI: No reports of nausea, vomiting, or diarrhea, reports not much of an appetite : No reports of dysuria or retention Neurovascular: reports of generalized weakness All medications have been reviewed Left eye PHYSICAL EXAMINATION: GENERAL: The patient is alert and oriented x3, not in any acute distress. Well developed, well nourished. Thin built, elderly appearing HEENT: Pupils are round and equally reacting to light. EOMI. with broken blood vessel noted within the sclera, no changes in vision or visual disturbances per patient CARDIOVASCULAR: S1 and S2 present. No murmurs, rubs, or gallops. PULMONARY: Chest is clear to auscultation, no wheezing or crackles. ABDOMEN: Soft, nontender, nondistended, normoactive bowel sounds. No palpable or ganomegaly. MUSCULOSKELETAL: No joint swelling or deformity. EXTREMITIES: No cyanosis, clubbing, or pedal edema. NEUROLOGICAL: Gross neurological examination did not reveal any focal deficits. Diffusely weak with some minimal tremors noted SKIN: No rashes. Assessment: Alcohol use disorder with impending withdrawal, continued on CIWA protocol S/p fall with generalized weakness Chronic thrombocytopenia likely secondary to continued alcohol use. Patient reports to drinking daily History of upper GI bleed with esophagitis Hypertension history History of Rivera's esophagus Transaminitis secondary to alcohol induced toxicity Electrolyte abnormality hypokalemia hypomagnesemia being replaced per protocol GI prophylaxis DVT prophylaxis Full code Plan: * In regards to alcohol use disorder continue patient on CIWA protocol, continue patient on thiamine, monitor for withdrawal. Continue oral Ativan and discussed with nursing staff. Will continue Librium taper and start adjusting the dose in am * Regards to history of gastrointestinal bleed and esophagitis continue Protonix, continue Carafate * In regards to transaminitis, trending down, likely secondary to continued alcohol use * In regards to electrolyte abnormality potassium and magnesium continuing to be replaced, encouraged oral intake. * physical therapy Occupational Therapy evaluated the patient recommending rehab and patient is agreeable. * Case management following working on discharge planning including insurance authorization. Authorization submitted today and pending * Due to multiple complex medical issues, prognosis is guarded * Possible discharge planning in the next 24 to 48 hours The impression and plan of care has been dictated by Ny Torres, Nurse Practitioner as directed. Dr. Osmin MD I have performed a history and examination and MDM of this patient, discussed the same with the dictator, and agree with the dictator's assessment and plan as written ,documented as a scribe. Based on total visit time, I have performed more than 50% of the visit. Objective - Vital Signs Vital signs: Vital Signs Temp 98.7 F 07/12/23 20:11 Pulse 89 07/13/23 01:40 Resp 15 07/12/23 20:11 BP 107/65 07/13/23 01:40 Pulse Ox 99 07/13/23 01:40 FiO2 Intake & Output 07/12/23 07/12/23 07/13/23 06:59 18:59 06:59 Output Total 1800 Balance -1800 Output: Urine 1800 Other: Voiding Method Bedside Commode Bedside Commode Bedside Commode External Catheter External Catheter External Catheter # Voids 6 2 # Bowel Movements 3 1 - Labs CBC & Chem 7: 07/11/23 06:05 07/12/23 06:33 Labs: Abnormal Lab Results - Last 24 Hours (Table) 07/12/23 Range/Units 06:33 BUN <3.5 L (9.0-27.0) mg/dL Creatinine 0.4 L (0.6-1.5) mg/dL BUN/Creatinine Ratio <8.75 L (12.00-20.00) Ratio Glucose 127 H (70-110) mg/dL
[2023-07-13 07:41] VITALS: RESP 18
[2023-07-13 09:18] LABS: African American GFR (CKD) >90 (>60 ml/min/1.73 sqM); Anion Gap 4 mmol/L; Blood Urea Nitrogen 4 mg/dL (7-17); Calcium 8.6 mg/dL (8.4-10.2); Carbon Dioxide 24 mmol/L (22-30); Chloride 107 mmol/L (98-107); Glucose 202 mg/dL (74-99); Magnesium 1.9 mg/dL (1.6-2.3); Non-African American GFR(CKD) >90 (>60 ml/min/1.73 sqM); Phosphorus 1.4 mg/dL (2.5-4.5); Potassium 3.8 mmol/L (3.5-5.1); Sodium 135 mmol/L (137-145)
[2023-07-13] MEDS ORDERED: Phosphorus Replacement Protoco 1 EACH MISC MISCELLANE PRN (10:03)
[2023-07-13] MEDS: POTAS-SOD-PHOS 278-164-250 MG 1 EACH PACKET PO ONE (11:41)
--- NOTE | 2023-07-13 14:37 | P.DS ---
Providers Date of admission: 07/11/23 10:00 Expected date of discharge: 07/13/23 Attending physician: Liz Du MD Primary care physician: Gail Davis MD Hospital Course: Final diagnosis Alcohol use disorder with impending withdrawal, continued on CIWA protocol S/p fall with generalized weakness Chronic thrombocytopenia likely secondary to continued alcohol use. Patient reports to drinking daily History of upper GI bleed with esophagitis Hypertension history History of Rivera's esophagus Transaminitis secondary to alcohol induced toxicity Electrolyte abnormality hypokalemia hypomagnesemia being replaced per protocol GI prophylaxis DVT prophylaxis Full code Discharge disposition Patient is being discharged in a stable condition with guarded prognosis to [facility]. Patient will follow-up with Dr. Davis in the outpatient setting upon discharge. Patient is to continue with Librium taper with 1 dose remaining this evening as well as 1 dose tomorrow. Recommend follow-up labs of CMP, phosphorus, magnesium in 2 to 3 days outpatient. Total time taken greater than 35 minutes. Hospital course This is a 73-year-old female who was recently admitted with generalized weakness with acute EtOH withdrawal maintained on CIWA protocol being closely monitored. Patient with generalized weakness evaluated by physical therapy recommending rehab and patient is agreeable. Patient with electrolyte abnormalities inclu ding low potassium and magnesium which were replaced and recommend outpatient labs of CMP, phosphorus, magnesium in the next 2 to 3 days. Patient reports to not eating very much and is a light eater as it is. Recommend Ensure compact supplements 3 times daily between meals. Discussed with the patient about encouraging oral intake for balanced nutrition and energy for continued PT/OT therapy. Insurance authorization was obtained for rehab and patient will be discharged to [facility] today. Currently no reports of chest pain, shortness of breath, or palpitations. Patient is afebrile. No reports of nausea or vomiting and patient is tolerating diet. Patient will be going to [facility] today. Physical exam: Gen: This is a 73-year-old female who is awake, alert and oriented x 3, thin built, elderly appearing, appears older than stated age HEENT: Head is atraumatic, normocephalic. Pupils equal, round. Sclerae is anicteric. NECK: Supple. No JVD. No lymphadenopathy. No thyromegaly. LUNGS: Diminished breath sounds bilaterally otherwise clear to auscultation. No wheezes or rhonchi. No intercostal retractions. HEART: S1, S2 are muffled ABDOMEN: Soft. Thin. Bowel sounds are present. No masses. No tenderness. EXTREMITIES: No pedal edema. No calf tenderness. NEUROLOGICAL: Patient is awake, alert and oriented x3. Cranial nerves 2 through 12 are grossly intact. Diffusely weak Please refer to medication reconciliation sheet for a list of medications. The impression and plan of care has been dictated by Ny Torres, Nurse Practitioner as directed. Dr. Osmin MD I have performed a history and examination and MDM of this patient, discussed the same with the dictator, and agree with the dictator's assessment and plan as written ,documented as a scribe. Based on total visit time, I have performed more than 50% of the visit. Patient Condition at Discharge: Fair Plan - Discharge Summary Discharge Rx Participant: No New Discharge Prescriptions: New chlordiazePOXIDE HCl [Librium] 20 mg PO BID #2 cap traMADol HCl [Ultram] 50 mg PO Q6H PRN #4 tab PRN Reason: Moderate Pain (Scale 4 To 6) Acetaminophen Tab [Tylenol] 650 mg PO Q6HR PRN tab PRN Reason: Mild Pain Or Fever > 100.5 Thiamine [Vitamin B-1] 100 mg PO DAILY tab Continue Pantoprazole [Protonix] 40 mg PO AC-BID #60 tab Sucralfate [Carafate] 1 gm PO AC-TID 90 Days #90 tab Discontinued Thiamine [Vitamin B-1] 100 mg PO DAILY tab Discharge Medication List Pantoprazole [Protonix] 40 mg PO AC-BID #60 tab 06/07/23 [Rx] Sucralfate [Carafate] 1 gm PO AC-TID 90 Days #90 tab 06/07/23 [Rx] Acetaminophen Tab [Tylenol] 650 mg PO Q6HR PRN tab 07/13/23 [Rx] Thiamine [Vitamin B-1] 100 mg PO DAILY tab 07/13/23 [Rx] chlordiazePOXIDE HCl [Librium] 20 mg PO BID #2 cap 07/13/23 [Rx] traMADol HCl [Ultram] 50 mg PO Q6H PRN #4 tab 07/13/23 [Rx] Follow up Appointment(s)/Referral(s): Gail Davis MD [Primary Care Provider] - 1-2 days Ambulatory/Diagnostic Orders: Comprehensive Metabolic Panel [LAB.AMB] Time Frame: 3 Days, Location: None Selected Activity/Diet/Wound Care/Special Instructions: Patient is going to [facility] as tolerated Follow-up with primary care provider on discharge Continue Ensure compact supplements 3 times daily between meals, patient prefers chocolates Continue Librium taper of 20 mg twice daily for 1 day and once tomorrow then discontinue Avoid alcohol use and exposure Follow-up on repeat labs of CMP, magnesium, phosphorus in 2 to 3 days Discharge Disposition: TRANSFER TO SNF/ECF
[2023-07-13 15:12] VITALS: BP 179/84; PULSE 81; TEMP 97.4
== END 2023-07-13 16:11 | DRG 897 ==
LOC: EC 16:59 → 6NMEDSUR 19:21 → 4SSUR 20:31 → OBSVTOIN 07-11 10:00
PROVIDERS: ADMIT Internal Medicine; ATTEND Internal Medicine
PROC: HZ2ZZZZ Detoxification Services for Substance Abuse Treatment (ICD-10-PCS; principal; 2023-07-09)
DX: F10.239 Alcohol dependence with withdrawal, unspecified (principal); K22.70 Barrett's esophagus without dysplasia; F32.A Depression, unspecified; F41.9 Anxiety disorder, unspecified; F10.229 Alcohol dependence with intoxication, unspecified; I10 Essential (primary) hypertension; K21.00 Gastro-esophageal reflux disease with esophagitis, without bleeding; R53.1 Weakness; R74.01 Elevation of levels of liver transaminase levels; E78.5 Hyperlipidemia, unspecified; E87.6 Hypokalemia; E83.42 Hypomagnesemia; Y90.8 Blood alcohol level of 240 mg/100 ml or more; Z87.19 Personal history of other diseases of the digestive system; Z71.41 Alcohol abuse counseling and surveillance of alcoholic
CPT/HCPCS: 36415; 70450; 71046; 72100; 80048; 80053; 80306; 80320; 81003; 83605; 83735; 84100; 84443; 84484; 85025; 85027; 85610; 85730; 87636; 93005; 96360; 96361; 96372; 99285

== ENCOUNTER 2023-08-05 20:53 | Inpatient (IN) | payer MEDICARE ==
--- NOTE | 2023-08-05 21:23 | ED ---
General Adult HPI - General Stated complaint: NV Time Seen by Provider: 08/05/23 21:02 Source: patient, RN notes reviewed, old records reviewed Limitations: no limitations - History of Present Illness Initial comments: 73-year-old female presenting for evaluation of of nausea vomiting which has been present for the past several days. Patient is slow to respond with previous history of alcohol abuse. She reports a mild headache. No fever. No significant abdominal pain. - Related Data Previous Rx's Medication Instructions Recorded Pantoprazole [Protonix] 40 mg PO AC-BID #60 tab 06/07/23 Sucralfate [Carafate] 1 gm PO AC-TID 90 Days #90 tab 06/07/23 Acetaminophen Tab [Tylenol] 650 mg PO Q6HR PRN tab 07/13/23 Loperamide [Imodium] 2 mg PO QID PRN #20 capsule 07/13/23 Thiamine [Vitamin B-1] 100 mg PO DAILY tab 07/13/23 chlordiazePOXIDE HCl [Librium] 20 mg PO BID #2 cap 07/13/23 traMADol HCl [Ultram] 50 mg PO Q6H PRN #4 tab 07/13/23 Allergies Allergy/AdvReac Type Severity Reaction Status Date / Time No Known Allergies Allergy Verified 07/09/23 19:07 Review of Systems ROS Statement: Those systems with pertinent positive or pertinent negative responses have been documented in the HPI. ROS Other: All systems not noted in ROS Statement are negative. Past Medical History Past Medical History: GERD/Reflux, Hyperlipidemia, Hypertension Additional Past Medical History / Comment(s): Barretts Esophagus. neuropathy in feet History of Any Multi-Drug Resistant Organisms: None Reported Past Surgical History: No Surgical Hx Reported Additional Past Surgical History / Comment(s): draining of pericarditis fluid Past Anesthesia/Blood Transfusion Reactions: No Reported Reaction Past Psychological History: Anxiety, Depression Smoking Status: Current every day smoker Past Alcohol Use History: Abuse, Daily, Heavy Past Drug Use History: None Reported General Exam General appearance: alert, appears intoxicated Head exam: Present: atraumatic, normocephalic Eye exam: Present: normal appearance, PERRL ENT exam: Present: mucous membranes dry Neck exam: Present: normal inspection. Absent: tenderness, meningismus Respiratory exam: Present: normal lung sounds bilaterally. Absent: respiratory distress, wheezes Cardiovascular Exam: Present: regular rate, normal rhythm GI/Abdominal exam: Present: soft, distended. Absent: tenderness, guarding Extremities exam: Present: normal inspection Neurological exam: Present: alert, oriented X3, CN II-XII intact. Absent: motor sensory deficit Skin exam: Present: warm, dry, intact Course Vital Signs 08/05/23 08/05/23 21:13 23:49 Temperature 99.1 F Pulse Rate 99 100 Respiratory 20 16 Rate Blood Pressure 121/86 123/66 O2 Sat by Pulse 99 94 L Oximetry Medical Decision Making - Medical Decision Making Was pt. sent in by a medical professional or institution (, PA, STERILISATION TECHNICIAN, urgent care, hospital, or senior living...) When possible be specific @ -No Did you speak to anyone other than the patient for history (EMS, parent, family, police, friend...)? What history was obtained from this source @ -No Did you review nursing and triage notes (agree or disagree)? Why? @ -I reviewed and agree with nursing and triage notes Were old charts reviewed (outside hosp., previous admission, EMS record, old EKG, old radiological studies, urgent care reports/EKG's, senior living records)? Report findings @ -No old charts were reviewed Differential Diagnosis (chest pain, altered mental status, abdominal pain women, abdominal pain men, vaginal bleeding, weakness, fever, dyspnea, syncope, headache, dizziness, GI bleed, back pain, seizure, CVA, palpatations, mental health, musculoskeletal)? @ -Differential Weakness: Hypoglycemia, shock, sepsis, hyponatremia, anemia, infection, AK, ETOH, adverse medicine reaction, overdose, stroke, this is not meant to be an all-inclusive list. EKG interpreted by me (3pts min.). @ -Sinus rhythm rate of 98, LA interval 151, QRS duration 87, QTc [address] segment elevation. X-rays interpreted by me (1pt min.). @ -None done CT interpreted by me (1pt min.). @ -None done U/S interpreted by me (1pt. min.). @ -None done What testing was considered but not performed or refused? (CT, X-rays, U/S, labs)? Why? @ -None What meds were considered but not given or refused? Why? @ -None Did you discuss the management of the patient with other professionals (professionals i.e. , PA, STERILISATION TECHNICIAN, lab, RT, psych nurse, social secretary, computational linguist, teacher, mechanical engineering officer, case aide)? Give summary @ - Sheet Was smoking cessation discussed for >3mins.? @ -No Was critical care preformed (if so, how long)? @ -No Were there social determinants of health that impacted care today? How? (Homelessness, low income, unemployed, alcoholism, drug addiction, transportation, low edu. Level, literacy, decrease access to med. care, [place] [facility], rehab)? @ -No Was there de-escalation of care discussed even if they declined (Discuss DNR or withdrawal of care, Hospice)? DNR status @ -No What co-morbidities impacted this encounter? (DM, HTN, Smoking, COPD, CAD, Cancer, CVA, ARF, Chemo, Hep., AIDS, mental health diagnosis, sleep apnea, morbid obesity)? @Alcohol abuse Was patient admitted / discharged? Hospital course, mention meds given and route, prescriptions, significant lab abnormalities, going to OR and other pertinent info. @ -73-year-old female with nausea vomiting, alcohol intoxication, dehydration. Patient has normal CBC, CMP shows anion gap acidosis with CO2 of 9, normal la ctic acid, suspect alcoholic ketoacidosis. Patient given IV fluid and symptomatic treatment. She will be admitted for acute alcohol intoxication and dehydration. Undiagnosed new problem with uncertain prognosis? @ -No Drug Therapy requiring intensive monitoring for toxicity (Heparin, Nitro, Insul in, Cardizem)? @ -No Were any procedures done? @ -No Diagnosis/symptom? @Alcohol intoxication, dehydration Acute, or Chronic, or Acute on Chronic? @Acute Uncomplicated (without systemic symptoms) or Complicated (systemic symptoms)? @ -Default Side effects of treatment? @ -No Exacerbation, Progression, or Severe Exacerbation? @ -No Poses a threat to life or bodily function? How? (Chest pain, USA, AK, pneumonia, PE, COPD, DKA, ARF, appy, cholecystitis, CVA, Diverticulitis, Homicidal, Suicidal, threat to staff... and all critical care pts) @ -Yes, moderate risk, electrolyte abnormality, acidosis - Lab Data Result diagrams: 08/05/23 21:35 08/05/23 23:39 Lab Results 08/05/23 08/05/23 08/05/23 Range/Units 21:35 21:35 23:39 WBC 9.0 (3.8-10.6) k/uL RBC 4.03 (3.80-5.40) m/uL Hgb 11.8 (11.4-16.0) gm/dL Hct 37.2 (34.0-46.0) % MCV 92.1 (80.0-100.0) fL MCH 29.2 (25.0-35.0) pg MCHC 31.7 (31.0-37.0) g/dL RDW 17.1 H (11.5-15.5) % Plt Count 134 L D (150-450) k/uL MPV 7.8 Neutrophils % 84 % Lymphocytes % 11 % Monocytes % 4 % Eosinophils % 1 % Basophils % 1 % Neutrophils # 7.5 (1.3-7.7) k/uL Lymphocytes # 1.0 (1.0-4.8) k/uL Monocytes # 0.3 (0-1.0) k/uL Eosinophils # 0.1 (0-0.7) k/uL Basophils # 0.0 (0-0.2) k/uL Hypochromasia Slight Anisocytosis Slight Sodium 140 139 (137-145) mmol/L Potassium 4.9 4.8 (3.5-5.1) mmol/L Chloride 99 105 (98-107) mmol/L Carbon Dioxide 9 L* 7 L* (22-30) mmol/L Anion Gap 32 27 mmol/L BUN 15 14 (7-17) mg/dL Creatinine 0.75 0.66 (0.52-1.04) mg/dL Est GFR (CKD-EPI)AfAm >90 >90 (>60 ml/min/1.73 sqM) Est GFR (CKD-EPI)NonAf 81 89 (>60 ml/min/1.73 sqM) Glucose 92 87 (74-99) mg/dL Plasma Lactic Acid Lincoln (0.7-2.0) mmol/L Calcium 8.4 7.7 L (8.4-10.2) mg/dL Magnesium 1.5 L (1.6-2.3) mg/dL Total Bilirubin 0.8 (0.2-1.3) mg/dL AST 61 H (14-36) U/L ALT 27 (4-34) U/L Alkaline Phosphatase 151 H (38-126) U/L Total Protein 7.8 (6.3-8.2) g/dL Albumin 4.8 (3.5-5.0) g/dL Lipase 607 H (23-300) U/L Serum Alcohol 294 H* mg/dL 08/06/23 Range/Units 00:17 WBC (3.8-10.6) k/uL RBC (3.80-5.40) m/uL Hgb (11.4-16.0) gm/dL Hct (34.0-46.0) % MCV (80.0-100.0) fL MCH (25.0-35.0) pg MCHC (31.0-37.0) g/dL RDW (11.5-15.5) % Plt Count (150-450) k/uL MPV Neutrophils % % Lymphocytes % % Monocytes % % Eosinophils % % Basophils % % Neutrophils # (1.3-7.7) k/uL Lymphocytes # (1.0-4.8) k/uL Monocytes # (0-1.0) k/uL Eosinophils # (0-0.7) k/uL Basophils # (0-0.2) k/uL Hypochromasia Anisocytosis Sodium (137-145) mmol/L Potassium (3.5-5.1) mmol/L Chloride (98-107) mmol/L Carbon Dioxide (22-30) mmol/L Anion Gap mmol/L BUN (7-17) mg/dL Creatinine (0.52-1.04) mg/dL Est GFR (CKD-EPI)AfAm (>60 ml/min/1.73 sqM) Est GFR (CKD-EPI)NonAf (>60 ml/min/1.73 sqM) Glucose (74-99) mg/dL Plasma Lactic Acid Lincoln 1.9 (0.7-2.0) mmol/L Calcium (8.4-10.2) mg/dL Magnesium (1.6-2.3) mg/dL Total Bilirubin (0.2-1.3) mg/dL AST (14-36) U/L ALT (4-34) U/L Alkaline Phosphatase (38-126) U/L Total Protein (6.3-8.2) g/dL Albumin (3.5-5.0) g/dL Lipase (23-300) U/L Serum Alcohol mg/dL Disposition Clinical Impression: Dehydration, Nausea & vomiting, Alcoholic intoxication Disposition: ADMITTED IP TO THIS HOSP Condition: Stable Is patient prescribed a controlled substance at d/c from ED?: No Time of Disposition: 01:25
[2023-08-05 21:46] LABS: Anisocytosis Slight; Basophils % (A) 1 %; Eosinophils # (A) 0.1 k/uL (0-0.7); Eosinophils % (A) 1 %; HCT 37.2 % (34.0-46.0); HGB 11.8 gm/dL (11.4-16.0); Hypochromasia Slight; Lymphocytes % (A) 11 %; MCH 29.2 pg (25.0-35.0); MCHC 31.7 g/dL (31.0-37.0); MCV 92.1 fL (80.0-100.0); Mean Platelet Volume 7.8; Monocytes # (A) 0.3 k/uL (0-1.0); Monocytes % (A) 4 %; Neutrophils # (A) 7.5 k/uL (1.3-7.7); Neutrophils % (A) 84 %; Platelet Count 134 k/uL (150-450); RBC 4.03 m/uL (3.80-5.40); RDW 17.1 % (11.5-15.5)
[2023-08-05 22:08] LABS: ALT 27 U/L (4-34); AST 61 U/L (14-36); African American GFR (CKD) >90 (>60 ml/min/1.73 sqM); Albumin 4.8 g/dL (3.5-5.0); Alkaline Phosphatase 151 U/L (38-126); Anion Gap 32 mmol/L; Blood Urea Nitrogen 15 mg/dL (7-17); Calcium 8.4 mg/dL (8.4-10.2); Chloride 99 mmol/L (98-107); Glucose 92 mg/dL (74-99); Magnesium 1.5 mg/dL (1.6-2.3); Non-African American GFR(CKD) 81 (>60 ml/min/1.73 sqM); Potassium 4.9 mmol/L (3.5-5.1); Sodium 140 mmol/L (137-145); Total Bilirubin 0.8 mg/dL (0.2-1.3); Total Protein 7.8 g/dL (6.3-8.2)
[2023-08-05 22:18] LABS: Alcohol 294 mg/dL; Carbon Dioxide 9 mmol/L (22-30)
[2023-08-05] MEDS: ONDANSETRON 4 MG/2 ML VIAL IVP STA (22:19)
[2023-08-05] MEDS: PANTOPRAZOLE 40 MG/10 ML VIAL IVP STA (22:19)
[2023-08-05] MEDS: SODIUM CHLORIDE 0.9% 1,000 ML IV ONE (22:19)
[2023-08-05] MEDS: MAGNESIUM SULFATE-D5W PMX 1 GM in DEXTROSE/WATER 1 100ML.BAG IVPB ONE (23:36)
[2023-08-05] MEDS: HYDROmorphone 0.5 MG/0.5 ML SYRINGE IVP STA (23:37)
[2023-08-05] MEDS: SODIUM CHLORIDE 0.9% 1,000 ML IV SCH (23:40)
[2023-08-06 00:22] LABS: African American GFR (CKD) >90 (>60 ml/min/1.73 sqM); Anion Gap 27 mmol/L; Blood Urea Nitrogen 14 mg/dL (7-17); Calcium 7.7 mg/dL (8.4-10.2); Chloride 105 mmol/L (98-107); Glucose 87 mg/dL (74-99); Lipase 607 U/L (23-300); Non-African American GFR(CKD) 89 (>60 ml/min/1.73 sqM); Potassium 4.8 mmol/L (3.5-5.1); Sodium 139 mmol/L (137-145)
[2023-08-06 00:31] LABS: Carbon Dioxide 7 mmol/L (22-30)
[2023-08-06] MEDS ORDERED: NALOXONE 0.4 MG/ML 1 ML VIAL IV PRN (01:02)
[2023-08-06] MEDS: THIAMINE 100 MG/ML 2 ML VIAL IM STA (01:16)
[2023-08-06 01:25] LABS: Appearance,Urine Cloudy (Clear); Bacteria,Urine Rare /hpf; Bilirubin,Urine Negative (Negative); Blood,Urine Trace (Negative); Color,Urine Colorless; Glucose,Urine (UA) Negative (Negative); Hyaline Casts,Urine 21 /lpf (0-2); Ketones,Urine 3+ (Negative); Leukocyte Esterase,Urine Negative (Negative); Mucus,Urine Rare /hpf; Nitrite,Urine Negative (Negative); PH, Urine 5.5 (5.0-8.0); Protein,Urine 1+ (Negative); RBC,Urine 1 /hpf (0-5); Specific Gravity,Urine 1.014 (1.001-1.035); Squamous Epithelial Cell,Urine 12 /hpf (0-4); Urobilinogen,Urine <2.0 mg/dL (<2.0); WBC,Urine 1 /hpf (0-5)
[2023-08-06 01:49] LABS: ALT 24 U/L (4-34); AST 55 U/L (14-36); African American GFR (CKD) >90 (>60 ml/min/1.73 sqM); Albumin 4.1 g/dL (3.5-5.0); Alkaline Phosphatase 132 U/L (38-126); Anion Gap 26 mmol/L; Blood Urea Nitrogen 13 mg/dL (7-17); Calcium 7.6 mg/dL (8.4-10.2); Chloride 105 mmol/L (98-107); Glucose 107 mg/dL (74-99); Non-African American GFR(CKD) 88 (>60 ml/min/1.73 sqM); Potassium 4.6 mmol/L (3.5-5.1); Sodium 140 mmol/L (137-145); Total Bilirubin 0.6 mg/dL (0.2-1.3); Total Protein 6.9 g/dL (6.3-8.2)
[2023-08-06 01:53] LABS: Carbon Dioxide 9 mmol/L (22-30)
[2023-08-06] MEDS: LORazepam 2 MG/ML INJ IV PRN ×3 (03:33→20:58)
[2023-08-06] MEDS: PANTOPRAZOLE 40 MG/10 ML VIAL IV SCH ×2 (08:13→21:00)
[2023-08-06] MEDS: HYDROmorphone 0.5 MG/0.5 ML SYRINGE IVP PRN (08:15)
[2023-08-06] MEDS: ONDANSETRON 4 MG/2 ML VIAL IVP PRN (10:49)
[2023-08-06] MEDS ORDERED: ONDANSETRON 4 MG/2 ML VIAL IVP PRN (11:31)
--- NOTE | 2023-08-06 11:39 | P.HPIM ---
History of Present Illness This is a pleasant 73 years old female with past medical history of multiple medical problems including Rivera's esophagus, she had EGD twice, second [address] Borges. She is on Protonix and Carafate at home She presents because of persistent nausea vomiting for the last 2 days Yesterday she vomited about 6 times, it says it is a brown like coffee colored. Currently it is more clear. Patient feels something stuck in her epigastric area like her phlegm but she denies chest pain or dyspnea. No coughing. Last bowel movement was about 2 days ago but no abdominal pain no blood in stool or black stool She denies dysuria or urgency but she states that since yesterday she has not been a lot. She is not eating or drinking much She denies dizziness headache weakness or numbness. No blurred vision She smokes about 1 pack/day and she was counseled to quit and she agrees to the nicotine patch She drinks about half pint per day of alcohol and her last drink was yesterday she denies any illicit drugs. She is hemodynamically stable Labs showing mild thrombocytopenia 134 but she has low sodium bicarb at 9 and 7. Which is thought secondary to dehydration and IV fluid. Lipase mildly elevated Urine analysis looks concentrated sample Alcohol level was high 294 on admission EKG shows sinus rhythm at [address]-T changes Patient was started on CIWA protocol and thiamine and normal saline 130 mL/h Patient was started on liquid diet in emergency room Review of Systems Review of systems CONSTITUTIONAL: No fever, no malaise, no fatigue. HEENT: No recent visual problems or hearing problems. Denied any sore throat. CARDIOVASCULAR: No orthopnea, PND, no palpitations, no syncope. PULMONARY: No shortness of breath, no cough, no hemoptysis. GASTROINTESTINAL: No diarrhea, no nausea, no vomiting, no abdominal pain. Normoactive bowel sounds. NEUROLOGICAL: No headaches, no weakness, no numbness. HEMATOLOGICAL: Denies any bleeding or petechiae. GENITOURINARY: Denies any burning micturition, frequency, or urgency. MUSCULOSKELETAL/RHEUMATOLOGICAL: Denies any joint pain, swelling, or any muscle pain. ENDOCRINE: Denies any polyuria or polydipsia. Past Medical History Past Medical History: GERD/Reflux, Hyperlipidemia, Hypertension Additional Past Medical History / Comment(s): Barretts Esophagus. neuropathy in feet History of Any Multi-Drug Resistant Organisms: None Reported Past Surgical History: No Surgical Hx Reported Additional Past Surgical History / Comment(s): draining of pericarditis fluid Past Anesthesia/Blood Transfusion Reactions: No Reported Reaction Past Psychological History: Anxiety, Depression Smoking Status: Current every day smoker Past Alcohol Use History: Abuse, Daily, Heavy Past Drug Use History: None Reported Medications and Allergies Home Medications Medication Instructions Recorded Confirmed Type Pantoprazole [Protonix] 40 mg PO AC-BID #60 tab 06/07/23 07/09/23 Rx Sucralfate [Carafate] 1 gm PO AC-TID 90 Days #90 tab 06/07/23 07/09/23 Rx Acetaminophen Tab [Tylenol] 650 mg PO Q6HR PRN tab 07/13/23 Rx Loperamide [Imodium] 2 mg PO QID PRN #20 capsule 07/13/23 Rx Thiamine [Vitamin B-1] 100 mg PO DAILY tab 07/13/23 Rx chlordiazePOXIDE HCl [Librium] 20 mg PO BID #2 cap 07/13/23 Rx traMADol HCl [Ultram] 50 mg PO Q6H PRN #4 tab 07/13/23 Rx Allergies Allergy/AdvReac Type Severity Reaction Status Date / Time No Known Allergies Allergy Verified 07/09/23 19:07 Physical Exam Vitals: Vital Signs Temp Pulse Resp BP Pulse Ox 08/06/23 10:00 17 126/74 95 08/06/23 09:00 122/70 92 L 08/06/23 08:00 97 132/77 97 08/06/23 07:00 134/76 97 08/06/23 03:40 97 20 124/95 95 08/06/23 01:40 92 16 126/70 96 08/06/23 01:20 95 18 119/70 96 08/05/23 23:49 100 16 123/66 94 L 08/05/23 21:13 99.1 F 99 20 121/86 99 Intake and Output 08/05/23 08/06/23 08/06/23 22:59 06:59 14:59 Other: Weight 54.431 kg GENERAL: The patient is alert and oriented x3, not in any acute distress. Well developed, well nourished. -HEENT: Pupils are round and equally reacting to light. EOMI. No scleral icterus. No conjunctival pallor. Normocephalic, atraumatic. No pharyngeal erythema. No thyromegaly. Dehydrated dry mucous membranes CARDIOVASCULAR: S1 and S2 present. No murmurs, rubs, or gallops. PULMONARY: Chest is clear to auscultation, no wheezing , no crackles. ABDOMEN: Soft, nontender, nondistended, normoactive bowel sounds. No palpable organomegaly. MUSCULOSKELETAL: No joint swelling or deformity. EXTREMITIES: No cyanosis, clubbing, or pedal edema. NEUROLOGICAL: Gross neurological examination did not reveal any focal deficits. SKIN: No rashes. no petechiae. Results CBC & Chem 7: 08/05/23 21:35 08/06/23 01:23 Labs: Abnormal Lab Results - Last 24 Hours (Table) 08/05/23 08/05/23 08/05/23 Range/Units 21:35 21:35 23:39 RDW 17.1 H (11.5-15.5) % Plt Count 134 L D (150-450) k/uL Carbon Dioxide 9 L* 7 L* (22-30) mmol/L Glucose (74-99) mg/dL Calcium 7.7 L (8.4-10.2) mg/dL Magnesium 1.5 L (1.6-2.3) mg/dL AST 61 H (14-36) U/L Alkaline Phosphatase 151 H (38-126) U/L Lipase 607 H (23-300) U/L Urine Appearance (Clear) Urine Protein (Negative) Urine Ketones (Negative) Urine Blood (Negative) Ur Squamous Epith Cells (0-4) /hpf Urine Bacteria (None) /hpf Hyaline Casts (0-2) /lpf Urine Mucus (None) /hpf Serum Alcohol 294 H* mg/dL 08/06/23 08/06/23 Range/Units 00:30 01:23 RDW (11.5-15.5) % Plt Count (150-450) k/uL Carbon Dioxide 9 L* (22-30) mmol/L Glucose 107 H (74-99) mg/dL Calcium 7.6 L (8.4-10.2) mg/dL Magnesium (1.6-2.3) mg/dL AST 55 H (14-36) U/L Alkaline Phosphatase 132 H (38-126) U/L Lipase (23-300) U/L Urine Appearance Cloudy H (Clear) Urine Protein 1+ H (Negative) Urine Ketones 3+ H (Negative) Urine Blood Trace H (Negative) Ur Squamous Epith Cells 12 H (0-4) /hpf Urine Bacteria Rare H (None) /hpf Hyaline Casts 21 H (0-2) /lpf Urine Mucus Rare H (None) /hpf Serum Alcohol mg/dL Assessment and Plan Assessment: Persistent nausea vomiting with possible coffee-ground vomitus with history of Rivera's esophagus Alcohol intoxication at risk of alcohol withdrawal related to her alcohol use disorder Dehydration with acidemia Mild thrombocytopenia most likely secondary to alcoholic effect Hypertension Hyperlipidemia Nicotine dependence Plan: Continue with IV hydration but stopped normal saline and start sodium bicarb at 125 mL/h Check venous blood gas and pH Surgery team consult Continue with CIWA protocol and thiamine Continue with Protonix and Carafate and increased frequency of Protonix to twice daily There is no GI coverage in this facility this weekend and patient informed and she agrees with the treatment plan Labs and medication were reviewed.. Continue same treatment. Continue with symptomatic treatment. Resume home medication. Monitor labs and vitals. DVT and GI prophylaxis. Further recommendations as per clinical course of the patient DVT prophylaxis:NO Subcutaneous heparin GI Prophylaxis: PPI and Carafate Prognosis is guarded
[2023-08-06] MEDS: DEXTROSE 5% IN WATER 1,000 ML with SODIUM BICARB (1 MEQ/ML) 100 ML IV SCH (12:37)
[2023-08-06] MEDS: SUCRALFATE 1 GM TAB PO SCH (12:37)
[2023-08-06] MEDS: NICOTINE 21MG/24HR PATCH TRANSDERM SCH (12:37)
[2023-08-06] MEDS: TAMSULOSIN 0.4 MG CAP.ER.24H PO SCH (12:37)
[2023-08-06 12:42] LABS: Appearance,Urine Clear (Clear); Bacteria,Urine Rare /hpf; Bilirubin,Urine Negative (Negative); Blood,Urine Negative (Negative); Color,Urine Colorless; Glucose,Urine (UA) Negative (Negative); Hyaline Casts,Urine 9 /lpf (0-2); Ketones,Urine 3+ (Negative); Leukocyte Esterase,Urine Negative (Negative); Mucus,Urine Rare /hpf; Nitrite,Urine Negative (Negative); PH, Urine 5.5 (5.0-8.0); Protein,Urine 1+ (Negative); RBC,Urine <1 /hpf (0-5); Specific Gravity,Urine 1.014 (1.001-1.035); Urobilinogen,Urine <2.0 mg/dL (<2.0); WBC,Urine <1 /hpf (0-5)
[2023-08-06 12:44] LABS: VBG PH 7.25 (7.31-7.41)
[2023-08-06 12:58] LABS: Acetaminophen <10.0 ug/mL; Salicylate <1.0 mg/dL
[2023-08-06] MEDS ORDERED: DEXTROSE 50% SYRINGE 50 ML IVP PRN ×6 (14:40→22:01)
[2023-08-06] MEDS ORDERED: Potassium Replacement Protocol 1 EACH MISC MISCELLANE PRN (14:48)
[2023-08-06] MEDS ORDERED: Magnesium Replacement Protocol 1 EACH MISC MISCELLANE PRN (14:48)
[2023-08-06 15:25] LABS: Glucose,Whole Blood 91 mg/dL (70-110)
[2023-08-06 16:08] LABS: Anisocytosis Slight; Basophils # (A) 0.1 k/uL (0-0.2); Basophils % (A) 1 %; Eosinophils % (A) 0 %; HCT 30.5 % (34.0-46.0); Hypochromasia Slight; Lymphocytes # (A) 1.2 k/uL (1.0-4.8); Lymphocytes % (A) 14 %; MCH 29.1 pg (25.0-35.0); MCHC 31.5 g/dL (31.0-37.0); MCV 92.4 fL (80.0-100.0); Mean Platelet Volume 8.1; Monocytes # (A) 0.5 k/uL (0-1.0); Monocytes % (A) 5 %; Neutrophils # (A) 7.1 k/uL (1.3-7.7); Neutrophils % (A) 79 %
[2023-08-06 16:11] LABS: VBG PH 7.28 (7.31-7.41)
[2023-08-06 16:17] LABS: African American GFR (CKD) >90 (>60 ml/min/1.73 sqM); Anion Gap 21 mmol/L; Blood Urea Nitrogen 11 mg/dL (7-17); Calcium 8.3 mg/dL (8.4-10.2); Carbon Dioxide 14 mmol/L (22-30); Chloride 101 mmol/L (98-107); Glucose 89 mg/dL (74-99); Non-African American GFR(CKD) >90 (>60 ml/min/1.73 sqM); Phosphorus 2.1 mg/dL (2.5-4.5); Potassium 4.6 mmol/L (3.5-5.1); Sodium 136 mmol/L (137-145)
[2023-08-06 16:18] LABS: HGB 9.6 gm/dL (11.4-16.0)
[2023-08-06 16:19] LABS: Platelet Count 88 k/uL (150-450)
--- NOTE | 2023-08-06 17:13 | P.CON ---
Consult Note - . Consult date: 08/06/23 Assessment/Plan:: patient is a 73-year-old female with history of fatty liver, ulcers, EtOH at risk use presenting with coffee-ground emesis. Patient states that her symptoms started 2 days ago and are now improving. Patient describes her symptoms now as mild epigastric pain with associated belching as if she is passing air intermittently. Patient currently denies fevers, chills, shortness of breath, chest pain, night sweats or weight loss. Of note patient was asked that she have seizures if she quits drinking and she denies. Patient admits to being compliant with Carafate and acid blocking medication. Review of systems CONSTITUTIONAL: No fever, no malaise, no fatigue. HEENT: No recent visual problems or hearing problems. Denied any sore throat. CARDIOVASCULAR: No orthopnea, PND, no palpitations, no syncope. PULMONARY: No shortness of breath, no cough, no hemoptysis. GASTROINTESTINAL: No diarrhea, no nausea, no vomiting, no abdominal pain. Normoactive bowel sounds. NEUROLOGICAL: No headaches, no weakness, no numbness. HEMATOLOGICAL: Denies any bleeding or petechiae. GENITOURINARY: Denies any burning micturition, frequency, or urgency. MUSCULOSKELETAL/RHEUMATOLOGICAL: Denies any joint pain, swelling, or any muscle pain. ENDOCRINE: Denies any polyuria or polydipsia. Past Medical History: GERD/Reflux, Hyperlipidemia, Hypertension Additional Past Medical History / Comment(s): Barretts Esophagus. neuropathy in feet History of Any Multi-Drug Resistant Organisms: None Reported Past Surgical History: No Surgical Hx Reported Additional Past Surgical History / Comment(s): draining of pericarditis fluid Past Anesthesia/Blood Transfusion Reactions: No Reported Reaction Past Psychological History: Anxiety, Depression Smoking Status: Current every day smoker Past Alcohol Use History: Abuse, Daily, Heavy Past Drug Use History: None Reported Physical exam: HEENT: Normocephalic, sclerae nonicteric Chest: Clear to auscultation Heart: Regular rate and rhythm Abdomen: [Nontender, nondistendedno guarding or rebound tenderness] Extremities: No edema Neuro: Alert and oriented assessment and plan 73-year-old female with coffee-ground emesis Rule out esophageal varices acute bleed IV Protonix 40 twice a day Carafate daily Patient may also benefit from propanolol to decrease pressure and portal vein I do not recommend an EGD at this time
[2023-08-06] MEDS: D5-0.45% NACL WITH KCL 20MEQ/L 1,000 ML IV SCH (17:18)
[2023-08-06] MEDS: SODIUM CHLORIDE 0.9% 1,000 ML IV SCH (17:18)
[2023-08-06 17:49] LABS: Glucose,Whole Blood 98 mg/dL (70-110)
[2023-08-06] MEDS: INSULIN REGULAR BOLUS (FROM DRIP BAG) IV ONE (17:54)
[2023-08-06 20:20] LABS: Glucose,Whole Blood 103 mg/dL (70-110)
[2023-08-06 21:06] LABS: African American GFR (CKD) >90 (>60 ml/min/1.73 sqM); Anion Gap 12 mmol/L; Blood Urea Nitrogen 10 mg/dL (7-17); Calcium 8.3 mg/dL (8.4-10.2); Carbon Dioxide 23 mmol/L (22-30); Chloride 99 mmol/L (98-107); Glucose 95 mg/dL (74-99); Non-African American GFR(CKD) >90 (>60 ml/min/1.73 sqM); Potassium 4.4 mmol/L (3.5-5.1); Sodium 134 mmol/L (137-145)
[2023-08-06 21:49] LABS: Glucose,Whole Blood 86 mg/dL (70-110)
[2023-08-06] MEDS ORDERED: Phosphorus Replacement Protoco 1 EACH MISC MISCELLANE PRN (21:57)
[2023-08-06 23:03] LABS: Glucose,Whole Blood 96 mg/dL (70-110)
[2023-08-07 00:33] LABS: Glucose,Whole Blood 101 mg/dL (70-110)
[2023-08-07 01:46] LABS: Glucose,Whole Blood 101 mg/dL (70-110)
[2023-08-07 03:35] LABS: Glucose,Whole Blood 113 mg/dL (70-110)
[2023-08-07 06:19] LABS: Glucose,Whole Blood 121 mg/dL (70-110)
[2023-08-07] MEDS: INSULIN REGULAR 100 UNIT in SODIUM CHLORIDE 0.9% 100 ML IV SCH (06:44)
[2023-08-07] MEDS: INSULIN ASPART (NovoLOG) 100 UNIT/ML VIAL SQ SCH (07:36)
[2023-08-07] MEDS: THIAMINE 100 MG TAB PO SCH (07:37)
[2023-08-07 07:46] LABS: Glucose,Whole Blood 133 mg/dL (70-110)
[2023-08-07 08:36] LABS: Anisocytosis Slight; Basophils % (A) 1 %; Eosinophils # (A) 0.1 k/uL (0-0.7); Eosinophils % (A) 3 %; HCT 29.8 % (34.0-46.0); HGB 9.7 gm/dL (11.4-16.0); Lymphocytes # (A) 1.2 k/uL (1.0-4.8); Lymphocytes % (A) 23 %; MCH 29.2 pg (25.0-35.0); MCHC 32.6 g/dL (31.0-37.0); MCV 89.6 fL (80.0-100.0); Mean Platelet Volume 8.7; Monocytes # (A) 0.3 k/uL (0-1.0); Monocytes % (A) 5 %; Neutrophils # (A) 3.5 k/uL (1.3-7.7); Neutrophils % (A) 68 %; RBC 3.33 m/uL (3.80-5.40); RDW 16.5 % (11.5-15.5); WBC 5.2 k/uL (3.8-10.6)
[2023-08-07 08:45] LABS: Platelet Count 64 k/uL (150-450)
--- NOTE | 2023-08-07 08:59 | P.PN ---
Subjective Progress Note Date: 08/07/23 She reports drinking alcohol day of presentation to ER on Tuesday, 3 days ago. Similar episode 2 months ago with EGD done by Dr. Gutiérrez with barretts, hiatal hernia and bleeding. May need repeat upper endoscopy. She reports troubles with swallowing. May need dilation. She reports phlegm. No abdominal pain. PLAN: 1. Repeat upper endoscopy with dilation due to dysphagia. 2. Protonix 40 mg BID 3. May have clear liquid diet in the interim. Objective - Vital Signs Vital signs: Vital Signs Temp 97.7 F 08/07/23 07:51 Pulse 90 08/07/23 07:51 Resp 20 08/07/23 07:51 BP 135/85 08/07/23 07:51 Pulse Ox 95 08/07/23 07:51 FiO2 Intake & Output 08/06/23 08/07/23 08/07/23 18:59 06:59 18:59 Output Total 1100 1200 Balance -1100 -1200 Output: Urine 1100 1200 - Labs CBC & Chem 7: 08/07/23 08:09 08/06/23 20:03 Labs: Abnormal Lab Results - Last 24 Hours (Table) 08/06/23 08/06/23 08/06/23 Range/Units 12:10 12:29 15:20 RBC 3.30 L (3.80-5.40) m/uL Hgb 9.6 L D (11.4-16.0) gm/dL Hct 30.5 L (34.0-46.0) % RDW 17.0 H (11.5-15.5) % Plt Count 88 L (150-450) k/uL VBG pH 7.25 L (7.31-7.41) VBG HCO3 18 L (24-28) mmol/L Sodium (137-145) mmol/L Carbon Dioxide (22-30) mmol/L POC Glucose (mg/dL) (70-110) mg/dL Calcium (8.4-10.2) mg/dL Phosphorus (2.5-4.5) mg/dL Urine Protein 1+ H (Negative) Urine Ketones 3+ H (Negative) Urine Bacteria Rare H (None) /hpf Hyaline Casts 9 H (0-2) /lpf Urine Mucus Rare H (None) /hpf 08/06/23 08/06/23 08/06/23 Range/Units 15:20 15:20 20:03 RBC (3.80-5.40) m/uL Hgb (11.4-16.0) gm/dL Hct (34.0-46.0) % RDW (11.5-15.5) % Plt Count (150-450) k/uL VBG pH 7.28 L (7.31-7.41) VBG HCO3 18 L (24-28) mmol/L Sodium 136 L (137-145) mmol/L Carbon Dioxide 14 L (22-30) mmol/L POC Glucose (mg/dL) (70-110) mg/dL Calcium 8.3 L (8.4-10.2) mg/dL Phosphorus 2.1 L 1.6 L (2.5-4.5) mg/dL Urine Protein (Negative) Urine Ketones (Negative) Urine Bacteria (None) /hpf Hyaline Casts (0-2) /lpf Urine Mucus (None) /hpf 08/06/23 08/07/23 08/07/23 Range/Units 20:03 03:33 06:18 RBC (3.80-5.40) m/uL Hgb (11.4-16.0) gm/dL Hct (34.0-46.0) % RDW (11.5-15.5) % Plt Count (150-450) k/uL VBG pH (7.31-7.41) VBG HCO3 (24-28) mmol/L Sodium 134 L (137-145) mmol/L Carbon Dioxide (22-30) mmol/L POC Glucose (mg/dL) 113 H 121 H (70-110) mg/dL Calcium 8.3 L (8.4-10.2) mg/dL Phosphorus (2.5-4.5) mg/dL Urine Protein (Negative) Urine Ketones (Negative) Urine Bacteria (None) /hpf Hyaline Casts (0-2) /lpf Urine Mucus (None) /hpf 08/07/23 08/07/23 Range/Units 07:34 08:09 RBC 3.33 L (3.80-5.40) m/uL Hgb 9.7 L (11.4-16.0) gm/dL Hct 29.8 L (34.0-46.0) % RDW 16.5 H (11.5-15.5) % Plt Count 64 L (150-450) k/uL VBG pH (7.31-7.41) VBG HCO3 (24-28) mmol/L Sodium (137-145) mmol/L Carbon Dioxide (22-30) mmol/L POC Glucose (mg/dL) 133 H (70-110) mg/dL Calcium (8.4-10.2) mg/dL Phosphorus (2.5-4.5) mg/dL Urine Protein (Negative) Urine Ketones (Negative) Urine Bacteria (None) /hpf Hyaline Casts (0-2) /lpf Urine Mucus (None) /hpf
--- NOTE | 2023-08-07 09:31 | P.PN ---
Subjective This is a pleasant 73 years old female with past medical history of multiple medical problems including Rivera's esophagus, she had EGD twice, second [address] Borges. She is on Protonix and Carafate at home She presents because of persistent nausea vomiting for the last 2 days Yesterday she vomited about 6 times, it says it is a brown like coffee colored. Currently it is more clear. Patient feels something stuck in her epigastric area like her phlegm but she denies chest pain or dyspnea. No coughing. Last bowel movement was about 2 days ago but no abdominal pain no blood in stool or black stool She denies dysuria or urgency but she states that since yesterday she has not been a lot. She is not eating or drinking much She denies dizziness headache weakness or numbness. No blurred vision She smokes about 1 pack/day and she was counseled to quit and she agrees to the nicotine patch She drinks about half pint per day of alcohol and her last drink was yesterday she denies any illicit drugs. She is hemodynamically stable Labs showing mild thrombocytopenia 134 but she has low sodium bicarb at 9 and 7. Which is thought secondary to dehydration and IV fluid. Lipase mildly elevated Urine analysis looks concentrated sample Alcohol level was high 294 on admission EKG shows sinus rhythm at [address]-T changes Patient was started on CIWA protocol and thiamine and normal saline 130 mL/h Patient was started on liquid diet in emergency room 08/07/2023 no more vomiting since yesterday . No chest pain no dyspnea No new complaints Patient has been able at by surgery team and patient may need EGD and repeat dilatation. Placed on liquid diet Continue with Protonix twice a day no signs symptoms of alcohol withdrawal today Objective - Vital Signs Vital signs: Vital Signs Temp 97.7 F 08/07/23 07:51 Pulse 90 08/07/23 07:51 Resp 20 08/07/23 07:51 BP 135/85 08/07/23 07:51 Pulse Ox 95 08/07/23 07:51 FiO2 Intake & Output 08/06/23 08/07/23 08/07/23 18:59 06:59 18:59 Output Total 1100 1200 Balance -1100 -1200 Output: Urine 1100 1200 - Exam GENERAL: The patient is alert and oriented x3, not in any acute distress. Well developed, well nourished. HEENT: Pupils are round and equally reacting to light. EOMI. No scleral icterus. No conjunctival pallor. Normocephalic, atraumatic. No pharyngeal erythema. No thyromegaly. CARDIOVASCULAR: S1 and S2 present. No murmurs, rubs, or gallops. PULMONARY: Chest is clear to auscultation, no wheezing , no crackles. ABDOMEN: Soft, nontender, nondistended, normoactive bowel sounds. No palpable organomegaly. MUSCULOSKELETAL: No joint swelling or deformity. EXTREMITIES: No cyanosis, clubbing, or pedal edema. NEUROLOGICAL: Gross neurological examination did not reveal any focal deficits. SKIN: No rashes. no petechiae. - Labs CBC & Chem 7: 08/07/23 08:09 08/06/23 20:03 Labs: Abnormal Lab Results - Last 24 Hours (Table) 08/06/23 08/06/23 08/06/23 Range/Units 12:10 12:29 15:20 RBC 3.30 L (3.80-5.40) m/uL Hgb 9.6 L D (11.4-16.0) gm/dL Hct 30.5 L (34.0-46.0) % RDW 17.0 H (11.5-15.5) % Plt Count 88 L (150-450) k/uL VBG pH 7.25 L (7.31-7.41) VBG HCO3 18 L (24-28) mmol/L Sodium (137-145) mmol/L Carbon Dioxide (22-30) mmol/L POC Glucose (mg/dL) (70-110) mg/dL Calcium (8.4-10.2) mg/dL Phosphorus (2.5-4.5) mg/dL Urine Protein 1+ H (Negative) Urine Ketones 3+ H (Negative) Urine Bacteria Rare H (None) /hpf Hyaline Casts 9 H (0-2) /lpf Urine Mucus Rare H (None) /hpf 08/06/23 08/06/23 08/06/23 Range/Units 15:20 15:20 20:03 RBC (3.80-5.40) m/uL Hgb (11.4-16.0) gm/dL Hct (34.0-46.0) % RDW (11.5-15.5) % Plt Count (150-450) k/uL VBG pH 7.28 L (7.31-7.41) VBG HCO3 18 L (24-28) mmol/L Sodium 136 L (137-145) mmol/L Carbon Dioxide 14 L (22-30) mmol/L POC Glucose (mg/dL) (70-110) mg/dL Calcium 8.3 L (8.4-10.2) mg/dL Phosphorus 2.1 L 1.6 L (2.5-4.5) mg/dL Urine Protein (Negative) Urine Ketones (Negative) Urine Bacteria (None) /hpf Hyaline Casts (0-2) /lpf Urine Mucus (None) /hpf 08/06/23 08/07/23 08/07/23 Range/Units 20:03 03:33 06:18 RBC (3.80-5.40) m/uL Hgb (11.4-16.0) gm/dL Hct (34.0-46.0) % RDW (11.5-15.5) % Plt Count (150-450) k/uL VBG pH (7.31-7.41) VBG HCO3 (24-28) mmol/L Sodium 134 L (137-145) mmol/L Carbon Dioxide (22-30) mmol/L POC Glucose (mg/dL) 113 H 121 H (70-110) mg/dL Calcium 8.3 L (8.4-10.2) mg/dL Phosphorus (2.5-4.5) mg/dL Urine Protein (Negative) Urine Ketones (Negative) Urine Bacteria (None) /hpf Hyaline Casts (0-2) /lpf Urine Mucus (None) /hpf 08/07/23 08/07/23 Range/Units 07:34 08:09 RBC 3.33 L (3.80-5.40) m/uL Hgb 9.7 L (11.4-16.0) gm/dL Hct 29.8 L (34.0-46.0) % RDW 16.5 H (11.5-15.5) % Plt Count 64 L (150-450) k/uL VBG pH (7.31-7.41) VBG HCO3 (24-28) mmol/L Sodium (137-145) mmol/L Carbon Dioxide (22-30) mmol/L POC Glucose (mg/dL) 133 H (70-110) mg/dL Calcium (8.4-10.2) mg/dL Phosphorus (2.5-4.5) mg/dL Urine Protein (Negative) Urine Ketones (Negative) Urine Bacteria (None) /hpf Hyaline Casts (0-2) /lpf Urine Mucus (None) /hpf Assessment and Plan Assessment: Persistent nausea vomiting with possible coffee-ground vomitus with history of Rivera's esophagus Alcohol intoxication at risk of alcohol withdrawal related to her alcohol use disorder Dehydration with acidemia Mild thrombocytopenia most likely secondary to alcoholic effect Hypertension Hyperlipidemia Nicotine dependence Plan: advance diet to liquids Surgical team considering repeat EGD Continue with IV hydration . Change fluids to D5 normal saline at 75 mL/h Check venous blood gas and pH Surgery team consult Continue with CIWA protocol and thiamine Continue with Protonix and Carafate and increased frequency of Protonix to twice daily There is no GI coverage in this facility this weekend and patient informed and she agrees with the treatment plan Labs and medication were reviewed.. Continue same treatment. Continue with symptomatic treatment. Resume home medication. Monitor labs and vitals. DVT and GI prophylaxis. Further recommendations as per clinical course of the patient DVT prophylaxis:NO Subcutaneous heparin GI Prophylaxis: PPI and Carafate Prognosis is guarded
[2023-08-07 09:39] LABS: ALT 25 U/L (4-34); AST 71 U/L (14-36); African American GFR (CKD) >90 (>60 ml/min/1.73 sqM); Albumin 3.3 g/dL (3.5-5.0); Alkaline Phosphatase 119 U/L (38-126); Anion Gap 9 mmol/L; Blood Urea Nitrogen 6 mg/dL (7-17); Calcium 8.3 mg/dL (8.4-10.2); Carbon Dioxide 30 mmol/L (22-30); Chloride 92 mmol/L (98-107); Glucose 132 mg/dL (74-99); Magnesium 1.4 mg/dL (1.6-2.3); Non-African American GFR(CKD) >90 (>60 ml/min/1.73 sqM); Potassium 3.6 mmol/L (3.5-5.1); Sodium 131 mmol/L (137-145); Total Bilirubin 1.2 mg/dL (0.2-1.3)
[2023-08-07] MEDS: DEXTROSE 5%-0.9% NACL 1,000 ML IV SCH (11:19)
[2023-08-07 11:28] LABS: Glucose,Whole Blood 125 mg/dL (70-110)
[2023-08-07 17:01] LABS: Glucose,Whole Blood 160 mg/dL (70-110)
[2023-08-07 19:11] LABS: Glucose,Whole Blood 152 mg/dL (70-110)
[2023-08-07 20:45] LABS: Glucose,Whole Blood 158 mg/dL (70-110)
[2023-08-08 06:10] LABS: Glucose,Whole Blood 137 mg/dL (70-110)
[2023-08-08 09:19] LABS: Anisocytosis Slight; Basophils % (A) 0 %; Eosinophils # (A) 0.2 k/uL (0-0.7); Eosinophils % (A) 5 %; HCT 28.3 % (34.0-46.0); HGB 9.5 gm/dL (11.4-16.0); Lymphocytes # (A) 0.8 k/uL (1.0-4.8); Lymphocytes % (A) 22 %; MCH 29.6 pg (25.0-35.0); MCHC 33.4 g/dL (31.0-37.0); MCV 88.4 fL (80.0-100.0); Mean Platelet Volume 9.2; Monocytes # (A) 0.2 k/uL (0-1.0); Monocytes % (A) 6 %; Neutrophils # (A) 2.4 k/uL (1.3-7.7); Neutrophils % (A) 65 %; RBC 3.21 m/uL (3.80-5.40); RDW 16.4 % (11.5-15.5); WBC 3.6 k/uL (3.8-10.6)
[2023-08-08 09:38] LABS: Platelet Count 53 k/uL (150-450)
[2023-08-08 09:39] LABS: ALT 44 U/L (4-34); AST 146 U/L (14-36); African American GFR (CKD) >90 (>60 ml/min/1.73 sqM); Alkaline Phosphatase 107 U/L (38-126); Anion Gap 4 mmol/L; Bilirubin, Delta 0.4 mg/dL (0.0-0.2); Bilirubin,Unconjugated 0.9 mg/dL (0.0-1.1); Blood Urea Nitrogen 3 mg/dL (7-17); Calcium 8.5 mg/dL (8.4-10.2); Carbon Dioxide 35 mmol/L (22-30); Chloride 96 mmol/L (98-107); Glucose 136 mg/dL (74-99); Magnesium 1.1 mg/dL (1.6-2.3); Non-African American GFR(CKD) >90 (>60 ml/min/1.73 sqM); Potassium 2.8 mmol/L (3.5-5.1); Sodium 135 mmol/L (137-145); Total Bilirubin 1.3 mg/dL (0.2-1.3); Total Protein 5.9 g/dL (6.3-8.2)
[2023-08-08] MEDS ORDERED: Potassium Replacement Protocol 1 EACH MISC MISCELLANE PRN (10:29)
[2023-08-08 10:55] LABS: % Iron Saturation 71.15 (12.00-45.00)
[2023-08-08 11:41] LABS: Glucose,Whole Blood 134 mg/dL (70-110)
[2023-08-08] MEDS: POTASSIUM CHLORIDE 10 MEQ in WATER FOR INJECTION 1 100ML.BAG IVPB SCH (11:42)
[2023-08-08] MEDS ORDERED: PROPOFOL 10 MG/ML 20 ML VIAL IV ONE (13:13)
[2023-08-08] MEDS ORDERED: LIDOCAINE 1% INJ 10MG/ML (20 ML MDV) ONE (13:13)
[2023-08-08] MEDS: LACTATED RINGERS 1,000 ML IV ONE ×2 (13:16→13:24)
--- NOTE | 2023-08-08 13:45 | P.PN ---
Subjective Progress Note Date: 08/08/23 This is a pleasant 73 years old female with past medical history of multiple medical problems including Rivera's esophagus, she had EGD twice, second [address] Borges. She is on Protonix and Carafate at home She presents because of persistent nausea vomiting for the last 2 days Yesterday she vomited about 6 times, it says it is a brown like coffee colored. Currently it is more clear. Patient feels something stuck in her epigastric area like her phlegm but she denies chest pain or dyspnea. No coughing. Last bowel movement was about 2 days ago but no abdominal pain no blood in stool or black stool She denies dysuria or urgency but she states that since yesterday she has not been a lot. She is not eating or drinking much She denies dizziness headache weakness or numbness. No blurred vision She smokes about 1 pack/day and she was counseled to quit and she agrees to the nicotine patch She drinks about half pint per day of alcohol and her last drink was yesterday she denies any illicit drugs. She is hemodynamically stable Labs showing mild thrombocytopenia 134 but she has low sodium bicarb at 9 and 7. Which is thought secondary to dehydration and IV fluid. Lipase mildly elevated Urine analysis looks concentrated sample Alcohol level was high 294 on admission EKG shows sinus rhythm at [address]-T changes Patient was started on CIWA protocol and thiamine and normal saline 130 mL/h Patient was started on liquid diet in emergency room 08/07/2023 no more vomiting since yesterday . No chest pain no dyspnea No new complaints Patient has been able at by surgery team and patient may need EGD and repeat dilatation. Placed on liquid diet Continue with Protonix twice a day no signs symptoms of alcohol withdrawal today 08/07. Patient seen and examined. Blood work done this morning showed WBC 3.6, hemoglobin 9.5, platelet count 53, sodium 135, potassium 2.8. Potassium replacement ordered. Complaining of occasional epigastric pain. Complaining of reflux. Currently n.p.o., going for EGD today REVIEW OF SYSTEMS: CONSTITUTIONAL: No fever, no malaise,. CARDIOVASCULAR: No chest pain, no palpitations, no syncope. PULMONARY: No shortness of breath, no cough, GASTROINTESTINAL: No diarrhea, no nausea, no vomiting, no abdominal pain. NEUROLOGICAL: No headaches, no weakness, PHYSICAL EXAMINATION: GENERAL: The patient is alert and oriented x3, not in any acute distress. Well developed, well nourished. HEENT: Pupils are round and equally reacting to light. EOMI. No scleral icterus. No conjunctival pallor. Normocephalic, atraumatic. No pharyngeal erythema. No thyromegaly. CARDIOVASCULAR: S1 and S2 present. No murmurs, rubs, or gallops. PULMONARY: Chest is clear to auscultation, no wheezing or crackles. ABDOMEN: Soft, nontender, nondistended, normoactive bowel sounds. No palpable organomegaly. MUSCULOSKELETAL: No joint swelling or deformity. EXTREMITIES: No cyanosis, clubbing, or pedal edema. NEUROLOGICAL: Gross neurological examination did not reveal any focal deficits. SKIN: No rashes. Assessment and plan Persistent nausea vomiting with possible coffee-ground vomitus with history of Rivera's esophagus Alcohol intoxication at risk of alcohol withdrawal related to her alcohol use disorder Dehydration with acidemia Mild thrombocytopenia most likely secondary to alcoholic effect Hypertension Hyperlipidemia Nicotine dependence Monitor vital signs Monitor CBC Monitor CMP Continue with CIWA protocol and thiamine Continue with Protonix and Carafate Potassium this morning is 2.8, replacement ordered Surgery following, planning EGD today Labs and medication were reviewed.. Continue same treatment. Continue with symptomatic treatment. Resume home medication. Monitor labs and vitals. DVT and GI prophylaxis. Further recommendations as per clinical course of the patient Dictation was produced using [employer] dictation software. please excuse any grammatical, word or spelling errors. Objective - Vital Signs Vital signs: Vital Signs Temp 98.7 F 08/07/23 21:48 Pulse 106 H 08/08/23 03:40 Resp 16 08/08/23 03:40 BP 118/68 08/08/23 03:40 Pulse Ox 93 L 08/08/23 03:40 FiO2 Intake & Output 08/07/23 08/08/23 08/08/23 18:59 06:59 18:59 Output Total 1400 1400 Balance -1400 -1400 Weight 54.431 kg Output: Urine 1400 1400 Other: Voiding Method Indwelling Catheter - Labs CBC & Chem 7: 08/08/23 08:27 08/08/23 08:27 Labs: Abnormal Lab Results - Last 24 Hours (Table) 08/07/23 08/07/23 08/07/23 Range/Units 11:17 16:59 19:09 WBC (3.8-10.6) k/uL RBC (3.80-5.40) m/uL Hgb (11.4-16.0) gm/dL Hct (34.0-46.0) % RDW (11.5-15.5) % Plt Count (150-450) k/uL Lymphocytes # (1.0-4.8) k/uL Sodium (137-145) mmol/L Potassium (3.5-5.1) mmol/L Chloride (98-107) mmol/L Carbon Dioxide (22-30) mmol/L BUN (7-17) mg/dL Creatinine (0.52-1.04) mg/dL Glucose (74-99) mg/dL POC Glucose (mg/dL) 125 H 160 H 152 H (70-110) mg/dL Magnesium (1.6-2.3) mg/dL Delta Bilirubin (0.0-0.2) mg/dL AST (14-36) U/L ALT (4-34) U/L Total Protein (6.3-8.2) g/dL Albumin (3.5-5.0) g/dL 08/07/23 08/08/23 08/08/23 Range/Units 20:45 06:09 08:27 WBC 3.6 L (3.8-10.6) k/uL RBC 3.21 L (3.80-5.40) m/uL Hgb 9.5 L (11.4-16.0) gm/dL Hct 28.3 L (34.0-46.0) % RDW 16.4 H (11.5-15.5) % Plt Count 53 L (150-450) k/uL Lymphocytes # 0.8 L (1.0-4.8) k/uL Sodium (137-145) mmol/L Potassium (3.5-5.1) mmol/L Chloride (98-107) mmol/L Carbon Dioxide (22-30) mmol/L BUN (7-17) mg/dL Creatinine (0.52-1.04) mg/dL Glucose (74-99) mg/dL POC Glucose (mg/dL) 158 H 137 H (70-110) mg/dL Magnesium (1.6-2.3) mg/dL Delta Bilirubin (0.0-0.2) mg/dL AST (14-36) U/L ALT (4-34) U/L Total Protein (6.3-8.2) g/dL Albumin (3.5-5.0) g/dL 08/08/23 Range/Units 08:27 WBC (3.8-10.6) k/uL RBC (3.80-5.40) m/uL Hgb (11.4-16.0) gm/dL Hct (34.0-46.0) % RDW (11.5-15.5) % Plt Count (150-450) k/uL Lymphocytes # (1.0-4.8) k/uL Sodium 135 L (137-145) mmol/L Potassium 2.8 L (3.5-5.1) mmol/L Chloride 96 L (98-107) mmol/L Carbon Dioxide 35 H (22-30) mmol/L BUN 3 L (7-17) mg/dL Creatinine 0.39 L (0.52-1.04) mg/dL Glucose 136 H (74-99) mg/dL POC Glucose (mg/dL) (70-110) mg/dL Magnesium 1.1 L (1.6-2.3) mg/dL Delta Bilirubin 0.4 H (0.0-0.2) mg/dL AST 146 H (14-36) U/L ALT 44 H (4-34) U/L Total Protein 5.9 L (6.3-8.2) g/dL Albumin 3.0 L (3.5-5.0) g/dL
--- NOTE | 2023-08-08 13:59 | P.PCN ---
Date of Procedure: 08/08/23 Description of Procedure: PREOPERATIVE DIAGNOSIS: Acute gastrointestinal bleeding Gastrointestinal bleed Dysphagia POSTOPERATIVE DIAGNOSIS: Gastritis with bleeding Diaphragmatic hiatal hernia Gastroesophageal reflux disease with Rivera's esophagus OPERATION: Esophagogastroduodenoscopy SURGEON: Char Jara MD ANESTHESIA: MAC. INDICATIONS: The patient is a 73-year-old female who presents with gastrointestinal bleeding and dysphagia. Benefits and risks of the procedure were described. Informed consent was obtained. DESCRIPTION: The patient was brought into the endoscopy suite and laid in the left lateral decubitus position. An Olympus gastroscope was passed along the posterior oropharynx down to the distal esophagus where the squamocolumnar junction was encountered at 33 cm from the incisors. The stomach was entered and no bile reflux was found. Additional findings are listed below. The first through third portion of the duodenum was examined and unremarkable. Retroflexion of the scope confirmed Hill grade 2 lower esophageal valve. The squamocolumnar junction demonstrated LA grade B erosive esophagitis. The stomach was desufflated. The patient tolerated the procedure well. FINDINGS: Squamocolumnar junction 38 cm from the incisors. Diaphragmatic hiatus at 41 cm. Rivera's esophagus 35 cm from the incisors to 41 cm from the incisors, 6 cm Hiatal hernia, 3 cm Hill grade 4 lower esophageal valve. LA grade D erosive esophagitis. No active duodenitis. Inflammation with bleeding gastric cardia from gastritis RECOMMENDATIONS: 1. Diet as tolerated 2. To Rivera's esophagus, continue Protonix 40 mg twice daily and Carafate 1 g twice daily 3. Recommend repeat upper endoscopy with possible dilation in 4 to 6 weeks
[2023-08-08] MEDS: PRAVASTATIN SODIUM 20 MG TAB PO SCH (14:02)
[2023-08-08 14:06] VITALS: BMI 20.5
[2023-08-08 16:19] LABS: Glucose,Whole Blood 123 mg/dL (70-110)
[2023-08-08] MEDS: POTASSIUM CHLORIDE ER 20 MEQ TAB.ER PO SCH (16:51)
[2023-08-08] MEDS: MONTELUKAST 10 MG TAB PO SCH (20:18)
[2023-08-08 20:23] LABS: Glucose,Whole Blood 103 mg/dL (70-110)
[2023-08-09] MEDS: MAGNESIUM SULFATE-D5W PMX 1 GM in DEXTROSE/WATER 1 100ML.BAG IVPB SCH (02:57)
[2023-08-09 05:59] LABS: Glucose,Whole Blood 126 mg/dL (70-110)
[2023-08-09 10:26] LABS: Anisocytosis Slight; Basophils % (A) 0 %; Eosinophils # (A) 0.2 k/uL (0-0.7); Eosinophils % (A) 5 %; HCT 34.5 % (34.0-46.0); Hypochromasia Slight; Lymphocytes # (A) 0.8 k/uL (1.0-4.8); Lymphocytes % (A) 16 %; MCH 29.5 pg (25.0-35.0); MCV 92.1 fL (80.0-100.0); Mean Platelet Volume 10.5; Monocytes # (A) 0.4 k/uL (0-1.0); Monocytes % (A) 9 %; Neutrophils # (A) 3.4 k/uL (1.3-7.7); Neutrophils % (A) 67 %; RBC 3.75 m/uL (3.80-5.40); RDW 16.1 % (11.5-15.5)
[2023-08-09 10:37] LABS: ALT 76 U/L (4-34); AST 256 U/L (14-36); African American GFR (CKD) >90 (>60 ml/min/1.73 sqM); Albumin 3.9 g/dL (3.5-5.0); Alkaline Phosphatase 126 U/L (38-126); Anion Gap 9 mmol/L; Blood Urea Nitrogen 3 mg/dL (7-17); Calcium 8.9 mg/dL (8.4-10.2); Carbon Dioxide 31 mmol/L (22-30); Chloride 94 mmol/L (98-107); Glucose 153 mg/dL (74-99); Non-African American GFR(CKD) >90 (>60 ml/min/1.73 sqM); Potassium 3.4 mmol/L (3.5-5.1); Sodium 134 mmol/L (137-145); Total Protein 6.9 g/dL (6.3-8.2)
[2023-08-09 10:53] LABS: Platelet Count 67 k/uL (150-450)
[2023-08-09 11:55] LABS: Glucose,Whole Blood 113 mg/dL (70-110)
--- NOTE | 2023-08-09 12:16 | P.PN ---
Subjective Progress Note Date: 08/09/23 CHIEF COMPLAINT: GI bleed HISTORY OF PRESENT ILLNESS: The patient is a 73-year-old female who presents wi th gastrointestinal bleeding and dysphagia. Patient is status post EGD revealing gastritis with bleeding, diaphragmatic hiatal hernia, GERD with Rivera's esophagus. Patient is tolerating diet. Denies abdominal pain. Denies any nausea or vomiting. Afebrile. Hemoglobin is up from 9.5-11.0 potas sium 3.4 PHYSICAL EXAM: VITAL SIGNS: Reviewed GENERAL: Well-developed in no acute distress. HEENT: No sclera icterus. Extraocular movements grossly intact. Moist buccal mucosa. Head is atraumatic, normocephalic. Hears conversational speech. No nasal drainage. NECK: Supple without lymphadenopathy. CHEST: Non-labored respirations and equal bilateral excursions. CARDIOVASCULAR: Palpable 2+ radial pulses. ABDOMEN: Soft. Nondistended. Nontender. MUSCULOSKELETAL: No clubbing or cyanosis. NEUROLOGIC: No focal or lateralizing signs. Cranial nerves II through XII grossly intact. PSYCH: Appropriate affect. Alert and oriented to person, place and time. SKIN: Well perfused. Good skin turgor. ASSESSMENT: Gastritis with bleeding Diaphragmatic hiatal hernia Gastroesophageal reflux disease with Rivera's esophagus PLAN: -Patient can be discharged from surgical standpoint -Continue Protonix and Carafate at discharge -Recommend repeat upper endoscopy with possible dilation in 4 to 6 weeks -No surgical intervention planned at this time -Recommend alcohol cessation Physician Lay Out Former note has been reviewed by physician. Signing provider agrees with the documented findings, assessment, and plan of care. Objective - Vital Signs Vital signs: Vital Signs Temp 99 F 08/09/23 11:39 Pulse 77 08/09/23 11:39 Resp 20 08/09/23 11:39 BP 119/76 08/09/23 11:39 Pulse Ox 96 08/09/23 11:39 FiO2 Intake & Output 08/08/23 08/09/23 08/09/23 18:59 06:59 18:59 Intake Total 280 240 Output Total 1300 2950 Balance -1020 -2950 240 Weight 54.431 kg Intake: IV 100 Oral 180 240 Output: Urine 1300 2950 Other: Voiding Method Indwelling Catheter Indwelling Catheter Indwelling Catheter - Labs CBC & Chem 7: 08/09/23 09:21 08/09/23 09:21 Labs: Abnormal Lab Results - Last 24 Hours (Table) 08/08/23 08/09/23 08/09/23 Range/Units 16:18 05:58 09:21 RBC 3.75 L (3.80-5.40) m/uL Hgb 11.0 L (11.4-16.0) gm/dL RDW 16.1 H (11.5-15.5) % Plt Count 67 L (150-450) k/uL Lymphocytes # 0.8 L (1.0-4.8) k/uL Sodium (137-145) mmol/L Potassium (3.5-5.1) mmol/L Chloride (98-107) mmol/L Carbon Dioxide (22-30) mmol/L BUN (7-17) mg/dL Creatinine (0.52-1.04) mg/dL Glucose (74-99) mg/dL POC Glucose (mg/dL) 123 H 126 H (70-110) mg/dL AST (14-36) U/L ALT (4-34) U/L 08/09/23 08/09/23 Range/Units 09:21 11:48 RBC (3.80-5.40) m/uL Hgb (11.4-16.0) gm/dL RDW (11.5-15.5) % Plt Count (150-450) k/uL Lymphocytes # (1.0-4.8) k/uL Sodium 134 L (137-145) mmol/L Potassium 3.4 L (3.5-5.1) mmol/L Chloride 94 L (98-107) mmol/L Carbon Dioxide 31 H (22-30) mmol/L BUN 3 L (7-17) mg/dL Creatinine 0.43 L (0.52-1.04) mg/dL Glucose 153 H (74-99) mg/dL POC Glucose (mg/dL) 113 H (70-110) mg/dL AST 256 H (14-36) U/L ALT 76 H (4-34) U/L
--- NOTE | 2023-08-09 13:06 | P.PN ---
Subjective Progress Note Date: 08/09/23 This is a pleasant 73 years old female with past medical history of multiple medical problems including Rivera's esophagus, she had EGD twice, second [address] Borges. She is on Protonix and Carafate at home She presents because of persistent nausea vomiting for the last 2 days Yesterday she vomited about 6 times, it says it is a brown like coffee colored. Currently it is more clear. Patient feels something stuck in her epigastric area like her phlegm but she denies chest pain or dyspnea. No coughing. Last bowel movement was about 2 days ago but no abdominal pain no blood in stool or black stool She denies dysuria or urgency but she states that since yesterday she has not been a lot. She is not eating or drinking much She denies dizziness headache weakness or numbness. No blurred vision She smokes about 1 pack/day and she was counseled to quit and she agrees to the nicotine patch She drinks about half pint per day of alcohol and her last drink was yesterday she denies any illicit drugs. She is hemodynamically stable Labs showing mild thrombocytopenia 134 but she has low sodium bicarb at 9 and 7. Which is thought secondary to dehydration and IV fluid. Lipase mildly elevated Urine analysis looks concentrated sample Alcohol level was high 294 on admission EKG shows sinus rhythm at [address]-T changes Patient was started on CIWA protocol and thiamine and normal saline 130 mL/h Patient was started on liquid diet in emergency room 08/07/2023 no more vomiting since yesterday . No chest pain no dyspnea No new complaints Patient has been able at by surgery team and patient may need EGD and repeat dilatation. Placed on liquid diet Continue with Protonix twice a day no signs symptoms of alcohol withdrawal today 08/07. Patient seen and examined. Blood work done this morning showed WBC 3.6, hemoglobin 9.5, platelet count 53, sodium 135, potassium 2.8. Potassium replacement ordered. Complaining of occasional epigastric pain. Complaining of reflux. Currently n.p.o., going for EGD today 08/08. Patient seen examined. EGD done showed Squamocolumnar junction 38 cm from the incisors,Diaphragmatic hiatus at 41 cm, Rivera's esophagus 35 cm from the incisors to 41 cm from the incisors, Hiatal hernia, Hill grade 4 lower esophageal valve. LA grade D erosive esophagitis.No active duodenitis. Inflammation with bleeding gastric cardia from gastritis. Patient is complaint lethargy and weakness. PT and OT recommend rehab REVIEW OF SYSTEMS: CONSTITUTIONAL: No fever, no malaise,. CARDIOVASCULAR: No chest pain, no palpitations, no syncope. PULMONARY: No shortness of breath, no cough, GASTROINTESTINAL: No diarrhea, no nausea, no vomiting, no abdominal pain. NEUROLOGICAL: No headaches, no weakness, PHYSICAL EXAMINATION: GENERAL: The patient is alert and oriented x3, not in any acute distress. Well developed, well nourished. HEENT: Pupils are round and equally reacting to light. EOMI. No scleral icterus. No conjunctival pallor. Normocephalic, atraumatic. No pharyngeal erythema. No thyromegaly. CARDIOVASCULAR: S1 and S2 present. No murmurs, rubs, or gallops. PULMONARY: Chest is clear to auscultation, no wheezing or crackles. ABDOMEN: Soft, nontender, nondistended, normoactive bowel sounds. No palpable organomegaly. MUSCULOSKELETAL: No joint swelling or deformity. EXTREMITIES: No cyanosis, clubbing, or pedal edema. NEUROLOGICAL: Gross neurological examination did not reveal any focal deficits. SKIN: No rashes. Assessment and plan Persistent nausea vomiting with possible coffee-ground vomitus with history of Rivera's esophagus Alcohol intoxication at risk of alcohol withdrawal related to her alcohol use disorder Dehydration with acidemia Mild thrombocytopenia most likely secondary to alcoholic effect Hypertension Hyperlipidemia Nicotine dependence Monitor vital signs Monitor CBC Monitor CMP Continue with CIWA protocol and thiamine Continue with Protonix and Carafate Potassium this morning is 2.8, replacement ordered EGD done showed Squamocolumnar junction 38 cm from the incisors,Diaphragmatic hiatus at 41 cm, Rivera's esophagus 35 cm from the incisors to 41 cm from the incisors, Hiatal hernia, Hill grade 4 lower esophageal valve. LA grade D erosive esophagitis.No active duodenitis. Inflammation with bleeding gastric cardia from gastritis Surgery following, recommend repeat EGD in 4 to 6 weeks with dilatation PT and OT recommend rehab Labs and medication were reviewed.. Continue same treatment. Continue with symptomatic treatment. Resume home medication. Monitor labs and vitals. DVT and GI prophylaxis. Further recommendations as per clinical course of the patient Dictation was produced using [employer] software. please excuse any grammatical, word or spelling errors. Objective - Vital Signs Vital signs: Vital Signs Temp 97.8 F 08/09/23 04:00 Pulse 94 08/09/23 04:13 Resp 18 08/09/23 04:13 BP 138/84 08/09/23 04:00 Pulse Ox 96 08/09/23 04:00 FiO2 Intake & Output 08/08/23 08/09/23 08/09/23 18:59 06:59 18:59 Intake Total 280 240 Output Total 1300 2950 Balance -1020 -2950 240 Weight 54.431 kg Intake: IV 100 Oral 180 240 Output: Urine 1300 2950 Other: Voiding Method Indwelling Catheter Indwelling Catheter - Labs CBC & Chem 7: 08/09/23 09:21 08/09/23 09:21 Labs: Abnormal Lab Results - Last 24 Hours (Table) 08/07/23 08/08/23 08/08/23 Range/Units 08:09 11:40 16:18 POC Glucose (mg/dL) 134 H 123 H (70-110) mg/dL Iron 217 H (50-170) UG/DL % Saturation 71.15 H (12.00-45.00) 08/09/23 Range/Units 05:58 POC Glucose (mg/dL) 126 H (70-110) mg/dL Iron (50-170) UG/DL % Saturation (12.00-45.00)
[2023-08-09] MEDS: POTASSIUM CHLORIDE ER 20 MEQ TAB.ER PO STA (13:15)
[2023-08-09 16:45] LABS: Glucose,Whole Blood 113 mg/dL (70-110)
[2023-08-09 20:07] LABS: Glucose,Whole Blood 111 mg/dL (70-110)
[2023-08-09] MEDS: hydrOXYzine HCL 25 MG TAB PO PRN (21:12)
[2023-08-10 05:59] LABS: Glucose,Whole Blood 105 mg/dL (70-110)
[2023-08-10 07:39] VITALS: RESP 18
[2023-08-10 11:40] LABS: Glucose,Whole Blood 80 mg/dL (70-110)
[2023-08-10 11:44] LABS: African American GFR (CKD) >90 (>60 ml/min/1.73 sqM); Anion Gap 4 mmol/L; Blood Urea Nitrogen 3 mg/dL (7-17); Calcium 8.7 mg/dL (8.4-10.2); Carbon Dioxide 31 mmol/L (22-30); Chloride 101 mmol/L (98-107); Glucose 95 mg/dL (74-99); Magnesium 1.5 mg/dL (1.6-2.3); Non-African American GFR(CKD) >90 (>60 ml/min/1.73 sqM); Potassium 3.8 mmol/L (3.5-5.1); Sodium 136 mmol/L (137-145)
[2023-08-10 12:00] VITALS: BP 143/84; PULSE 101; TEMP 98.3
--- NOTE | 2023-08-10 12:36 | P.DS ---
Providers Date of admission: 08/06/23 14:36 Expected date of discharge: 08/10/23 Attending physician: Babak Blackwood MD Consults: 08/06/23 11:27 Consult Physician Urgent Consulting Provider: Char Jara Consult Reason/Comments: Coffee-ground vomiting Do you want consulting provider notified?: Yes Primary care physician: Gail Davis MD Hospital Course: Discharge diagnoses; Persistent nausea vomiting with possible coffee-ground vomitus with history of Rivera's esophagus Alcohol intoxication at risk of alcohol withdrawal related to her alcohol use disorder Dehydration with acidemia Mild thrombocytopenia most likely secondary to alcoholic effect Hypertension Hyperlipidemia Nicotine dependence Hospital course; This is a pleasant 73 years old female with past medical history of multiple medical problems including Rivera's esophagus, she had EGD twice, second [address] Borges. She is on Protonix and Carafate at home She presents because of persistent nausea vomiting for the last 2 days Yesterday she vomited about 6 times, it says it is a brown like coffee colored. Currently it is more clear. Patient feels something stuck in her epigastric area like her phlegm but she denies chest pain or dyspnea. No coughing. Last bowel movement was about 2 days ago but no abdominal pain no blood in stool or black stool She denies dysuria or urgency but she states that since yesterday she has not been a lot. She is not eating or drinking much She denies dizziness headache weakness or numbness. No blurred vision She smokes about 1 pack/day and she was counseled to quit and she agrees to the nicotine patch She drinks about half pint per day of alcohol and her last drink was yesterday she denies any illicit drugs. She is hemodynamically stable Labs showing mild thrombocytopenia 134 but she has low sodium bicarb at 9 and 7. Which is thought secondary to dehydration and IV fluid. Lipase mildly elevated Urine analysis looks concentrated sample Alcohol level was high 294 on admission EKG shows sinus rhythm at [address]-T changes Patient was started on CIWA protocol and thiamine and normal saline 130 mL/h Patient was started on liquid diet in emergency room 08/07/2023 no more vomiting since yesterday . No chest pain no dyspnea No new complaints Patient has been able at by surgery team and patient may need EGD and repeat dilatation. Placed on liquid diet Continue with Protonix twice a day no signs symptoms of alcohol withdrawal today 08/07. Patient seen and examined. Blood work done this morning showed WBC 3.6, hemoglobin 9.5, platelet count 53, sodium 135, potassium 2.8. Potassium replacement ordered. Complaining of occasional epigastric pain. Complaining of reflux. Currently n.p.o., going for EGD today 08/08. Patient seen examined. EGD done showed Squamocolumnar junction 38 cm from the incisors,Diaphragmatic hiatus at 41 cm, Rivera's esophagus 35 cm from the incisors to 41 cm from the incisors, Hiatal hernia, Hill grade 4 lower esophageal valve. LA grade D erosive esophagitis.No active duodenitis. Inflammation with bleeding gastric cardia from gastritis. Patient is complaint lethargy and weakness. PT and OT recommend rehab 08/09. Patient seen and examined. Currently waiting on rehab. Surgery recommend repeating EGD with dilatation in 4 to 6-week. Discharged to rehab in stable condition PHYSICAL EXAMINATION: GENERAL: The patient is alert and oriented x3, not in any acute distress. Well developed, well nourished. HEENT: Pupils are round and equally reacting to light. EOMI. No scleral icterus. No conjunctival pallor. Normocephalic, atraumatic. No pharyngeal erythema. No thyromegaly. CARDIOVASCULAR: S1 and S2 present. No murmurs, rubs, or gallops. PULMONARY: Chest is clear to auscultation, no wheezing or crackles. ABDOMEN: Soft, nontender, nondistended, normoactive bowel sounds. No palpable organomegaly. MUSCULOSKELETAL: No joint swelling or deformity. EXTREMITIES: No cyanosis, clubbing, or pedal edema. NEUROLOGICAL: Gross neurological examination did not reveal any focal deficits. SKIN: No rashes. Dictation was produced using [employer] dictation software. please excuse any g rammatical, word or spelling errors. Patient Condition at Discharge: Stable Plan - Discharge Summary Discharge Rx Participant: No New Discharge Prescriptions: New Tamsulosin [Flomax] 0.4 mg PO PC-BRKFST #30 cap hydrOXYzine HCL [Atarax] 25 mg PO TID PRN tab PRN Reason: Anxiety Thiamine [Vitamin B-1] 100 mg PO DAILY #0 tab Continue Albuterol Inhaler [Ventolin Hfa Inhaler] 2 puff INHALATION DIRECTED PRN PRN Reason: Shortness Of Breath Montelukast [Singulair] 10 mg PO DIRECTED Multivit-Min/Iron/Folic/Lutein [Centrum Silver Women Tablet] 1 tab PO DAILY Sucralfate [Carafate] 1 gm PO AC-TID 90 Days #90 tab Budesonide/Formoterol Fumarate [Symbicort 160-4.5 Mcg Inhaler] 2 puff INHALATION DIRECTED Pravastatin Sodium [Pravachol] 20 mg PO DAILY Changed Pantoprazole [Protonix] 40 mg PO BID #60 tab Discharge Medication List Sucralfate [Carafate] 1 gm PO AC-TID 90 Days #90 tab 06/07/23 [Rx] Albuterol Inhaler [Ventolin Hfa Inhaler] 2 puff INHALATION DIRECTED PRN 08/06/23 [History] Budesonide/Formoterol Fumarate [Symbicort 160-4.5 Mcg Inhaler] 2 puff INHALATION DIRECTED 08/06/23 [History] Montelukast [Singulair] 10 mg PO DIRECTED 08/06/23 [History] Multivit-Min/Iron/Folic/Lutein [Centrum Silver Women Tablet] 1 tab PO DAILY 08/06/23 [History] Pravastatin Sodium [Pravachol] 20 mg PO DAILY 08/06/23 [History] Pantoprazole [Protonix] 40 mg PO BID #60 tab 08/10/23 [Rx] Tamsulosin [Flomax] 0.4 mg PO PC-BRKFST #30 cap 08/10/23 [Rx] Thiamine [Vitamin B-1] 100 mg PO DAILY #0 tab 08/10/23 [Rx] hydrOXYzine HCL [Atarax] 25 mg PO TID PRN tab 08/10/23 [Rx] Follow up Appointment(s)/Referral(s): Gail Davis MD [Primary Care Provider] - 1-2 days Char Jara MD [STAFF PHYSICIAN] - 1 Week [facility], [NON-STAFF] -
--- NOTE | 2023-08-10 13:35 | P.PN ---
Subjective Progress Note Date: 08/10/23 CHIEF COMPLAINT: GI bleed HISTORY OF PRESENT ILLNESS: The patient is a 73-year-old female who presents wi th gastrointestinal bleeding and dysphagia. Patient is status post EGD revealing gastritis with bleeding, diaphragmatic hiatal hernia, GERD with Rivera's esophagus. Patient is tolerating diet. Denies abdominal pain. Denies any nausea or vomiting. Afebrile. [facility] PHYSICAL EXAM: VITAL SIGNS: Reviewed GENERAL: Well-developed in no acute distress. HEENT: No sclera icterus. Extraocular movements grossly intact. Moist buccal mucosa. Head is atraumatic, normocephalic. Hears conversational speech. No nasal drainage. NECK: Supple without lymphadenopathy. CHEST: Non-labored respirations and equal bilateral excursions. CARDIOVASCULAR: Palpable 2+ radial pulses. ABDOMEN: Soft. Nondistended. Nontender. MUSCULOSKELETAL: No clubbing or cyanosis. NEUROLOGIC: No focal or lateralizing signs. Cranial nerves II through XII grossly intact. PSYCH: Appropriate affect. Alert and oriented to person, place and time. SKIN: Well perfused. Good skin turgor. ASSESSMENT: Gastritis with bleeding Diaphragmatic hiatal hernia Gastroesophageal reflux disease with Rivera's esophagus PLAN: -Patient can be discharged from surgical standpoint -Continue Protonix and Carafate at discharge -Recommend repeat upper endoscopy with possible dilation in 4 to 6 weeks -No surgical intervention planned at this time -Recommend alcohol cessation Physician Program Development Specialist note has been reviewed by physician. Signing provider agrees with the documented findings, assessment, and plan of care. Objective - Vital Signs Vital signs: Vital Signs Temp 98.3 F 08/10/23 11:30 Pulse 101 H 08/10/23 11:30 Resp 18 08/10/23 11:30 BP 143/84 08/10/23 11:30 Pulse Ox 96 08/10/23 11:30 FiO2 Intake & Output 08/09/23 08/10/23 08/10/23 18:59 06:59 18:59 Intake Total 1358 360 Output Total 1400 1999 800 Balance -440 Intake: Intake, IV Titration 1000 Amount Dextrose 5%-0.9% NaCl 1, 900 000 ml @ 75 mls/hr IV . [id number] [facility] Rx#:[id number] Magnesium Sulfate-D5w Pmx 100 1 gm In Dextrose/Water 1 100ml.bag @ 100 mls/hr IVPB Q1H [facility] Rx#: [id number] Oral 358 360 Output: Urine 1400 2000 800 Other: Voiding Method Indwelling Catheter Indwelling Catheter Indwelling Catheter # Bowel Movements 1 - Labs CBC & Chem 7: 08/09/23 09:21 08/10/23 10:38 Labs: Abnormal Lab Results - Last 24 Hours (Table) 08/09/23 08/09/23 08/10/23 Range/Units 16:44 20:06 10:38 Sodium 136 L (137-145) mmol/L Carbon Dioxide 31 H (22-30) mmol/L BUN 3 L (7-17) mg/dL Creatinine 0.45 L (0.52-1.04) mg/dL POC Glucose (mg/dL) 113 H 111 H (70-110) mg/dL Magnesium 1.5 L (1.6-2.3) mg/dL
--- NOTE | 2023-08-12 07:59 | CDI ---
Date: From: Filomena Talbert Phone: [phone] Admit Date: 08/06/2023 02:36:00 PM Patient Name: Fatou Rubio Visit Number: [id number] Discharge Date: 08/10/2023 03:13:00 PM ATTENTION: The Clinical Documentation Specialists (CDI) and [facility] Coding Staff appreciate your assistance in clarifying documentation. Please respond to the clarification below the line at the bottom and electronically sign. The CDI & [facility] Coding staff will review the response and follow-up if needed. Please note: Queries are made part of the Legal Health Record. If you have any questions, please contact the author of this message via ITS. Dr. Yung Andrea: DKA is documented in the H&P addendum on 08/05 but is not noted in subsequent documentation. Clarification is requested. History/Risk Factors: GERD, Reflux, HTN, Barretts Esophagus who presents with persistent nausea and vomiting with possible coffee ground emesis, alcohol intoxication and dehydration Clinical Indicators: 08/04 Triage VS: 121/86, 99.1, 99, 20, 99% room air 08/05 H&P, Addendum: "Acetone came back positive, patient probably has DKA." 08/04-08/09 Blood Glucose POC range: 80(08/09)-160(08/06) (Admitting POC Glucose 92) 08/05 A1C: 5.5 08/05 x3 Acetone: Positive 08/05 x2 VBG: pH: 7.25, 7.28 pCO2: 42, 39 HCO3: 18, 18 Treatment: Monitor blood glucose, Venous blood gas Novolog Subcutaneous per protocol start 08/06-last dose was also 08/06 Regular Insulin bolus ordered 08/05-not noted in MAR Please clarify if the DKA is: [ ] DKA confirmed, resolved [ x] DKA ruled out [ ] Other condition, please specify [ ] Unable to determine MTDD
--- NOTE | 2023-08-19 12:22 | CDI ---
Documentation Clarification Form Date: 08/19/2023 11:05:05 AM From: Ramona Warren RN, CCDS Phone: [phone] Admit Date: 08/06/2023 02:36:00 PM Patient Name: Fatou Rubio Visit Number: [id number] Discharge Date: 08/10/2023 03:13:00 PM ATTENTION: The Clinical Documentation Specialists (CDI) and [facility] Coding Staff appreciate your assistance in clarifying documentation. Please respond to the clarification below the line at the bottom and electronically sign. The CDI & [facility] Coding staff will review the response and follow-up if needed. Please note: Queries are made part of the Legal Health Record. If you have any questions, please contact the author of this message via ITS. Dr. Hilliard E Sheet Your patient had a low hemoglobin/hematocrit and platelet count. Please clarify if there is an additional diagnosis and/or clinical significance related to these lab values. History/Risk Factors: Rivera's esophagus, alcohol abuse, smoker, GERD, EGD x2 in past and HTN. Presented with persistent nausea and coffe-ground vomitus. Admitted with bleeding gastric cardia from gastritis. Clinical indicators: 08/06 IM: "ordered anemia workup for low Hb and platelet count." 08/07 Px: s/p EGD showing inflammation with bleeding gastric cardia from gastritis. 08/09 Sx: "Patient is status post EGD revealing gastritis with bleeding, diaphragmatic hiatal hernia, GERD with Rivera's esophagus." Discharge summary: "Persistent nausea vomiting with possible coffee-ground vomitus with history of Rivera's esophagus." 08/04-08/08 Hgb 11.8-9.6-9.7-9.5-11.0 08/04-08/08 Hct: 37.2-30.5-29.8-28.3-34.5 08/04-08/08 Platelets: 320-89-81-53-67 08/04 Serum alcohol level: 294 Treatment: s/p EGD see above. Monitor daily CBC; 1L 0.9 NS IV bolus x1 on 08/04 then 130mL/hr 08/04-08/06;Carafate 1gm po BID 08/05-08/08; IV Protonix 40mg x1 on 4/12; IV Protonix 40mg BID 08/05-08/09 Is there an additional diagnosis and/or clinical significance related to the above lab result/information: [ ] Acute blood loss anemia [ ] Acute on chronic blood loss anemia [ ] No additional diagnosis/Not clinically significant [ x] Unable to determine [ ] Other, please specify MTDD
== END 2023-08-10 15:13 | DRG 378 ==
LOC: EC 20:53 → 5NMEDONC 08-06 01:02 → OBSVTOIN 08-06 14:36 → 3SCARD 08-06 15:06
PROVIDERS: ADMIT Internal Medicine; ATTEND Internal Medicine
PROC: 0DJ08ZZ Inspection of Upper Intestinal Tract, Via Natural or Artificial Opening Endoscopic (ICD-10-PCS; principal; 2023-08-08 08:15)
DX: K29.71 Gastritis, unspecified, with bleeding (principal); E87.20 Acidosis, unspecified; K44.9 Diaphragmatic hernia without obstruction or gangrene; D69.59 Other secondary thrombocytopenia; K76.0 Fatty (change of) liver, not elsewhere classified; K22.70 Barrett's esophagus without dysplasia; E86.0 Dehydration; E78.5 Hyperlipidemia, unspecified; Z71.6 Tobacco abuse counseling; F17.210 Nicotine dependence, cigarettes, uncomplicated; F32.A Depression, unspecified; F41.9 Anxiety disorder, unspecified; I10 Essential (primary) hypertension; K21.9 Gastro-esophageal reflux disease without esophagitis; R13.10 Dysphagia, unspecified; F10.129 Alcohol abuse with intoxication, unspecified; Y90.8 Blood alcohol level of 240 mg/100 ml or more; Z71.3 Dietary counseling and surveillance
CPT/HCPCS: 36415; 43235; 51702; 51798; 80048; 80053; 80076; 80143; 80179; 80320; 81001; 82009; 82607; 82728; 82746; 82803; 83036; 83540; 83550; 83605; 83690; 83735; 84100; 85025; 93005; 94760; 96361; 96365; 96366; 96375; 99285

== ENCOUNTER 2023-09-23 15:58 | Inpatient (IN) | payer MEDICARE ==
[2023-09-23] MEDS: LORazepam 1 MG TAB PO STA (18:29)
[2023-09-23 18:54] LABS: Anisocytosis Slight; Basophils # (A) 0.1 k/uL (0-0.2); Basophils % (A) 1 %; Eosinophils # (A) 0.1 k/uL (0-0.7); Eosinophils % (A) 1 %; HGB 11.2 gm/dL (11.4-16.0); Lymphocytes # (A) 0.6 k/uL (1.0-4.8); Lymphocytes % (A) 8 %; MCH 29.6 pg (25.0-35.0); MCV 89.8 fL (80.0-100.0); Monocytes # (A) 0.7 k/uL (0-1.0); Monocytes % (A) 9 %; Neutrophils # (A) 5.7 k/uL (1.3-7.7); Neutrophils % (A) 79 %; RBC 3.79 m/uL (3.80-5.40); RDW 19.5 % (11.5-15.5); WBC 7.2 k/uL (3.8-10.6)
[2023-09-23 19:03] LABS: Prothrombin Time 11.1 sec (10.0-12.5)
[2023-09-23 19:04] LABS: ALT 38 U/L (4-34); AST 117 U/L (14-36); African American GFR (CKD) >90 (>60 ml/min/1.73 sqM); Albumin 4.9 g/dL (3.5-5.0); Alcohol <10 mg/dL; Alkaline Phosphatase 145 U/L (38-126); Anion Gap 9 mmol/L; Blood Urea Nitrogen 12 mg/dL (7-17); Calcium 9.1 mg/dL (8.4-10.2); Carbon Dioxide 24 mmol/L (22-30); Chloride 102 mmol/L (98-107); Glucose 137 mg/dL (74-99); Lipase 224 U/L (23-300); Non-African American GFR(CKD) >90 (>60 ml/min/1.73 sqM); Phosphorus 3.5 mg/dL (2.5-4.5); Potassium 4.3 mmol/L (3.5-5.1); Sodium 135 mmol/L (137-145); Total Bilirubin 1.5 mg/dL (0.2-1.3); Total Protein 8.4 g/dL (6.3-8.2)
[2023-09-23 19:21] LABS: Magnesium 0.9 mg/dL (1.6-2.3)
[2023-09-23] MEDS ORDERED: Magnesium Replacement Protocol 1 EACH MISC MISCELLANE PRN (19:22)
--- NOTE | 2023-09-23 19:25 | ED ---
General Adult HPI - General Chief complaint: Neuro Symptoms/Deficit Stated complaint: Neuro Symtoms Time Seen by Provider: 09/23/23 17:24 Source: patient, EMS, RN notes reviewed Mode of arrival: EMS Limitations: no limitations - History of Present Illness Initial comments: 73-year-old female presents to the emergency department for evaluation of generalized weakness and tremors. Patient states that today she was in the garage playing with her dog and when she went to stand up she noticed that both of her legs were very shaky and she was unable to stand. She states that she felt very weak. She states that she has been tremulous over the past 2 days. She does report a history of significant alcohol consumption and has issues with her liver. She reports that she has not been drinking over the past week. She does admit to history of DTs and withdrawal seizures. - Related Data Home Medications Medication Instructions Recorded Confirmed Albuterol Inhaler [Ventolin Hfa 2 puff INHALATION RT-QID PRN 08/06/23 09/23/23 Inhaler] Montelukast [Singulair] 10 mg PO DIRECTED 08/06/23 09/23/23 Multivit-Min/Iron/Folic/Lutein 1 tab PO DAILY 08/06/23 09/23/23 [Centrum Silver Women Tablet] Pravastatin Sodium [Pravachol] 20 mg PO DAILY 08/06/23 09/23/23 Cyanocobalamin (Vitamin B-12) 1,000 mcg PO DAILY 09/23/23 09/23/23 [Vitamin B-12] Docusate [Colace] 100 mg PO DAILY 09/23/23 09/23/23 Previous Rx's Medication Instructions Recorded Sucralfate [Carafate] 1 gm PO AC-TID 90 Days #90 tab 06/07/23 Pantoprazole [Protonix] 40 mg PO BID #60 tab 08/10/23 Thiamine [Vitamin B-1] 100 mg PO DAILY #0 tab 08/10/23 Allergies Allergy/AdvReac Type Severity Reaction Status Date / Time No Known Allergies Allergy Verified 09/23/23 19:38 Review of Systems ROS Statement: Those systems with pertinent positive or pertinent negative responses have been documented in the HPI. ROS Other: All systems not noted in ROS Statement are negative. Past Medical History Past Medical History: GERD/Reflux, Hyperlipidemia, Hypertension Additional Past Medical History / Comment(s): Barretts Esophagus. neuropathy in feet History of Any Multi-Drug Resistant Organisms: None Reported Past Surgical History: No Surgical Hx Reported Additional Past Surgical History / Comment(s): draining of pericarditis fluid Past Anesthesia/Blood Transfusion Reactions: No Reported Reaction Past Psychological History: Anxiety, Depression Smoking Status: Current every day smoker Past Alcohol Use History: Abuse, Daily, Heavy Past Drug Use History: None Reported General Exam Limitations: no limitations General appearance: alert, in no apparent distress Head exam: Present: atraumatic, normocephalic, normal inspection Eye exam: Present: normal appearance, PERRL, EOMI. Absent: scleral icterus, conjunctival injection, periorbital swelling ENT exam: Present: normal exam, mucous membranes moist Course Vital Signs 09/23/23 09/23/23 09/23/23 16:02 18:43 21:12 Temperature 98.5 F Pulse Rate 124 H 102 H 96 Respiratory 20 20 16 Rate Blood Pressure 149/112 166/84 141/90 O2 Sat by Pulse 99 98 97 Oximetry 09/23/23 23:16 Temperature Pulse Rate 89 Respiratory 16 Rate Blood Pressure 151/86 O2 Sat by Pulse 95 Oximetry Medical Decision Making - Medical Decision Making Was pt. sent in by a medical professional or institution (, PA, NAVIGATION TEACHER, urgent care, hospital, or care home...) When possible be specific @ -No Did you speak to anyone other than the patient for history (EMS, parent, family, police, friend...)? What history was obtained from this source @ -No Did you review nursing and triage notes (agree or disagree)? Why? @ -I reviewed and agree with nursing and triage notes Were old charts reviewed (outside hosp., previous admission, EMS record, old EKG, old radiological studies, urgent care reports/EKG's, care home records)? Report findings @ -No old charts were reviewed Differential Diagnosis (chest pain, altered mental status, abdominal pain women, abdominal pain men, vaginal bleeding, weakness, fever, dyspnea, syncope, headache, dizziness, GI bleed, back pain, seizure, CVA, palpatations, mental health, musculoskeletal)? @ -Delirium tremens, alcohol withdrawal, panic attacks, hypomagnesemia, this list not all inclusive EKG interpreted by me (3pts min.). @ -EKG at 1856 shows sinus tachycardia rate 103, MT 140, QRS 83, QTQTc [id number] X-rays interpreted by me (1pt min.). @ -Chest x-ray shows no acute infiltrate CT interpreted by me (1pt min.). @ -None done U/S interpreted by me (1pt. min.). @ -None done What testing was considered but not performed or refused? (CT, X-rays, U/S, labs)? Why? @ -None What meds were considered but not given or refused? Why? @ -None Did you discuss the management of the patient with other professionals (professionals i.e. , PA, NAVIGATION TEACHER, lab, RT, psych nurse, social services specialist, wheelage clerk, teacher, correctional officer, community case manager)? Give summary @ -Management discussed with Ny Torres with [facility] who is accepting of the admission Was smoking cessation discussed for >3mins.? @ -No Was critical care preformed (if so, how long)? @ -No Were there social determinants of health that impacted care today? How? (Homelessness, low income, unemployed, alcoholism, drug addiction, transportation, low edu. Level, literacy, decrease access to med. care, snf, rehab)? @ -No Was there de-escalation of care discussed even if they declined (Discuss DNR or withdrawal of care, Hospice)? DNR status @ -No What co-morbidities impacted this encounter? (DM, HTN, Smoking, COPD, CAD, Cancer, CVA, ARF, Chemo, Hep., AIDS, mental health diagnosis, sleep apnea, morbid obesity)? @ -None Was patient admitted / discharged? Hospital course, mention meds given and route, prescriptions, significant lab abnormalities, going to OR and other pertinent info. @ -Admitted. Patient presented to the emergency department for evaluation of generalized weakness, tremors. Patient reports a history of alcoholism with her last drink being around 1 week ago according to the patient. She does report a history of DTs. Laboratory studies were obtained. LFT elevated which is typical for the patient. Patient found to have significant hypomagnesemia with a magnesium of 0.9. This was replaced with IV magnesium. This is likely due to the patient's history of alcoholism. Patient is also very tremulous in the room. She was provided Ativan which improved this. [facility] protocol was initiate d. Patient will be admitted for potential DTs and magnesium replacement. This was discussed with [facility], Ny Torres who is accepting of the admission. Case discussed with Dr. Lakhani Undiagnosed new problem with uncertain prognosis? @ -No Drug Therapy requiring intensive monitoring for toxicity (Heparin, Nitro, Insulin, Cardizem)? @ -No Were any procedures done? @ -No Diagnosis/symptom? @ -DT, hypomagnesemia Acute, or Chronic, or Acute on Chronic? @ -acute Uncomplicated (without systemic symptoms) or Complicated (systemic symptoms)? @ -uncomplicated Side effects of treatment? @ -No Exacerbation, Progression, or Severe Exacerbation? @ -No Poses a threat to life or bodily function? How? (Chest pain, [place], [place], pneumonia, PE, COPD, DKA, ARF, appy, cholecystitis, CVA, Diverticulitis, Homicidal, Suicidal, threat to staff... and all critical care pts) @ -No - Lab Data Result diagrams: 09/23/23 18:45 09/23/23 18:45 Lab Results 09/23/23 09/23/23 09/23/23 Range/Units 18:45 18:45 18:45 WBC 7.2 (3.8-10.6) k/uL RBC 3.79 L (3.80-5.40) m/uL Hgb 11.2 L (11.4-16.0) gm/dL Hct 34.0 (34.0-46.0) % MCV 89.8 (80.0-100.0) fL MCH 29.6 (25.0-35.0) pg MCHC 33.0 (31.0-37.0) g/dL RDW 19.5 H (11.5-15.5) % Plt Count 75 L (150-450) k/uL MPV 10.0 Neutrophils % 79 % Lymphocytes % 8 % Monocytes % 9 % Eosinophils % 1 % Basophils % 1 % Neutrophils # 5.7 (1.3-7.7) k/uL Lymphocytes # 0.6 L (1.0-4.8) k/uL Monocytes # 0.7 (0-1.0) k/uL Eosinophils # 0.1 (0-0.7) k/uL Basophils # 0.1 (0-0.2) k/uL Manual Slide Review Performed Anisocytosis Slight PT 11.1 (10.0-12.5) sec INR 1.0 (<1.2) Sodium 135 L (137-145) mmol/L Potassium 4.3 (3.5-5.1) mmol/L Chloride 102 (98-107) mmol/L Carbon Dioxide 24 (22-30) mmol/L Anion Gap 9 mmol/L BUN 12 (7-17) mg/dL Creatinine 0.40 L (0.52-1.04) mg/dL Est GFR (CKD-EPI)AfAm >90 (>60 ml/min/1.73 sqM) Est GFR (CKD-EPI)NonAf >90 (>60 ml/min/1.73 sqM) Glucose 137 H (74-99) mg/dL Calcium 9.1 (8.4-10.2) mg/dL Phosphorus 3.5 (2.5-4.5) mg/dL Magnesium 0.9 L* (1.6-2.3) mg/dL Total Bilirubin 1.5 H (0.2-1.3) mg/dL AST 117 H (14-36) U/L ALT 38 H (4-34) U/L Alkaline Phosphatase 145 H (38-126) U/L Total Protein 8.4 H (6.3-8.2) g/dL Albumin 4.9 (3.5-5.0) g/dL Lipase 224 (23-300) U/L Serum Alcohol <10 mg/dL Disposition Clinical Impression: Alcohol withdrawal, Weakness, Hypomagnesemia Disposition: ADMITTED IP TO THIS HOSP Condition: Stable Is patient prescribed a controlled substance at d/c from ED?: No
[2023-09-23 19:32] LABS: Platelet Count 75 k/uL (150-450)
--- NOTE | 2023-09-23 19:43 | XR ---
EXAMINATION TYPE: XR chest 2V DATE OF EXAM: 09/23/2023 7:11 PM CLINICAL INDICATION:Female, 73 years old with history of pain; [facility] COMPARISON: 07/09/2023 TECHNIQUE: XR chest 2V. Frontal and lateral views of the chest.. FINDINGS: Lines/Tubes/Devices: EKG leads overlie the chest. No indwelling lines are seen. Heart/mediastinum: Heart size is normal. Mediastinum appears normal. Pulmonary vascularity: Not increased, Lungs/Pleura: There is no evidence of pleural effusion, focal consolidation, or pneumothorax. Musculoskeletal: No acute osseous abnormality demonstrated in the limits of the exam. Other findings: None. IMPRESSION: No acute cardiopulmonary abnormality.
[2023-09-23] MEDS: MAGNESIUM SULFATE-D5W PMX 1 GM in DEXTROSE/WATER 1 100ML.BAG IVPB SCH (19:52)
[2023-09-23] MEDS ORDERED: LORazepam 0.5 MG TAB PO PRN (20:00)
[2023-09-23] MEDS ORDERED: LORazepam 1 MG TAB PO PRN (20:00)
[2023-09-23] MEDS ORDERED: LORazepam 2 MG/ML INJ IV PRN ×2 (20:00)
[2023-09-23] MEDS ORDERED: MORPHINE SULFATE 4 MG/ML SYRINGE IV PRN (20:24)
[2023-09-23] MEDS ORDERED: NALOXONE 0.4 MG/ML 1 ML VIAL IV PRN (20:24)
[2023-09-23] MEDS: THIAMINE 100 MG/ML 2 ML VIAL IM STA (21:03)
[2023-09-23] MEDS: SODIUM CHLORIDE 0.9% 1,000 ML IV SCH (21:04)
[2023-09-23 21:29] LABS: Appearance,Urine Clear (Clear); Bacteria,Urine Rare /hpf; Bilirubin,Urine Negative (Negative); Blood,Urine Negative (Negative); Color,Urine Light Yellow; Glucose,Urine (UA) Negative (Negative); Ketones,Urine Negative (Negative); Leukocyte Esterase,Urine Negative (Negative); Nitrite,Urine Negative (Negative); PH, Urine 7.5 (5.0-8.0); Protein,Urine 2+ (Negative); RBC,Urine 2 /hpf (0-5); Specific Gravity,Urine 1.015 (1.001-1.035); Squamous Epithelial Cell,Urine <1 /hpf (0-4); Urobilinogen,Urine <2.0 mg/dL (<2.0); WBC,Urine <1 /hpf (0-5)
[2023-09-23 21:49] LABS: Amphetamine Screen,Urine Not Detected (NotDetected); Barbiturate Screen,Urine Not Detected (NotDetected); Benzodiazepines Screen,Urine Not Detected (NotDetected); Cocaine Screen,Urine Not Detected (NotDetected); Methadone Screen, Urine Not Detected (NotDetected); Opiate Screen,Urine Not Detected (NotDetected); Oxycodone Screen, Urine Not Detected (NotDetected); Phencyclidine Screen,Urine Not Detected (NotDetected); Tricyclic Antidepressant,Urine Not Detected (NotDetected); Urn Cannabinoid Scrn Not Detected (NotDetected)
[2023-09-23] MEDS: LORazepam 1 MG TAB PO PRN (23:08)
[2023-09-24] MEDS: LORazepam 1 MG TAB PO PRN ×2 (01:33→08:49)
[2023-09-24 06:53] LABS: Anisocytosis Slight; Basophils # (A) 0.1 k/uL (0-0.2); Basophils % (A) 1 %; Eosinophils # (A) 0.1 k/uL (0-0.7); Eosinophils % (A) 3 %; HCT 34.9 % (34.0-46.0); HGB 11.2 gm/dL (11.4-16.0); Lymphocytes # (A) 1.2 k/uL (1.0-4.8); Lymphocytes % (A) 22 %; MCH 29.4 pg (25.0-35.0); Mean Platelet Volume 9.1; Monocytes # (A) 0.7 k/uL (0-1.0); Monocytes % (A) 13 %; Neutrophils # (A) 3.2 k/uL (1.3-7.7); Neutrophils % (A) 59 %; RBC 3.79 m/uL (3.80-5.40); RDW 19.6 % (11.5-15.5); WBC 5.5 k/uL (3.8-10.6)
[2023-09-24 06:54] LABS: Platelet Count 66 k/uL (150-450)
[2023-09-24 07:07] LABS: ALT 32 U/L (4-34); AST 102 U/L (14-36); African American GFR (CKD) >90 (>60 ml/min/1.73 sqM); Albumin 4.2 g/dL (3.5-5.0); Alkaline Phosphatase 121 U/L (38-126); Anion Gap 6 mmol/L; Blood Urea Nitrogen 8 mg/dL (7-17); Carbon Dioxide 27 mmol/L (22-30); Chloride 101 mmol/L (98-107); Glucose 104 mg/dL (74-99); Magnesium 2.2 mg/dL (1.6-2.3); Non-African American GFR(CKD) >90 (>60 ml/min/1.73 sqM); Potassium 3.3 mmol/L (3.5-5.1); Sodium 134 mmol/L (137-145); Total Bilirubin 1.9 mg/dL (0.2-1.3); Total Protein 7.2 g/dL (6.3-8.2)
[2023-09-24] MEDS: THIAMINE 100 MG TAB PO SCH ×2 (08:49→21:59)
--- NOTE | 2023-09-24 11:18 | P.HPIM ---
History of Present Illness -year-old female came in with generalized weakness and tremors found to be in alcohol withdrawal. Patient last drink was before she came to the hospital patient usually drinks about half a pint of alcohol daily for many years patient is willing to put alcohol. Patient is quite weak. Patient was started on magnesium supplementation for her low magnesium IV fluids and Ativan CIWA protocol. Patient did receive Ativan this morning. Patient is tremulous. 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 REVIEW OF SYSTEMS: CONSTITUTIONAL: No fever, no malaise, no fatigue. HEENT: No recent visual problems or hearing problems. Denied any sore throat. CARDIOVASCULAR: No chest pain, orthopnea, PND, no palpitations, no syncope. PULMONARY: No shortness of breath, no cough, no hemoptysis. GASTROINTESTINAL: No diarrhea, no nausea, no vomiting, no abdominal pain. NEUROLOGICAL: No headaches, no weakness, no numbness. HEMATOLOGICAL: Denies any bleeding or petechiae. GENITOURINARY: Denies any burning micturition, frequency, or urgency. MUSCULOSKELETAL/RHEUMATOLOGICAL: Denies any joint pain, swelling, or any muscle pain. ENDOCRINE: Denies any polyuria or polydipsia. The rest of the 14-point review of systems is negative. PHYSICAL EXAMINATION: GENERAL: The patient is alert and oriented x3, not in any acute distress. Thin built female tremulous HEENT: Pupils are round and equally reacting to light. EOMI. No scleral icterus. No conjunctival pallor. Normocephalic, atraumatic. No pharyngeal erythema. No thyromegaly. CARDIOVASCULAR: S1 and S2 present. No murmurs, rubs, or gallops. PULMONARY: Chest is clear to auscultation, no wheezing or crackles. ABDOMEN: Soft, nontender, nondistended, normoactive bowel sounds. No palpable organomegaly. MUSCULOSKELETAL: No joint swelling or deformity. EXTREMITIES: No cyanosis, clubbing, or pedal edema. NEUROLOGICAL: Gross neurological examination did not reveal any focal deficits. SKIN: No rashes. Assessment and plan -Alcohol withdrawal: Patient will be continued on Ativan CIWA protocol thiamine multivitamin supplementation along with IV fluids monitored overnight. 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 neuropathy in feet History of Any Multi-Drug Resistant Organisms: None Reported Past Surgical History: No Surgical Hx Reported Additional Past Surgical History / Comment(s): draining of pericarditis fluid Past Anesthesia/Blood Transfusion Reactions: No Reported Reaction Past Psychological History: Anxiety, Depression Smoking Status: Current every day smoker Past Alcohol Use History: Abuse, Daily, Heavy Past Drug Use History: None Reported Medications and Allergies Home Medications Medication Instructions Recorded Confirmed Type Sucralfate [Carafate] 1 gm PO AC-TID 90 Days #90 tab 06/07/23 09/23/23 Rx Albuterol Inhaler [Ventolin Hfa 2 puff INHALATION RT-QID PRN 08/06/23 09/23/23 History Inhaler] Montelukast [Singulair] 10 mg PO DIRECTED 08/06/23 09/23/23 History Multivit-Min/Iron/Folic/Lutein 1 tab PO DAILY 08/06/23 09/23/23 History [Centrum Silver Women Tablet] Pravastatin Sodium [Pravachol] 20 mg PO DAILY 08/06/23 09/23/23 History Pantoprazole [Protonix] 40 mg PO BID #60 tab 08/10/23 09/23/23 Rx Thiamine [Vitamin B-1] 100 mg PO DAILY #0 tab 08/10/23 09/23/23 Rx Cyanocobalamin (Vitamin B-12) 1,000 mcg PO DAILY 09/23/23 09/23/23 History [Vitamin B-12] Docusate [Colace] 100 mg PO DAILY 09/23/23 09/23/23 History Allergies Allergy/AdvReac Type Severity Reaction Status Date / Time No Known Allergies Allergy Verified 09/23/23 19:38 Physical Exam Vitals: Vital Signs Temp Pulse Pulse Resp BP Pulse Ox 09/24/23 08:00 88 16 09/24/23 06:00 84 16 134/80 98 09/24/23 05:00 131/80 09/24/23 01:35 92 16 140/79 95 09/23/23 23:16 89 16 151/86 95 09/23/23 21:12 96 16 141/90 97 09/23/23 18:43 102 H 20 166/84 98 09/23/23 16:02 98.5 F 124 H 20 149/112 99 Intake and Output 09/23/23 09/24/23 09/24/23 22:59 06:59 14:59 Output Total 750 Balance -750 Output: Urine 750 Other: Voiding Method External Catheter Weight 58.967 kg Results CBC & Chem 7: 09/24/23 06:17 09/24/23 06:17 Labs: Abnormal Lab Results - Last 24 Hours (Table) 09/23/23 09/23/23 09/23/23 Range/Units 18:45 18:45 21:16 RBC 3.79 L (3.80-5.40) m/uL Hgb 11.2 L (11.4-16.0) gm/dL RDW 19.5 H (11.5-15.5) % Plt Count 75 L (150-450) k/uL Lymphocytes # 0.6 L (1.0-4.8) k/uL Sodium 135 L (137-145) mmol/L Potassium (3.5-5.1) mmol/L Creatinine 0.40 L (0.52-1.04) mg/dL Glucose 137 H (74-99) mg/dL Magnesium 0.9 L* (1.6-2.3) mg/dL Total Bilirubin 1.5 H (0.2-1.3) mg/dL AST 117 H (14-36) U/L ALT 38 H (4-34) U/L Alkaline Phosphatase 145 H (38-126) U/L Total Protein 8.4 H (6.3-8.2) g/dL Urine Protein 2+ H (Negative) Urine Bacteria Rare H (None) /hpf 09/24/23 09/24/23 Range/Units 06:17 06:17 RBC 3.79 L (3.80-5.40) m/uL Hgb 11.2 L (11.4-16.0) gm/dL RDW 19.6 H (11.5-15.5) % Plt Count 66 L (150-450) k/uL Lymphocytes # (1.0-4.8) k/uL Sodium 134 L (137-145) mmol/L Potassium 3.3 L (3.5-5.1) mmol/L Creatinine 0.35 L (0.52-1.04) mg/dL Glucose 104 H (74-99) mg/dL Magnesium (1.6-2.3) mg/dL Total Bilirubin 1.9 H (0.2-1.3) mg/dL AST 102 H (14-36) U/L ALT (4-34) U/L Alkaline Phosphatase (38-126) U/L Total Protein (6.3-8.2) g/dL Urine Protein (Negative) Urine Bacteria (None) /hpf
[2023-09-24] MEDS ORDERED: ALBUTEROL NEBULIZED 2.5 MG/3 ML INHALATION PRN (11:20)
[2023-09-24] MEDS: POTASSIUM CHLORIDE ER 20 MEQ TAB.ER PO STA (11:53)
[2023-09-24] MEDS: NICOTINE 14MG/24HR PATCH TRANSDERM SCH (11:53)
[2023-09-24] MEDS: LORazepam 2 MG/ML INJ IV PRN (13:07)
[2023-09-24] MEDS: SUCRALFATE 1 GM TAB PO SCH (13:08)
[2023-09-24] MEDS: MONTELUKAST 10 MG TAB PO SCH (21:59)
[2023-09-24] MEDS: PANTOPRAZOLE 40 MG TABLET PO SCH (21:59)
[2023-09-24] MEDS ORDERED: LORazepam 1 MG/0.5 ML VIAL IV PRN ×3 (23:28→23:29)
[2023-09-25] MEDS: ONDANSETRON 4 MG/2 ML VIAL IVP PRN (06:37)
[2023-09-25] MEDS: ENOXAPARIN 40 MG/0.4 ML SYRINGE SQ SCH (08:30)
[2023-09-25] MEDS: DOCUSATE 100 MG CAP PO PRN (08:30)
[2023-09-25] MEDS: MULTIVITAMINS, THERA 1 EACH TAB PO SCH (08:30)
[2023-09-25] MEDS: CYANOCOBALAMIN 500 MCG TAB PO SCH (08:30)
[2023-09-25] MEDS: PRAVASTATIN SODIUM 20 MG TAB PO SCH (08:30)
--- NOTE | 2023-09-25 14:54 | P.PN ---
Subjective -year-old female came in with generalized weakness and tremors found to be in alcohol withdrawal. Patient last drink was before she came to the hospital patient usually drinks about half a pint of alcohol daily for many years patient is willing to put alcohol. Patient is quite weak. Patient was started on magnesium supplementation for her low magnesium IV fluids and Ativan CIWA protocol. Patient did receive Ativan this morning. Patient is tremulous. 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 September 25, 2023 Patient is awaiting physical therapy evaluation social work evaluation. Patient withdrawals are better patient is still bit hyponatremic continue to be on IV fluids. Patient states that she is little shaky Constitutional: Denied any fatigue denied any fever. Cardio vascular: denied any chest pain, palpitations Gastrointestinal denied any nausea vomiting Pulmonary: Denied any shortness of breath cough Neurologic denied any new focal deficits All inpatient medications were reviewed and appropriate changes in these medications as dictated in the interval history and assessment and plan. PHYSICAL EXAMINATION: GENERAL: The patient is alert and oriented x3, not in any acute distress. Thin built female tremulous HEENT: Pupils are round and equally reacting to light. EOMI. No scleral icterus. No conjunctival pallor. Normocephalic, atraumatic. No pharyngeal erythema. No thyromegaly. CARDIOVASCULAR: S1 and S2 present. No murmurs, rubs, or gallops. PULMONARY: Chest is clear to auscultation, no wheezing or crackles. ABDOMEN: Soft, nontender, nondistended, normoactive bowel sounds. No palpable organomegaly. MUSCULOSKELETAL: No joint swelling or deformity. EXTREMITIES: No cyanosis, clubbing, or pedal edema. NEUROLOGICAL: Gross neurological examination did not reveal any focal deficits. SKIN: No rashes. Assessment and plan -Alcohol withdrawal: Patient will be continued on Ativan CIWA protocol thiamine multivitamin supplementation along with IV fluids monitored overnight. 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 -Alcoholic hepatitis improved liver enzymes today -Hypertension -Hyperlipidemia For above-mentioned chronic medical problems patient was resumed on appropriate home medications DVT prophylaxis: Lovenox low-dose subcutaneous Objective - Vital Signs Vital signs: Vital Signs Temp 98.5 F 09/25/23 13:22 Pulse 92 09/25/23 13:22 Resp 17 09/25/23 13:22 BP 136/82 09/25/23 13:22 Pulse Ox 99 09/25/23 13:22 FiO2 Intake & Output 09/24/23 09/25/23 09/25/23 18:59 06:59 18:59 Output Total 650 Balance -650 Weight 58.967 kg Output: Urine 650 Other: Voiding Method External Catheter # Voids 2 - Labs CBC & Chem 7: 09/24/23 06:17 09/24/23 06:17
[2023-09-25 23:09] VITALS: RESP 18
[2023-09-26 07:43] VITALS: BP 142/85; PULSE 71; TEMP 97.9
[2023-09-26 10:55] LABS: Blood Urea Nitrogen 5.1 mg/dL (9.0-27.0); Calcium 9.2 mg/dL (8.7-10.3); Carbon Dioxide 22.1 mmol/L (21.6-31.8); Chloride 106 mmol/L (96-109); Glucose 102 mg/dL (70-110); Potassium 3.8 mmol/L (3.5-5.5); Sodium 140 mmol/L (135-145)
== END 2023-09-26 18:21 | disposition home health service (06) | DRG 897 ==
LOC: EC 15:58 → 4SSUR 20:28
PROVIDERS: ADMIT Hospitalist; ATTEND Hospitalist
DX: F10.231 Alcohol dependence with withdrawal delirium (principal); E87.1 Hypo-osmolality and hyponatremia; G25.2 Other specified forms of tremor; F17.200 Nicotine dependence, unspecified, uncomplicated; D64.9 Anemia, unspecified; D69.6 Thrombocytopenia, unspecified; E78.5 Hyperlipidemia, unspecified; E83.42 Hypomagnesemia; F32.A Depression, unspecified; I10 Essential (primary) hypertension; K70.10 Alcoholic hepatitis without ascites; Z71.41 Alcohol abuse counseling and surveillance of alcoholic; Z79.899 Other long term (current) drug therapy
CPT/HCPCS: 36415; 71046; 80048; 80053; 80306; 80320; 81001; 83690; 83735; 84100; 85025; 85610; 93005; 96361; 96365; 96366; 96372; 96375; 96376; 99285

== ENCOUNTER 2023-09-30 13:52 | Emergency (ER) | payer MEDICARE ==
[2023-09-30 14:11] VITALS: BP 117/75; PULSE 76; RESP 16; TEMP 97.7
[2023-09-30 14:44] LABS: Anisocytosis Slight; Basophils # (A) 0.1 k/uL (0-0.2); Basophils % (A) 1 %; Eosinophils # (A) 0.2 k/uL (0-0.7); Eosinophils % (A) 4 %; HCT 32.7 % (34.0-46.0); HGB 10.2 gm/dL (11.4-16.0); Hypochromasia Slight; Lymphocytes # (A) 1.6 k/uL (1.0-4.8); Lymphocytes % (A) 28 %; MCH 29.1 pg (25.0-35.0); MCHC 31.2 g/dL (31.0-37.0); MCV 93.3 fL (80.0-100.0); Mean Platelet Volume 7.9; Monocytes # (A) 0.6 k/uL (0-1.0); Monocytes % (A) 10 %; Neutrophils # (A) 2.9 k/uL (1.3-7.7); Neutrophils % (A) 52 %; RDW 19.1 % (11.5-15.5); WBC 5.6 k/uL (3.8-10.6)
[2023-09-30 14:49] LABS: Platelet Count 239 k/uL (150-450)
[2023-09-30 14:50] LABS: ALT 86 U/L (4-34); AST 121 U/L (14-36); African American GFR (CKD) >90 (>60 ml/min/1.73 sqM); Albumin 4.2 g/dL (3.5-5.0); Alkaline Phosphatase 110 U/L (38-126); Anion Gap 10 mmol/L; Blood Urea Nitrogen 9 mg/dL (7-17); Calcium 8.7 mg/dL (8.4-10.2); Carbon Dioxide 22 mmol/L (22-30); Chloride 112 mmol/L (98-107); Glucose 92 mg/dL (74-99); Magnesium 1.4 mg/dL (1.6-2.3); Non-African American GFR(CKD) >90 (>60 ml/min/1.73 sqM); Sodium 144 mmol/L (137-145); Total Bilirubin 0.4 mg/dL (0.2-1.3); Total Protein 6.9 g/dL (6.3-8.2)
[2023-09-30 15:21] LABS: Alcohol 314 mg/dL
--- NOTE | 2023-09-30 16:07 | ED ---
General Adult HPI - General Chief complaint: Alcohol Stated complaint: Fall Time Seen by Provider: 09/30/23 14:02 Source: patient, RN notes reviewed, old records reviewed Mode of arrival: EMS Limitations: altered mental status - History of Present Illness Initial comments: 73-year-old female presenting with alcohol intoxication. Patient has no physical complaints at the time my evaluation but she is significantly intoxicated. She is well-known to this emergency department with recurrent evaluations for acute alcohol intoxication. She reports a chronic cough but states this is unchanged. No fever. No abdominal pain. No chest pain. - Related Data Home Medications Medication Instructions Recorded Confirmed Albuterol Inhaler [Ventolin Hfa 2 puff INHALATION RT-QID PRN 08/06/23 09/30/23 Inhaler] Montelukast [Singulair] 10 mg PO DAILY 08/06/23 09/30/23 Multivit-Min/Iron/Folic/Lutein 1 tab PO DAILY 08/06/23 09/30/23 [Centrum Silver Women Tablet] Pravastatin Sodium [Pravachol] 20 mg PO DAILY 08/06/23 09/30/23 Cyanocobalamin (Vitamin B-12) 1,000 mcg PO DAILY 09/23/23 09/30/23 [Vitamin B-12] Docusate [Colace] 100 mg PO DAILY 09/23/23 09/30/23 chlordiazePOXIDE HCl [Librium] See Taper PO DIRECTED 09/30/23 09/30/23 Previous Rx's Medication Instructions Recorded Sucralfate [Carafate] 1 gm PO AC-TID 90 Days #90 tab 06/07/23 Pantoprazole [Protonix] 40 mg PO BID #60 tab 08/10/23 Nicotine 14Mg/24Hr Patch [Habitrol] 1 patch TRANSDERM DAILY patch 09/26/23 Thiamine [Vitamin B-1] 100 mg PO BID #60 tab 09/26/23 Allergies Allergy/AdvReac Type Severity Reaction Status Date / Time No Known Allergies Allergy Verified 09/30/23 15:30 Review of Systems ROS Statement: Those systems with pertinent positive or pertinent negative responses have been documented in the HPI. ROS Other: All systems not noted in ROS Statement are negative. Past Medical History Past Medical History: GERD/Reflux, Hyperlipidemia, Hypertension Additional Past Medical History / Comment(s): Barretts Esophagus. neuropathy in feet History of Any Multi-Drug Resistant Organisms: None Reported Past Surgical History: Tonsillectomy Additional Past Surgical History / Comment(s): draining of pericarditis fluid 2006 Past Anesthesia/Blood Transfusion Reactions: No Reported Reaction Past Psychological History: Anxiety, Depression Smoking Status: Current every day smoker Past Alcohol Use History: Abuse, Daily, Heavy Past Drug Use History: None Reported General Exam Limitations: altered mental status General appearance: alert, appears intoxicated Head exam: Present: atraumatic, normocephalic Eye exam: Present: normal appearance, PERRL ENT exam: Present: normal exam Neck exam: Present: normal inspection. Absent: tenderness, meningismus Respiratory exam: Present: normal lung sounds bilaterally. Absent: respiratory distress, wheezes Cardiovascular Exam: Present: regular rate, normal rhythm GI/Abdominal exam: Present: soft. Absent: distended, tenderness Extremities exam: Present: normal inspection, normal capillary refill Neurological exam: Present: alert, oriented X3, CN II-XII intact, motor sensory deficit Psychiatric exam: Present: normal affect, normal mood Skin exam: Present: warm Course Vital Signs 09/30/23 14:00 Temperature 97.7 F Pulse Rate 76 Respiratory 16 Rate Blood Pressure 117/75 O2 Sat by Pulse 95 Oximetry - Reevaluation(s) Reevaluation #1: 09/30/23 16:05 Pt Wishes to be discharged and is accompanied by her . Medical Decision Making - Medical Decision Making Was pt. sent in by a medical professional or institution (Dr. PA, TANNING DRUM OPERATOR, urgent care, hospital, or senior living...) When possible be specific @ -No Did you speak to anyone other than the patient for history (EMS, parent, family, police, friend...)? What history was obtained from this source @ -No Did you review nursing and triage notes (agree or disagree)? Why? @ -I reviewed and agree with nursing and triage notes Were old charts reviewed (outside hosp., previous admission, EMS record, old EKG, old radiological studies, urgent care reports/EKG's, senior living records)? Report findings @ -No old charts were reviewed Differential Diagnosis: intoxication, alcohol withdrawal EKG interpreted by me (3pts min.). @ -As above X-rays interpreted by me (1pt min.). @ -None done CT interpreted by me (1pt min.). @ -None done U/S interpreted by me (1pt. min.). @ -None done What testing was considered but not performed or refused? (CT, X-rays, U/S, labs)? Why? @ -None What meds were considered but not given or refused? Why? @ -None Did you discuss the management of the patient with other professionals (professionals i.e. Dr., PA, TANNING DRUM OPERATOR, lab, RT, psych nurse, social group worker, membership solicitor, teacher, co founder and chief strategy officer, mental health case manager)? Give summary @ -No Was smoking cessation discussed for >3mins.? @ -No Was critical care preformed (if so, how long)? @ -No Were there social determinants of health that impacted care today? How? (Homelessness, low income, unemployed, alcoholism, drug addiction, transportation, low edu. Level, literacy, decrease access to med. care, assisted, rehab)? @ -No Was there de-escalation of care discussed even if they declined (Discuss DNR or withdrawal of care, Hospice)? DNR status @ -No What co-morbidities impacted this encounter? (DM, HTN, Smoking, COPD, CAD, Cancer, CVA, ARF, Chemo, Hep., AIDS, mental health diagnosis, sleep apnea, morbid obesity)? @ -Alcohol abuse Was patient admitted / discharged? Hospital course, mention meds given and route, prescriptions, significant lab abnormalities, going to OR and other pertinent info. @ -[-year-old female presenting with alcohol intoxication. Patient vital signs are stable. She is without significant complaint. She has an alcohol level of 314 with mild associated transaminitis. Patient wishes to be discharged and is accompanied by her who will take her home. Undiagnosed new problem with uncertain prognosis? @ -No Drug Therapy requiring intensive monitoring for toxicity (Heparin, Nitro, Insulin, Cardizem)? @ -No Were any procedures done? @ -No Diagnosis/symptom? @ -Alcohol intoxication Acute, or Chronic, or Acute on Chronic? @ acute Uncomplicated (without systemic symptoms) or Complicated (systemic symptoms)? @ -Default Side effects of treatment? @ -No Exacerbation, Progression, or Severe Exacerbation? @ -No Poses a threat to life or bodily function? How? (Chest pain, [place], [place], pneumonia, PE, COPD, DKA, ARF, appy, cholecystitis, CVA, Diverticulitis, Homicidal, Suicidal, threat to staff... and all critical care pts) @ -Moderate risk, delirium tremens, acute alcohol intoxication, fall risk - Lab Data Result diagrams: 09/30/23 14:25 09/30/23 14:25 Lab Results 09/30/23 09/30/23 Range/Units 14:25 14:25 WBC 5.6 (3.8-10.6) k/uL RBC 3.50 L (3.80-5.40) m/uL Hgb 10.2 L (11.4-16.0) gm/dL Hct 32.7 L (34.0-46.0) % MCV 93.3 (80.0-100.0) fL MCH 29.1 (25.0-35.0) pg MCHC 31.2 (31.0-37.0) g/dL RDW 19.1 H (11.5-15.5) % Plt Count 239 D (150-450) k/uL MPV 7.9 Neutrophils % 52 % Lymphocytes % 28 % Monocytes % 10 % Eosinophils % 4 % Basophils % 1 % Neutrophils # 2.9 (1.3-7.7) k/uL Lymphocytes # 1.6 (1.0-4.8) k/uL Monocytes # 0.6 (0-1.0) k/uL Eosinophils # 0.2 (0-0.7) k/uL Basophils # 0.1 (0-0.2) k/uL Hypochromasia Slight Anisocytosis Slight Sodium 144 (137-145) mmol/L Potassium 4.0 (3.5-5.1) mmol/L Chloride 112 H (98-107) mmol/L Carbon Dioxide 22 (22-30) mmol/L Anion Gap 10 mmol/L BUN 9 (7-17) mg/dL Creatinine 0.38 L (0.52-1.04) mg/dL Est GFR (CKD-EPI)AfAm >90 (>60 ml/min/1.73 sqM) Est GFR (CKD-EPI)NonAf >90 (>60 ml/min/1.73 sqM) Glucose 92 (74-99) mg/dL Calcium 8.7 (8.4-10.2) mg/dL Magnesium 1.4 L (1.6-2.3) mg/dL Total Bilirubin 0.4 (0.2-1.3) mg/dL AST 121 H (14-36) U/L ALT 86 H (4-34) U/L Alkaline Phosphatase 110 (38-126) U/L Total Protein 6.9 (6.3-8.2) g/dL Albumin 4.2 (3.5-5.0) g/dL Serum Alcohol 314 H* mg/dL Disposition Clinical Impression: Alcoholic intoxication Disposition: HOME SELF-CARE Condition: Fair Instructions (If sedation given, give patient instructions): Alcohol Intoxication (ED) Is patient prescribed a controlled substance at d/c from ED?: No Referrals: Gail Davis MD [Primary Care Provider] - 1-2 days Time of Disposition: 16:07
== END 2023-09-30 16:29 | disposition home or self-care (01) ==
LOC: EC 13:52
DX: F10.129 Alcohol abuse with intoxication, unspecified (principal); F17.200 Nicotine dependence, unspecified, uncomplicated; Y90.8 Blood alcohol level of 240 mg/100 ml or more
CPT/HCPCS: 36415; 80053; 83735; 85025; 99284; G0480; 80320

== ENCOUNTER 2023-10-23 07:03 | Inpatient (IN) | payer MEDICARE ==
[2023-10-23] MEDS: SODIUM CHLORIDE 0.9% 1,000 ML IV STA (07:55)
[2023-10-23 08:04] LABS: Anisocytosis Slight; HCT 30.6 % (34.0-46.0); HGB 9.7 gm/dL (11.4-16.0); MCH 28.2 pg (25.0-35.0); MCHC 31.7 g/dL (31.0-37.0); Mean Platelet Volume 8.8; RBC 3.44 m/uL (3.80-5.40); RDW 18.7 % (11.5-15.5); WBC 3.4 k/uL (3.8-10.6)
--- NOTE | 2023-10-23 08:15 | ED ---
Fall HPI - General Chief Complaint: Fall Stated Complaint: Fall Time Seen by Provider: 10/23/23 08:14 Source: patient, EMS, RN notes reviewed Mode of arrival: EMS - History of Present Illness Initial Comments: 73-year-old female presented to the ER via EMS with a chief complaint of a fall. Patient is well-known to the emergency department. Patient states she was in her garage and possibly tipped over in a chair. Patient reports that she hit the right side of her head. She denies loss of consciousness or blood thinner use. She denies any other injuries. She does report alcohol use last night. Denies any chest pain, shortness of breath, abdominal pain or peripheral edema. - Related Data Home Medications Medication Instructions Recorded Confirmed Albuterol Inhaler [Ventolin Hfa 2 puff INHALATION RT-QID PRN 08/06/23 10/23/23 Inhaler] Montelukast [Singulair] 10 mg PO DAILY 08/06/23 10/23/23 Multivit-Min/Iron/Folic/Lutein 1 tab PO DAILY 08/06/23 10/23/23 [Centrum Silver Women Tablet] Pravastatin Sodium [Pravachol] 20 mg PO DAILY 08/06/23 10/23/23 Cyanocobalamin (Vitamin B-12) 1,000 mcg PO DAILY 09/23/23 10/23/23 [Vitamin B-12] Docusate [Colace] 100 mg PO DAILY 09/23/23 10/23/23 Previous Rx's Medication Instructions Recorded Sucralfate [Carafate] 1 gm PO AC-TID 90 Days #90 tab 06/07/23 Pantoprazole [Protonix] 40 mg PO BID #60 tab 08/10/23 Nicotine 14Mg/24Hr Patch [Habitrol] 1 patch TRANSDERM DAILY patch 09/26/23 Thiamine [Vitamin B-1] 100 mg PO BID #60 tab 09/26/23 Allergies Allergy/AdvReac Type Severity Reaction Status Date / Time No Known Allergies Allergy Verified 10/23/23 09:44 Review of Systems ROS Statement: Those systems with pertinent positive or pertinent negative responses have been documented in the HPI. ROS Other: All systems not noted in ROS Statement are negative. Past Medical History Past Medical History: GERD/Reflux, Hyperlipidemia, Hypertension Additional Past Medical History / Comment(s): Barretts Esophagus. neuropathy in feet History of Any Multi-Drug Resistant Organisms: None Reported Past Surgical History: Tonsillectomy Additional Past Surgical History / Comment(s): draining of pericarditis fluid 2006 Past Anesthesia/Blood Transfusion Reactions: No Reported Reaction Past Psychological History: Anxiety, Depression Smoking Status: Current every day smoker Past Alcohol Use History: Abuse, Daily, Heavy Past Drug Use History: None Reported General Exam Limitations: no limitations General appearance: alert, in no apparent distress Head exam: Present: atraumatic, normocephalic, normal inspection Eye exam: Present: normal appearance, PERRL, EOMI, other (contusion to right lateral eye). Absent: scleral icterus, conjunctival injection, periorbital swelling Pupils: Present: normal accommodation ENT exam: Present: normal exam, normal oropharynx, mucous membranes moist, TM's normal bilaterally Neck exam: Present: normal inspection. Absent: tenderness, meningismus, lymphadenopathy Respiratory exam: Present: normal lung sounds bilaterally. Absent: respiratory distress, wheezes, rales, rhonchi, stridor Cardiovascular Exam: Present: regular rate, normal rhythm, normal heart sounds. Absent: systolic murmur, diastolic murmur, rubs, gallop, clicks GI/Abdominal exam: Present: soft, normal bowel sounds. Absent: distended, tenderness, guarding, rebound, rigid Extremities exam: Present: normal inspection, full ROM, normal capillary refill. Absent: tenderness, pedal edema, joint swelling, calf tenderness Neurological exam: Present: alert, oriented X3, CN II-XII intact Skin exam: Present: warm, dry, intact, normal color. Absent: rash Course Vital Signs 10/23/23 10/23/23 10/23/23 07:08 09:34 10:51 Temperature 97.8 F Pulse Rate 80 74 78 Respiratory 16 18 18 Rate Blood Pressure 132/75 130/73 120/69 O2 Sat by Pulse 93 L 98 94 L Oximetry - Reevaluation(s) Reevaluation #1: 10/23/23 10:[address] Blackwood, [facility], who accepts medical admission. Medical Decision Making - Medical Decision Making Was pt. sent in by a medical professional or institution (, PA, BINDING NICKER, urgent care, hospital, or residential...) When possible be specific @ -No Did you speak to anyone other than the patient for history (EMS, parent, family, police, friend...)? What history was obtained from this source @ -No Did you review nursing and triage notes (agree or disagree)? Why? @ -I reviewed and agree with nursing and triage notes Were old charts reviewed (outside hosp., previous admission, EMS record, old EKG, old radiological studies, urgent care reports/EKG's, residential records)? Report findings @ -I reviewed ER visit on 09/30/23 patient seen for fall and alcohol intoxication. Patient discharged home with . Differential Diagnosis (chest pain, altered mental status, abdominal pain women, abdominal pain men, vaginal bleeding, weakness, fever, dyspnea, syncope, headache, dizziness, GI bleed, back pain, seizure, CVA, palpatations, mental health, musculoskeletal)? @ -Fracture, dislocation, contusion, hematoma, intracranial hemorrhage, concussion, abrasion, laceration this list does not like to be all-inclusive EKG interpreted by me (3pts min.). @ -As above X-rays interpreted by me (1pt min.). @ -None done CT interpreted by me (1pt min.). @ -CT brain C-spine negative for acute process. U/S interpreted by me (1pt. min.). @ -None done What testing was considered but not performed or refused? (CT, X-rays, U/S, labs)? Why? @ -None What meds were considered but not given or refused? Why? @ -None Did you discuss the management of the patient with other professionals (professionals i.e. , PA, BINDING NICKER, lab, RT, psych nurse, adoption social worker, expert witness, teacher, district fire management officer, manager of case management)? Give summary @ -Yes, [facility]. Was smoking cessation discussed for >3mins.? @ -No Was critical care preformed (if so, how long)? @ -No Were there social determinants of health that impacted care today? How? (Homelessness, low income, unemployed, alcoholism, drug addiction, transportation, low edu. Level, literacy, decrease access to med. care, group home, rehab)? @ -Alcoholism Was there de-escalation of care discussed even if they declined (Discuss DNR or withdrawal of care, Hospice)? DNR status @ -No What co-morbidities impacted this encounter? (DM, HTN, Smoking, COPD, CAD, Cancer, CVA, ARF, Chemo, Hep., AIDS, mental health diagnosis, sleep apnea, morbid obesity)? @ -Alcoholism/HTN Was patient admitted / discharged? Hospital course, mention meds given and route, prescriptions, significant lab abnormalities, going to OR and other pertinent info. @ -Admitted. 73-year-old female presented to the ER via EMS for evaluation of a fall. History and physical exam completed. Vitals stable. Patient no signs of acute distress but is intoxicated on exam. There is a contusion to lateral right eye. No focal bony tenderness. Bilateral upper and lower extremities neurovascular intact. Laboratory studies obtained remarkable for hemoglobin 9.7 which appears to be chronic in nature. Serum alcohol 404 with associated transaminitis. Hypomagnesemia at 1.0 which will be supplemented. CT brain and C-spine negative for acute process. Admission considered for alcohol intoxication and hypomagnesemia. Case discussed with Dr. Blackwood, [facility], who acc epts medical admission. Patient started on CIWA Protocol and ativan. Patient agreeable for admission at this time. Case discussed with ED attending, Dr. Lakhani. Undiagnosed new problem with uncertain prognosis? @ -No Drug Therapy requiring intensive monitoring for toxicity (Heparin, Nitro, Insulin, Cardizem)? @ -No Were any procedures done? @ -No Diagnosis/symptom? @ -Alcohol intoxication/hypomagnesemia Acute, or Chronic, or Acute on Chronic? @ -Acute Uncomplicated (without systemic symptoms) or Complicated (systemic symptoms)? @ -Complicated Side effects of treatment? @ -No Exacerbation, Progression, or Severe Exacerbation? @ -No Poses a threat to life or bodily function? How? (Chest pain, [place], [place], pneumonia, PE, COPD, DKA, ARF, appy, cholecystitis, CVA, Diverticulitis, Homicidal, Suicidal, threat to staff... and all critical care pts) @ -Possibly, alcohol intoxication can lead to seizures or DTs - Lab Data Result diagrams: 10/23/23 07:34 10/23/23 07:34 Lab Results 10/23/23 10/23/23 Range/Units 07:34 07:34 WBC 3.4 L (3.8-10.6) k/uL RBC 3.44 L (3.80-5.40) m/uL Hgb 9.7 L (11.4-16.0) gm/dL Hct 30.6 L (34.0-46.0) % MCV 89.0 (80.0-100.0) fL MCH 28.2 (25.0-35.0) pg MCHC 31.7 (31.0-37.0) g/dL RDW 18.7 H (11.5-15.5) % Plt Count 60 L D (150-450) k/uL MPV 8.8 Neutrophils % (Manual) 40 % Lymphocytes % (Manual) 37 % Monocytes % (Manual) 17 % Eosinophils % (Manual) 5 % Basophils % (Manual) 1 % Neutrophils # (Manual) 1.36 (1.3-7.7) k/uL Lymphocytes # (Manual) 1.26 (1.0-4.8) k/uL Monocytes # (Manual) 0.58 (0-1.0) k/uL Eosinophils # (Manual) 0.17 (0-0.7) k/uL Basophils # (Manual) 0.03 (0-0.2) k/uL Nucleated RBCs 0 (0-0) /100 WBC Manual Slide Review Performed Anisocytosis Slight Sodium 138 (137-145) mmol/L Potassium 3.6 (3.5-5.1) mmol/L Chloride 101 (98-107) mmol/L Carbon Dioxide 24 (22-30) mmol/L Anion Gap 13 mmol/L BUN 12 (7-17) mg/dL Creatinine 0.45 L (0.52-1.04) mg/dL Est GFR (CKD-EPI)AfAm >90 (>60 ml/min/1.73 sqM) Est GFR (CKD-EPI)NonAf >90 (>60 ml/min/1.73 sqM) Glucose 98 (74-99) mg/dL Calcium 8.6 (8.4-10.2) mg/dL Magnesium 1.0 L (1.6-2.3) mg/dL Total Bilirubin 0.6 (0.2-1.3) mg/dL AST 146 H (14-36) U/L ALT 40 H (4-34) U/L Alkaline Phosphatase 110 (38-126) U/L Total Protein 7.5 (6.3-8.2) g/dL Albumin 4.6 (3.5-5.0) g/dL Serum Alcohol 404 H* mg/dL - EKG Data -: EKG Interpreted by Me EKG Comments: EKG taken at 7: 32 showing a normal sinus rhythm with no acute ST segment or T wave abnormalities. Normal axis. Ventricular rate 70, UT interval 144, QRS duration 98, QT/QTc 402/423. - Radiology Data Radiology results: report reviewed, image reviewed Disposition Clinical Impression: Alcoholic intoxication, Hypomagnesemia Disposition: ADMITTED IP TO THIS HOSP Condition: Stable Time of Disposition: 09:44
[2023-10-23 08:30] LABS: ALT 40 U/L (4-34); AST 146 U/L (14-36); African American GFR (CKD) >90 (>60 ml/min/1.73 sqM); Albumin 4.6 g/dL (3.5-5.0); Alkaline Phosphatase 110 U/L (38-126); Anion Gap 13 mmol/L; Blood Urea Nitrogen 12 mg/dL (7-17); Calcium 8.6 mg/dL (8.4-10.2); Carbon Dioxide 24 mmol/L (22-30); Chloride 101 mmol/L (98-107); Glucose 98 mg/dL (74-99); Non-African American GFR(CKD) >90 (>60 ml/min/1.73 sqM); Potassium 3.6 mmol/L (3.5-5.1); Sodium 138 mmol/L (137-145); Total Bilirubin 0.6 mg/dL (0.2-1.3); Total Protein 7.5 g/dL (6.3-8.2)
--- NOTE | 2023-10-23 08:50 | CT ---
EXAMINATION TYPE: CT brain cspine wo con CT DLP: 1296.9 mGycm, Automated exposure control for dose reduction was used. DATE OF EXAM: 10/23/2023 7:53 AM COMPARISON: CT chest from 04/13/2021. CLINICAL INDICATION:Female, 73 years old with history of fall; TECHNIQUE: Brain: Multiple axial CT images of the brain were obtained without IV contrast. Cspine: Axial CT images from the skull base to the inferior aspect of T2 we obtained without intraven ous contrast. Coronal and sagittal reformatted images were also reviewed. FINDINGS: Brain: Extra-axial spaces: No abnormal extra-axial fluid collections. Ventricular system: Appear dilated in proportion to the degree of cerebral atrophy. Cerebral parenchyma: No increased attenuation to suggest acute intraparenchymal hemorrhage. The gra y-white matter interface appears maintained. Mild generalized brain atrophy. Scattered hypoattenuat ing areas are seen within the cerebral white matter, nonspecific but most often seen with chronic carlos rovascular ischemic changes; mild in degree. Cerebellum: No acute abnormality. Mass effect: No evidence of mass effect or midline shift. Intracranial vasculature: Unremarkable Soft tissues: Normal. Visualized orbits: Orbital contents appear grossly intact. Calvarium/osseous structures: No evidence of calvarial fracture. Paranasal sinuses and mastoid air cells: Clear. MRI is more sensitive for detecting acute processes such as infarct, and may be considered if clinica lly warranted. Cervical spine: Fracture: None seen. Osseous structures, spinal canal/neural foramina: Craniocervical junction appears to be intact. There are degenerative changes of the anterior C1-C2 articulation with regional well-corticated coarse bia cific/ossific densities which are chronic in appearance. No definite acute fracture lucency at the cr anial cervical junction. There is otherwise moderate multilevel degenerative disc disease and facet a rthrosis throughout the cervical spine. These changes appear greatest at C5-C6 and C6-C7 where there is moderate bilateral neural foraminal stenosis. Canal contents not well assessed by CT, with no gross intracanalicular abnormality seen. If there is persistent concern, MRI may be obtained. Vertebral alignment: No traumatic malalignment. Mild degenerative anterolisthesis C3 on C4 and C4 on C5 with slight retrolisthesis C5 on C6 and C6 on C7. Slight anterolisthesis C7 on T1. Neck soft tissues: No prevertebral soft tissue thickening or other acute abnormality.. Other: Lung apices show no acute infiltrate or pneumothorax. A 7mm nodule in the right upper lobe, i s stable since 2020 and therefore considered benign. IMPRESSION: CT head: 1. No acute intracranial CT abnormality. CT cervical spine: 1. No evidence of acute cervical spine fracture or traumatic malalignment. 2. Moderate cervical spondylosis.
[2023-10-23 09:01] LABS: Alcohol 404 mg/dL
[2023-10-23 09:15] LABS: Basophils # (M) 0.03 k/uL (0-0.2); Eosinophils # (M) 0.17 k/uL (0-0.7); Lymphocytes # (M) 1.26 k/uL (1.0-4.8); Monocytes # (M) 0.58 k/uL (0-1.0); Neutrophils # (M) 1.36 k/uL (1.3-7.7); Neutrophils % (M) 40 %; Nucleated Red Blood Cells 0 /100 WBC (0-0); Total Cells Counted 100
[2023-10-23] MEDS ORDERED: LORazepam 1 MG TAB PO PRN (09:37)
[2023-10-23] MEDS ORDERED: NALOXONE 0.4 MG/ML 1 ML VIAL IV PRN (09:41)
[2023-10-23] MEDS ORDERED: ONDANSETRON 4 MG/2 ML VIAL IVP PRN (09:41)
[2023-10-23] MEDS: LORazepam 0.5 MG TAB PO PRN (10:26)
[2023-10-23] MEDS: THIAMINE 100 MG/ML 2 ML VIAL IM STA (10:26)
[2023-10-23] MEDS: MAGNESIUM SULFATE-D5W PMX 1 GM in DEXTROSE/WATER 1 100ML.BAG IVPB SCH (10:26)
[2023-10-23] MEDS: SODIUM CHLORIDE 0.9% 1,000 ML IV SCH (10:28)
--- NOTE | 2023-10-23 13:11 | P.HPIM ---
History of Present Illness H&P Date: 10/23/23 History of present illness; patient is a 73-year-old lady with past medical history significant for alcohol abuse who presented to ER after a fall. Patient admits to drinking half to 1 pint of alcohol daily. Patient stated that she was in her garage when she tripped and fell hitting her head. Patient denies any loss of consciousness. There was no complaint of lightheadedness or dizziness. There was no complaint of fever or chills. Denies any complaint of chest pain or shortness of breath. Because of fall, patient went to ER Initial lab work done in the ER showed WBC 3.4, hemoglobin 9.7, platelet count 60, sodium 130, potassium 3.6, BUN 12, creatinine 0.45, magnesium 1.0 AST 146, ALT 40, alcohol 404 CT head done showed no acute intracranial process CT cervical spine done showed no acute cervical spine fractures Patient admitted to internal medicine service REVIEW OF SYSTEMS: CONSTITUTIONAL: No fever, no malaise, no fatigue. HEENT: No recent visual problems or hearing problems. Denied any sore throat. CARDIOVASCULAR: No chest pain, orthopnea, PND, no palpitations, no syncope. PULMONARY: No shortness of breath, no cough, no hemoptysis. GASTROINTESTINAL: No diarrhea, no nausea, no vomiting, no abdominal pain. NEUROLOGICAL: No headaches, no weakness, no numbness. HEMATOLOGICAL: Denies any bleeding or petechiae. GENITOURINARY: Denies any burning micturition, frequency, or urgency. MUSCULOSKELETAL/RHEUMATOLOGICAL: Denies any joint pain, swelling, or any muscle pain. ENDOCRINE: Denies any polyuria or polydipsia. The rest of the 14-point review of systems is negative. PHYSICAL EXAMINATION: GENERAL: The patient is alert and oriented x3, not in any acute distress. Ill looking HEENT: Pupils are round and equally reacting to light. EOMI. No scleral icterus. No conjunctival pallor. Normocephalic, atraumatic. No pharyngeal erythema. No thyromegaly. CARDIOVASCULAR: S1 and S2 present. No murmurs, rubs, or gallops. PULMONARY: Chest is clear to auscultation, no wheezing or crackles. ABDOMEN: Soft, nontender, nondistended, normoactive bowel sounds. No palpable organomegaly. MUSCULOSKELETAL: No joint swelling or deformity. EXTREMITIES: No cyanosis, clubbing, or pedal edema. NEUROLOGICAL: Gross neurological examination did not reveal any focal deficits. SKIN: No rashes. Assessment and plan Fall Alcohol intoxication Impending alcohol detox Acute transaminitis Hypomagnesemia Thrombocytopenia Rivera's esophagus Hyperlipidemia Monitor vital signs Monitor CBC Monitor CMP Continue telemetry monitoring Fall precaution Continue high-dose thiamine and folic acid Continue CIWA protocol Replace magnesium levels Resume home meds Labs and medication were reviewed.. Continue same treatment. Continue with symptomatic treatment. Resume home medication. Monitor labs and vitals. DVT and GI prophylaxis. Further recommendations as per clinical course of the patient Dictation was produced using [employer] dictation software. please excuse any grammatical, word or spelling errors. Past Medical History Past Medical History: GERD/Reflux, Hyperlipidemia, Hypertension Additional Past Medical History / Comment(s): Barretts Esophagus. neuropathy in feet History of Any Multi-Drug Resistant Organisms: None Reported Past Surgical History: Tonsillectomy Additional Past Surgical History / Comment(s): draining of pericarditis fluid 2006 Past Anesthesia/Blood Transfusion Reactions: No Reported Reaction Past Psychological History: Anxiety, Depression Smoking Status: Current every day smoker Past Alcohol Use History: Abuse, Daily, Heavy Past Drug Use History: None Reported Medications and Allergies Home Medications Medication Instructions Recorded Confirmed Type Sucralfate [Carafate] 1 gm PO AC-TID 90 Days #90 tab 06/07/23 10/23/23 Rx Albuterol Inhaler [Ventolin Hfa 2 puff INHALATION RT-QID PRN 08/06/23 10/23/23 History Inhaler] Montelukast [Singulair] 10 mg PO DAILY 08/06/23 10/23/23 History Multivit-Min/Iron/Folic/Lutein 1 tab PO DAILY 08/06/23 10/23/23 History [Centrum Silver Women Tablet] Pravastatin Sodium [Pravachol] 20 mg PO DAILY 08/06/23 10/23/23 History Pantoprazole [Protonix] 40 mg PO BID #60 tab 08/10/23 10/23/23 Rx Cyanocobalamin (Vitamin B-12) 1,000 mcg PO DAILY 09/23/23 10/23/23 History [Vitamin B-12] Docusate [Colace] 100 mg PO DAILY 09/23/23 10/23/23 History Nicotine 14Mg/24Hr Patch [Habitrol] 1 patch TRANSDERM DAILY patch 09/26/23 10/23/23 Rx Thiamine [Vitamin B-1] 100 mg PO BID #60 tab 09/26/23 10/23/23 Rx Allergies Allergy/AdvReac Type Severity Reaction Status Date / Time No Known Allergies Allergy Verified 10/23/23 09:44 Physical Exam Vitals: Vital Signs Temp Pulse Pulse Resp BP BP Pulse Ox 10/23/23 11:09 98.4 F 77 16 151/78 96 10/23/23 10:51 78 18 120/69 94 L 10/23/23 09:34 74 18 130/73 98 10/23/23 07:08 97.8 F 80 16 132/75 93 L Intake and Output 10/22/23 10/23/23 10/23/23 22:59 06:59 14:59 Other: Weight 58.967 kg Results CBC & Chem 7: 10/23/23 07:34 10/23/23 07:34 Labs: Abnormal Lab Results - Last 24 Hours (Table) 10/23/23 10/23/23 Range/Units 07:34 07:34 WBC 3.4 L (3.8-10.6) k/uL RBC 3.44 L (3.80-5.40) m/uL Hgb 9.7 L (11.4-16.0) gm/dL Hct 30.6 L (34.0-46.0) % RDW 18.7 H (11.5-15.5) % Plt Count 60 L D (150-450) k/uL Creatinine 0.45 L (0.52-1.04) mg/dL Magnesium 1.0 L (1.6-2.3) mg/dL AST 146 H (14-36) U/L ALT 40 H (4-34) U/L Serum Alcohol 404 H* mg/dL
[2023-10-23] MEDS ORDERED: MAGNESIUM SULFATE-D5W PMX 1 GM in DEXTROSE/WATER 1 100ML.BAG IVPB SCH (13:15)
[2023-10-23] MEDS: CYANOCOBALAMIN 500 MCG TAB PO SCH (13:53)
[2023-10-23] MEDS: LORazepam 1 MG TAB PO PRN ×2 (14:30→20:06)
[2023-10-23 15:31] LABS: Platelet Count 60 k/uL (150-450)
[2023-10-23] MEDS: SUCRALFATE 1 GM TAB PO SCH (17:51)
[2023-10-23] MEDS: PANTOPRAZOLE 40 MG TABLET PO SCH (21:05)
[2023-10-23] MEDS: MAGNESIUM OXIDE 400 MG TAB PO SCH (21:05)
[2023-10-24] MEDS: IBUPROFEN 400 MG TAB PO PRN (04:12)
[2023-10-24] MEDS: MONTELUKAST 10 MG TAB PO SCH (07:53)
[2023-10-24] MEDS: PRAVASTATIN SODIUM 20 MG TAB PO SCH (07:53)
[2023-10-24] MEDS: NICOTINE 14MG/24HR PATCH TRANSDERM SCH (07:58)
[2023-10-24 09:03] LABS: ALT 39 U/L (8-44); AST 153 U/L (13-35); Albumin 4.5 g/dL (3.8-4.9); Albumin/Globulin Ratio 1.67 Ratio (1.60-3.17); Alkaline Phosphatase 125 U/L (41-126); Blood Urea Nitrogen 6.4 mg/dL (9.0-27.0); Calcium 8.6 mg/dL (8.7-10.3); Carbon Dioxide 22.8 mmol/L (21.6-31.8); Chloride 97 mmol/L (96-109); Globulin 2.7 g/dL (1.6-3.3); Glucose 91 mg/dL (70-110); Magnesium 1.7 mg/dL (1.5-2.4); Potassium 3.8 mmol/L (3.5-5.5); Sodium 137 mmol/L (135-145); Total Protein 7.2 g/dL (6.2-8.2)
[2023-10-24 11:41] LABS: Basophils # (A) 0.04 X 10*3/uL (0.00-0.10); Basophils % (A) 0.9 %; Eosinophils # (A) 0.11 X 10*3/uL (0.04-0.35); Eosinophils % (A) 2.6 %; HCT 32.3 % (37.2-46.3); HGB 10.7 g/dL (12.0-15.0); Immature Platelet Fraction 9.7 % (1.1-6.1); Lymphocytes # (A) 1.13 X 10*3/uL (0.90-5.00); Lymphocytes % (A) 26.2 %; MCH 29.6 pg (27.0-32.0); MCHC 33.1 g/dL (32.0-37.0); MCV 89.2 FL (80.0-97.0); Monocytes # (A) 0.77 X 10*3/uL (0.20-1.00); Monocytes % (A) 17.9 %; NRBC Per 100 WBC 0 X 10*3/uL (0.00-0.01); Neutrophils # (A) 2.23 X 10*3/uL (1.80-7.70); Neutrophils % (A) 51.7 %; Platelet Count 43 X 10*3/uL (140-440); RBC 3.62 X 10*6/uL (4.10-5.20); RBC Morphology Normal (Normal); RDW 19.6 % (11.5-14.5); WBC 4.31 X 10*3/uL (4.50-10.00)
--- NOTE | 2023-10-24 13:07 | P.PN ---
Subjective Progress Note Date: 10/24/23 patient is a 73-year-old lady with past medical history significant for alcohol abuse who presented to ER after a fall. Patient admits to drinking half to 1 pint of alcohol daily. Patient stated that she was in her garage when she tripped and fell hitting her head. Patient denies any loss of consciousness. There was no complaint of lightheadedness or dizziness. There was no complaint of fever or chills. Denies any complaint of chest pain or shortness of breath. Because of fall, patient went to ER Initial lab work done in the ER showed WBC 3.4, hemoglobin 9.7, platelet count 60, sodium 130, potassium 3.6, BUN 12, creatinine 0.45, magnesium 1.0 AST 146, ALT 40, alcohol 404 CT head done showed no acute intracranial process CT cervical spine done showed no acute cervical spine fractures Patient admitted to internal medicine service 10/23. Patient seen and examined. Complaining of lethargy and weakness. Patient was unsteady on her gait REVIEW OF SYSTEMS: CONSTITUTIONAL: No fever, no malaise,. CARDIOVASCULAR: No chest pain, no palpitations, no syncope. PULMONARY: No shortness of breath, no cough, GASTROINTESTINAL: No diarrhea, no nausea, no vomiting, no abdominal pain. NEUROLOGICAL: No headaches, no weakness, PHYSICAL EXAMINATION: GENERAL: The patient is alert and oriented x3, not in any acute distress. Well developed, well nourished. HEENT: Pupils are round and equally reacting to light. EOMI. No scleral icterus. No conjunctival pallor. Normocephalic, atraumatic. No pharyngeal erythema. No thyromegaly. CARDIOVASCULAR: S1 and S2 present. No murmurs, rubs, or gallops. PULMONARY: Chest is clear to auscultation, no wheezing or crackles. ABDOMEN: Soft, nontender, nondistended, normoactive bowel sounds. No palpable organomegaly. MUSCULOSKELETAL: No joint swelling or deformity. EXTREMITIES: No cyanosis, clubbing, or pedal edema. NEUROLOGICAL: Gross neurological examination did not reveal any focal deficits. SKIN: No rashes. Assessment and plan Fall Alcohol intoxication Impending alcohol detox Acute transaminitis Hypomagnesemia Thrombocytopenia Rivera's esophagus Hyperlipidemia Monitor vital signs Monitor CBC Monitor CMP Continue telemetry monitoring Fall precaution Continue high-dose thiamine and folic acid Continue CIWA protocol PT and OT consulted Labs and medication were reviewed.. Continue same treatment. Continue with symptomatic treatment. Resume home medication. Monitor labs and vitals. DVT and GI prophylaxis. Further recommendations as per clinical course of the patient Dictation was produced using [employer] dictation software. please excuse any grammatical, word or spelling errors. Objective - Vital Signs Vital signs: Vital Signs Temp 98.6 F 10/24/23 07:00 Pulse 86 10/24/23 07:00 Resp 18 10/24/23 07:00 BP 166/93 10/24/23 07:00 Pulse Ox 97 10/24/23 07:00 FiO2 Intake & Output 10/23/23 10/24/23 10/24/23 18:59 06:59 18:59 Intake Total 0 100 240 Output Total 200 Balance 0 -100 240 Weight 58.967 kg Intake: Oral 0 100 240 Output: Urine 200 Other: Voiding Method Bedside Commode External Catheter # Voids 0 - Labs CBC & Chem 7: 10/24/23 02:50 10/24/23 02:50 Labs: Abnormal Lab Results - Last 24 Hours (Table) 10/23/23 10/24/23 10/24/23 Range/Units 07:34 02:50 02:50 WBC 4.31 L (4.50-10.00) X 10*3/uL RBC 3.62 L (4.10-5.20) X 10*6/uL Hgb 10.7 L (12.0-15.0) g/dL Hct 32.3 L (37.2-46.3) % RDW 19.6 H (11.5-14.5) % Plt Count 60 L D 43 L (150-450) k/uL Immature Plt Fraction 9.7 H (1.1-6.1) % Anion Gap 17.20 H (4.00-12.00) mmol/L BUN 6.4 L (9.0-27.0) mg/dL Creatinine 0.4 L (0.6-1.5) mg/dL Calcium 8.6 L (8.7-10.3) mg/dL AST 153 H (13-35) U/L
[2023-10-25] MEDS: LORazepam 2 MG/ML INJ IV PRN ×2 (00:19→01:39)
[2023-10-25] MEDS: chlordiazePOXIDE 25 MG CAP PO SCH (07:26)
[2023-10-25 11:47] LABS: Anisocytosis Slight; Basophils % (A) 1 %; Eosinophils # (A) 0.2 k/uL (0-0.7); Eosinophils % (A) 4 %; HGB 11.2 gm/dL (11.4-16.0); Lymphocytes % (A) 20 %; MCH 29.6 pg (25.0-35.0); MCHC 31.9 g/dL (31.0-37.0); MCV 92.8 fL (80.0-100.0); Mean Platelet Volume 10.8; Monocytes # (A) 0.5 k/uL (0-1.0); Monocytes % (A) 9 %; Neutrophils # (A) 3.1 k/uL (1.3-7.7); Neutrophils % (A) 63 %; RBC 3.76 m/uL (3.80-5.40); RDW 18.5 % (11.5-15.5); WBC 4.9 k/uL (3.8-10.6)
[2023-10-25 11:55] LABS: Platelet Count 63 k/uL (150-450)
[2023-10-25 12:01] LABS: ALT 40 U/L (4-34); African American GFR (CKD) >90 (>60 ml/min/1.73 sqM); Albumin 4.2 g/dL (3.5-5.0); Anion Gap 9 mmol/L; Blood Urea Nitrogen 8 mg/dL (7-17); Calcium 9.2 mg/dL (8.4-10.2); Carbon Dioxide 23 mmol/L (22-30); Chloride 103 mmol/L (98-107); Glucose 83 mg/dL (74-99); Non-African American GFR(CKD) >90 (>60 ml/min/1.73 sqM); Sodium 135 mmol/L (137-145); Total Bilirubin 1.3 mg/dL (0.2-1.3)
[2023-10-25 12:05] LABS: Alkaline Phosphatase 95 U/L (38-126); Potassium 3.2 mmol/L (3.5-5.1)
--- NOTE | 2023-10-25 13:04 | P.CNPUL ---
History of Present Illness Consult date: 10/25/23 Chief complaint: Alcohol intoxication the fall History of present illness: 73-year-old female, alcoholic, who is being seen for impending alcohol withdrawals. The patient presented to the emergency department with alcohol intoxication and she had a fall. She had been drinking half to 1 pint of alcohol on daily basis. She was in the garage and she is tripped and fell hitting her head. No loss of consciousness. No seizure activity. No reported aspiration. She came into the emergency following the fall. Alcohol level was 404. Electrolytes are all stable. CAT scan of the brain was negative. CAT scan of the cervical spine was negative. On today's evaluation, the patient is lethargic and weak. She was started on alcohol withdrawal protocol and she is currently on Ativan and Librium. IV fluids are running at a rate of 75 cc an hour. No chest x-rays available. EKG showing normal sinus rhythm. The patient is currently on room air oxygen with a pulse ox of 96%. Slightly tachycardic and shaky. No significant agitation. The white cell count of 4.9 with a hemoglobin 11.2, BUN is at 8 with a creatinine of 0.4 and a sodium levels of 135 and a potassium noted at 3.2. Review of Systems CONSTITUTIONAL: No fever, no malaise, no fatigue. HEENT: No recent visual problems or hearing problems. Denied any sore throat. CARDIOVASCULAR: No chest pain, orthopnea, PND, no palpitations, no syncope. PULMONARY: No shortness of breath, no cough, no hemoptysis. GASTROINTESTINAL: No diarrhea, no nausea, no vomiting, no abdominal pain. NEUROLOGICAL: No headaches, no weakness, no numbness. HEMATOLOGICAL: Denies any bleeding or petechiae. GENITOURINARY: Denies any burning micturition, frequency, or urgency. MUSCULOSKELETAL/RHEUMATOLOGICAL: Denies any joint pain, swelling, or any muscle pain. ENDOCRINE: Denies any polyuria or polydipsia. The rest of the 14-point review of systems is negative. Past Medical History Past Medical History: GERD/Reflux, Hyperlipidemia, Hypertension Additional Past Medical History / Comment(s): Barretts Esophagus. neuropathy in feet History of Any Multi-Drug Resistant Organisms: None Reported Past Surgical History: Tonsillectomy Additional Past Surgical History / Comment(s): draining of pericarditis fluid 2006 Past Anesthesia/Blood Transfusion Reactions: No Reported Reaction Past Psychological History: Anxiety, Depression Smoking Status: Current every day smoker Past Alcohol Use History: Abuse, Daily, Heavy Past Drug Use History: None Reported Medications and Allergies Home Medications Medication Instructions Recorded Confirmed Type Sucralfate [Carafate] 1 gm PO AC-TID 90 Days #90 tab 06/07/23 10/23/23 Rx Albuterol Inhaler [Ventolin Hfa 2 puff INHALATION RT-QID PRN 08/06/23 10/23/23 History Inhaler] Montelukast [Singulair] 10 mg PO DAILY 08/06/23 10/23/23 History Multivit-Min/Iron/Folic/Lutein 1 tab PO DAILY 08/06/23 10/23/23 History [Centrum Silver Women Tablet] Pravastatin Sodium [Pravachol] 20 mg PO DAILY 08/06/23 10/23/23 History Pantoprazole [Protonix] 40 mg PO BID #60 tab 08/10/23 10/23/23 Rx Cyanocobalamin (Vitamin B-12) 1,000 mcg PO DAILY 09/23/23 10/23/23 History [Vitamin B-12] Docusate [Colace] 100 mg PO DAILY 09/23/23 10/23/23 History Nicotine 14Mg/24Hr Patch [Habitrol] 1 patch TRANSDERM DAILY patch 09/26/23 10/23/23 Rx Thiamine [Vitamin B-1] 100 mg PO BID #60 tab 09/26/23 10/23/23 Rx Allergies Allergy/AdvReac Type Severity Reaction Status Date / Time No Known Allergies Allergy Verified 10/23/23 09:44 Physical Exam Vitals: Vital Signs Temp Pulse Resp BP BP Pulse Ox 10/25/23 11:46 108 H 16 149/85 96 10/25/23 08:43 98.3 F 104 H 18 126/81 97 10/25/23 06:55 98.6 F 105 H 16 133/82 94 L 10/25/23 04:09 82 151/84 10/25/23 01:32 154/83 10/25/23 00:10 96.6 F L 127 H 22 173/102 100 10/24/23 18:27 97.6 F 92 18 153/87 100 10/24/23 14:37 98.1 F 96 20 154/83 98 Intake and Output 10/24/23 10/25/23 10/25/23 22:59 06:59 14:59 Output Total 550 900 Balance -550 -900 Output: Urine 550 900 Other: Voiding Method External Catheter External Catheter External Catheter The patient appeared well nourished and normally developed. Vital signs as documented. Head exam is unremarkable. No scleral icterus or corneal arcus noted. Neck is without jugular venous distension, thyromegaly, or carotid bruits. Carotid upstrokes are brisk bilaterally. Lungs are clear to auscultation and percussion. Cardiac exam reveals the PMI to be normally sized and situated. Rhythm is regular. First and second heart sounds normal. No murmurs, rubs or gallops. Abdominal exam reveals normal bowel sounds, no masses, no organomegaly and no aortic enlargement. Extremities are nonedematous and both femoral and pedal pulses are normal. Examination of the skin revealed no evidence of signi ficant rashes, suspicious appearing nevi or other concerning lesions. Neurologic the patient moves all 4 extremities. She is slightly shaky and lethargic. Results - Laboratory Findings CBC and BMP: 10/25/23 10:10 10/25/23 10:10 Abnormal lab findings: Abnormal Labs 10/23/23 10/23/23 10/24/23 07:34 07:34 02:50 WBC 3.4 L 4.31 L RBC 3.44 L 3.62 L Hgb 9.7 L 10.7 L Hct 30.6 L 32.3 L RDW 18.7 H 19.6 H Plt Count 60 L D 43 L Immature Plt Fraction 9.7 H Sodium Potassium Anion Gap BUN Creatinine 0.45 L Calcium Magnesium 1.0 L AST 146 H ALT 40 H Serum Alcohol 404 H* 10/24/23 10/25/23 10/25/23 02:50 10:10 10:10 WBC RBC 3.76 L Hgb 11.2 L Hct RDW 18.5 H Plt Count 63 L Immature Plt Fraction Sodium 135 L Potassium 3.2 L Anion Gap 17.20 H BUN 6.4 L Creatinine 0.4 L 0.34 L Calcium 8.6 L Magnesium AST 153 H ALT 40 H Serum Alcohol Assessment and Plan Plan: Fall secondary to acute alcohol intoxication. CAT scan of the brain and CT scan of the cervical spine has been negative for any acute abnormalities. Alcohol intoxication, alcohol level above 400 time of admission Impending alcohol detox, currently on a combination of Librium and Ativan Acute transaminitis Hypomagnesemia secondary to alcoholism Thrombocytopenia secondary to alcoholism Rivera's esophagus Hyperlipidemia Plan Monitor mental status Obtain a baseline chest x-ray Patient is currently on room air oxygen Thiamine continue IV fluids Electrolyte replacement Agree on Ativan and Librium Will continue to follow
[2023-10-25] MEDS ORDERED: Potassium Replacement Protocol 1 EACH MISC MISCELLANE PRN (13:14)
--- NOTE | 2023-10-25 13:35 | P.PN ---
Subjective Progress Note Date: 10/25/23 patient is a 73-year-old lady with past medical history significant for alcohol abuse who presented to ER after a fall. Patient admits to drinking half to 1 pint of alcohol daily. Patient stated that she was in her garage when she tripped and fell hitting her head. Patient denies any loss of consciousness. There was no complaint of lightheadedness or dizziness. There was no complaint of fever or chills. Denies any complaint of chest pain or shortness of breath. Because of fall, patient went to ER Initial lab work done in the ER showed WBC 3.4, hemoglobin 9.7, platelet count 60, sodium 130, potassium 3.6, BUN 12, creatinine 0.45, magnesium 1.0 AST 146, ALT 40, alcohol 404 CT head done showed no acute intracranial process CT cervical spine done showed no acute cervical spine fractures Patient admitted to internal medicine service 10/23. Patient seen and examined. Complaining of lethargy and weakness. Patient was unsteady on her gait 10/24. Patient seen and examined. Patient had to be transferred to stepdown unit because of increasing Ciwa last CIWA score was 20. Continues to be confused, hallucinating. REVIEW OF SYSTEMS: Review of system cannot be obtained as patient is confused PHYSICAL EXAMINATION: GENERAL: The patient is confused, agitated HEENT: Pupils are round and equally reacting to light. EOMI. No scleral icterus. No conjunctival pallor. Normocephalic, atraumatic. No pharyngeal erythema. No thyromegaly. CARDIOVASCULAR: S1 and S2 present. No murmurs, rubs, or gallops. PULMONARY: Chest is clear to auscultation, no wheezing or crackles. ABDOMEN: Soft, nontender, nondistended, normoactive bowel sounds. No palpable organomegaly. MUSCULOSKELETAL: No joint swelling or deformity. EXTREMITIES: No cyanosis, clubbing, or pedal edema. NEUROLOGICAL: Gross neurological examination did not reveal any focal deficits. SKIN: No rashes. Assessment and plan Fall Alcohol intoxication Impending alcohol detox Acute transaminitis Hypomagnesemia Thrombocytopenia Rivera's esophagus Hyperlipidemia Monitor vital signs Monitor CBC Monitor CMP Continue telemetry monitoring Fall precaution Continue high-dose thiamine and folic acid Continue CIWA protocol Added Librium. If patient CIWA scores continue to be high, will start patient on Precedex drip and transfer to ICU Labs and medication were reviewed.. Continue same treatment. Continue with symptomatic treatment. Resume home medication. Monitor labs and vitals. DVT and GI prophylaxis. Further recommendations as per clinical course of the patient Dictation was produced using [employer] dictation software. please excuse any grammatical, word or spelling errors. Objective - Vital Signs Vital signs: Vital Signs Temp 98.3 F 10/25/23 08:43 Pulse 104 H 10/25/23 08:43 Resp 18 10/25/23 08:43 BP 126/81 10/25/23 08:43 Pulse Ox 97 10/25/23 08:43 FiO2 Intake & Output 10/24/23 10/25/23 10/25/23 18:59 06:59 18:59 Intake Total 358 Output Total 1700 1450 Balance -1342 -1450 Intake: Oral 358 Output: Urine 1700 1450 Other: Voiding Method External Catheter - Labs CBC & Chem 7: 10/25/23 10:10 10/25/23 10:10 Labs: Abnormal Lab Results - Last 24 Hours (Table) 10/24/23 Range/Units 02:50 WBC 4.31 L (4.50-10.00) X 10*3/uL RBC 3.62 L (4.10-5.20) X 10*6/uL Hgb 10.7 L (12.0-15.0) g/dL Hct 32.3 L (37.2-46.3) % RDW 19.6 H (11.5-14.5) % Plt Count 43 L (140-440) X 10*3/uL Immature Plt Fraction 9.7 H (1.1-6.1) %
[2023-10-25] MEDS: POTASSIUM CHLORIDE ER 20 MEQ TAB.ER PO SCH (13:57)
[2023-10-25 17:23] LABS: AST 193 U/L (14-36)
[2023-10-26] MEDS: LORazepam 2 MG/ML INJ IV PRN (08:16)
[2023-10-26 12:16] LABS: ALT 55 U/L (4-34); AST 212 U/L (14-36); African American GFR (CKD) >90 (>60 ml/min/1.73 sqM); Albumin 3.7 g/dL (3.5-5.0); Alkaline Phosphatase 94 U/L (38-126); Anion Gap 6 mmol/L; Blood Urea Nitrogen 8 mg/dL (7-17); Calcium 8.9 mg/dL (8.4-10.2); Carbon Dioxide 22 mmol/L (22-30); Chloride 109 mmol/L (98-107); Glucose 112 mg/dL (74-99); Non-African American GFR(CKD) >90 (>60 ml/min/1.73 sqM); Potassium 3.4 mmol/L (3.5-5.1); Sodium 137 mmol/L (137-145); Total Bilirubin 0.7 mg/dL (0.2-1.3); Total Protein 6.4 g/dL (6.3-8.2)
[2023-10-26 12:24] LABS: Anisocytosis Slight; Basophils # (A) 0.1 k/uL (0-0.2); Basophils % (A) 1 %; Eosinophils # (A) 0.2 k/uL (0-0.7); Eosinophils % (A) 5 %; HCT 35.1 % (34.0-46.0); HGB 11.1 gm/dL (11.4-16.0); Lymphocytes % (A) 20 %; MCH 30.1 pg (25.0-35.0); MCHC 31.7 g/dL (31.0-37.0); MCV 94.9 fL (80.0-100.0); Macrocytosis Slight; Mean Platelet Volume 11.5; Monocytes # (A) 0.6 k/uL (0-1.0); Monocytes % (A) 12 %; Neutrophils # (A) 2.7 k/uL (1.3-7.7); Neutrophils % (A) 58 %; RDW 18.8 % (11.5-15.5); WBC 4.7 k/uL (3.8-10.6)
[2023-10-26 12:25] LABS: Platelet Count 62 k/uL (150-450)
--- NOTE | 2023-10-26 14:28 | P.PN ---
Subjective Progress Note Date: 10/26/23 patient is a 73-year-old lady with past medical history significant for alcohol abuse who presented to ER after a fall. Patient admits to drinking half to 1 pint of alcohol daily. Patient stated that she was in her garage when she tripped and fell hitting her head. Patient denies any loss of consciousness. There was no complaint of lightheadedness or dizziness. There was no complaint of fever or chills. Denies any complaint of chest pain or shortness of breath. Because of fall, patient went to ER Initial lab work done in the ER showed WBC 3.4, hemoglobin 9.7, platelet count 60, sodium 130, potassium 3.6, BUN 12, creatinine 0.45, magnesium 1.0 AST 146, ALT 40, alcohol 404 CT head done showed no acute intracranial process CT cervical spine done showed no acute cervical spine fractures Patient admitted to internal medicine service 10/23. Patient seen and examined. Complaining of lethargy and weakness. Patient was unsteady on her gait 10/24. Patient seen and examined. Patient had to be transferred to stepdown unit because of increasing Ciwa last CIWA score was 20. Continues to be confused, hallucinating. 10/25. Patient seen and examined. Patient CIWA scores have improved, last 1 was 12. Continues to be on Ativan and Librium REVIEW OF SYSTEMS: Review of system cannot be obtained as patient is confused PHYSICAL EXAMINATION: GENERAL: The patient is confused, agitated HEENT: Pupils are round and equally reacting to light. EOMI. No scleral icterus. No conjunctival pallor. Normocephalic, atraumatic. No pharyngeal erythema. No thyromegaly. CARDIOVASCULAR: S1 and S2 present. No murmurs, rubs, or gallops. PULMONARY: Chest is clear to auscultation, no wheezing or crackles. ABDOMEN: Soft, nontender, nondistended, normoactive bowel sounds. No palpable organomegaly. MUSCULOSKELETAL: No joint swelling or deformity. EXTREMITIES: No cyanosis, clubbing, or pedal edema. NEUROLOGICAL: Gross neurological examination did not reveal any focal deficits. SKIN: No rashes. Assessment and plan Fall Alcohol intoxication Impending alcohol detox Acute transaminitis Hypomagnesemia Thrombocytopenia Rivera's esophagus Hyperlipidemia Monitor vital signs Monitor CBC Monitor CMP Continue telemetry monitoring Fall precaution Continue high-dose thiamine and folic acid Continue CIWA protocol Continue Librium If patient CIWA scores continue to be high, will start patient on Precedex drip and transfer to ICU Pulmonology following Labs and medication were reviewed.. Continue same treatment. Continue with symptomatic treatment. Resume home medication. Monitor labs and vitals. DVT and GI prophylaxis. Further recommendations as per clinical course of the patient Dictation was produced using [employer] dictation software. please excuse any grammatical, word or spelling errors. Objective - Vital Signs Vital signs: Vital Signs Temp 98.1 F 10/26/23 08:00 Pulse 94 10/26/23 08:00 Resp 20 10/26/23 08:00 BP 154/95 10/26/23 08:00 Pulse Ox 98 10/26/23 08:00 FiO2 Intake & Output 10/25/23 10/26/23 10/26/23 18:59 06:59 18:59 Intake Total 330 118 Output Total 450 750 Balance -120 -750 118 Weight 62.5 kg Intake: Oral 330 118 Output: Urine 450 750 Other: Voiding Method External Catheter External Catheter External Catheter # Voids 1 1 - Labs CBC & Chem 7: 10/26/23 11:23 10/26/23 11:23 Labs: Abnormal Lab Results - Last 24 Hours (Table) 10/25/23 10/25/23 Range/Units 10:10 10:10 RBC 3.76 L (3.80-5.40) m/uL Hgb 11.2 L (11.4-16.0) gm/dL RDW 18.5 H (11.5-15.5) % Plt Count 63 L (150-450) k/uL Sodium 135 L (137-145) mmol/L Potassium 3.2 L (3.5-5.1) mmol/L Creatinine 0.34 L (0.52-1.04) mg/dL AST 193 H (14-36) U/L ALT 40 H (4-34) U/L
--- NOTE | 2023-10-26 18:09 | P.PN ---
Subjective Progress Note Date: 10/26/23 73-year-old female, alcoholic, who is being seen for impending alcohol withdrawals. The patient presented to the emergency department with alcohol intoxication and she had a fall. She had been drinking half to 1 pint of alcohol on daily basis. She was in the garage and she is tripped and fell hitting her head. No loss of consciousness. No seizure activity. No reported aspiration. She came into the emergency following the fall. Alcohol level was 404. Electrolytes are all stable. CAT scan of the brain was negative. CAT scan of the cervical spine was negative. On today's evaluation, the patient is lethargic and weak. She was started on alcohol withdrawal protocol and she is currently on Ativan and Librium. IV fluids are running at a rate of 75 cc an hour. No chest x-rays available. EKG showing normal sinus rhythm. The patient is currently on room air oxygen with a pulse ox of 96%. Slightly tachycardic and shaky. No significant agitation. The white cell count of 4.9 with a h emoglobin 11.2, BUN is at 8 with a creatinine of 0.4 and a sodium levels of 135 and a potassium noted at 3.2. On 11/22/2023, the patient is being seen for a follow-up., Comfortable, lethargic and sleepy. No confusion. Minimal agitation this morning the patient was given a dose of Ativan 1 mg IV. She has not required more medication. She remains on Librium 25 mg p.o. 3 times daily. No active signs of delirium tremens. Noted the patient was acute alcohol intoxicated time of admission. The white cell count is 4.7 with a hemoglobin of 11.2 and a platelet count of 62 which is essentially stable. Electrolytes are stable and the creatinine is at 0.36 with a BUN of 8 and the patient has a potassium level of 3.4 that needs to be replaced. No other specific complaints for now. Hemodynamically stable. Objective - Vital Signs Vital signs: Vital Signs Temp 97.8 F 10/26/23 11:26 Pulse 86 10/26/23 11:26 Resp 20 10/26/23 11:26 BP 132/75 10/26/23 11:26 Pulse Ox 99 10/26/23 11:26 FiO2 Intake & Output 10/25/23 10/26/23 10/26/23 18:59 06:59 18:59 Intake Total 330 118 Output Total 450 750 Balance -120 -750 118 Weight 62.5 kg Intake: Oral 330 118 Output: Urine 450 750 Other: Voiding Method External Catheter External Catheter External Catheter # Voids 1 1 - Exam The patient appeared well nourished and normally developed. Vital signs as documented. Head exam is unremarkable. No scleral icterus or corneal arcus noted. Neck is without jugular venous distension, thyromegaly, or carotid bruits. Carotid upstrokes are brisk bilaterally. Lungs are clear to auscultation and percussion. Cardiac exam reveals the PMI to be normally sized and situated. Rhythm is regular. First and second heart sounds normal. No murmurs, rubs or gallops. Abdominal exam reveals normal bowel sounds, no masses, no organomegaly and no aortic enlargement. Extremities are nonedematous and both femoral and pedal pulses are normal. Examination of the skin revealed no evidence of significant rashes, suspicious appearing nevi or other concerning lesions. Neurologic the patient moves all 4 extremities. She is slightly shaky and lethargic. - Labs CBC & Chem 7: 10/26/23 11:23 10/26/23 11:23 Labs: Abnormal Lab Results - Last 24 Hours (Table) 10/25/23 10/26/23 10/26/23 Range/Units 10:10 11:23 11:23 RBC 3.70 L (3.80-5.40) m/uL Hgb 11.1 L (11.4-16.0) gm/dL RDW 18.8 H (11.5-15.5) % Plt Count 62 L (150-450) k/uL Potassium 3.4 L (3.5-5.1) mmol/L Chloride 109 H (98-107) mmol/L Creatinine 0.36 L (0.52-1.04) mg/dL Glucose 112 H (74-99) mg/dL AST 193 H 212 H (14-36) U/L ALT 55 H (4-34) U/L Assessment and Plan Plan: Fall secondary to acute alcohol intoxication. CAT scan of the brain and CT scan of the cervical spine has been negative for any acute abnormalities. Alcohol intoxication, alcohol level above 400 time of admission, recovered and the patient has no active signs of delirium tremens at this point in time. Impending alcohol detox, currently on a combination of Librium and Ativan, clinically stable Acute transaminitis Hypomagnesemia secondary to alcoholism Thrombocytopenia secondary to alcoholism Rivera's esophagus Hyperlipidemia Plan Monitor mental status Patient is currently on room air oxygen Thiamine continue IV fluids Electrolyte replacement Agree on Ativan and Librium Will continue to follow
[2023-10-27 08:36] LABS: Anisocytosis Slight; HCT 34.9 % (34.0-46.0); HGB 10.9 gm/dL (11.4-16.0); MCH 29.8 pg (25.0-35.0); MCHC 31.3 g/dL (31.0-37.0); MCV 95.3 fL (80.0-100.0); Macrocytosis Slight; Mean Platelet Volume 9.4; RBC 3.66 m/uL (3.80-5.40); RDW 18.8 % (11.5-15.5); WBC 4.4 k/uL (3.8-10.6)
[2023-10-27 08:51] LABS: ALT 58 U/L (4-34); AST 140 U/L (14-36); African American GFR (CKD) >90 (>60 ml/min/1.73 sqM); Albumin 3.6 g/dL (3.5-5.0); Alkaline Phosphatase 82 U/L (38-126); Anion Gap 4 mmol/L; Blood Urea Nitrogen 8 mg/dL (7-17); Calcium 9.2 mg/dL (8.4-10.2); Carbon Dioxide 24 mmol/L (22-30); Chloride 111 mmol/L (98-107); Glucose 100 mg/dL (74-99); Non-African American GFR(CKD) >90 (>60 ml/min/1.73 sqM); Potassium 3.3 mmol/L (3.5-5.1); Sodium 139 mmol/L (137-145); Total Bilirubin 0.8 mg/dL (0.2-1.3); Total Protein 6.2 g/dL (6.3-8.2)
[2023-10-27 09:13] LABS: Platelet Count 107 k/uL (150-450)
[2023-10-27 09:25] LABS: Band Neutrophils % 1 %; Eosinophils # (M) 0.26 k/uL (0-0.7); Lymphocytes # (M) 1.67 k/uL (1.0-4.8); Monocytes # (M) 0.84 k/uL (0-1.0); Neutrophils % (M) 36 %; Nucleated Red Blood Cells 0 /100 WBC (0-0); Total Cells Counted 100
[2023-10-27 09:27] LABS: Polychromasia Present
[2023-10-27] MEDS: POTASSIUM CHLORIDE ER 20 MEQ TAB.ER PO SCH (10:03)
--- NOTE | 2023-10-27 14:16 | P.PN ---
Subjective Progress Note Date: 10/27/23 patient is a 73-year-old lady with past medical history significant for alcohol abuse who presented to ER after a fall. Patient admits to drinking half to 1 pint of alcohol daily. Patient stated that she was in her garage when she tripped and fell hitting her head. Patient denies any loss of consciousness. There was no complaint of lightheadedness or dizziness. There was no complaint of fever or chills. Denies any complaint of chest pain or shortness of breath. Because of fall, patient went to ER Initial lab work done in the ER showed WBC 3.4, hemoglobin 9.7, platelet count 60, sodium 130, potassium 3.6, BUN 12, creatinine 0.45, magnesium 1.0 AST 146, ALT 40, alcohol 404 CT head done showed no acute intracranial process CT cervical spine done showed no acute cervical spine fractures Patient admitted to internal medicine service 10/23. Patient seen and examined. Complaining of lethargy and weakness. Patient was unsteady on her gait 10/24. Patient seen and examined. Patient had to be transferred to stepdown unit because of increasing Ciwa last CIWA score was 20. Continues to be confused, hallucinating. 10/25. Patient seen and examined. Patient CIWA scores have improved, last 1 was 12. Continues to be on Ativan and Librium 10/26. Patient seen and examined. Patient is more alert, CIWA score has improved to 3 REVIEW OF SYSTEMS: Denies any chest pain Denies any shortness of breath Denies nausea or vomiting PHYSICAL EXAMINATION: GENERAL: The patient is alert HEENT: Pupils are round and equally reacting to light. EOMI. No scleral icterus. No conjunctival pallor. Normocephalic, atraumatic. No pharyngeal erythema. No thyromegaly. CARDIOVASCULAR: S1 and S2 present. No murmurs, rubs, or gallops. PULMONARY: Chest is clear to auscultation, no wheezing or crackles. ABDOMEN: Soft, nontender, nondistended, normoactive bowel sounds. No palpable organomegaly. MUSCULOSKELETAL: No joint swelling or deformity. EXTREMITIES: No cyanosis, clubbing, or pedal edema. NEUROLOGICAL: Gross neurological examination did not reveal any focal deficits. SKIN: No rashes. Assessment and plan Fall Alcohol intoxication Impending alcohol detox Acute transaminitis Hypomagnesemia Thrombocytopenia Rivera's esophagus Hyperlipidemia Monitor vital signs Monitor CBC Monitor CMP Continue telemetry monitoring Fall precaution Continue high-dose thiamine and folic acid Continue CIWA protocol Continue Librium Pulmonology following Labs and medication were reviewed.. Continue same treatment. Continue with symptomatic treatment. Resume home medication. Monitor labs and vitals. DVT and GI prophylaxis. Further recommendations as per clinical course of the patient Dictation was produced using [employer] dictation software. please excuse any grammatical, word or spelling errors. Objective - Vital Signs Vital signs: Vital Signs Temp 98.3 F 10/27/23 08:26 Pulse 84 10/27/23 08:26 Resp 16 10/27/23 08:26 BP 133/86 10/27/23 08:26 Pulse Ox 96 10/27/23 08:26 FiO2 Intake & Output 10/26/23 10/27/23 10/27/23 18:59 06:59 18:59 Intake Total 1258 Output Total 225 600 Balance 1033 -600 Weight 66 kg Intake: Intake, IV Titration 900 Amount Sodium Chloride 0.9% 1, 900 000 ml @ 75 mls/hr IV . [id number] [facility] Rx#:[id number] Oral 358 Output: Urine 600 Post Void Residual 225 Other: Voiding Method External Catheter External Catheter # Voids 0 # Bowel Movements 0 - Labs CBC & Chem 7: 10/27/23 07:54 10/27/23 07:54 Labs: Abnormal Lab Results - Last 24 Hours (Table) 10/26/23 10/26/23 10/27/23 Range/Units 11:23 11:23 07:54 RBC 3.70 L 3.66 L (3.80-5.40) m/uL Hgb 11.1 L 10.9 L (11.4-16.0) gm/dL RDW 18.8 H 18.8 H (11.5-15.5) % Plt Count 62 L 107 L D (150-450) k/uL Potassium 3.4 L (3.5-5.1) mmol/L Chloride 109 H (98-107) mmol/L Creatinine 0.36 L (0.52-1.04) mg/dL Glucose 112 H (74-99) mg/dL AST 212 H (14-36) U/L ALT 55 H (4-34) U/L Total Protein (6.3-8.2) g/dL 10/27/23 Range/Units 07:54 RBC (3.80-5.40) m/uL Hgb (11.4-16.0) gm/dL RDW (11.5-15.5) % Plt Count (150-450) k/uL Potassium 3.3 L (3.5-5.1) mmol/L Chloride 111 H (98-107) mmol/L Creatinine 0.43 L (0.52-1.04) mg/dL Glucose 100 H (74-99) mg/dL AST 140 H (14-36) U/L ALT 58 H (4-34) U/L Total Protein 6.2 L (6.3-8.2) g/dL
--- NOTE | 2023-10-27 16:40 | P.PN ---
Subjective Progress Note Date: 10/27/23 73-year-old female, alcoholic, who is being seen for impending alcohol withdrawals. The patient presented to the emergency department with alcohol intoxication and she had a fall. She had been drinking half to 1 pint of alcohol on daily basis. She was in the garage and she is tripped and fell hitting her head. No loss of consciousness. No seizure activity. No reported aspiration. She came into the emergency following the fall. Alcohol level was 404. Electrolytes are all stable. CAT scan of the brain was negative. CAT scan of the cervical spine was negative. On today's evaluation, the patient is lethargic and weak. She was started on alcohol withdrawal protocol and she is currently on Ativan and Librium. IV fluids are running at a rate of 75 cc an hour. No chest x-rays available. EKG showing normal sinus rhythm. The patient is currently on room air oxygen with a pulse ox of 96%. Slightly tachycardic and shaky. No significant agitation. The white cell count of 4.9 with a h emoglobin 11.2, BUN is at 8 with a creatinine of 0.4 and a sodium levels of 135 and a potassium noted at 3.2. On 11/22/2023, the patient is being seen for a follow-up., Comfortable, lethargic and sleepy. No confusion. Minimal agitation this morning the patient was given a dose of Ativan 1 mg IV. She has not required more medication. She remains on Librium 25 mg p.o. 3 times daily. No active signs of delirium tremens. Noted the patient was acute alcohol intoxicated time of admission. The white cell count is 4.7 with a hemoglobin of 11.2 and a platelet count of 62 which is essentially stable. Electrolytes are stable and the creatinine is at 0.36 with a BUN of 8 and the patient has a potassium level of 3.4 that needs to be replaced. No other specific complaints for now. Hemodynamically stable. 10/27/2023, the patient's main complaint is fatigue. No altered mentation. She is alerted to time and place some people. No restlessness. No agitation. No tremors. She is feeling sleepy. The white cell count is at 4 with a hemoglobin 10.9 and a platelet count of 107, improved compared to yesterday. Potassium level needs to be replaced at 3.3. BUN is at 8 with a creatinine of 0.43. Rest of the medications remain unchanged. Tolerating diet. No nausea or vomiting. No chest pain. No abdominal pain. No other complaints otherwise for now. Objective - Vital Signs Vital signs: Vital Signs Temp 98.3 F 10/27/23 08:26 Pulse 84 10/27/23 08:26 Resp 16 10/27/23 08:26 BP 133/86 10/27/23 08:26 Pulse Ox 96 10/27/23 08:26 FiO2 Intake & Output 10/26/23 10/27/23 10/27/23 18:59 06:59 18:59 Intake Total 1258 Output Total 225 600 Balance 1033 -600 Weight 66 kg Intake: Intake, IV Titration 900 Amount Sodium Chloride 0.9% 1, 900 000 ml @ 75 mls/hr IV . [id number] [facility] Rx#:[id number] Oral 358 Output: Urine 600 Post Void Residual 225 Other: Voiding Method External Catheter External Catheter # Voids 0 # Bowel Movements 0 - Exam The patient appeared well nourished and normally developed. Vital signs as documented. Head exam is unremarkable. No scleral icterus or corneal arcus noted. Neck is without jugular venous distension, thyromegaly, or carotid bruits. Carotid upstrokes are brisk bilaterally. Lungs are clear to auscultation and percussion. Cardiac exam reveals the PMI to be normally sized and situated. Rhythm is regular. First and second heart sounds normal. No murmurs, rubs or gallops. Abdominal exam reveals normal bowel sounds, no masses, no organomegaly and no aortic enlargement. Extremities are nonedematous and both femoral and pedal pulses are normal. Examination of the skin revealed no evidence of significant rashes, suspicious appearing nevi or other concerning lesions. Neurologic the patient moves all 4 extremities. She is slightly shaky and lethargic. - Labs CBC & Chem 7: 10/27/23 07:54 10/27/23 07:54 Labs: Abnormal Lab Results - Last 24 Hours (Table) 10/26/23 10/26/23 10/27/23 Range/Units 11:23 11:23 07:54 RBC 3.70 L 3.66 L (3.80-5.40) m/uL Hgb 11.1 L 10.9 L (11.4-16.0) gm/dL RDW 18.8 H 18.8 H (11.5-15.5) % Plt Count 62 L 107 L D (150-450) k/uL Potassium 3.4 L (3.5-5.1) mmol/L Chloride 109 H (98-107) mmol/L Creatinine 0.36 L (0.52-1.04) mg/dL Glucose 112 H (74-99) mg/dL AST 212 H (14-36) U/L ALT 55 H (4-34) U/L Total Protein (6.3-8.2) g/dL 10/27/23 Range/Units 07:54 RBC (3.80-5.40) m/uL Hgb (11.4-16.0) gm/dL RDW (11.5-15.5) % Plt Count (150-450) k/uL Potassium 3.3 L (3.5-5.1) mmol/L Chloride 111 H (98-107) mmol/L Creatinine 0.43 L (0.52-1.04) mg/dL Glucose 100 H (74-99) mg/dL AST 140 H (14-36) U/L ALT 58 H (4-34) U/L Total Protein 6.2 L (6.3-8.2) g/dL Assessment and Plan Plan: Fall secondary to acute alcohol intoxication. CAT scan of the brain and CT scan of the cervical spine has been negative for any acute abnormalities. Alcohol intoxication, alcohol level above 400 time of admission, recovered and the patient has no active signs of delirium tremens at this point in time. Impending alcohol detox, currently on a combination of Librium and Ativan, clinically stable Acute transaminitis Hypomagnesemia secondary to alcoholism Thrombocytopenia secondary to alcoholism Rivera's esophagus Hyperlipidemia Plan Monitor mental status, clinically stable and the patient is alert and oriented x 3. Patient is currently on room air oxygen Thiamine continue IV fluids Electrolyte replacement Agree on Ativan and Librium Will continue to follow
[2023-10-28] MEDS: ALBUTEROL NEBULIZED 2.5 MG/3 ML INHALATION PRN (04:37)
--- NOTE | 2023-10-28 13:44 | P.PN ---
Subjective Progress Note Date: 10/28/23 patient is a 73-year-old lady with past medical history significant for alcohol abuse who presented to ER after a fall. Patient admits to drinking half to 1 pint of alcohol daily. Patient stated that she was in her garage when she tripped and fell hitting her head. Patient denies any loss of consciousness. There was no complaint of lightheadedness or dizziness. There was no complaint of fever or chills. Denies any complaint of chest pain or shortness of breath. Because of fall, patient went to ER Initial lab work done in the ER showed WBC 3.4, hemoglobin 9.7, platelet count 60, sodium 130, potassium 3.6, BUN 12, creatinine 0.45, magnesium 1.0 AST 146, ALT 40, alcohol 404 CT head done showed no acute intracranial process CT cervical spine done showed no acute cervical spine fractures Patient admitted to internal medicine service 10/23. Patient seen and examined. Complaining of lethargy and weakness. Patient was unsteady on her gait 10/24. Patient seen and examined. Patient had to be transferred to stepdown unit because of increasing Ciwa last CIWA score was 20. Continues to be confused, hallucinating. 10/25. Patient seen and examined. Patient CIWA scores have improved, last 1 was 12. Continues to be on Ativan and Librium 10/26. Patient seen and examined. Patient is more alert, CIWA score has improved to 3 10/27. Patient seen and examined. Continues to do well, complaining lethargy and weakness. PT and OT pending REVIEW OF SYSTEMS: Denies any chest pain Denies any shortness of breath Denies nausea or vomiting PHYSICAL EXAMINATION: GENERAL: The patient is alert HEENT: Pupils are round and equally reacting to light. EOMI. No scleral icterus. No conjunctival pallor. Normocephalic, atraumatic. No pharyngeal erythema. No thyromegaly. CARDIOVASCULAR: S1 and S2 present. No murmurs, rubs, or gallops. PULMONARY: Chest is clear to auscultation, no wheezing or crackles. ABDOMEN: Soft, nontender, nondistended, normoactive bowel sounds. No palpable organomegaly. MUSCULOSKELETAL: No joint swelling or deformity. EXTREMITIES: No cyanosis, clubbing, or pedal edema. NEUROLOGICAL: Gross neurological examination did not reveal any focal deficits. SKIN: No rashes. Assessment and plan Fall Alcohol intoxication Impending alcohol detox Acute transaminitis Hypomagnesemia Thrombocytopenia Rivera's esophagus Hyperlipidemia Monitor vital signs Monitor CBC Monitor CMP Continue telemetry monitoring Fall precaution Continue high-dose thiamine and folic acid Continue CIWA protocol Continue Librium Pulmonology following PT and OT pending Labs and medication were reviewed.. Continue same treatment. Continue with symptomatic treatment. Resume home medication. Monitor labs and vitals. DVT and GI prophylaxis. Further recommendations as per clinical course of the patient Dictation was produced using [employer] dictation software. please excuse any grammatical, word or spelling errors. Objective - Vital Signs Vital signs: Vital Signs Temp 97.5 F L 10/28/23 08:00 Pulse 75 10/28/23 08:00 Resp 16 10/28/23 08:00 BP 135/75 10/28/23 08:00 Pulse Ox 97 10/28/23 08:00 FiO2 Intake & Output 10/27/23 10/28/23 10/28/23 18:59 06:59 18:59 Intake Total 740 360 Output Total 900 1625 Balance -160 -1625 360 Intake: Oral 740 360 Output: Urine 900 1625 Straight 450 Other: Voiding Method External Catheter Indwelling Catheter # Voids 0 - Labs CBC & Chem 7: 10/27/23 07:54 10/27/23 07:54
--- NOTE | 2023-10-28 14:15 | P.PN ---
Subjective Progress Note Date: 10/28/23 73-year-old female, alcoholic, who is being seen for impending alcohol withdrawals. The patient presented to the emergency department with alcohol intoxication and she had a fall. She had been drinking half to 1 pint of alcohol on daily basis. She was in the garage and she is tripped and fell hitting her head. No loss of consciousness. No seizure activity. No reported aspiration. She came into the emergency following the fall. Alcohol level was 404. Electrolytes are all stable. CAT scan of the brain was negative. CAT scan of the cervical spine was negative. On today's evaluation, the patient is lethargic and weak. She was started on alcohol withdrawal protocol and she is currently on Ativan and Librium. IV fluids are running at a rate of 75 cc an hour. No chest x-rays available. EKG showing normal sinus rhythm. The patient is currently on room air oxygen with a pulse ox of 96%. Slightly tachycardic and shaky. No significant agitation. The white cell count of 4.9 with a h emoglobin 11.2, BUN is at 8 with a creatinine of 0.4 and a sodium levels of 135 and a potassium noted at 3.2. On 11/22/2023, the patient is being seen for a follow-up., Comfortable, lethargic and sleepy. No confusion. Minimal agitation this morning the patient was given a dose of Ativan 1 mg IV. She has not required more medication. She remains on Librium 25 mg p.o. 3 times daily. No active signs of delirium tremens. Noted the patient was acute alcohol intoxicated time of admission. The white cell count is 4.7 with a hemoglobin of 11.2 and a platelet count of 62 which is essentially stable. Electrolytes are stable and the creatinine is at 0.36 with a BUN of 8 and the patient has a potassium level of 3.4 that needs to be replaced. No other specific complaints for now. Hemodynamically stable. 10/27/2023, the patient's main complaint is fatigue. No altered mentation. She is alerted to time and place some people. No restlessness. No agitation. No tremors. She is feeling sleepy. The white cell count is at 4 with a hemoglobin 10.9 and a platelet count of 107, improved compared to yesterday. Potassium level needs to be replaced at 3.3. BUN is at 8 with a creatinine of 0.43. Rest of the medications remain unchanged. Tolerating diet. No nausea or vomiting. No chest pain. No abdominal pain. No other complaints otherwise for now. 10/28/2023, the patient is being seen for a follow-up. Awake and alert and communicating. Overnight, the patient required a total of 2 mg of Ativan. She is currently on Librium. She is still feeling fatigued. No agitation. Limited shakiness. No new labs unavailable from today. She is currently on room air oxygen. No respiratory difficulties and the pulse ox Percent room air oxygen. Objective - Vital Signs Vital signs: Vital Signs Temp 97.5 F L 10/28/23 08:00 Pulse 75 10/28/23 08:00 Resp 16 10/28/23 08:00 BP 135/75 10/28/23 08:00 Pulse Ox 97 10/28/23 08:00 FiO2 Intake & Output 10/27/23 10/28/23 10/28/23 18:59 06:59 18:59 Intake Total 740 360 Output Total 900 1625 Balance -160 -1625 360 Intake: Oral 740 360 Output: Urine 900 1625 Straight 450 Other: Voiding Method External Catheter Indwelling Catheter # Voids 0 - Exam The patient appeared well nourished and normally developed. Vital signs as documented. Head exam is unremarkable. No scleral icterus or corneal arcus noted. Neck is without jugular venous distension, thyromegaly, or carotid bruits. Carotid upstrokes are brisk bilaterally. Lungs are clear to auscultation and percussion. Cardiac exam reveals the PMI to be normally sized and situated. Rhythm is regular. First and second heart sounds normal. No murmurs, rubs or gallops. Abdominal exam reveals normal bowel sounds, no masses, no organomegaly and no aortic enlargement. Extremities are nonedematous and both femoral and pedal pulses are normal. Examination of the skin revealed no evidence of significant rashes, suspicious appearing nevi or other concerning lesions. Neurologic the patient moves all 4 extremities. She is slightly shaky and lethargic. - Labs CBC & Chem 7: 10/27/23 07:54 10/27/23 07:54 Assessment and Plan Plan: Fall secondary to acute alcohol intoxication. CAT scan of the brain and CT scan of the cervical spine has been negative for any acute abnormalities. Alcohol intoxication, alcohol level above 400 time of admission, recovered and the patient has no active signs of delirium tremens at this point in time. Impending alcohol detox, currently on a combination of Librium and Ativan, clini merrill stable Acute transaminitis Hypomagnesemia secondary to alcoholism Thrombocytopenia secondary to alcoholism Rivera's esophagus Hyperlipidemia Plan Monitor mental status, clinically stable and the patient is alert and oriented x 3. Still requiring Ativan and the patient remains on Librium Patient is currently on room air oxygen Thiamine continue IV fluids Electrolyte replacement Agree on Ativan and Librium Will continue to follow
--- NOTE | 2023-10-29 12:11 | P.PN ---
Subjective Progress Note Date: 10/29/23 73-year-old female, alcoholic, who is being seen for impending alcohol withdrawals. The patient presented to the emergency department with alcohol intoxication and she had a fall. She had been drinking half to 1 pint of alcohol on daily basis. She was in the garage and she is tripped and fell hitting her head. No loss of consciousness. No seizure activity. No reported aspiration. She came into the emergency following the fall. Alcohol level was 404. Electrolytes are all stable. CAT scan of the brain was negative. CAT scan of the cervical spine was negative. On today's evaluation, the patient is lethargic and weak. She was started on alcohol withdrawal protocol and she is currently on Ativan and Librium. IV fluids are running at a rate of 75 cc an hour. No chest x-rays available. EKG showing normal sinus rhythm. The patient is currently on room air oxygen with a pulse ox of 96%. Slightly tachycardic and shaky. No significant agitation. The white cell count of 4.9 with a h emoglobin 11.2, BUN is at 8 with a creatinine of 0.4 and a sodium levels of 135 and a potassium noted at 3.2. On 11/22/2023, the patient is being seen for a follow-up., Comfortable, lethargic and sleepy. No confusion. Minimal agitation this morning the patient was given a dose of Ativan 1 mg IV. She has not required more medication. She remains on Librium 25 mg p.o. 3 times daily. No active signs of delirium tremens. Noted the patient was acute alcohol intoxicated time of admission. The white cell count is 4.7 with a hemoglobin of 11.2 and a platelet count of 62 which is essentially stable. Electrolytes are stable and the creatinine is at 0.36 with a BUN of 8 and the patient has a potassium level of 3.4 that needs to be replaced. No other specific complaints for now. Hemodynamically stable. 10/27/2023, the patient's main complaint is fatigue. No altered mentation. She is alerted to time and place some people. No restlessness. No agitation. No tremors. She is feeling sleepy. The white cell count is at 4 with a hemoglobin 10.9 and a platelet count of 107, improved compared to yesterday. Potassium level needs to be replaced at 3.3. BUN is at 8 with a creatinine of 0.43. Rest of the medications remain unchanged. Tolerating diet. No nausea or vomiting. No chest pain. No abdominal pain. No other complaints otherwise for now. 10/28/2023, the patient is being seen for a follow-up. Awake and alert and communicating. Overnight, the patient required a total of 2 mg of Ativan. She is currently on Librium. She is still feeling fatigued. No agitation. Limited shakiness. No new labs unavailable from today. She is currently on room air oxygen. No respiratory difficulties and the pulse ox Percent room air oxygen. On 10/29/2023, the patient is still having some limited signs of delirium tremens. She is requiring Ativan and Librium. She is feeling fatigued. Hemoglobin is at 10.9. Electrolytes are stable and the potassium level is down to 3.3 and nee ds to be replaced. BUN is 18 with a creatinine of 0.4. No agitation. No confusion. Alert and awake and communicating. No other significant events overnight. Objective - Vital Signs Vital signs: Vital Signs Temp 97.4 F L 10/29/23 07:45 Pulse 80 10/29/23 09:27 Resp 16 10/29/23 09:27 BP 127/80 10/29/23 07:45 Pulse Ox 95 10/29/23 07:45 FiO2 Intake & Output 10/28/23 10/29/23 10/29/23 18:59 06:59 18:59 Intake Total 1080 Output Total 950 1000 Balance 130 -1000 Weight 66 kg Intake: Oral 1080 Output: Urine 950 1000 Other: Voiding Method Indwelling Catheter Indwelling Catheter - Exam The patient appeared well nourished and normally developed. Vital signs as documented. Head exam is unremarkable. No scleral icterus or corneal arcus noted. Neck is without jugular venous distension, thyromegaly, or carotid brui ts. Carotid upstrokes are brisk bilaterally. Lungs are clear to auscultation and percussion. Cardiac exam reveals the PMI to be normally sized and situated. Rhythm is regular. First and second heart sounds normal. No murmurs, rubs or gallops. Abdominal exam reveals normal bowel sounds, no masses, no organomegaly and no aortic enlargement. Extremities are nonedematous and both femoral and pedal pulses are normal. Examination of the skin revealed no evidence of significant rashes, suspicious appearing nevi or other concerning lesions. Neurologic the patient moves all 4 extremities. She is slightly shaky and lethargic. - Labs CBC & Chem 7: 10/27/23 07:54 10/27/23 07:54 Assessment and Plan Plan: Fall secondary to acute alcohol intoxication. CAT scan of the brain and CT scan of the cervical spine has been negative for any acute abnormalities. Alcohol intoxication, alcohol level above 400 time of admission, recovered and the patient is having some mild signs of delirium tremens, controlled with a co mbination of Librium and Ativan. Hypokalemia, being replaced Impending alcohol detox, currently on a combination of Librium and Ativan, clinically stable Acute transaminitis Hypomagnesemia secondary to alcoholism Thrombocytopenia secondary to alcoholism Rivera's esophagus Hyperlipidemia Plan Monitor mental status, clinically stable and the patient is alert and oriented x 3. Still requiring Ativan and the patient remains on Librium Patient is currently on room air oxygen Thiamine continue IV fluids Electrolyte replacement Agree on Ativan and Librium Will continue to follow
--- NOTE | 2023-10-29 13:37 | P.PN ---
Subjective Progress Note Date: 10/29/23 patient is a 73-year-old lady with past medical history significant for alcohol abuse who presented to ER after a fall. Patient admits to drinking half to 1 pint of alcohol daily. Patient stated that she was in her garage when she tripped and fell hitting her head. Patient denies any loss of consciousness. There was no complaint of lightheadedness or dizziness. There was no complaint of fever or chills. Denies any complaint of chest pain or shortness of breath. Because of fall, patient went to ER Initial lab work done in the ER showed WBC 3.4, hemoglobin 9.7, platelet count 60, sodium 130, potassium 3.6, BUN 12, creatinine 0.45, magnesium 1.0 AST 146, ALT 40, alcohol 404 CT head done showed no acute intracranial process CT cervical spine done showed no acute cervical spine fractures Patient admitted to internal medicine service 10/23. Patient seen and examined. Complaining of lethargy and weakness. Patient was unsteady on her gait 10/24. Patient seen and examined. Patient had to be transferred to stepdown unit because of increasing Ciwa last CIWA score was 20. Continues to be confused, hallucinating. 10/25. Patient seen and examined. Patient CIWA scores have improved, last 1 was 12. Continues to be on Ativan and Librium 10/26. Patient seen and examined. Patient is more alert, CIWA score has improved to 3 10/27. Patient seen and examined. Continues to do well, complaining lethargy and weakness. PT and OT pending 10/28. Patient seen and examined doing well, no acute issue overnight REVIEW OF SYSTEMS: Denies any chest pain Denies any shortness of breath Denies nausea or vomiting PHYSICAL EXAMINATION: GENERAL: The patient is alert HEENT: Pupils are round and equally reacting to light. EOMI. No scleral icterus. No conjunctival pallor. Normocephalic, atraumatic. No pharyngeal erythema. No thyromegaly. CARDIOVASCULAR: S1 and S2 present. No murmurs, rubs, or gallops. PULMONARY: Chest is clear to auscultation, no wheezing or crackles. ABDOMEN: Soft, nontender, nondistended, normoactive bowel sounds. No palpable organomegaly. MUSCULOSKELETAL: No joint swelling or deformity. EXTREMITIES: No cyanosis, clubbing, or pedal edema. NEUROLOGICAL: Gross neurological examination did not reveal any focal deficits. SKIN: No rashes. Assessment and plan Fall Alcohol intoxication Impending alcohol detox Acute transaminitis Hypomagnesemia Thrombocytopenia Rivera's esophagus Hyperlipidemia Monitor vital signs Monitor CBC Monitor CMP Continue telemetry monitoring Fall precaution Continue high-dose thiamine and folic acid Continue CIWA protocol Continue Librium Pulmonology following PT and OT recommend rehab, waiting on insurance authorization Labs and medication were reviewed.. Continue same treatment. Continue with symptomatic treatment. Resume home medication. Monitor labs and vitals. DVT and GI prophylaxis. Further recommendations as per clinical course of the patient Dictation was produced using [employer] dictation software. please excuse any grammatical, word or spelling errors. Objective - Vital Signs Vital signs: Vital Signs Temp 97.4 F L 10/29/23 07:45 Pulse 80 10/29/23 09:37 Resp 16 10/29/23 09:37 BP 127/80 10/29/23 07:45 Pulse Ox 95 10/29/23 07:45 FiO2 Intake & Output 10/28/23 10/29/23 10/29/23 18:59 06:59 18:59 Intake Total 1080 Output Total 950 1000 Balance 130 -1000 Weight 66 kg Intake: Oral 1080 Output: Urine 950 1000 Other: Voiding Method Indwelling Catheter Indwelling Catheter - Labs CBC & Chem 7: 10/27/23 07:54 10/27/23 07:54
[2023-10-30 07:56] LABS: Anisocytosis Slight; Basophils # (A) 0.1 k/uL (0-0.2); Basophils % (A) 1 %; Eosinophils # (A) 0.2 k/uL (0-0.7); Eosinophils % (A) 3 %; HGB 10.9 gm/dL (11.4-16.0); Lymphocytes # (A) 1.4 k/uL (1.0-4.8); Lymphocytes % (A) 18 %; MCH 30.3 pg (25.0-35.0); MCV 94.6 fL (80.0-100.0); Macrocytosis Slight; Monocytes # (A) 1.4 k/uL (0-1.0); Monocytes % (A) 18 %; Neutrophils # (A) 4.4 k/uL (1.3-7.7); Neutrophils % (A) 57 %; RBC 3.59 m/uL (3.80-5.40); RDW 18.9 % (11.5-15.5); WBC 7.8 k/uL (3.8-10.6)
[2023-10-30 08:12] LABS: ALT 45 U/L (4-34); AST 61 U/L (14-36); African American GFR (CKD) >90 (>60 ml/min/1.73 sqM); Albumin 3.5 g/dL (3.5-5.0); Alkaline Phosphatase 76 U/L (38-126); Anion Gap 5 mmol/L; Blood Urea Nitrogen 7 mg/dL (7-17); Calcium 9.7 mg/dL (8.4-10.2); Carbon Dioxide 25 mmol/L (22-30); Chloride 109 mmol/L (98-107); Glucose 100 mg/dL (74-99); Non-African American GFR(CKD) >90 (>60 ml/min/1.73 sqM); Potassium 3.6 mmol/L (3.5-5.1); Sodium 139 mmol/L (137-145); Total Bilirubin 0.5 mg/dL (0.2-1.3); Total Protein 6.2 g/dL (6.3-8.2)
[2023-10-30 08:16] LABS: Platelet Count 221 k/uL (150-450)
--- NOTE | 2023-10-30 12:19 | P.PN ---
Subjective Progress Note Date: 10/30/23 73-year-old female, alcoholic, who is being seen for impending alcohol withdrawals. The patient presented to the emergency department with alcohol intoxication and she had a fall. She had been drinking half to 1 pint of alcohol on daily basis. She was in the garage and she is tripped and fell hitting her head. No loss of consciousness. No seizure activity. No reported aspiration. She came into the emergency following the fall. Alcohol level was 404. Electrolytes are all stable. CAT scan of the brain was negative. CAT scan of the cervical spine was negative. On today's evaluation, the patient is lethargic and weak. She was started on alcohol withdrawal protocol and she is currently on Ativan and Librium. IV fluids are running at a rate of 75 cc an hour. No chest x-rays available. EKG showing normal sinus rhythm. The patient is currently on room air oxygen with a pulse ox of 96%. Slightly tachycardic and shaky. No significant agitation. The white cell count of 4.9 with a h emoglobin 11.2, BUN is at 8 with a creatinine of 0.4 and a sodium levels of 135 and a potassium noted at 3.2. On 11/22/2023, the patient is being seen for a follow-up., Comfortable, lethargic and sleepy. No confusion. Minimal agitation this morning the patient was given a dose of Ativan 1 mg IV. She has not required more medication. She remains on Librium 25 mg p.o. 3 times daily. No active signs of delirium tremens. Noted the patient was acute alcohol intoxicated time of admission. The white cell count is 4.7 with a hemoglobin of 11.2 and a platelet count of 62 which is essentially stable. Electrolytes are stable and the creatinine is at 0.36 with a BUN of 8 and the patient has a potassium level of 3.4 that needs to be replaced. No other specific complaints for now. Hemodynamically stable. 10/27/2023, the patient's main complaint is fatigue. No altered mentation. She is alerted to time and place some people. No restlessness. No agitation. No tremors. She is feeling sleepy. The white cell count is at 4 with a hemoglobin 10.9 and a platelet count of 107, improved compared to yesterday. Potassium level needs to be replaced at 3.3. BUN is at 8 with a creatinine of 0.43. Rest of the medications remain unchanged. Tolerating diet. No nausea or vomiting. No chest pain. No abdominal pain. No other complaints otherwise for now. 10/28/2023, the patient is being seen for a follow-up. Awake and alert and communicating. Overnight, the patient required a total of 2 mg of Ativan. She is currently on Librium. She is still feeling fatigued. No agitation. Limited shakiness. No new labs unavailable from today. She is currently on room air oxygen. No respiratory difficulties and the pulse ox Percent room air oxygen. On 10/29/2023, the patient is still having some limited signs of delirium tremens. She is requiring Ativan and Librium. She is feeling fatigued. Hemoglobin is at 10.9. Electrolytes are stable and the potassium level is down to 3.3 and nee ds to be replaced. BUN is 18 with a creatinine of 0.4. No agitation. No confusion. Alert and awake and communicating. No other significant events overnight. 10/30/2023, I am seeing the patient for a follow-up. Patient has no specific complaints. Resting comfortably in bed. She feels fatigued and that is her only complaint. Blood work is all stable. Hemoglobin is at 9.9. Electrolytes show a potassium of 3.6, BUN of 7 with creatinine of 0.46 and the patient is on room air oxygen. She has not required any treatment overnight. She remains on Librium. Objective - Vital Signs Vital signs: Vital Signs Temp 97.9 F 10/30/23 08:00 Pulse 81 10/30/23 08:00 Resp 16 10/30/23 08:00 BP 138/80 10/30/23 08:00 Pulse Ox 96 10/30/23 08:00 FiO2 Intake & Output 10/29/23 10/30/23 10/30/23 18:59 06:59 18:59 Intake Total 2440 Output Total 650 1950 Balance 1789 -1949 Weight 65 kg Intake: Intake, IV Titration 300 Amount Sodium Chloride 0.9% 1, 300 000 ml @ 75 mls/hr IV . [id number] [facility] Rx#:[id number] Oral 2140 Output: Urine 650 1950 Other: Voiding Method Indwelling Catheter Indwelling Catheter - Exam The patient appeared well nourished and normally developed. Vital signs as docu mented. Head exam is unremarkable. No scleral icterus or corneal arcus noted. Neck is without jugular venous distension, thyromegaly, or carotid bruits. Carotid upstrokes are brisk bilaterally. Lungs are clear to auscultation and percussion. Cardiac exam reveals the PMI to be normally sized and situated. Rhythm is regular. First and second heart sounds normal. No murmurs, rubs or gallops. Abdominal exam reveals normal bowel sounds, no masses, no organomegaly and no aortic enlargement. Extremities are nonedematous and both femoral and pedal pulses are normal. Examination of the skin revealed no evidence of significant rashes, suspicious appearing nevi or other concerning lesions. Neurologic the patient moves all 4 extremities. She is slightly shaky and lethargic. - Labs CBC & Chem 7: 10/30/23 07:10/30/23 07:28 Labs: Abnormal Lab Results - Last 24 Hours (Table) 10/30/23 10/30/23 Range/Units 07: 07:28 RBC 3.59 L (3.80-5.40) m/uL Hgb 10.9 L (11.4-16.0) gm/dL RDW 18.9 H (11.5-15.5) % Monocytes # 1.4 H (0-1.0) k/uL Chloride 109 H (98-107) mmol/L Creatinine 0.46 L (0.52-1.04) mg/dL Glucose 100 H (74-99) mg/dL AST 61 H (14-36) U/L ALT 45 H (4-34) U/L Total Protein 6.2 L (6.3-8.2) g/dL Assessment and Plan Plan: Fall secondary to acute alcohol intoxication. CAT scan of the brain and CT scan of the cervical spine has been negative for any acute abnormalities. Alcohol intoxication, alcohol level above 400 time of admission, recovered and the patient is having some mild signs of delirium tremens, controlled with a combination of Librium and Ativan. Hypokalemia, being replaced Impending alcohol detox, currently on a combination of Librium and Ativan, clinically stable Acute transaminitis Hypomagnesemia secondary to alcoholism Thrombocytopenia secondary to alcoholism Rivera's esophagus Hyperlipidemia Plan Monitor mental status, clinically stable and the patient is alert and oriented x 3. Still requiring Ativan and the patient remains on Librium Patient is currently on room air oxygen Thiamine continue IV fluids Electrolyte replacement Follow-up condition stable and the patient can be discharged. Pulmonary critical care services will sign off the case.
--- NOTE | 2023-10-30 13:18 | P.PN ---
Subjective Progress Note Date: 10/30/23 patient is a 73-year-old lady with past medical history significant for alcohol abuse who presented to ER after a fall. Patient admits to drinking half to 1 pint of alcohol daily. Patient stated that she was in her garage when she tripped and fell hitting her head. Patient denies any loss of consciousness. There was no complaint of lightheadedness or dizziness. There was no complaint of fever or chills. Denies any complaint of chest pain or shortness of breath. Because of fall, patient went to ER Initial lab work done in the ER showed WBC 3.4, hemoglobin 9.7, platelet count 60, sodium 130, potassium 3.6, BUN 12, creatinine 0.45, magnesium 1.0 AST 146, ALT 40, alcohol 404 CT head done showed no acute intracranial process CT cervical spine done showed no acute cervical spine fractures Patient admitted to internal medicine service 10/23. Patient seen and examined. Complaining of lethargy and weakness. Patient was unsteady on her gait 10/24. Patient seen and examined. Patient had to be transferred to stepdown unit because of increasing Ciwa last CIWA score was 20. Continues to be confused, hallucinating. 10/25. Patient seen and examined. Patient CIWA scores have improved, last 1 was 12. Continues to be on Ativan and Librium 10/26. Patient seen and examined. Patient is more alert, CIWA score has improved to 3 10/27. Patient seen and examined. Continues to do well, complaining lethargy and weakness. PT and OT pending 10/28. Patient seen and examined doing well, no acute issue overnight 10/29. Patient seen and examined. Patient is very lethargic and weak, needing 2 person to assist in ambulation. Counseled patient regarding need for her to go to rehab, patient is not willing to listen. REVIEW OF SYSTEMS: Denies any chest pain Denies any shortness of breath Denies nausea or vomiting PHYSICAL EXAMINATION: GENERAL: The patient is alert HEENT: Pupils are round and equally reacting to light. EOMI. No scleral icterus. No conjunctival pallor. Normocephalic, atraumatic. No pharyngeal erythema. No thyromegaly. CARDIOVASCULAR: S1 and S2 present. No murmurs, rubs, or gallops. PULMONARY: Chest is clear to auscultation, no wheezing or crackles. ABDOMEN: Soft, nontender, nondistended, normoactive bowel sounds. No palpable organomegaly. MUSCULOSKELETAL: No joint swelling or deformity. EXTREMITIES: No cyanosis, clubbing, or pedal edema. NEUROLOGICAL: Gross neurological examination did not reveal any focal deficits. SKIN: No rashes. Assessment and plan Fall Alcohol intoxication Impending alcohol detox Acute transaminitis Hypomagnesemia Thrombocytopenia Rivera's esophagus Hyperlipidemia Monitor vital signs Monitor CBC Monitor CMP Continue telemetry monitoring Fall precaution Continue high-dose thiamine and folic acid Continue CIWA protocol Continue Librium Pulmonology following PT and OT recommend rehab, waiting on insurance authorization Labs and medication were reviewed.. Continue same treatment. Continue with symptomatic treatment. Resume home medication. Monitor labs and vitals. DVT and GI prophylaxis. Further recommendations as per clinical course of the patient Dictation was produced using [employer] dictation software. please excuse any grammatical, word or spelling errors. Objective - Vital Signs Vital signs: Vital Signs Temp 97.9 F 10/30/23 08:00 Pulse 81 10/30/23 08:00 Resp 16 10/30/23 08:00 BP 138/80 10/30/23 08:00 Pulse Ox 96 10/30/23 08:00 FiO2 Intake & Output 10/29/23 10/30/23 10/30/23 18:59 06:59 18:59 Intake Total 2440 Output Total 650 1950 Balance 1790 -1950 Weight 65 kg Intake: Intake, IV Titration 300 Amount Sodium Chloride 0.9% 1, 300 000 ml @ 75 mls/hr IV . [id number] [facility] Rx#:[id number] Oral 2140 Output: Urine 650 1950 Other: Voiding Method Indwelling Catheter Indwelling Catheter - Labs CBC & Chem 7: 10/30/23 07:28 10/30/23 07:28 Labs: Abnormal Lab Results - Last 24 Hours (Table) 10/30/23 10/30/23 Range/Units 07:28 07:28 RBC 3.59 L (3.80-5.40) m/uL Hgb 10.9 L (11.4-16.0) gm/dL RDW 18.9 H (11.5-15.5) % Monocytes # 1.4 H (0-1.0) k/uL Chloride 109 H (98-107) mmol/L Creatinine 0.46 L (0.52-1.04) mg/dL Glucose 100 H (74-99) mg/dL AST 61 H (14-36) U/L ALT 45 H (4-34) U/L Total Protein 6.2 L (6.3-8.2) g/dL
[2023-10-30] MEDS: chlordiazePOXIDE 25 MG CAP PO SCH (20:17)
--- NOTE | 2023-10-31 13:51 | P.PN ---
Subjective Progress Note Date: 10/31/23 Principal diagnosis: Status post fall secondary to acute alcohol intoxication, and acute alcohol withdrawal 73-year-old female, alcoholic, who is being seen for impending alcohol withdrawals. The patient presented to the emergency department with alcohol intoxication and she had a fall. She had been drinking half to 1 pint of alcohol on daily basis. She was in the garage and she is tripped and fell hitting her head. No loss of consciousness. No seizure activity. No reported aspiration. She came into the emergency following the fall. Alcohol level was 404. Electrolytes are all stable. CAT scan of the brain was negative. CAT scan of the cervical spine was negative. On today's evaluation, the patient is lethargic and weak. She was started on alcohol withdrawal protocol and she is currently on Ativan and Librium. IV fluids are running at a rate of 75 cc an hour. No chest x-rays available. EKG showing normal sinus rhythm. The patient is currently on room air oxygen with a pulse ox of 96%. Slightly tachycardic and shaky. No significant agitation. The white cell count of 4.9 with a hemoglobin 11.2, BUN is at 8 with a creatinine of 0.4 and a sodium levels of 135 and a potassium noted at 3.2. On 11/22/2023, the patient is being seen for a follow-up., Comfortable, lethargic and sleepy. No confusion. Minimal agitation this morning the patient was given a dose of Ativan 1 mg IV. She has not required more medication. She remains on Librium 25 mg p.o. 3 times daily. No active signs of delirium tremens. Noted the patient was acute alcohol intoxicated time of admission. The white cell count is 4.7 with a hemoglobin of 11.2 and a platelet count of 62 which is essentially stable. Electrolytes are stable and the creatinine is at 0.36 with a BUN of 8 and the patient has a potassium level of 3.4 that needs to be replaced. No other specific complaints for now. Hemodynamically stable. 10/27/2023, the patient's main complaint is fatigue. No altered mentation. She is alerted to time and place some people. No restlessness. No agitation. No tremors. She is feeling sleepy. The white cell count is at 4 with a hemoglobin 10.9 and a platelet count of 107, improved compared to yesterday. Potassium level needs to be replaced at 3.3. BUN is at 8 with a creatinine of 0.43. Rest of the medications remain unchanged. Tolerating diet. No nausea or vomiting. No chest pain. No abdominal pain. No other complaints otherwise for now. 10/28/2023, the patient is being seen for a follow-up. Awake and alert and communicating. Overnight, the patient required a total of 2 mg of Ativan. She is currently on Librium. She is still feeling fatigued. No agitation. Limited shakiness. No new labs unavailable from today. She is currently on room air oxygen. No respiratory difficulties and the pulse ox Percent room air oxygen. On 10/29/2023, the patient is still having some limited signs of delirium tremens. She is requiring Ativan and Librium. She is feeling fatigued. Hemoglobin is at 10.9. Electrolytes are stable and the potassium level is down to 3.3 and needs to be replaced. BUN is 18 with a creatinine of 0.4. No agitation. No confusion. Alert and awake and communicating. No other significant events overnight. 10/30/2023, I am seeing the patient for a follow-up. Patient has no specific complaints. Resting comfortably in bed. She feels fatigued and that is her only complaint. Blood work is all stable. Hemoglobin is at 9.9. Electrolytes show a potassium of 3.6, BUN of 7 with creatinine of 0.46 and the patient is on room air oxygen. She has not required any treatment overnight. She remains on Librium. Reevaluate10/31/23, patient is resting in bed, not in any distress, denies shortness of breath denies any cough or wheezing denies any chest pain, patient is mostly fatigued and complaining of profound fatigue and weakness. Patient is not having any signs of alcohol withdrawal at this point. Remains on the [facility] protocol, labs from yesterday were reviewed, no labs were done today Objective - Vital Signs Vital signs: Vital Signs Temp 97.8 F 10/31/23 08:34 Pulse 71 10/31/23 13:36 Resp 15 10/31/23 13:36 BP 115/63 10/31/23 11:36 Pulse Ox 95 10/31/23 11:36 FiO2 Intake & Output 10/30/23 10/31/23 10/31/23 18:59 06:59 18:59 Intake Total 1080 240 470 Output Total 200 500 Balance 880 -260 470 Weight 62 kg Intake: Oral 1080 240 470 Output: Urine 200 500 Other: Voiding Method Indwelling Catheter Indwelling Catheter External Catheter - Exam GENERAL: Reveals 73-year-old female in no distress. HEENT: Pupils are round and equally reacting to light. EOMI. No scleral icterus. No conjunctival pallor. Normocephalic, atraumatic. No pharyngeal erythema. No thyromegaly. CARDIOVASCULAR: S1 and S2 present. No murmurs, rubs, or gallops. PULMONARY: Symmetrical chest expansion, clear breath sound bilaterally no rhonchi or wheezes. ABDOMEN: Soft nontender no megaly no rebound no guarding positive bowel sounds. MUSCULOSKELETAL: No deformities and no limitation range of motion EXTREMITIES: No cyanosis, clubbing, or pedal edema. NEUROLOGICAL: Alert oriented x 3 no gross focal deficit Psychiatric: Depressed mood, flat affect, normal mental status examination SKIN: No rashes. 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
[2023-11-01 11:43] LABS: Anisocytosis Slight; Basophils # (A) 0.1 k/uL (0-0.2); Basophils % (A) 1 %; Eosinophils # (A) 0.2 k/uL (0-0.7); Eosinophils % (A) 3 %; HCT 35.2 % (34.0-46.0); HGB 10.6 gm/dL (11.4-16.0); Hypochromasia Slight; Lymphocytes # (A) 1.5 k/uL (1.0-4.8); Lymphocytes % (A) 21 %; MCH 28.6 pg (25.0-35.0); MCHC 30.2 g/dL (31.0-37.0); MCV 94.7 fL (80.0-100.0); Macrocytosis Slight; Monocytes # (A) 1.2 k/uL (0-1.0); Monocytes % (A) 17 %; Neutrophils # (A) 3.9 k/uL (1.3-7.7); Neutrophils % (A) 55 %; Platelet Count 321 k/uL (150-450); RBC 3.71 m/uL (3.80-5.40); RDW 18.7 % (11.5-15.5); WBC 7.1 k/uL (3.8-10.6)
[2023-11-01 11:55] LABS: African American GFR (CKD) >90 (>60 ml/min/1.73 sqM); Anion Gap 7 mmol/L; Blood Urea Nitrogen 12 mg/dL (7-17); Calcium 10.3 mg/dL (8.4-10.2); Carbon Dioxide 27 mmol/L (22-30); Chloride 106 mmol/L (98-107); Glucose 96 mg/dL (74-99); Non-African American GFR(CKD) >90 (>60 ml/min/1.73 sqM); Potassium 4.3 mmol/L (3.5-5.1); Sodium 140 mmol/L (137-145)
--- NOTE | 2023-11-01 14:34 | P.PN ---
Subjective Progress Note Date: 11/01/23 Principal diagnosis: Status post fall secondary to acute alcohol intoxication, and acute alcohol withdrawal 73-year-old female, alcoholic, who is being seen for impending alcohol withdrawals. The patient presented to the emergency department with alcohol intoxication and she had a fall. She had been drinking half to 1 pint of alcohol on daily basis. She was in the garage and she is tripped and fell hitting her head. No loss of consciousness. No seizure activity. No reported aspiration. She came into the emergency following the fall. Alcohol level was 404. Electrolytes are all stable. CAT scan of the brain was negative. CAT scan of the cervical spine was negative. On today's evaluation, the patient is lethargic and weak. She was started on alcohol withdrawal protocol and she is currently on Ativan and Librium. IV fluids are running at a rate of 75 cc an hour. No chest x-rays available. EKG showing normal sinus rhythm. The patient is currently on room air oxygen with a pulse ox of 96%. Slightly tachycardic and shaky. No significant agitation. The white cell count of 4.9 with a hemoglobin 11.2, BUN is at 8 with a creatinine of 0.4 and a sodium levels of 135 and a potassium noted at 3.2. On 11/22/2023, the patient is being seen for a follow-up., Comfortable, lethargic and sleepy. No confusion. Minimal agitation this morning the patient was given a dose of Ativan 1 mg IV. She has not required more medication. She remains on Librium 25 mg p.o. 3 times daily. No active signs of delirium tremens. Noted the patient was acute alcohol intoxicated time of admission. The white cell count is 4.7 with a hemoglobin of 11.2 and a platelet count of 62 which is essentially stable. Electrolytes are stable and the creatinine is at 0.36 with a BUN of 8 and the patient has a potassium level of 3.4 that needs to be replaced. No other specific complaints for now. Hemodynamically stable. 10/27/2023, the patient's main complaint is fatigue. No altered mentation. She is alerted to time and place some people. No restlessness. No agitation. No tremors. She is feeling sleepy. The white cell count is at 4 with a hemoglobin 10.9 and a platelet count of 107, improved compared to yesterday. Potassium level needs to be replaced at 3.3. BUN is at 8 with a creatinine of 0.43. Rest of the medications remain unchanged. Tolerating diet. No nausea or vomiting. No chest pain. No abdominal pain. No other complaints otherwise for now. 10/28/2023, the patient is being seen for a follow-up. Awake and alert and communicating. Overnight, the patient required a total of 2 mg of Ativan. She is currently on Librium. She is still feeling fatigued. No agitation. Limited shakiness. No new labs unavailable from today. She is currently on room air oxygen. No respiratory difficulties and the pulse ox Percent room air oxygen. On 10/29/2023, the patient is still having some limited signs of delirium tremens. She is requiring Ativan and Librium. She is feeling fatigued. Hemoglobin is at 10.9. Electrolytes are stable and the potassium level is down to 3.3 and needs to be replaced. BUN is 18 with a creatinine of 0.4. No agitation. No confusion. Alert and awake and communicating. No other significant events overnight. 10/30/2023, I am seeing the patient for a follow-up. Patient has no specific complaints. Resting comfortably in bed. She feels fatigued and that is her only complaint. Blood work is all stable. Hemoglobin is at 9.9. Electrolytes show a potassium of 3.6, BUN of 7 with creatinine of 0.46 and the patient is on room air oxygen. She has not required any treatment overnight. She remains on Librium. Reevaluate10/31/23, patient is resting in bed, not in any distress, denies shortness of breath denies any cough or wheezing denies any chest pain, patient is mostly fatigued and complaining of profound fatigue and weakness. Patient is not having any signs of alcohol withdrawal at this point. Remains on the [facility] protocol, labs from yesterday were reviewed, no labs were done today Reevaluated today on 11/01/2023, patient is in no distress, except she is complaining of being tired. Undergoing physical therapy, doing well with physical therapy so far. Hardly any pulmonary symptoms no cough no wheezing no shortness of breath, remains on the [facility] protocol. Labs including CBC and basic metabolic profile are relatively normal Objective - Vital Signs Vital signs: Vital Signs Temp 98.2 F 11/01/23 09:01 Pulse 70 11/01/23 11:30 Resp 16 11/01/23 11:30 BP 114/71 11/01/23 11:30 Pulse Ox 96 11/01/23 11:30 FiO2 Intake & Output 10/31/23 11/01/23 11/01/23 18:59 06:59 18:59 Intake Total 692 360 Output Total 1200 Balance 692 -1200 360 Weight 61.4 kg Intake: Oral 692 360 Output: Urine 1200 Other: Voiding Method External Catheter External Catheter External Catheter # Voids 1 1 2 # Bowel Movements 1 - Exam GENERAL: Reveals 73-year-old female in no distress. HEENT: Pupils are round and equally reacting to light. EOMI. No scleral icterus. No conjunctival pallor. Normocephalic, atraumatic. No pharyngeal erythema. No thyromegaly. CARDIOVASCULAR: S1 and S2 present. No murmurs, rubs, or gallops. PULMONARY: Symmetrical chest expansion, clear breath sound bilaterally no rhonchi or wheezes. ABDOMEN: Soft nontender no megaly no rebound no guarding positive bowel sounds. MUSCULOSKELETAL: No deformities and no limitation range of motion EXTREMITIES: No cyanosis, clubbing, or pedal edema. NEUROLOGICAL: Alert oriented x 3 no gross focal deficit Psychiatric: Depressed mood, flat affect, normal mental status examination SKIN: No rashes. 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
[2023-11-01 14:41] VITALS: BMI 21.8
[2023-11-02 09:57] LABS: African American GFR (CKD) >90 (>60 ml/min/1.73 sqM); Anion Gap 6 mmol/L; Blood Urea Nitrogen 16 mg/dL (7-17); Calcium 9.9 mg/dL (8.4-10.2); Carbon Dioxide 28 mmol/L (22-30); Chloride 106 mmol/L (98-107); Glucose 121 mg/dL (74-99); Non-African American GFR(CKD) >90 (>60 ml/min/1.73 sqM); Sodium 140 mmol/L (137-145)
[2023-11-02 12:57] VITALS: RESP 16
--- NOTE | 2023-11-02 15:08 | P.PN ---
Subjective Progress Note Date: 11/02/23 Principal diagnosis: Status post fall secondary to acute alcohol intoxication, and acute alcohol withdrawal 73-year-old female, alcoholic, who is being seen for impending alcohol withdrawals. The patient presented to the emergency department with alcohol intoxication and she had a fall. She had been drinking half to 1 pint of alcohol on daily basis. She was in the garage and she is tripped and fell hitting her head. No loss of consciousness. No seizure activity. No reported aspiration. She came into the emergency following the fall. Alcohol level was 404. Electrolytes are all stable. CAT scan of the brain was negative. CAT scan of the cervical spine was negative. On today's evaluation, the patient is lethargic and weak. She was started on alcohol withdrawal protocol and she is currently on Ativan and Librium. IV fluids are running at a rate of 75 cc an hour. No chest x-rays available. EKG showing normal sinus rhythm. The patient is currently on room air oxygen with a pulse ox of 96%. Slightly tachycardic and shaky. No significant agitation. The white cell count of 4.9 with a hemoglobin 11.2, BUN is at 8 with a creatinine of 0.4 and a sodium levels of 135 and a potassium noted at 3.2. On 11/22/2023, the patient is being seen for a follow-up., Comfortable, lethargic and sleepy. No confusion. Minimal agitation this morning the patient was given a dose of Ativan 1 mg IV. She has not required more medication. She remains on Librium 25 mg p.o. 3 times daily. No active signs of delirium tremens. Noted the patient was acute alcohol intoxicated time of admission. The white cell count is 4.7 with a hemoglobin of 11.2 and a platelet count of 62 which is essentially stable. Electrolytes are stable and the creatinine is at 0.36 with a BUN of 8 and the patient has a potassium level of 3.4 that needs to be replaced. No other specific complaints for now. Hemodynamically stable. 10/27/2023, the patient's main complaint is fatigue. No altered mentation. She is alerted to time and place some people. No restlessness. No agitation. No tremors. She is feeling sleepy. The white cell count is at 4 with a hemoglobin 10.9 and a platelet count of 107, improved compared to yesterday. Potassium level needs to be replaced at 3.3. BUN is at 8 with a creatinine of 0.43. Rest of the medications remain unchanged. Tolerating diet. No nausea or vomiting. No chest pain. No abdominal pain. No other complaints otherwise for now. 10/28/2023, the patient is being seen for a follow-up. Awake and alert and communicating. Overnight, the patient required a total of 2 mg of Ativan. She is currently on Librium. She is still feeling fatigued. No agitation. Limited shakiness. No new labs unavailable from today. She is currently on room air oxygen. No respiratory difficulties and the pulse ox Percent room air oxygen. On 10/29/2023, the patient is still having some limited signs of delirium tremens. She is requiring Ativan and Librium. She is feeling fatigued. Hemoglobin is at 10.9. Electrolytes are stable and the potassium level is down to 3.3 and needs to be replaced. BUN is 18 with a creatinine of 0.4. No agitation. No confusion. Alert and awake and communicating. No other significant events overnight. 10/30/2023, I am seeing the patient for a follow-up. Patient has no specific complaints. Resting comfortably in bed. She feels fatigued and that is her only complaint. Blood work is all stable. Hemoglobin is at 9.9. Electrolytes show a potassium of 3.6, BUN of 7 with creatinine of 0.46 and the patient is on room air oxygen. She has not required any treatment overnight. She remains on Librium. Reevaluate10/31/23, patient is resting in bed, not in any distress, denies shortness of breath denies any cough or wheezing denies any chest pain, patient is mostly fatigued and complaining of profound fatigue and weakness. Patient is not having any signs of alcohol withdrawal at this point. Remains on the [facility] protocol, labs from yesterday were reviewed, no labs were done today Reevaluated today on 11/01/2023, patient is in no distress, except she is complaining of being tired. Undergoing physical therapy, doing well with physical therapy so far. Hardly any pulmonary symptoms no cough no wheezing no shortness of breath, remains on the [facility] protocol. Labs including CBC and basic metabolic profile are relatively normal Reevaluated today on 11/02/2023, patient has no active pulmonary issues, she is being considered for discharge, however she is insisting on going home and she does not want to go to rehab. I have a feeling the patient will end up getting readmitted probably within the next few days if she does go home. I believe the patient will go back to drinking and will come back with similar presentation as she did earlier. Objective - Vital Signs Vital signs: Vital Signs Temp 98.2 F 11/02/23 12:00 Pulse 71 11/02/23 12:00 Resp 16 11/02/23 12:00 BP 112/67 11/02/23 12:00 Pulse Ox 94 L 11/02/23 12:00 FiO2 Intake & Output 11/01/23 11/02/23 11/02/23 18:59 06:59 18:59 Intake Total 540 680 180 Output Total 250 600 Balance 290 80 180 Weight 61.4 kg 63.5 kg Intake: Oral 540 680 180 Output: Urine 250 600 Other: Voiding Method External Catheter External Catheter External Catheter # Voids 1 1 1 - Exam GENERAL: Reveals 73-year-old female in no distress. HEENT: Pupils are round and equally reacting to light. EOMI. No scleral icterus. No conjunctival pallor. Normocephalic, atraumatic. No pharyngeal erythema. No thyromegaly. CARDIOVASCULAR: S1 and S2 present. No murmurs, rubs, or gallops. PULMONARY: Symmetrical chest expansion, clear breath sound bilaterally no rhonchi or wheezes. ABDOMEN: Soft nontender no megaly no rebound no guarding positive bowel sounds. MUSCULOSKELETAL: No deformities and no limitation range of motion EXTREMITIES: No cyanosis, clubbing, or pedal edema. NEUROLOGICAL: Alert oriented x 3 no gross focal deficit Psychiatric: Depressed mood, flat affect, normal mental status examination SKIN: No rashes. 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 Will follow as needed Time with Patient: Less than 30
[2023-11-03 08:25] VITALS: BP 106/68; PULSE 86; TEMP 97.9
--- NOTE | 2023-11-07 10:27 | P.DS ---
Providers Date of admission: 10/25/23 07:32 Expected date of discharge: 11/03/23 Attending physician: Babak Blackwood MD Consults: 10/25/23 11:31 Consult Physician Routine Consulting Provider: Raffaele Lindo Consult Reason/Comments: Alcohol withdrawal Do you want consulting provider notified?: Yes Primary care physician: Gail Davis MD Hospital Course: Final diagnosis Fall Alcohol intoxication Impending alcohol detox Acute transaminitis, trending down Hypomagnesemia, improved post replacement Thrombocytopenia, secondary to continued alcohol use Rivera's esophagus Continued ongoing nicotine dependence Hyperlipidemia Noncompliance with outpatient follow-up and medications GI prophylaxis DVT prophylaxis Full code Discharge disposition Patient is being discharged in a stable condition with guarded prognosis to home. Patient will follow-up with Dr. Gail Davis in the outpatient setting upon discharge. Patient is to continue with quick Librium taper and outpatient follow-up with AA and CM as scheduled. Total time taken is greater than 35 minutes. Hospital course This is a 73-year-old female who was recently admitted with alcohol intoxication with acute delirium tremens and also multiple electrolyte abnormalities being closely monitored. Patient placed on CIWA protocol slowly showing some improvement clinically although patient continued with significant weakness. Patient evaluated by physical therapy recommending rehab and patient was somewhat agreeable. Patient would be required to pay at least $180 daily and reports she is unable to afford and will be going home with home care. Please refer to other dictations for further HPI. Currently no reports of chest pain, shortness of breath, or palpitations. Patient is afebrile. No reports of naus ea or vomiting and patient is tolerating diet. Patient will be discharged home with home care today. Guarded prognosis and high risk for readmissions given continued alcohol abuse Physical exam: Gen: This is a 73-year-old female who is awake, alert and oriented x 3, well- developed, elderly appearing HEENT: Head is atraumatic, normocephalic. Pupils equal, round. Sclerae is anicteric. NECK: Supple. No JVD. No lymphadenopathy. No thyromegaly. LUNGS: Clear to auscultation. No wheezes or rhonchi. No intercostal retractions. HEART: Regular rate and rhythm. No murmur. ABDOMEN: Soft. Bowel sounds are present. No masses. No tenderness. EXTREMITIES: No pedal edema. No calf tenderness. NEUROLOGICAL: Patient is awake, alert and oriented x3. Cranial nerves 2 through 12 are grossly intact. Please refer to medication reconciliation sheet for a list of medications. The impression and plan of care has been dictated by Ny Torres, Nurse Practitioner as directed. Dr. Osmin MD I have performed a history and examination and MDM of this patient, discussed the same with the dictator, and agree with the dictator's assessment and plan as written ,documented as a scribe. Based on total visit time, I have performed more than 50% of the visit. Patient Condition at Discharge: Stable Plan - Discharge Summary Discharge Rx Participant: Yes New Discharge Prescriptions: New chlordiazePOXIDE HCl [Librium] 5 mg PO TID 3 Days #6 cap Continue Albuterol Inhaler [Ventolin Hfa Inhaler] 2 puff INHALATION RT-QID PRN PRN Reason: Shortness Of Breath Montelukast [Singulair] 10 mg PO DAILY Multivit-Min/Iron/Folic/Lutein [Centrum Silver Women Tablet] 1 tab PO DAILY Pantoprazole [Protonix] 40 mg PO BID #60 tab Docusate [Colace] 100 mg PO DAILY Sucralfate [Carafate] 1 gm PO AC-TID 90 Days #90 tab Pravastatin Sodium [Pravachol] 20 mg PO DAILY Cyanocobalamin (Vitamin B-12) [Vitamin B-12] 1,000 mcg PO DAILY Nicotine 14Mg/24Hr Patch [Habitrol] 1 patch TRANSDERM DAILY patch Thiamine [Vitamin B-1] 100 mg PO BID #60 tab Discharge Medication List Sucralfate [Carafate] 1 gm PO AC-TID 90 Days #90 tab 06/07/23 [Rx] Albuterol Inhaler [Ventolin Hfa Inhaler] 2 puff INHALATION RT-QID PRN 08/06/23 [History] Montelukast [Singulair] 10 mg PO DAILY 08/06/23 [History] Multivit-Min/Iron/Folic/Lutein [Centrum Silver Women Tablet] 1 tab PO DAILY 08/06/23 [History] Pravastatin Sodium [Pravachol] 20 mg PO DAILY 08/06/23 [History] Pantoprazole [Protonix] 40 mg PO BID #60 tab 08/10/23 [Rx] Cyanocobalamin (Vitamin B-12) [Vitamin B-12] 1,000 mcg PO DAILY 09/23/23 [History] Docusate [Colace] 100 mg PO DAILY 09/23/23 [History] Nicotine 14Mg/24Hr Patch [Habitrol] 1 patch TRANSDERM DAILY patch 09/26/23 [Rx] Thiamine [Vitamin B-1] 100 mg PO BID #60 tab 09/26/23 [Rx] chlordiazePOXIDE HCl [Librium] 5 mg PO TID 3 Days #6 cap 11/02/23 [Rx] Follow up Appointment(s)/Referral(s): Gail Davis MD [Primary Care Provider] - 1-2 days (Office is currently closed. Please call to schedule appointment) [facility], [NON-STAFF] - 1 Week Patient Instructions/Handouts: Gastritis (DC), Hypomagnesemia (DC) Activity/Diet/Wound Care/Special Instructions: Activity is limited until follow-up Continue with Librium taper on discharge Avoid alcohol use and exposure Follow-up with primary care provider on discharge Discharge/Stand Alone Forms: AA Meetings [address] - [facility], AA Meetings [place], Who Do I Call?, Community Resources, Outpatient Counseling, Inp Substance Abuse Facilities Discharge Disposition: TRANSFER TO SNF/ECF
== END 2023-11-03 09:22 | DRG 897 ==
LOC: EC 07:03 → 6NMEDSUR 10:09 → 3SCARD 10-25 06:23 → OBSVTOIN 10-25 07:32 → 3SCARD 10-25 21:28
PROVIDERS: ADMIT Internal Medicine; ATTEND Internal Medicine
DX: F10.229 Alcohol dependence with intoxication, unspecified (principal); F10.231 Alcohol dependence with withdrawal delirium; S06.9X0A Unspecified intracranial injury without loss of consciousness, initial encounter; D69.59 Other secondary thrombocytopenia; K70.9 Alcoholic liver disease, unspecified; I10 Essential (primary) hypertension; F32.A Depression, unspecified; R40.2362 Coma scale, best motor response, obeys commands, at arrival to emergency department; R40.2142 Coma scale, eyes open, spontaneous, at arrival to emergency department; R40.2252 Coma scale, best verbal response, oriented, at arrival to emergency department; Y90.8 Blood alcohol level of 240 mg/100 ml or more; E83.42 Hypomagnesemia; E78.5 Hyperlipidemia, unspecified; E87.6 Hypokalemia; G57.93 Unspecified mononeuropathy of bilateral lower limbs; F41.9 Anxiety disorder, unspecified; K22.70 Barrett's esophagus without dysplasia; K21.9 Gastro-esophageal reflux disease without esophagitis; F17.200 Nicotine dependence, unspecified, uncomplicated; Z79.899 Other long term (current) drug therapy; Z71.41 Alcohol abuse counseling and surveillance of alcoholic; W01.0XXA Fall on same level from slipping, tripping and stumbling without subsequent striking against object, initial encounter
CPT/HCPCS: 36415; 70450; 72125; 80048; 80053; 80320; 83735; 85025; 93005; 94640; 96361; 96365; 96372; 99285

== ENCOUNTER 2023-11-16 22:40 | Emergency (ER) | payer MEDICARE ==
--- NOTE | 2023-11-17 00:18 | CT ---
EXAM: CT Head Without Intravenous Contrast CLINICAL HISTORY: ITS.REASON CT Reason: fall, ETOH TECHNIQUE: Axial computed tomography images of the head/brain without intravenous contrast. CTDI is 45.2 mGy and DLP is 1044 mGy-cm. This CT exam was performed using one or more of the following dose reduction techniques: automated exposure control, adjustment of the mA and/or kV according to patient size, and/or use of iterative reconstruction technique. COMPARISON: No relevant prior studies available. FINDINGS: Brain: Age-related cerebral volume loss. Periventricular and subcortical white matter hypoattenuation, consistent with chronic microangiopathy. No acute intracranial hemorrhage. No midline shift or mass effect. Ventricles: Unremarkable. No ventriculomegaly. Bones/joints: Unremarkable. No acute fracture. Soft tissues: Unremarkable. Sinuses: Unremarkable as visualized. No acute sinusitis. Mastoid air cells: Unremarkable as visualized. No mastoid effusion. IMPRESSION: No acute intracranial hemorrhage. No midline shift or mass effect. EXAM: CT Cervical Spine Without Intravenous Contrast CLINICAL HISTORY: ITS.REASON CT Reason: fall, ETOH TECHNIQUE: Axial computed tomography images of the cervical spine without intravenous contrast. CTDI is 8.1 mGy and DLP is 222.2 mGy-cm. This CT exam was performed using one or more of the following dose reduction techniques: automated exposure control, adjustment of the mA and/or kV according to patient size, and/or use of iterative reconstruction technique. COMPARISON: No relevant prior studies available. FINDINGS: The vertebral body heights are maintained. The craniocervical junction is intact. The atlanto-dens interval is maintained. The dens is intact. There is no spondylolisthesis. Multilevel cervical spondylosis and degenerative disc disease. Straightening of the cervical lordosis. The unenhanced neck soft tissues are grossly unremarkable. The visualized lung apices are grossly clear. IMPRESSION: No acute fracture or subluxation of the cervical spine.
--- NOTE | 2023-11-17 00:27 | ED ---
Fall HPI - General Chief Complaint: Fall Stated Complaint: fall ETOH Time Seen by Provider: 11/16/23 22:53 Source: patient Mode of arrival: EMS - History of Present Illness Initial Comments: 73-year-old female presenting for evaluation post fall. Patient was at home and fell, she was having difficulty getting back up on her own so her boyfriend called EMS. Patient is a daily drinker, drinks about a half a pint per day. She denies any head injury, loss of consciousness, or use of blood thinners. She has no other injuries. No nausea, vomiting, chest pain, difficulty breath ing, abdominal pain, extremity pain. - Related Data Home Medications Medication Instructions Recorded Confirmed Albuterol Inhaler [Ventolin Hfa 2 puff INHALATION RT-QID PRN 08/06/23 10/23/23 Inhaler] Montelukast [Singulair] 10 mg PO DAILY 08/06/23 10/23/23 Multivit-Min/Iron/Folic/Lutein 1 tab PO DAILY 08/06/23 10/23/23 [Centrum Silver Women Tablet] Pravastatin Sodium [Pravachol] 20 mg PO DAILY 08/06/23 10/23/23 Cyanocobalamin (Vitamin B-12) 1,000 mcg PO DAILY 09/23/23 10/23/23 [Vitamin B-12] Docusate [Colace] 100 mg PO DAILY 09/23/23 10/23/23 Previous Rx's Medication Instructions Recorded Sucralfate [Carafate] 1 gm PO AC-TID 90 Days #90 tab 06/07/23 Pantoprazole [Protonix] 40 mg PO BID #60 tab 08/10/23 Nicotine 14Mg/24Hr Patch [Habitrol] 1 patch TRANSDERM DAILY patch 09/26/23 Thiamine [Vitamin B-1] 100 mg PO BID #60 tab 09/26/23 chlordiazePOXIDE HCl [Librium] 5 mg PO TID 3 Days #6 cap 11/02/23 Allergies Allergy/AdvReac Type Severity Reaction Status Date / Time No Known Allergies Allergy Verified 11/16/23 22:47 Review of Systems ROS Statement: Those systems with pertinent positive or pertinent negative responses have been documented in the HPI. ROS Other: All systems not noted in ROS Statement are negative. Past Medical History Past Medical History: GERD/Reflux, Hyperlipidemia, Hypertension Additional Past Medical History / Comment(s): Barretts Esophagus. neuropathy in feet History of Any Multi-Drug Resistant Organisms: None Reported Past Surgical History: Tonsillectomy Additional Past Surgical History / Comment(s): draining of pericarditis fluid 2006 Past Anesthesia/Blood Transfusion Reactions: No Reported Reaction Past Psychological History: Anxiety, Depression Smoking Status: Current every day smoker Past Alcohol Use History: Abuse, Daily, Heavy Past Drug Use History: None Reported General Exam Limitations: no limitations General appearance: alert, in no apparent distress Head exam: Present: atraumatic, normocephalic Eye exam: Present: normal appearance, EOMI Neck exam: Present: normal inspection, full ROM. Absent: meningismus Respiratory exam: Absent: respiratory distress Cardiovascular Exam: Present: regular rate GI/Abdominal exam: Present: soft, distended (Ascites). Absent: tenderness, guarding, rebound, rigid Neurological exam: Present: alert, oriented X3 Psychiatric exam: Present: normal affect, normal mood Skin exam: Present: warm, dry Course Vital Signs 11/16/23 11/17/23 22:41 00:34 Temperature 98.0 F 97.7 F Pulse Rate 82 80 Respiratory 19 18 Rate Blood Pressure 112/68 99/58 O2 Sat by Pulse 95 96 Oximetry Medical Decision Making - Medical Decision Making Was pt. sent in by a medical professional or institution ([facility], HOSPITAL UNIT CLERK, urgent care, hospital, or alf...) When possible be specific @ -No Did you speak to anyone other than the patient for history (EMS, parent, family, police, friend...)? What history was obtained from this source @ -No Did you review nursing and triage notes (agree or disagree)? Why? @ -I reviewed and agree with nursing and triage notes Were old charts reviewed (outside hosp., previous admission, EMS record, old EKG, old radiological studies, urgent care reports/EKG's, alf records)? Report findings @ -No old charts were reviewed Differential Diagnosis (chest pain, altered mental status, abdominal pain women, abdominal pain men, vaginal bleeding, weakness, fever, dyspnea, syncope, headache, dizziness, GI bleed, back pain, seizure, CVA, palpatations, mental health, musculoskeletal)? @ -Differential includes uncomplicated head injury, concussion, intracranial hemorrhage, fracture, this is not an all-inclusive list EKG interpreted by me (3pts min.). @ -As above X-rays interpreted by me (1pt min.). @ -None done CT interpreted by me (1pt min.). @ -CT shows no acute intracranial hemorrhage. No midline shift or mass effect. No acute fracture or subluxation of the cervical spine U/S interpreted by me (1pt. min.). @ -None done What testing was considered but not performed or refused? (CT, X-rays, U/S, labs)? Why? @ -None What meds were considered but not given or refused? Why? @ -None Did you discuss the management of the patient with other professionals (professionals i.e. DrMayra, PA, HOSPITAL UNIT CLERK, lab, RT, psych nurse, social studies department chair, osteopathy doctor, teacher, customer service officer, hospice case manager)? Give summary @ -No Was smoking cessation discussed for >3mins.? @ -No Was critical care preformed (if so, how long)? @ -No Were there social determinants of health that impacted care today? How? (H omelessness, low income, unemployed, alcoholism, drug addiction, transportation, low edu. Level, literacy, decrease access to med. care, prison, rehab)? @ -No Was there de-escalation of care discussed even if they declined (Discuss DNR or withdrawal of care, Hospice)? DNR status @ -No What co-morbidities impacted this encounter? (DM, HTN, Smoking, COPD, CAD, Cancer, CVA, ARF, Chemo, Hep., AIDS, mental health diagnosis, sleep apnea, morbid obesity)? @ -None Was patient admitted / discharged? Hospital course, mention meds given and route, prescriptions, significant lab abnormalities, going to OR and other pertinent info. @ -73-year-old female presenting for evaluation post fall. She is a daily drinker, drink half a pint tonight. Denies head injury, loss of consciousness, use of blood thinners. History and physical exam are conducted. CT is negative for acute intracranial process or cervical spine fracture. She is educated on today's findings and discharged home. Her boyfriend will be taking her home. Follow-up with PCP. Report back to ER with any new or worsening symptoms. Discussed return parameters and answered all questions. Patient conveyed verbal understanding and agreed to the plan. I discussed this case in detail with my attending Dr. Quintanilla Undiagnosed new problem with uncertain prognosis? @ -No Drug Therapy requiring intensive monitoring for toxicity (Heparin, Nitro, Insulin, Cardizem)? @ -No Were any procedures done? @ -No Diagnosis/symptom? @ -Fall, alcohol intoxication Acute, or Chronic, or Acute on Chronic? @ -Acute Uncomplicated (without systemic symptoms) or Complicated (systemic symptoms)? @ -Complicated Side effects of treatment? @ -No Exacerbation, Progression, or Severe Exacerbation? @ -No Poses a threat to life or bodily function? How? (Chest pain, [place], [place], pneumonia, PE, COPD, DKA, ARF, appy, cholecystitis, CVA, Diverticulitis, Homicidal, Suicidal, threat to staff... and all critical care pts) @ -Unlikely Disposition Clinical Impression: Fall, Alcoholic intoxication Disposition: HOME SELF-CARE Condition: Fair Instructions (If sedation given, give patient instructions): Alcohol Intoxication (ED), Fall Prevention (ED) Additional Instructions: Follow-up with your PCP. Report back to ER with any new or worsening symptoms. Is patient prescribed a controlled substance at d/c from ED?: No Referrals: None,Stated [Primary Care Provider] - 1-2 days [facility] [NON-STAFF] - 1-2 days Time of Disposition: 00:27
[2023-11-17 00:39] VITALS: BP 99/58; PULSE 80; RESP 18; TEMP 97.7
== END 2023-11-17 00:46 | disposition home or self-care (01) ==
LOC: EC 22:40
DX: F10.129 Alcohol abuse with intoxication, unspecified (principal); F17.200 Nicotine dependence, unspecified, uncomplicated; W18.30XA Fall on same level, unspecified, initial encounter; Y92.009 Unspecified place in unspecified non-institutional (private) residence as the place of occurrence of the external cause
CPT/HCPCS: 70450; 72125; 99284

== ENCOUNTER 2023-11-20 14:03 | Emergency (ER) | payer MEDICARE ==
[2023-11-20] MEDS: SODIUM CHLORIDE 0.9% 1,000 ML IV STA (14:49)
--- NOTE | 2023-11-20 15:00 | ED ---
Alcohol HPI - General Chief Complaint: Alcohol Stated Complaint: ETOH Time Seen by Provider: 11/20/23 14:14 Source: EMS Mode of arrival: EMS Limitations: no limitations - History of Present Illness Initial Comments: The patient was brought in by family after being found to be driving her car she was found with an empty vodka bottle and it and the car and the patient did smell of alcohol per family members. She was very lethargic no evidence of any trauma the patient himself has no complaints but again and was lethargic upon arrival. MD Complaint: alcohol intoxication - Related Data Home Medications Medication Instructions Recorded Confirmed Albuterol Inhaler [Ventolin Hfa 2 puff INHALATION RT-QID PRN 08/06/23 10/23/23 Inhaler] Montelukast [Singulair] 10 mg PO DAILY 08/06/23 10/23/23 Multivit-Min/Iron/Folic/Lutein 1 tab PO DAILY 08/06/23 10/23/23 [Centrum Silver Women Tablet] Pravastatin Sodium [Pravachol] 20 mg PO DAILY 08/06/23 10/23/23 Cyanocobalamin (Vitamin B-12) 1,000 mcg PO DAILY 09/23/23 10/23/23 [Vitamin B-12] Docusate [Colace] 100 mg PO DAILY 09/23/23 10/23/23 Previous Rx's Medication Instructions Recorded Sucralfate [Carafate] 1 gm PO AC-TID 90 Days #90 tab 06/07/23 Pantoprazole [Protonix] 40 mg PO BID #60 tab 08/10/23 Nicotine 14Mg/24Hr Patch [Habitrol] 1 patch TRANSDERM DAILY patch 09/26/23 Thiamine [Vitamin B-1] 100 mg PO BID #60 tab 09/26/23 chlordiazePOXIDE HCl [Librium] 5 mg PO TID 3 Days #6 cap 11/02/23 Allergies Allergy/AdvReac Type Severity Reaction Status Date / Time No Known Allergies Allergy Verified 11/20/23 14:13 Review of Systems ROS Statement: Those systems with pertinent positive or pertinent negative responses have been documented in the HPI. ROS Other: All systems not noted in ROS Statement are negative. Past Medical History Past Medical History: GERD/Reflux, Hyperlipidemia, Hypertension Additional Past Medical History / Comment(s): Barretts Esophagus. neuropathy in feet History of Any Multi-Drug Resistant Organisms: None Reported Past Surgical History: Tonsillectomy Additional Past Surgical History / Comment(s): draining of pericarditis fluid 2006 Past Anesthesia/Blood Transfusion Reactions: No Reported Reaction Past Psychological History: Anxiety, Depression Smoking Status: Current every day smoker Past Alcohol Use History: Abuse, Daily, Heavy Past Drug Use History: None Reported General Exam - General Exam Comments Initial Comments: This is a well-developed well-nourished awake lethargic female who does have the smell of alcohol conjoiners on her breath Limitations: no limitations General appearance: lethargic Head exam: Present: atraumatic, normocephalic, normal inspection Eye exam: Present: normal appearance, PERRL, EOMI. Absent: scleral icterus, conjunctival injection, periorbital swelling ENT exam: Present: mucous membranes dry Neck exam: Present: normal inspection, full ROM, other (Better JVD or bruits). Absent: tenderness, meningismus, lymphadenopathy Respiratory exam: Present: normal lung sounds bilaterally. Absent: respiratory distress, wheezes, rales, rhonchi, stridor Cardiovascular Exam: Present: regular rate, normal rhythm, normal heart sounds. Absent: systolic murmur, diastolic murmur, rubs, gallop, clicks GI/Abdominal exam: Present: soft, normal bowel sounds. Absent: distended, tenderness, guarding, rebound, rigid, bruit, pulsatile mass Extremities exam: Present: normal inspection, full ROM, normal capillary refill. Absent: tenderness, pedal edema, joint swelling, calf tenderness Back exam: Present: normal inspection Neurological exam: Present: alert, altered, CN II-XII intact. Absent: motor sensory deficit Psychiatric exam: Present: flat affect Skin exam: Present: warm, dry, intact, normal color. Absent: rash Course Vital Signs 11/20/23 11/20/23 11/20/23 14:05 14:13 17:30 Temperature 98.0 F Pulse Rate 80 79 Respiratory 18 18 Rate Blood Pressure 107/70 113/83 O2 Sat by Pulse 98 95 97 Oximetry Medical Decision Making - Medical Decision Making The patient initially was to be admitted for evaluation of alcohol intoxication. She did subsequently however wake up to become awake alert oriented x 4 and did seem to demonstrate decision-making capacity she does not want to stay in the hospital. Her significant other is here and does agree to take her home and take care of her. Dr. Arredondo is notified via [employer] Was pt. sent in by a medical professional or institution (, HOPE, STEAM POWER PLANT OPERATOR, urgent care, hospital, or senior care...) When possible be specific @ -No Did you speak to anyone other than the patient for history (EMS, parent, family, police, friend...)? What history was obtained from this source @ -Patient's significant other Did you review nursing and triage notes (agree or disagree)? Why? @ -I reviewed and agree with nursing and triage notes Were old charts reviewed (outside hosp., previous admission, EMS record, old EKG, old radiological studies, urgent care reports/EKG's, senior care records)? Report findings @ -No old charts were reviewed Differential Diagnosis (chest pain, altered mental status, abdominal pain women, abdominal pain men, vaginal bleeding, weakness, fever, dyspnea, syncope, headache, dizziness, GI bleed, back pain, seizure, CVA, palpatations, mental health, musculoskeletal)? @ -Intoxication EKG interpreted by me (3pts min.). @ -As above EKG interpreted by me normal sinus rhythm at 75 [place] interval 158 QRS duration 89 QT/QTc 390/[address]-T wave changes X-rays interpreted by me (1pt min.). @ -None done CT interpreted by me (1pt min.). @ -None done U/S interpreted by me (1pt. min.). @ -None done What testing was considered but not performed or refused? (CT, X-rays, U/S, labs)? Why? @ -None What meds were considered but not given or refused? Why? @ -None Did you discuss the management of the patient with other professionals (professionals i.e. , HOPE, STEAM POWER PLANT OPERATOR, lab, RT, psych nurse, executive secretary social welfare, burn nurse, teacher, fisheries technical officer, casework manager)? Give summary @ -Dr Valenzuela Was smoking cessation discussed for >3mins.? @ -No Was critical care preformed (if so, how long)? @ -No Were there social determinants of health that impacted care today? How? (Homelessness, low income, unemployed, alcoholism, drug addiction, transportation, low edu. Level, literacy, decrease access to med. care, fci, rehab)? @ -No Was there de-escalation of care discussed even if they declined (Discuss DNR or withdrawal of care, Hospice)? DNR status @ -No What co-morbidities impacted this encounter? (DM, HTN, Smoking, COPD, CAD, Cancer, CVA, ARF, Chemo, Hep., AIDS, mental health diagnosis, sleep apnea, morbid obesity)? @ -All abuse] Was patient admitted / discharged? Hospital course, mention meds given and route, prescriptions, significant lab abnormalities, going to OR and other pertinent info. @ -Hospital course was discharged in the care of her significant other Undiagnosed new problem with uncertain prognosis? @ -No Drug Therapy requiring intensive monitoring for toxicity (Heparin, Nitro, Insulin, Cardizem)? @ -No Were any procedures done? @ -No Diagnosis/symptom? @ -All intoxication, alcohol abuse Acute, or Chronic, or Acute on Chronic? @ -Acute on chronic Uncomplicated (without systemic symptoms) or Complicated (systemic symptoms)? @ -Default Side effects of treatment? @ -No Exacerbation, Progression, or Severe Exacerbation? @ -No Poses a threat to life or bodily function? How? (Chest pain, [place], [place], pneumonia, PE, COPD, DKA, ARF, appy, cholecystitis, CVA, Diverticulitis, Homicidal, [place], threat to staff... and all critical care pts) @ -Potential - Lab Data Result diagrams: 11/20/23 14:26 11/20/23 14:26 Lab Results 11/20/23 11/20/23 11/20/23 Range/Units 14:26 14:26 14:26 WBC 6.5 (3.8-10.6) k/uL RBC 3.48 L (3.80-5.40) m/uL Hgb 9.9 L (11.4-16.0) gm/dL Hct 30.5 L (34.0-46.0) % MCV 87.7 D (80.0-100.0) fL MCH 28.5 (25.0-35.0) pg MCHC 32.5 (31.0-37.0) g/dL RDW 17.9 H (11.5-15.5) % Plt Count 146 L D (150-450) k/uL MPV 6.6 Neutrophils % (Manual) 63 % Band Neuts % (Manual) 3 % Lymphocytes % (Manual) 18 % Monocytes % (Manual) 10 % Eosinophils % (Manual) 6 % Neutrophils # (Manual) 4.20 (1.3-7.7) k/uL Lymphocytes # (Manual) 1.17 (1.0-4.8) k/uL Monocytes # (Manual) 0.65 (0-1.0) k/uL Eosinophils # (Manual) 0.39 (0-0.7) k/uL Nucleated RBCs 0 (0-0) /100 WBC Manual Slide Review Performed Anisocytosis Slight PT 10.2 (10.0-12.5) sec INR 0.9 (<1.2) Sodium 137 (137-145) mmol/L Potassium 4.3 (3.5-5.1) mmol/L Chloride 99 (98-107) mmol/L Carbon Dioxide 23 (22-30) mmol/L Anion Gap 15 mmol/L BUN 10 (7-17) mg/dL Creatinine 0.36 L (0.52-1.04) mg/dL Est GFR (CKD-EPI)AfAm >90 (>60 ml/min/1.73 sqM) Est GFR (CKD-EPI)NonAf >90 (>60 ml/min/1.73 sqM) Glucose 88 (74-99) mg/dL POC Glucose (mg/dL) (70-110) mg/dL POC Glu Avionics Supervisor ID Calcium 8.6 (8.4-10.2) mg/dL Magnesium 1.5 L (1.6-2.3) mg/dL Total Bilirubin 0.4 (0.2-1.3) mg/dL AST 41 H (14-36) U/L ALT 18 (4-34) U/L Alkaline Phosphatase 119 (38-126) U/L Ammonia (<30) umol/L Total Protein 6.8 (6.3-8.2) g/dL Albumin 3.9 (3.5-5.0) g/dL Lipase 98 (23-300) U/L Serum Alcohol 351 H* mg/dL 11/20/23 11/20/23 Range/Units 14:27 15:01 WBC (3.8-10.6) k/uL RBC (3.80-5.40) m/uL Hgb (11.4-16.0) gm/dL Hct (34.0-46.0) % MCV (80.0-100.0) fL MCH (25.0-35.0) pg MCHC (31.0-37.0) g/dL RDW (11.5-15.5) % Plt Count (150-450) k/uL MPV Neutrophils % (Manual) % Band Neuts % (Manual) % Lymphocytes % (Manual) % Monocytes % (Manual) % Eosinophils % (Manual) % Neutrophils # (Manual) (1.3-7.7) k/uL Lymphocytes # (Manual) (1.0-4.8) k/uL Monocytes # (Manual) (0-1.0) k/uL Eosinophils # (Manual) (0-0.7) k/uL Nucleated RBCs (0-0) /100 WBC Manual Slide Review Anisocytosis PT (10.0-12.5) sec INR (<1.2) Sodium (137-145) mmol/L Potassium (3.5-5.1) mmol/L Chloride (98-107) mmol/L Carbon Dioxide (22-30) mmol/L Anion Gap mmol/L BUN (7-17) mg/dL Creatinine (0.52-1.04) mg/dL Est GFR (CKD-EPI)AfAm (>60 ml/min/1.73 sqM) Est GFR (CKD-EPI)NonAf (>60 ml/min/1.73 sqM) Glucose (74-99) mg/dL POC Glucose (mg/dL) 89 (70-110) mg/dL POC Glu Avionics Supervisor ID Kierra Elizalde Calcium (8.4-10.2) mg/dL Magnesium (1.6-2.3) mg/dL Total Bilirubin (0.2-1.3) mg/dL AST (14-36) U/L ALT (4-34) U/L Alkaline Phosphatase (38-126) U/L Ammonia <9 (<30) umol/L Total Protein (6.3-8.2) g/dL Albumin (3.5-5.0) g/dL Lipase (23-300) U/L Serum Alcohol mg/dL Disposition Clinical Impression: Alcohol intoxication, Alcohol abuse Disposition: HOME SELF-CARE Condition: Stable Instructions (If sedation given, give patient instructions): Alcohol Intoxication (ED) Additional Instructions: Stop drinking alcohol, do not drive your automobile when using alcohol do not operate machinery while using alcohol Is patient prescribed a controlled substance at d/c from ED?: No Referrals: None,Stated [REFERRING] - 1-2 days Time of Disposition: 19:20 Decision Date: 11/20/23 Decision Time: 19:20
[2023-11-20 15:06] LABS: Glucose,Whole Blood 89 mg/dL (70-110)
[2023-11-20 15:12] LABS: Anisocytosis Slight; HCT 30.5 % (34.0-46.0); HGB 9.9 gm/dL (11.4-16.0); MCH 28.5 pg (25.0-35.0); MCHC 32.5 g/dL (31.0-37.0); Mean Platelet Volume 6.6; RBC 3.48 m/uL (3.80-5.40); RDW 17.9 % (11.5-15.5); WBC 6.5 k/uL (3.8-10.6)
[2023-11-20 15:26] LABS: ALT 18 U/L (4-34); AST 41 U/L (14-36); African American GFR (CKD) >90 (>60 ml/min/1.73 sqM); Albumin 3.9 g/dL (3.5-5.0); Alkaline Phosphatase 119 U/L (38-126); Anion Gap 15 mmol/L; Blood Urea Nitrogen 10 mg/dL (7-17); Calcium 8.6 mg/dL (8.4-10.2); Carbon Dioxide 23 mmol/L (22-30); Chloride 99 mmol/L (98-107); Glucose 88 mg/dL (74-99); Lipase 98 U/L (23-300); Magnesium 1.5 mg/dL (1.6-2.3); Non-African American GFR(CKD) >90 (>60 ml/min/1.73 sqM); Potassium 4.3 mmol/L (3.5-5.1); Sodium 137 mmol/L (137-145); Total Bilirubin 0.4 mg/dL (0.2-1.3); Total Protein 6.8 g/dL (6.3-8.2)
[2023-11-20 15:41] LABS: Alcohol 351 mg/dL
[2023-11-20 16:10] LABS: INR 0.9 (<1.2); MCV 87.7 fL (80.0-100.0); Platelet Count 146 k/uL (150-450); Prothrombin Time 10.2 sec (10.0-12.5)
[2023-11-20 16:22] LABS: Band Neutrophils % 3 %; Eosinophils # (M) 0.39 k/uL (0-0.7); Lymphocytes # (M) 1.17 k/uL (1.0-4.8); Monocytes # (M) 0.65 k/uL (0-1.0); Neutrophils % (M) 63 %; Nucleated Red Blood Cells 0 /100 WBC (0-0); Total Cells Counted 100
[2023-11-20 19:19] VITALS: BP 127/89; PULSE 82; RESP 16; TEMP 97.9
== END 2023-11-20 19:28 | disposition home or self-care (01) ==
LOC: EC 14:03
DX: F10.129 Alcohol abuse with intoxication, unspecified (principal); F17.200 Nicotine dependence, unspecified, uncomplicated; Y90.9 Presence of alcohol in blood, level not specified
CPT/HCPCS: 93005; 80053; 82140; 83690; 83735; 85025; 85610; 99284; 96360; 96361 ×4; G0480; 36415; 80320

== ENCOUNTER 2023-11-30 02:45 | Inpatient (IN) | payer MEDICARE ==
[2023-11-30] MEDS ORDERED: chlordiazePOXIDE 25 MG CAP ONE (21:55)
[2023-11-30] MEDS ORDERED: THIAMINE 100 MG TAB ONE (21:55)
[2023-12-01] MEDS ORDERED: chlordiazePOXIDE 25 MG CAP ONE (04:06)
[2023-12-01] MEDS ORDERED: IBUPROFEN 400 MG TAB ONE ×2 (04:10→20:26)
[2023-12-01] MEDS ORDERED: HEPARIN SODIUM,PORCINE 5,000 UNIT/ML 1 ML VIAL ONE ×2 (14:04→23:48)
[2023-12-01] MEDS ORDERED: SUCRALFATE 1 GM TAB ONE (14:04)
[2023-12-01] MEDS ORDERED: PANTOPRAZOLE 40 MG TABLET PO ONE (14:04)
[2023-12-01] MEDS ORDERED: CYANOCOBALAMIN 500 MCG TAB ONE (14:05)
[2023-12-01] MEDS ORDERED: MONTELUKAST 10 MG TAB ONE (20:28)
[2023-12-01] MEDS ORDERED: SODIUM CHLORIDE 0.9% 1,000 ML BAG ONE (23:59)
[2023-12-02] MEDS ORDERED: ACETAMINOPHEN TAB 325 MG TAB ONE (02:34)
[2023-12-02] MEDS ORDERED: CYANOCOBALAMIN 500 MCG TAB ONE (07:48)
[2023-12-02] MEDS ORDERED: HEPARIN SODIUM,PORCINE 5,000 UNIT/ML 1 ML VIAL ONE ×3 (07:48→23:30)
[2023-12-02] MEDS ORDERED: PANTOPRAZOLE 40 MG TABLET PO ONE (07:48)
[2023-12-02] MEDS ORDERED: SUCRALFATE 1 GM TAB ONE ×3 (07:48→17:52)
[2023-12-02] MEDS ORDERED: MONTELUKAST 10 MG TAB ONE (19:46)
[2023-12-02] MEDS ORDERED: NICOTINE 21MG/24HR PATCH TRANSDERM ONE (19:47)
[2023-12-02] MEDS ORDERED: IBUPROFEN 400 MG TAB ONE (19:47)
[2023-12-02] MEDS ORDERED: SODIUM CHLORIDE 0.45% 1,000 ML BAG ONE (23:59)
[2023-12-03] MEDS ORDERED: MELATONIN 3 MG TABLET ONE ×2 (01:43→22:08)
[2023-12-03] MEDS ORDERED: POTASSIUM CHLORIDE 100 ML ONE ×4 (05:22→08:03)
[2023-12-03] MEDS ORDERED: MAGNESIUM SULFATE-D5W PMX 100 ML IVPB ONE ×3 (05:22→06:55)
[2023-12-03] MEDS ORDERED: POTASSIUM CHLORIDE ER 20 MEQ TAB.ER PO ONE (05:22)
[2023-12-03] MEDS ORDERED: PANTOPRAZOLE 40 MG TABLET PO ONE (07:59)
[2023-12-03] MEDS ORDERED: NICOTINE 21MG/24HR PATCH TRANSDERM ONE (08:00)
[2023-12-03] MEDS ORDERED: HEPARIN SODIUM,PORCINE 5,000 UNIT/ML 1 ML VIAL ONE ×3 (08:01→22:46)
[2023-12-03] MEDS ORDERED: CYANOCOBALAMIN 500 MCG TAB ONE (08:02)
[2023-12-03] MEDS ORDERED: SUCRALFATE 1 GM TAB ONE ×2 (08:02→16:17)
[2023-12-03] MEDS ORDERED: MONTELUKAST 10 MG TAB ONE (20:01)
[2023-12-03] MEDS ORDERED: IBUPROFEN 400 MG TAB ONE (20:15)
[2023-12-04] MEDS ORDERED: PANTOPRAZOLE 40 MG TABLET PO ONE (10:19)
[2023-12-04] MEDS ORDERED: HEPARIN SODIUM,PORCINE 5,000 UNIT/ML 1 ML VIAL ONE ×2 (10:19→23:17)
[2023-12-04] MEDS ORDERED: NICOTINE 21MG/24HR PATCH TRANSDERM ONE (10:20)
[2023-12-04] MEDS ORDERED: CYANOCOBALAMIN 500 MCG TAB ONE (10:21)
[2023-12-04] MEDS ORDERED: THIAMINE 100 MG TAB ONE ×2 (10:23→20:21)
[2023-12-04] MEDS ORDERED: ACETAMINOPHEN TAB 325 MG TAB ONE (12:37)
[2023-12-04] MEDS ORDERED: MONTELUKAST 10 MG TAB ONE (20:22)
[2023-12-04] MEDS ORDERED: SODIUM CHLORIDE 0.45% 1,000 ML BAG ONE (23:59)
[2023-12-05] MEDS ORDERED: PANTOPRAZOLE 40 MG TABLET PO ONE (08:09)
[2023-12-05] MEDS ORDERED: NICOTINE 21MG/24HR PATCH TRANSDERM ONE (08:09)
[2023-12-05] MEDS ORDERED: THIAMINE 100 MG TAB ONE (08:09)
[2023-12-05] MEDS ORDERED: CYANOCOBALAMIN 500 MCG TAB ONE (08:09)
[2023-12-05] MEDS ORDERED: HEPARIN SODIUM,PORCINE 5,000 UNIT/ML 1 ML VIAL ONE (08:12)
[2023-12-05] MEDS ORDERED: SUCRALFATE 1 GM TAB ONE ×2 (08:12→13:19)
[2023-12-05] MEDS ORDERED: MULTIVITAMINS, THERA 1 EACH TAB ONE (13:19)
--- NOTE | 2023-12-29 17:44 | XR ---
Site ID synapse default Patient Vielka Rubio ID [id number] Age/Gender: 73Y, F Order # N/A Procedure CXR 2VIEW Date 11/30/2023 10:15:21 PM EXAMINATION TYPE: Chest X-ray 2 Views DATE OF EXAM: 12/17/2023 8:47 PM COMPARISON: Chest radiographs from 09/23/2023, CT chest 04/13/2021 TECHNIQUE: Chest X-ray 2 Views Frontal and lateral views of the chest. Delayed interpretation due to institution cyber attack. CLINICAL INDICATION: Female, 73 year old with history of vomiting; FINDINGS: Lungs/Pleura: There is no evidence of pleural effusion, focal consolidation, or pneumothorax. Chroni c interstitial prominence. Hyperinflation. Stable right apical 4 mm pulmonary nodule. Pulmonary vascularity: Unremarkable. Heart/mediastinum: Cardiomediastinal silhouette is unremarkable. Atherosclerotic calcifications are seen in the aorta. Musculoskeletal: No acute osseous pathology. Mild multilevel degenerative disc disease. IMPRESSION: 1. No acute cardiopulmonary disease/process. 2. COPD changes.
--- NOTE | 2023-12-31 18:26 | US ---
Vielka Rubio : 1950 EXAMINATION TYPE: US abdomen limited DATE OF EXAM: 12/02/2023 Comparison: None available during downtime Clinical History: 73-year-old female with distention, assess for ascites TECHNIQUE: Multiple sonographic images of the 4 abdominal quadrants. Findings: No appreciable ascites in the 4 abdominal quadrants. Incidental echogenic liver parenchyma. Impression: No appreciable ascites fluid. Incidental hepatic steatosis.
== END 2023-12-05 17:20 | disposition home health service (06) | DRG 897 ==
LOC: OBSVTOIN 02:45 → 5NMEDONC 02:45 → UNDOADMOB 12-01 02:45 → UNDODISOB 12-05 17:20
PROVIDERS: ADMIT Hospitalist; ATTEND Hospitalist
DX: F10.239 Alcohol dependence with withdrawal, unspecified (principal); R18.8 Other ascites; E87.20 Acidosis, unspecified; F10.229 Alcohol dependence with intoxication, unspecified; K76.82 Hepatic encephalopathy; K70.10 Alcoholic hepatitis without ascites; K22.70 Barrett's esophagus without dysplasia; Z88.8 Allergy status to other drugs, medicaments and biological substances; Z79.899 Other long term (current) drug therapy
CPT/HCPCS: 71046; 76705; 80053; 80320; 83605; 85025; 99285

== ENCOUNTER 2024-07-18 16:57 | Emergency (ER) | payer MEDICARE ==
[2024-07-18 17:07] VITALS: TEMP 97.8
[2024-07-18] MEDS: SODIUM CHLORIDE 0.9% 1,000 ML IV STA (17:50)
[2024-07-18] MEDS: ONDANSETRON 4 MG/2 ML VIAL IVP STA (17:52)
[2024-07-18] MEDS: PANTOPRAZOLE 40 MG/10 ML VIAL IVP STA (17:52)
[2024-07-18] MEDS: MORPHINE SULFATE 2 MG/ML SYRINGE IVP STA (17:52)
--- NOTE | 2024-07-18 17:56 | ED ---
General Adult HPI - General Chief complaint: GI Bleed Stated complaint: GI bleed Time Seen by Provider: 07/18/24 17:08 Source: patient, EMS Mode of arrival: EMS Limitations: no limitations - History of Present Illness Initial comments: Patient is a 74-year-old female past medical history of alcoholism presenting today for melena and coffee ground emesis. Patient states that melena started about 1 week ago and had 3 days of dark stools. There is no diarrhea or constipation. Then over the last 2 days she has had a few episodes of coffee- ground emesis. Endorses lightheadedness with ambulation. She denies shortness of breath or chest pain. Endorses intermittent bilateral lower abdominal pain. Is not on blood thinners. Denies increased NSAID use. When asked about alcohol use history she is very evasive about answering this question. States her last drink was "a while ago". Does not answer how much she drinks. When asked if she drinks daily she states she does not but does not elaborate. 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 Denies chest pain, fevers or chills. - Related Data Home Medications Medication Instructions Recorded Confirmed Albuterol Inhaler [Ventolin Hfa 2 puff INHALATION RT-QID PRN 08/06/23 10/23/23 Inhaler] Montelukast [Singulair] 10 mg PO DAILY 08/06/23 10/23/23 Multivit-Min/Iron/Folic/Lutein 1 tab PO DAILY 08/06/23 10/23/23 [Centrum Silver Women Tablet] Pravastatin Sodium [Pravachol] 20 mg PO DAILY 08/06/23 10/23/23 Cyanocobalamin (Vitamin B-12) 1,000 mcg PO DAILY 09/23/23 10/23/23 [Vitamin B-12] Docusate [Colace] 100 mg PO DAILY 09/23/23 10/23/23 Previous Rx's Medication Instructions Recorded Sucralfate [Carafate] 1 gm PO AC-TID 90 Days #90 tab 06/07/23 Pantoprazole [Protonix] 40 mg PO BID #60 tab 08/10/23 Nicotine 14Mg/24Hr Patch [Habitrol] 1 patch TRANSDERM DAILY patch 09/26/23 Thiamine [Vitamin B-1] 100 mg PO BID #60 tab 09/26/23 chlordiazePOXIDE HCl [Librium] 5 mg PO TID 3 Days #6 cap 11/02/23 Allergies Allergy/AdvReac Type Severity Reaction Status Date / Time No Known Allergies Allergy Verified 07/18/24 17:06 Review of Systems ROS Statement: Those systems with pertinent positive or pertinent negative responses have been documented in the HPI. ROS Other: All systems not noted in ROS Statement are negative. Past Medical History Past Medical History: GERD/Reflux, Hyperlipidemia, Hypertension Additional Past Medical History / Comment(s): Barretts Esophagus. neuropathy in feet History of Any Multi-Drug Resistant Organisms: None Reported Past Surgical History: Tonsillectomy Additional Past Surgical History / Comment(s): draining of pericarditis fluid 2006 Past Anesthesia/Blood Transfusion Reactions: No Reported Reaction Past Psychological History: Anxiety, Depression Smoking Status: Current every day smoker Past Alcohol Use History: Abuse, Daily, Heavy Past Drug Use History: None Reported General Exam - General Exam Comments Initial Comments: PE: CONSTITUTIONAL: No apparent distress, ill-appearing, nontoxic SKIN: Warm, dry, no jaundice, hives or petechiae EYES: Pupils are equally round, extraocular movements intact without nystagmus, pale conjunctiva, mild scleral icterus sclera HENT: Normocephalic, atraumatic, dry mucus membranes, oropharynx clear without exudates NECK: , Full range of motion, normal appearance PULMONARY: Clear to auscultation without wheezes, rhonchi, or rales, normal excursion, no accessory muscle use and no stridor CARDIOVASCULAR: Regular rate, rhythm, normal S1 and S2. No appreciated murmurs, rubs or gallops. Strong radial pulses with intact distal perfusion. No lower extremity edema GASTROINTESTINAL: Soft, hyper active bowel sounds throughout, non-tender, mildly distended, firm, palpable hepatomegaly withou palpable masses, no rebound or guarding. MUSCULOSKELETAL: Extremities have no gross deformity, no edema, redness, or swelling. No calf swelling NEUROLOGIC:_a/o x 3, GCS 15, normal mentation and speech. Moves all extremities x 4 without motor or sensory deficit PSYCHIATRIC:_normal mood and affect, thought process is clear and linear Limitations: no limitations Course Vital Signs 07/18/24 16:59 Temperature 97.8 F Pulse Rate 96 Respiratory 20 Rate Blood Pressure 120/67 O2 Sat by Pulse 100 Oximetry Medical Decision Making - Medical Decision Making Was pt. sent in by a medical professional or institution (, PA, DIRECTOR OPERATING, urgent care, hospital, or [facility]...) When possible be specific @ -No Did you speak to anyone other than the patient for history (EMS, parent, family, police, friend...)? What history was obtained from this source @ -No Did you review nursing and triage notes (agree or disagree)? Why? @ -I reviewed nursing and triage notes- States patient presents via EMS for GI bleed with incontinent dark black loose stools for 1 and half weeks, coffee- ground emesis since yesterday history alcohol abuse and liver cirrhosis abdominal pain and appears distended; Of note pt endorses 3 days melena to me, 2 days coffee ground emesis Were old charts reviewed (outside hosp., previous admission, EMS record, old EKG, old radiological studies, urgent care reports/EKG's, [facility] records)? Report findings @ -Medical records reviewed- patient last here on 06/10/2024 for similar complaint, at that time her hemoglobin had dropped 3 points, she received 1 unit PRBCs, Protonix, was transferred to [facility], at that time patient was also noted to have hypokalemia and hypomagnesemia Differential Diagnosis (chest pain, altered mental status, abdominal pain women, abdominal pain men, vaginal bleeding, weakness, fever, dyspnea, syncope, headache, dizziness, GI bleed, back pain, seizure, CVA, palpatations, mental health, musculoskeletal)? Differential GI Bleed: Esophageal varices, aortoenteric fistula, Marily-Espinoza, gastritis, peptic ulcer disease, diverticulosis, inflammatory bowel disease, hemorrhoids, fissure, colitis, malignancy, Meckel's diverticulum, this is not meant to be an all- inclusive list. EKG interpreted by me (3pts min.). @ -As above X-rays interpreted by me (1pt min.). @ -None done CT interpreted by me (1pt min.). @ -None done U/S interpreted by me (1pt. min.). @ -None done What testing was considered but not performed or refused? (CT, X-rays, U/S, labs)? Why? @CT abdomen pelvis GI bleed study was considered however patient has not had any active episodes of emesis here, vitals are stable, patient was accepted for transfer prior to CT being performed, therefore do not feel obtaining CT here will change patient's disposition or treatment plan at this time and will only delay patient's transfer so this was canceled What meds were considered but not given or refused? Why? @ -None Did you discuss the management of the patient with other professionals (professionals i.e. , PA, DIRECTOR OPERATING, lab, RT, psych nurse, socially responsible investment adviser, packing shed supervisor, teacher, chief scientific officer, correctional case manager)? Give summary @Case discussed w/ Dr. Reilly, gastroenterology, [facility], kindly accept patient for transfer appreciate coordination of care Was smoking cessation discussed for >3mins.? @ -No Was critical care preformed (if so, how long)? @Yes, 45 minutes Were there social determinants of health that impacted care today? How? (Homelessness, low income, unemployed, alcoholism, drug addiction, transportat ion, low edu. Level, literacy, decrease access to med. care, usp, rehab)? @ -No Was there de-escalation of care discussed even if they declined (Discuss DNR or withdrawal of care, Hospice)? @ -No What co-morbidities impacted this encounter? (DM, HTN, Smoking, COPD, CAD, Cancer, CVA, ARF, Chemo, Hep., AIDS, mental health diagnosis, sleep apnea, morbid obesity)? @Alcoholism, Rivera's esophagus Was patient admitted / discharged? Hospital course, mention meds given and route, prescriptions, significant lab abnormalities, going to OR and other pertinent info. Transfer to [facility]-is a 74-year-old female the past medical history of alcoholism, Rivera's esophagus presenting today for melena and coffee-ground emesis. Vital signs within acceptable limits on arrival. Patient is chronical ly ill-appearing but nontoxic in no acute distress. Mild scleral icterus. Abdomen is mildly distended and firm with hepatomegaly, no other palpable masses. Minimal tenderness to deep palpation in the bilateral lower quadrants. Patient denies alcohol use today but does smell of alcohol and is very evasive when answering questions of alcohol use. Plan for GI bleed workup, IV Protonix, pain control IV fluids, type and cross CT abdomen pelvis anticipate transfer due to no GI here today. Labs lab significant for hemoglobin 8.4, when patient was here previously for similar complaint on 06/10/2024 was 8.8, prior to that on 05/30/2024 is 11.9, platelets 132, bicarb 9, creatinine 0.6, BUN 12, GFR greater than 90, glucose 98, lactic 2.1, calcium 8.2, magnesium 1.2, total bilirubin 2.4, AST/ALT 280/48, alk phos 321, ammonia 39, troponin undetectable, lipase 1051, of note patient has no epigastric tenderness palpation or epigastric abdominal pain. Ordered replacement IV magnesium, potassium, patient received 20 mg IV potassium here, 4 g of IV magnesium was ordered however she did likely only received about 1 g here. Updated patient to findings and plan for transfer. Patient agreeable plan of care.On reassessment patient florecita stable condition. Patient accepted for transfer to [facility]. Transferred in stable condition. Undiagnosed new problem with uncertain prognosis? @ -No Drug Therapy requiring intensive monitoring for toxicity (Heparin, Nitro, Insulin, Cardizem)? @ -No Were any procedures done? @ -No Diagnosis/symptom? @ -Upper GI bleed, hypomagnesemia, hypokalemia Acute, or Chronic, or Acute on Chronic? @Acute Uncomplicated (without systemic symptoms) or Complicated (systemic symptoms)? @Complicated Side effects of treatment? @ -No Exacerbation, Progression, or Severe Exacerbation? @ -No Poses a threat to life or bodily function? How? (Chest pain, [place], [place], pneumonia, PE, COPD, DKA, ARF, appy, cholecystitis, CVA, Diverticulitis, Homicidal, Suicidal, threat to staff... and all critical care pts) @Yes, if left untreated could lead to hemorrhage and - Lab Data Result diagrams: 07/18/24 17:54 07/18/24 17:54 Lab Results 07/18/24 07/18/24 07/18/24 Range/Units 17:54 17:54 17:54 WBC 5.1 (3.8-10.6) k/uL RBC 2.58 L (3.80-5.40) m/uL Hgb 8.4 L (11.4-16.0) gm/dL Hct 25.6 L (34.0-46.0) % MCV 99.2 D (80.0-100.0) fL MCH 32.4 (25.0-35.0) pg MCHC 32.7 (31.0-37.0) g/dL RDW 15.0 (11.5-15.5) % Plt Count 132 L (150-450) k/uL MPV 8.6 Neutrophils % 77 % Lymphocytes % 13 % Monocytes % 7 % Eosinophils % 1 % Basophils % 0 % Neutrophils # 3.9 (1.3-7.7) k/uL Lymphocytes # 0.7 L (1.0-4.8) k/uL Monocytes # 0.4 (0-1.0) k/uL Eosinophils # 0.1 (0-0.7) k/uL Basophils # 0.0 (0-0.2) k/uL Hypochromasia Slight Macrocytosis Slight PT 13.2 H (10.0-12.5) sec INR 1.2 H (<1.2) APTT 24.8 (22.0-30.0) sec Sodium 134 L (137-145) mmol/L Potassium 2.8 L (3.5-5.1) mmol/L Chloride 89 L (98-107) mmol/L Carbon Dioxide 9 L* (22-30) mmol/L Anion Gap 36 mmol/L BUN 12 (7-17) mg/dL Creatinine 0.60 (0.52-1.04) mg/dL Est GFR (CKD-EPI)AfAm >90 (>60 ml/min/1.73 sqM) Est GFR (CKD-EPI)NonAf >90 (>60 ml/min/1.73 sqM) Glucose 98 (74-99) mg/dL Plasma Lactic Acid Lincoln (0.7-2.0) mmol/L Calcium 8.2 L (8.4-10.2) mg/dL Magnesium 1.2 L (1.6-2.3) mg/dL Total Bilirubin 2.4 H (0.2-1.3) mg/dL AST 280 H (14-36) U/L ALT 48 H (4-34) U/L Alkaline Phosphatase 321 H (38-126) U/L Ammonia (<30) umol/L Troponin I (0.000-0.034) ng/mL Total Protein 6.5 (6.3-8.2) g/dL Albumin 3.9 (3.5-5.0) g/dL Lipase 1051 H (23-300) U/L Serum Alcohol 69 mg/dL Blood Type Blood Type Recheck Bld Type Recheck Status Antibody Screen Spec Expiration Date 07/18/24 07/18/24 07/18/24 Range/Units 17:54 17:54 17:57 WBC (3.8-10.6) k/uL RBC (3.80-5.40) m/uL Hgb (11.4-16.0) gm/dL Hct (34.0-46.0) % MCV (80.0-100.0) fL MCH (25.0-35.0) pg MCHC (31.0-37.0) g/dL RDW (11.5-15.5) % Plt Count (150-450) k/uL MPV Neutrophils % % Lymphocytes % % Monocytes % % Eosinophils % % Basophils % % Neutrophils # (1.3-7.7) k/uL Lymphocytes # (1.0-4.8) k/uL Monocytes # (0-1.0) k/uL Eosinophils # (0-0.7) k/uL Basophils # (0-0.2) k/uL Hypochromasia Macrocytosis PT (10.0-12.5) sec INR (<1.2) APTT (22.0-30.0) sec Sodium (137-145) mmol/L Potassium (3.5-5.1) mmol/L Chloride (98-107) mmol/L Carbon Dioxide (22-30) mmol/L Anion Gap mmol/L BUN (7-17) mg/dL Creatinine (0.52-1.04) mg/dL Est GFR (CKD-EPI)AfAm (>60 ml/min/1.73 sqM) Est GFR (CKD-EPI)NonAf (>60 ml/min/1.73 sqM) Glucose (74-99) mg/dL Plasma Lactic Acid Lincoln 2.1 H* (0.7-2.0) mmol/L Calcium (8.4-10.2) mg/dL Magnesium (1.6-2.3) mg/dL Total Bilirubin (0.2-1.3) mg/dL AST (14-36) U/L ALT (4-34) U/L Alkaline Phosphatase (38-126) U/L Ammonia 39 H (<30) umol/L Troponin I <0.012 (0.000-0.034) ng/mL Total Protein (6.3-8.2) g/dL Albumin (3.5-5.0) g/dL Lipase (23-300) U/L Serum Alcohol mg/dL Blood Type B Positive Blood Type Recheck B Pos Bld Type Recheck Status No Antibody Screen NEGATIVE Spec Expiration Date 07/21/20242356 Disposition Clinical Impression: Upper GI bleed, Hypokalemia, Hypomagnesemia Disposition: OTHER INSTITUTION NOT DEFINED Condition: Stable Referrals: None,Stated [REFERRING] - 1-2 days - Out of Hospital Transfer - Req. Specs Out of Hospital Transfer - Requested Specifics: Other Emergency Center ([facility])
[2024-07-18 18:11] LABS: Basophils % (A) 0 %; Eosinophils # (A) 0.1 k/uL (0-0.7); Eosinophils % (A) 1 %; HCT 25.6 % (34.0-46.0); HGB 8.4 gm/dL (11.4-16.0); Hypochromasia Slight; Lymphocytes # (A) 0.7 k/uL (1.0-4.8); Lymphocytes % (A) 13 %; MCH 32.4 pg (25.0-35.0); MCHC 32.7 g/dL (31.0-37.0); Macrocytosis Slight; Mean Platelet Volume 8.6; Monocytes # (A) 0.4 k/uL (0-1.0); Monocytes % (A) 7 %; Neutrophils # (A) 3.9 k/uL (1.3-7.7); Neutrophils % (A) 77 %; Platelet Count 132 k/uL (150-450); RBC 2.58 m/uL (3.80-5.40); WBC 5.1 k/uL (3.8-10.6)
[2024-07-18 18:20] LABS: ALT 48 U/L (4-34); AST 280 U/L (14-36); African American GFR (CKD) >90 (>60 ml/min/1.73 sqM); Albumin 3.9 g/dL (3.5-5.0); Alcohol 69 mg/dL; Alkaline Phosphatase 321 U/L (38-126); Anion Gap 36 mmol/L; Blood Urea Nitrogen 12 mg/dL (7-17); Calcium 8.2 mg/dL (8.4-10.2); Chloride 89 mmol/L (98-107); Glucose 98 mg/dL (74-99); INR 1.2 (<1.2); Lipase 1051 U/L (23-300); Magnesium 1.2 mg/dL (1.6-2.3); Non-African American GFR(CKD) >90 (>60 ml/min/1.73 sqM); Partial Thromboplastin Time 24.8 sec (22.0-30.0); Potassium 2.8 mmol/L (3.5-5.1); Prothrombin Time 13.2 sec (10.0-12.5); Sodium 134 mmol/L (137-145); Total Bilirubin 2.4 mg/dL (0.2-1.3); Total Protein 6.5 g/dL (6.3-8.2)
[2024-07-18 18:26] LABS: Carbon Dioxide 9 mmol/L (22-30)
[2024-07-18 18:30] LABS: MCV 99.2 fL (80.0-100.0)
[2024-07-18] MEDS: MAGNESIUM SULFATE-D5W PMX 1 GM in DEXTROSE/WATER 1 100ML.BAG IVPB SCH (18:59)
[2024-07-18 19:28] LABS: Lactic Acid, Venous 2.1 mmol/L (0.7-2.0)
[2024-07-18] MEDS: POTASSIUM CHLORIDE 20 MEQ in WATER FOR INJECTION 1 100ML.BAG IVPB STA (19:51)
[2024-07-18 20:21] VITALS: BP 141/66; PULSE 73; RESP 18
== END 2024-07-18 20:35 | disposition other institution (70) ==
LOC: EC 16:57
DX: K92.1 Melena (principal); E87.6 Hypokalemia; E83.42 Hypomagnesemia; K22.70 Barrett's esophagus without dysplasia; F10.20 Alcohol dependence, uncomplicated; F17.200 Nicotine dependence, unspecified, uncomplicated; Y90.3 Blood alcohol level of 60-79 mg/100 ml
CPT/HCPCS: 86900; 86901; 80053; 82140; 83605; 83690; 83735; 84484; 85025; 85610; 85730; 86850; 80320; 99291; 96365; 96367 ×2; 96375 ×3; J3480; J2405; J0696; J2270; J3475; J2470

== ENCOUNTER → 2024-09-29 | Outpatient (CLI) | payer MEDICARE ==
--- NOTE | 2024-09-30 11:33 | MR ---
EXAMINATION TYPE: MR abdomen wo/w con DATE OF EXAM: 09/29/2024 11:13 AM INDICATION: Patient age:Female; 74 years old; Reason for study: R10.9 UNSPECIFIED ABDOMINAL PAIN; [facility]. COMPARISON: Abdominal ultrasound 12/28/2023, 11/16/2021, CT abdomen and pelvis 03/17/2023, 11/02/2021 TECHNIQUE: Multiplanar multi-sequence imaging was performed without and with IV contrast. The patie nt was given 7.5 ccs of Gadobutrol intravenously and dynamic imaging was performed. Post IV contrast subtraction images were also submitted for review. FINDINGS: LOWER CHEST: No gross irregularity. ABDOMEN Liver: Noncirrhotic morphology. Nonenlarged. No fatty infiltration. Couple of T2 hyperintense thin-wa lled nonenhancing simple cysts. Gallbladder and Bile ducts: Unremarkable. Pancreas: Unremarkable. Spleen: Upper limits of normal size. Adrenal glands: Unremarkable. Kidneys: No hydronephrosis. Couple of bilateral simple nonenhancing renal cysts with largest in the s uperior pole of the left kidney measuring up to 1.8 cm. No follow up recommended. The kidneys enhance symmetrically. Anterior right mid kidney 2.1 cm heterogenous T2 hypointense lesion. There is some he terogenous enhancement with interdigitating macroscopic fat. Consistent with known angiomyolipoma. Stomach and Bowel: Diffuse gastric wall circumferential thickening measuring up to 2.7 cm. No evidenc e of bowel obstruction. Small hiatal hernia. Scattered colonic diverticulosis without evidence for ac ruby diverticulitis. Peritoneum: No evidence of pneumoperitoneum, free fluid, or adenopathy. Vasculature: Unremarkable. No aortic aneurysm. Abdominal wall: Unremarkable. Musculoskeletal: The osseous structures appear intact. S-shaped curvature of the lumbar spine. IMPRESSION: 1. Nonspecific diffuse gastric wall thickening. Correlate for gastritis versus other etiologies. 2. 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 3. Colonic diverticulosis without evidence for acute diverticulitis. 4. Small hiatal hernia. [facility], , 09/30/2024 11:31 AM
== END | disposition home or self-care (01) ==
LOC: RADMRIMAIN 10:07
PROVIDERS: ATTEND Internal Medicine Gastroenterology
DX: D17.71 Benign lipomatous neoplasm of kidney (principal); K31.89 Other diseases of stomach and duodenum; K57.30 Diverticulosis of large intestine without perforation or abscess without bleeding; K44.9 Diaphragmatic hernia without obstruction or gangrene
CPT/HCPCS: 74183; A9585

== ENCOUNTER → 2024-10-15 | Outpatient (CLI) | payer MEDICARE ==
[2024-10-15 15:12] LABS: HCT 25.3 % (37.2-46.3); HGB 7.1 g/dL (12.0-15.0); MCH 19.6 pg (27.0-32.0); MCHC 28.1 g/dL (32.0-37.0); MCV 69.7 FL (80.0-97.0); Mean Platelet Volume 10.5 FL (9.5-12.2); NRBC Per 100 WBC 0 X 10*3/uL (0.00-0.01); Platelet Count 315 X 10*3/uL (140-440); RBC 3.63 X 10*6/uL (4.10-5.20); WBC 6.66 X 10*3/uL (4.50-10.00)
[2024-10-15 15:23] LABS: Appearance,Urine Clear (Clear); Bilirubin,Urine Negative (Negative); Blood,Urine Negative (Negative); Color,Urine Yellow (Yellow); Ketones,Urine Negative (Negative); Nitrite,Urine Positive (Negative); PH, Urine 6.5; Specific Gravity,Urine 1.008 (1.001-1.030); Urobilinogen,Urine 0.2 E.U./DL
[2024-10-15 15:28] LABS: Bacteria,Urine 3+ (None Seen)
[2024-10-15 15:37] LABS: % Iron Saturation 1.99 (12.00-45.00); BUN/Creat Ratio 22.17 Ratio (12.00-20.00); Blood Urea Nitrogen 13.3 mg/dL (9.0-27.0); Calcium 9.1 mg/dL (8.7-10.3); Carbon Dioxide 22.5 mmol/L (21.6-31.8); Chloride 100 mmol/L (96-109); Ferritin 8.3 ng/mL (10.0-291.0); Glucose 141 mg/dL (70-110); Iron 11 UG/DL (50-170); Magnesium 1.5 mg/dL (1.5-2.4); Potassium 4.3 mmol/L (3.5-5.5); Sodium 134 mmol/L (135-145); Total Iron Binding Capacity 554 UG/DL (228-460)
[2024-10-15 16:18] LABS: Acanthocytes 2+ (None Seen); Anisocytosis (M) 2+ (None Seen); Basophils # (A) 0.05 X 10*3/uL (0.00-0.10); Basophils % (A) 0.8 %; Elliptocytes 2+ (None Seen); Hypochromasia (M) 2+ (None Seen); Lymphocytes # (A) 1.74 X 10*3/uL (0.90-5.00); Lymphocytes % (A) 26.1 %; Microcytosis (M) 2+ (None Seen); Monocytes # (A) 0.86 X 10*3/uL (0.20-1.00); Monocytes % (A) 12.9 %; Neutrophils # (A) 3.79 X 10*3/uL (1.80-7.70); Neutrophils % (A) 56.9 %; Rouleaux Present (Absent)
== END | disposition home or self-care (01) ==
LOC: LABWHC1 09:13
PROVIDERS: ATTEND Internal Medicine Nephrology
DX: E87.1 Hypo-osmolality and hyponatremia (principal); E55.9 Vitamin D deficiency, unspecified; D64.9 Anemia, unspecified; N39.0 Urinary tract infection, site not specified
CPT/HCPCS: 36415; 80048; 81001; 82306; 82728; 83540; 83550; 83735; 85025